=== PATIENT | female | born 1970 | race Caucasian/White ===

== ENCOUNTER 2016-08-16 20:22 | Emergency (ER) | payer BC, OTHER ==
[~2016-08-16 20:22] MED LIST: ADDE30CA PO; AMBI6.25 PO; ATIV0.5T; ATIV1TAB10 PO; BIOT50004 PO; BUPR150T3 PO; COCO1000 PO; COLA100C PO; DEPA1TAB3 PO; ESTRACE PO; FOLI1TAB2 PO; GABA300C3 PO; LISI10TA4 PO; NEUR300C PO; OGEN; OGEN.625 PO; OXYC-299 PO; PERC5TAB6 PO; PERC5TAB8; PREG25CA PO; PROZ20CA11 PO; SERO1TAB PO; Sumatriptan Succinate PO; TERAZOL3 VAGINALLY; TOPA100T8 PO; TOPA25TA10 PO; TOPAMAX PO; TRAZ50TA4 PO; VERA40TA PO; VIST25CA PO; VITA500046 PO; WELL75TA PO; ZANA2CAP PO; ZANA4TAB PO; ZOLO25TA PO; ZOVIRAX PO; [UNRECOGNIZED DRUG - CODE] PO
== END 2016-08-16 22:30 | disposition left against medical advice (07) ==
LOC: M ED 20:22
DX: R51 Headache (principal); Z53.20 Procedure and treatment not carried out because of patient's decision for unspecified reasons

== ENCOUNTER 2016-08-17 09:31 | Emergency (ER) | payer BC, OTHER ==
[2016-08-17] MEDS ORDERED: diphenhydrAMINE INJ 50MG/ML VIAL (J1200) As Ordered ONE (09:54)
[2016-08-17] MEDS ORDERED: ACETAMINOPHEN 325 MG TAB As Ordered ONE (09:55)
[2016-08-17] MEDS ORDERED: KETOROLAC 30 MG/ML VIAL (J1885) As Ordered ONE (09:55)
[2016-08-17] MEDS ORDERED: HYDROmorphone HCL 1 MG/ML SYRINGE (J1170) As Ordered ONE ×2 (10:35→11:01)
--- NOTE | 2016-08-17 13:45 | EDDOCDS ---
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 Pain began last kr3 night. Came to Ed last night but it was too busy here so left prior to treatment. This patient has no additional risk factors. Adult Sepsis Screening: The patient does not have new or worsening altered mentation. Patient's respiratory rate is less than 22. Systolic blood pressure is greater than 100. Patient has a qSOFA score of 0- Negative Sepsis Screen. Suicide/Homicide risk assessment- the patient denies having any suicidal and/or homicidal ideations and does not present with any other emotional, behavioral or mental health complaints. Status: Patient is not a career services assistant or dependent. Transition of care: patient was not received from another setting of care. 09:37 Acuity: WANDA Level 3 kr3 09:37 Method Of Arrival: Walkin/Carried/Asstd kr3 Triage Assessment: 09:40 Headache History: This patient has a history of headaches and the character of this kr3 headache is like all previous headaches. General: Appears comfortable, Behavior is appropriate for age, cooperative. Pain: Location: right side of head Pain currently is 9 out of 10 on a pain scale. Pain: Pain began last night Also complains of numbness left side of face. HIV screening NA for this visit Offered previously. Neurological: Level of Consciousness is awake, alert, Moves all extremities. Gait is steady, Speech is normal, Facial symmetry appears normal. Respiratory: Respiratory effort is even, unlabored. Derm: Skin is normal. 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 Adderall XR 25 mg Oral cp24 1 cap once daily 2. Ativan 0.5 mg Oral tab as needed has taken 3 tabs today 3. nortriptyline 25 mg Oral cap nightly 4. Percocet 5-325 mg Oral tab 2 tabs as needed 5. Prozac 20 mg Oral cap 1 cap once daily 6. Seroquel 100 mg Oral tab nightly 7. Topamax 100 mg Oral tab 2 times per day 8. Zanaflex 4 mg Oral cap daily - PMHx: cervical stenosis; complex migraines; ulnar nerve neroupathy left arm; - PSHx: Cesearean Section; Hysterectomy; Disc surgery; ulnar nerve surgery; - Social history: Smoking status: Patient uses tobacco products, current every day smoker. No barriers to communication noted, The patient speaks fluent Palauan, Speaks appropriately for age. - Family history: Not pertinent. - : The pt / caregiver states he / she is not on anticoagulants. Home medication list is obtained from the patient. - Exposure Risk Screening:: None identified. Screenin:58 Screening information is obtained from the patient. Primary language is Palauan. jam1 Primary language is Palauan. Fall risk: No risks identified. Assistance ADL's: requires no assistance with activities of daily living. Abuse/DV Screen: The patient / caregiver reports he/she is: not in a situation that causes fear, pain or injury. Nutritional screening: No deficits noted. Exposure Risk Screening: None identified. Advance Directives: Currently, there is a health care proxy, raghav koenig of pt. There is no active DNR order. There is no living will. There is no Power of Renovation Plant Supervisor. Advance directive information has been placed on a prior [facility] medical record, but the patient/ family does not know when. Further advance directive information is declined. home support is adequate. Assessment: 10:08 Adult Sepsis Screening: The patient does not have new or worsening altered mentation. dsf Patient's respiratory rate is less than 22. Systolic blood pressure is greater than 100. Patient has a qSOFA score of 0- Negative Sepsis Screen. General: Appears uncomfortable, Behavior is appropriate for age, cooperative. Pain: Location: right side of head Pain currently is 10 out of 10 on a pain scale. Quality of pain is described as throbbing, Aggravated by lights and noise. Neurological: Level of Consciousness is awake, alert, Oriented to person, place, time. Cardiovascular: No deficits noted. Respiratory: No deficits noted. GI: Reports nausea. Derm: Skin is pink, warm & dry. 10:39 Reassessment: Patient appears in no apparent distress at this time. Patient states srm symptoms have not improved. Pain: Pain currently is 9 out of 10 on a pain scale. 10:56 General: Behavior is cooperative. General: Appears in no apparent distress. Pain: Pain dsf currently is 8 out of 10 on a pain scale. Respiratory: Airway is patent Respiratory effort is even, unlabored, Respiratory pattern is regular, symmetrical. Derm: Skin is pink, warm & dry. 11:38 Adult Sepsis Screening: The patient does not have new or worsening altered mentation. dsf Patient's respiratory rate is less than 22. Systolic blood pressure is greater than 100. Patient has a qSOFA score of 0- Negative Sepsis Screen. General: Appears in no apparent distress, Behavior is appropriate for age, cooperative. Pain: Location: right side of head Pain currently is 7 out of 10 on a pain scale. Quality of pain is described as throbbing. Neurological: Level of Consciousness is awake, alert, Oriented to person, place, time, Speech is normal, Facial symmetry appears normal, Reports numbness to left side of face. satya SOLORZANO notified . Cardiovascular: No deficits noted. Respiratory: No deficits noted. Derm: Skin is pink, warm & dry. 12:16 General: Appears in no apparent distress, Behavior is appropriate for age, cooperative. dsf Pain: Location: right side of head Pain currently is 7 out of 10 on a pain scale. Neurological: Level of Consciousness is awake, alert, Oriented to person, place, time, Speech is normal, Facial symmetry appears normal, Reports numbness to left side of face . Cardiovascular: No deficits noted. Respiratory: No deficits noted. Derm: Skin is pink, warm & dry. 13:17 General: Appears in no apparent distress, uncomfortable, Behavior is appropriate for dsf age, cooperative. Pain: Location: right side of head Pain currently is 7 out of 10 on a pain scale. Neurological: Level of Consciousness is awake, alert. Cardiovascular: Capillary refill < 3 seconds. Respiratory: Airway is patent Respiratory effort is even, unlabored, Respiratory pattern is regular, symmetrical. Derm: Skin is pink, warm & dry. 13:43 Adult Sepsis Screening: The patient does not have new or worsening altered mentation. dsf Patient's respiratory rate is less than 22. Systolic blood pressure is greater than 100. Patient has a qSOFA score of 0- Negative Sepsis Screen. General: Appears in no apparent distress, uncomfortable, Behavior is appropriate for age, cooperative. Pain: Location: right side of head Pain currently is 7 out of 10 on a pain scale. Quality of pain is described as throbbing. Neurological: Level of Consciousness is awake, alert, Oriented to person, place, time, Speech is normal, Facial symmetry appears normal, Reports numbness to left side of face. Cardiovascular: No deficits noted. Respiratory: No deficits noted. Derm: Skin is pink, warm & dry. Vital Signs: 09:33 BP 115 / 90 RA Sitting (auto/reg); Pulse 92 RA; Resp 18 S; Temp 97.0(O); Pulse Ox 100% mt4 on R/A; Weight 62.6 kg (R); Height 5 ft. 1 in. (154.94 cm) (R); Pain 9/10; 10:39 BP 132 / 72; Pulse 85; Resp 18; Pulse Ox 100% ; Pain 9/10; srm 10:39 Pain 9/10; srm 10:56 BP 144 / 70; Pulse 82; Resp 18; Pulse Ox 100% on R/A; Pain 8/10; dsf 11:38 BP 135 / 64; Pulse 98; Resp 16; Pulse Ox 100% on R/A; Pain 7/10; dsf 13:30 BP 128 / 65; Pulse 80; Resp 18; Temp 97.9; Pulse Ox 99% ; Pain 7/10; jam1 09:33 Body Mass Index 26.07 (62.60 kg, 154.94 cm) mt4 Vitals: 09:33 Log In Time: August 17, 2016 at 09:31. RN notified that patient meets Red Flag mt4 criteria. ED Course: 09:32 Patient visited by Alayna Cervantes. mt4 09:32 Patient moved to Waiting mt4 09:33 Walter Mix is Private Physician. mt4 09:37 Patient moved to Triage 3 kr3 09:38 Triage Initiated kr3 09:39 [facility] Gonzalez [facility] ar2 09:39 Major Goncalves MD is Attending Physician. ar2 09:39 Patient visited by Satya Gonzalez PA-C. ar2 09:48 Patient moved to I7 / kr3 09:58 Pt greeted and oriented to ED. Patient advised of names of staff involved in care, jam1 location of call engle, wait times and NPO status. Patient has correct armband on for positive identification. Placed in gown. Bed in low position. Call light in reach. Side rails up X 1. Door closed. 10:08 Inserted saline lock: 20 gauge in left antecubital area The patient tolerated the dsf procedure well. 10:09 Patient visited by Idania Sapp RN. dsf 10:39 Patient visited by Sunita Ramon RN. srm 10:57 Patient visited by Idania Sapp RN. dsf 11:01 [facility] Payment Agreement was scanned into [employer] and attached to record. lg 11:03 Patient moved to I1 / M1 jam1 11:06 Patient visited by Sunita Ramon RN. srm 11:39 Patient visited by Idania Sapp RN. dsf 12:[address] dsf 12:12 Patient moved to I1 / M1 srm 12:16 Patient visited by Idania Sapp RN. dsf 12:28 Pt greeted and oriented to ED. Patient advised of names of staff involved in care, jam1 location of call engle, wait times and NPO status. Patient has correct armband on for positive identification. Bed in low position. Call light in reach. Side rails up X 1. Door closed. 12:35 Diet: gingerale. jam1 13:18 Patient visited by Idania Sapp RN. dsf 13:38 Walter Mix is Referral Physician. ar2 13:38 Jose Ma MD is Referral Physician. ar2 13:43 The patient / caregiver is instructed regarding the plan of care and ED course. dsf 13:43 Discontinued lock intact, bleeding controlled, pressure dressing applied, No dsf redness/swelling at site. No procedures done that require assistance. 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): Acetaminophen Tablet 975 mg PO once ar2 10:07 Drug: NS 0.9% 1000 ml [sodium chloride 0.9 % injection solution] Route: IV; Rate: dsf bolus; Site: left antecubital; 10:07 Drug: ketorolac 30 mg [ketorolac 30 mg/mL (1 mL) injection solution (1 mL)] Route: IVP; dsf Site: left antecubital; 10:39 Follow up: BP 132 / 72; Pulse 85 bpm; Resp 18 bpm; Pulse Ox 100% ; Pain 9/10 Adult srm 10:07 Drug: diphenhydrAMINE 12.5 mg [diphenhydramine 50 mg/mL injection solution (0.25 mL)] dsf Route: IVP; Site: left antecubital; 10:39 Follow up: Pain 9/10 Adult srm 10:38 Drug: Dilaudid - HYDROmorphone 0.5 mg [hydromorphone 1 mg/mL injection syringe (0.5 srm mL)] Route: IVP; Site: left antecubital; 10:56 Follow up: BP 144 / 70; Pulse 82 bpm; Resp 18 bpm; Pulse Ox 100% RA; Pain 8/10 Adult dsf 11:04 Drug: Dilaudid - HYDROmorphone 1 mg [hydromorphone 1 mg/mL injection syringe (1 mL)] srm Route: IVP; Site: left antecubital; 11:38 Follow up: BP 135 / 64; Pulse 98 bpm; Resp 16 bpm; Pulse Ox 100% RA; Pain 7/10 Adult dsf Order Results: There are currently no results for this order. Outcome: 13:38 Discharge ordered by Provider. ar2 13:43 Discharge Assessment: Patient awake, alert and oriented x 3. No cognitive and/or dsf functional deficits noted. Patient verbalized understanding of disposition instructions. patient administered narcotics - yes. Pt provided with safe discharge. The following High Risk Discharge criteria are identified: None. Discharged to home ambulatory, with family. Condition: stable. Discharge instructions given to patient, Instructed on discharge instructions, follow up and referral plans. medication usage, no driving heavy equipment, Demonstrated understanding of instructions, medications, Pt was receptive of discharge instructions/ teaching. Prescriptions given X 2. CT Study completed. Property sent home with patient. 13:45 Patient left the ED. dsf Signatures: Sunita Ramon, RN RN srm Shelly Sheikh, MILL TURNER MILL TURNER jam1 Yuko Anderson, Josh Reg lg Ivette Maldonado,EMANI RN kr3 Satya Gonzalez, PA-C PA-C ar2 Alayna Cervantes mt4 Idania Sapp RN RN dsf MTDD
--- NOTE | 2016-08-17 13:45 | EDDOCDS ---
Physician Documentation [facility] Name: Adrienne Koenig Age: 46 yrs Sex: Female : 1970 Arrival Date: 08/17/2016 Time: 09:31 Bed I1 / M1 Private MD: Walter Mix WAT Disposition: 08/17/16 13:38 Discharged to Home/Self Care. Impression: Hemiplegic migraine, not intractable, without status migrainosus - complicated. - Condition is Stable. - Discharge Instructions: Migraine Headache. - Prescriptions for Naprosyn 500 mg Oral Tablet - take 1 tablet by ORAL route 2 times per day take with food; 30 tablet. Snowflake 5- 325 mg Oral Tablet - take 1 tablet by ORAL route every 6 hours As needed MDD: 4 tabs; 6 tablet. - Medication Reconciliation, Local Pharmacy Hours form. - Follow up: Walter Mix; When: As needed; Reason: Continuance of care. Follow up: Jose Ma; When: Call to arrange an appointment; Reason: Recheck today's complaints, Continuance of care. Follow up: Emergency Department; When: As needed; Reason: Worsening of conditions. - Problem is an acute exacerbation. - Symptoms have improved. Historical: - Allergies: Phenergan (crawl out of skin); Reglan (crawl out of skin); - Home Meds: 1. Adderall XR 25 mg Oral cp24 1 cap once daily 2. Ativan 0.5 mg Oral tab as needed has taken 3 tabs today 3. nortriptyline 25 mg Oral cap nightly 4. Percocet 5-325 mg Oral tab 2 tabs as needed 5. Prozac 20 mg Oral cap 1 cap once daily 6. Seroquel 100 mg Oral tab nightly 7. Topamax 100 mg Oral tab 2 times per day 8. Zanaflex 4 mg Oral cap daily - PMHx: cervical stenosis; complex migraines; ulnar nerve neroupathy left arm; - PSHx: Cesearean Section; Hysterectomy; Disc surgery; ulnar nerve surgery; - Social history: Smoking status: Patient uses tobacco products, current every day smoker. No barriers to communication noted, The patient speaks fluent Romanian, Speaks appropriately for age. - Family history: Not pertinent. - : The pt / caregiver states he / she is not on anticoagulants. Home medication list is obtained from the patient. - Exposure Risk Screening:: None identified. 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 1 in. (154.94 cm) (R); Pain 9/10; 10:39 BP 132 / 72; Pulse 85; Resp 18; Pulse Ox 100% ; Pain 9/10; srm 10:39 Pain 9/10; srm 10:56 BP 144 / 70; Pulse 82; Resp 18; Pulse Ox 100% on R/A; Pain 8/10; dsf 11:38 BP 135 / 64; Pulse 98; Resp 16; Pulse Ox 100% on R/A; Pain 7/10; dsf 13:30 BP 128 / 65; Pulse 80; Resp 18; Temp 97.9; Pulse Ox 99% ; Pain 7/10; jam1 09:33 Body Mass Index 26.07 (62.60 kg, 154.94 cm) mt4 MDM: 09:50 IV Saline Lock ordered. ar2 09:50 NS 0.9% 1000 ml IV at bolus once ordered. ar2 09:50 ketorolac 30 mg IVP once ordered. ar2 09:50 Acetaminophen Tablet 975 mg PO once ordered. ar2 09:50 diphenhydrAMINE 12.5 mg IVP once ordered. ar2 10:05 Acetaminophen Tablet 975 mg PO once ordered. ar2 10:32 Dilaudid - HYDROmorphone 0.5 mg IVP once ordered. ar2 10:48 Financial registration complete. lg 10:59 Dilaudid - HYDROmorphone 1 mg IVP once ordered. ar2 11:01 [facility] Payment Agreement was scanned into [employer] and attached to record. lg 11:52 CT Head Without Contrast Ordered. 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): Acetaminophen Tablet 975 mg PO once ar2 10:07 Drug: NS 0.9% 1000 ml [sodium chloride 0.9 % injection solution] Route: IV; Rate: dsf bolus; Site: left antecubital; 10:07 Drug: ketorolac 30 mg [ketorolac 30 mg/mL (1 mL) injection solution (1 mL)] Route: IVP; dsf Site: left antecubital; 10:39 Follow up: BP 132 / 72; Pulse 85 bpm; Resp 18 bpm; Pulse Ox 100% ; Pain 9/10 Adult srm 10:07 Drug: diphenhydrAMINE 12.5 mg [diphenhydramine 50 mg/mL injection solution (0.25 mL)] dsf Route: IVP; Site: left antecubital; 10:39 Follow up: Pain 9/10 Adult srm 10:38 Drug: Dilaudid - HYDROmorphone 0.5 mg [hydromorphone 1 mg/mL injection syringe (0.5 srm mL)] Route: IVP; Site: left antecubital; 10:56 Follow up: BP 144 / 70; Pulse 82 bpm; Resp 18 bpm; Pulse Ox 100% RA; Pain 8/10 Adult dsf 11:04 Drug: Dilaudid - HYDROmorphone 1 mg [hydromorphone 1 mg/mL injection syringe (1 mL)] srm Route: IVP; Site: left antecubital; 11:38 Follow up: BP 135 / 64; Pulse 98 bpm; Resp 16 bpm; Pulse Ox 100% RA; Pain 7/10 Adult dsf Signatures: Dispatcher [employer] EDYuko Leonard Reg Reg lg Ivette Maldonado RN RN kr3 Satya Gonzalez PA-C PA-C ar2 Idania Sapp RN RN dsf Sunita Ramon RN srm The chart was reviewed and I authenticate all verbal orders and agree with the evaluation and treatment provided.Attachments: 11:01 [facility] Payment Agreement lg MTDD
--- NOTE | 2016-08-17 13:52 | REP ---
Brain CT without contrast: History: Right parietal headache. Left facial droop. Comparison head CT study is from October 01, 2015. CT findings: Bone window settings demonstrate an intact bony calvarium. There is minimal vascular calcification in the carotid siphons. Paranasal sinuses are clear. On soft tissue window settings, lateral, third, and fourth ventricles are normal in size and position. Kelsey-white differentiation pattern is normal above and below the tentorium. There is no evidence of intracranial hemorrhage. No mass, infarction, extra-axial fluid collection, or midline shift is seen. Impression: Minimal vascular calcification otherwise negative noncontrast head CT. Signed by Tj Martinez MD 08/17/2016 02:39 P
--- NOTE | 2016-08-19 14:47 | EDDOCDS ---
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 Pain began last kr3 night. Came to Ed last night but it was too busy here so left prior to treatment. This patient has no additional risk factors. Adult Sepsis Screening: The patient does not have new or worsening altered mentation. Patient's respiratory rate is less than 22. Systolic blood pressure is greater than 100. Patient has a qSOFA score of 0- Negative Sepsis Screen. Suicide/Homicide risk assessment- the patient denies having any suicidal and/or homicidal ideations and does not present with any other emotional, behavioral or mental health complaints. Status: Patient is not a service correspondent or dependent. Transition of care: patient was not received from another setting of care. 09:37 Acuity: WANDA Level 3 kr3 09:37 Method Of Arrival: Walkin/Carried/Asstd kr3 Triage Assessment: 09:40 Headache History: This patient has a history of headaches and the character of this kr3 headache is like all previous headaches. General: Appears comfortable, Behavior is appropriate for age, cooperative. Pain: Location: right side of head Pain currently is 9 out of 10 on a pain scale. Pain: Pain began last night Also complains of numbness left side of face. HIV screening NA for this visit Offered previously. Neurological: Level of Consciousness is awake, alert, Moves all extremities. Gait is steady, Speech is normal, Facial symmetry appears normal. Respiratory: Respiratory effort is even, unlabored. Derm: Skin is normal. PROP SAWYER: 09:40 LMP N/A - Hysterectomy kr3 Historical: - Allergies: Phenergan (crawl out of skin); Reglan (crawl out of skin); - Home Meds: 1. Adderall XR 25 mg Oral cp24 1 cap once daily 2. Ativan 0.5 mg Oral tab as needed has taken 3 tabs today 3. nortriptyline 25 mg Oral cap nightly 4. Percocet 5-325 mg Oral tab 2 tabs as needed 5. Prozac 20 mg Oral cap 1 cap once daily 6. Seroquel 100 mg Oral tab nightly 7. Topamax 100 mg Oral tab 2 times per day 8. Zanaflex 4 mg Oral cap daily - PMHx: cervical stenosis; complex migraines; ulnar nerve neroupathy left arm; - PSHx: Cesearean Section; Hysterectomy; Disc surgery; ulnar nerve surgery; - Social history: Smoking status: Patient uses tobacco products, current every day smoker. No barriers to communication noted, The patient speaks fluent Sri Lankan, Speaks appropriately for age. - Family history: Not pertinent. - : The pt / caregiver states he / she is not on anticoagulants. Home medication list is obtained from the patient. - Exposure Risk Screening:: None identified. Screenin:58 Screening information is obtained from the patient. Primary language is Sri Lankan. jam1 Primary language is Sri Lankan. Fall risk: No risks identified. Assistance ADL's: requires no assistance with activities of daily living. Abuse/DV Screen: The patient / caregiver reports he/she is: not in a situation that causes fear, pain or injury. Nutritional screening: No deficits noted. Exposure Risk Screening: None identified. Advance Directives: Currently, there is a health care proxy, raghav koenig of pt. There is no active DNR order. There is no living will. 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 Advance directive information has been placed on a prior [facility] medical record, but the patient/ family does not know when. Further advance directive information is declined. home support is adequate. Assessment: 10:08 Adult Sepsis Screening: The patient does not have new or worsening altered mentation. dsf Patient's respiratory rate is less than 22. Systolic blood pressure is greater than 100. Patient has a qSOFA score of 0- Negative Sepsis Screen. General: Appears uncomfortable, Behavior is appropriate for age, cooperative. Pain: Location: right side of head Pain currently is 10 out of 10 on a pain scale. Quality of pain is described as throbbing, Aggravated by lights and noise. Neurological: Level of Consciousness is awake, alert, Oriented to person, place, time. Cardiovascular: No deficits noted. Respiratory: No deficits noted. GI: Reports nausea. Derm: Skin is pink, warm & dry. 10:39 Reassessment: Patient appears in no apparent distress at this time. Patient states srm symptoms have not improved. Pain: Pain currently is 9 out of 10 on a pain scale. 10:56 General: Behavior is cooperative. General: Appears in no apparent distress. Pain: Pain dsf currently is 8 out of 10 on a pain scale. Respiratory: Airway is patent Respiratory effort is even, unlabored, Respiratory pattern is regular, symmetrical. Derm: Skin is pink, warm & dry. 11:38 Adult Sepsis Screening: The patient does not have new or worsening altered mentation. dsf Patient's respiratory rate is less than 22. Systolic blood pressure is greater than 100. Patient has a qSOFA score of 0- Negative Sepsis Screen. General: Appears in no apparent distress, Behavior is appropriate for age, cooperative. Pain: Location: right side of head Pain currently is 7 out of 10 on a pain scale. Quality of pain is described as throbbing. Neurological: Level of Consciousness is awake, alert, Oriented to person, place, time, Speech is normal, Facial symmetry appears normal, Reports numbness to left side of face. satya SOLORZANO notified . Cardiovascular: No deficits noted. Respiratory: No deficits noted. Derm: Skin is pink, warm & dry. 12:16 General: Appears in no apparent distress, Behavior is appropriate for age, cooperative. dsf Pain: Location: right side of head Pain currently is 7 out of 10 on a pain scale. Neurological: Level of Consciousness is awake, alert, Oriented to person, place, time, Speech is normal, Facial symmetry appears normal, Reports numbness to left side of face . Cardiovascular: No deficits noted. Respiratory: No deficits noted. Derm: Skin is pink, warm & dry. 13:17 General: Appears in no apparent distress, uncomfortable, Behavior is appropriate for dsf age, cooperative. Pain: Location: right side of head Pain currently is 7 out of 10 on a pain scale. Neurological: Level of Consciousness is awake, alert. Cardiovascular: Capillary refill < 3 seconds. Respiratory: Airway is patent Respiratory effort is even, unlabored, Respiratory pattern is regular, symmetrical. Derm: Skin is pink, warm & dry. 13:43 Adult Sepsis Screening: The patient does not have new or worsening altered mentation. dsf Patient's respiratory rate is less than 22. Systolic blood pressure is greater than 100. Patient has a qSOFA score of 0- Negative Sepsis Screen. General: Appears in no apparent distress, uncomfortable, Behavior is appropriate for age, cooperative. Pain: Location: right side of head Pain currently is 7 out of 10 on a pain scale. Quality of pain is described as throbbing. Neurological: Level of Consciousness is awake, alert, Oriented to person, place, time, Speech is normal, Facial symmetry appears normal, Reports numbness to left side of face. Cardiovascular: No deficits noted. Respiratory: No deficits noted. Derm: Skin is pink, warm & dry. Vital Signs: 09:33 BP 115 / 90 RA Sitting (auto/reg); Pulse 92 RA; Resp 18 S; Temp 97.0(O); Pulse Ox 100% mt4 on R/A; Weight 62.6 kg (R); Height 5 ft. 1 in. (154.94 cm) (R); Pain 9/10; 10:39 BP 132 / 72; Pulse 85; Resp 18; Pulse Ox 100% ; Pain 9/10; srm 10:39 Pain 9/10; srm 10:56 BP 144 / 70; Pulse 82; Resp 18; Pulse Ox 100% on R/A; Pain 8/10; dsf 11:38 BP 135 / 64; Pulse 98; Resp 16; Pulse Ox 100% on R/A; Pain 7/10; dsf 13:30 BP 128 / 65; Pulse 80; Resp 18; Temp 97.9; Pulse Ox 99% ; Pain 7/10; jam1 09:33 Body Mass Index 26.07 (62.60 kg, 154.94 cm) mt4 Vitals: 09:33 Log In Time: August 17, 2016 at 09:31. RN notified that patient meets Red Flag mt4 criteria. ED Course: 09:32 Patient visited by Alayna Cervantes. mt4 09:32 Patient moved to Waiting mt4 09:33 Walter Mix is Private Physician. mt4 09:37 Patient moved to Triage 3 kr3 09:38 Triage Initiated kr3 09:39 [facility] ar2 09:39 Major Goncalves MD is Attending Physician. ar2 09:39 Patient visited by Satya Gonzalez PA-C. ar2 09:48 Patient moved to I7 / kr3 09:58 Pt greeted and oriented to ED. Patient advised of names of staff involved in care, jam1 location of call engle, wait times and NPO status. Patient has correct armband on for positive identification. Placed in gown. Bed in low position. Call light in reach. Side rails up X 1. Door closed. 10:08 Inserted saline lock: 20 gauge in left antecubital area The patient tolerated the dsf procedure well. 10:09 Patient visited by Idania Sapp RN. dsf 10:39 Patient visited by Sunita Ramon RN. srm 10:57 Patient visited by Idania Sapp RN. dsf 11:01 [facility] Payment Agreement was scanned into [employer]) and attached to record. lg 11:03 Patient moved to I1 / M1 jam1 11:06 Patient visited by Sunita Ramon RN. srm 11:39 Patient visited by Idania Sapp RN. dsf 12:[address] dsf 12:12 Patient moved to I1 / M1 srm 12:16 Patient visited by Idania Sapp RN. dsf 12:28 Pt greeted and oriented to ED. Patient advised of names of staff involved in care, jam1 location of call engle, wait times and NPO status. Patient has correct armband on for positive identification. Bed in low position. Call light in reach. Side rails up X 1. Door closed. 12:35 Diet: gingerale. jam1 13:18 Patient visited by Idania Sapp RN. dsf 13:38 Walter Mix is Referral Physician. ar2 13:38 Jose Ma MD is Referral Physician. ar2 13:43 The patient / caregiver is instructed regarding the plan of care and ED course. dsf 13:43 Discontinued lock intact, bleeding controlled, pressure dressing applied, No dsf redness/swelling at site. No procedures done that require assistance. 14:25 T-Sheet-- Draft Copy was scanned into [employer] ([employer]) and attached to record. gb 14:26 Radiology Report was scanned into [employer] ([employer]) and attached to record. gb 14:34 CT Head Without Contrast Returned. 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): Acetaminophen Tablet 975 mg PO once ar2 10:07 Drug: NS 0.9% 1000 ml [sodium chloride 0.9 % injection solution] Route: IV; Rate: dsf bolus; Site: left antecubital; 13:45 Follow up: IV Status: Completed infusion; IV Intake: 1000ml dsf 10:07 Drug: ketorolac 30 mg [ketorolac 30 mg/mL (1 mL) injection solution (1 mL)] Route: IVP; dsf Site: left antecubital; 10:39 Follow up: BP 132 / 72; Pulse 85 bpm; Resp 18 bpm; Pulse Ox 100% ; Pain 9/10 Adult srm 10:07 Drug: diphenhydrAMINE 12.5 mg [diphenhydramine 50 mg/mL injection solution (0.25 mL)] dsf Route: IVP; Site: left antecubital; 10:39 Follow up: Pain 9/10 Adult srm 10:38 Drug: Dilaudid - HYDROmorphone 0.5 mg [hydromorphone 1 mg/mL injection syringe (0.5 srm mL)] Route: IVP; Site: left antecubital; 10:56 Follow up: BP 144 / 70; Pulse 82 bpm; Resp 18 bpm; Pulse Ox 100% RA; Pain 8/10 Adult dsf 11:04 Drug: Dilaudid - HYDROmorphone 1 mg [hydromorphone 1 mg/mL injection syringe (1 mL)] srm Route: IVP; Site: left antecubital; 11:38 Follow up: BP 135 / 64; Pulse 98 bpm; Resp 16 bpm; Pulse Ox 100% RA; Pain 7/10 Adult dsf Intake: 13:45 IV: 1000.00ml; Total: 1000.00ml. dsf Order Results: Radiology Order: CT Head Without Contrast Test: CT Head Without Contrast REASON FOR EXAMINATION: right parietal headache, left facial droop; Brain CT without contrast:; ; History: Right parietal headache. Left facial droop.; ; Comparison head CT study is from October 01, 2015.; ; CT findings: Bone window settings demonstrate an intact bony calvarium. There; is minimal vascular calcification in the carotid siphons. Paranasal sinuses are; clear.; ; On soft tissue window settings, lateral, third, and fourth ventricles are normal; in size and position. Kelsey-white differentiation pattern is normal above and; below the tentorium. There is no evidence of intracranial hemorrhage. No mass,; infarction, extra-axial fluid collection, or midline shift is seen.; ; Impression:; ; Minimal vascular calcification otherwise negative noncontrast head CT.; ; ; Signed by; Tj Martinez MD 08/17/2016 02:39 P; Outcome: 13:38 Discharge ordered by Provider. ar2 13:43 Discharge Assessment: Patient awake, alert and oriented x 3. No cognitive and/or dsf functional deficits noted. Patient verbalized understanding of disposition instructions. patient administered narcotics - yes. Pt provided with safe discharge. The following High Risk Discharge criteria are identified: None. Discharged to home ambulatory, with family. Condition: stable. Discharge instructions given to patient, Instructed on discharge instructions, follow up and referral plans. medication usage, no driving heavy equipment, Demonstrated understanding of instructions, medications, Pt was receptive of discharge instructions/ teaching. Prescriptions given X 2. CT Study completed. Property sent home with patient. 13:45 Patient left the ED. dsf Signatures: Dispatcher [employer] EDMS Sunita Ramon, RN RN srm Shelly Sheikh, TRANSPORTATION ATTENDANT TRANSPORTATION ATTENDANT jam1 Susan Bell, Reg Reg gb Ykuo Anderson, Reg Reg lg Ivette Maldonado,RN RN kr3 Satya Gonzalez, PAKeyonna PAKeyonna ar2 Alayna Cervantes mt4 Idania Sapp,RN RN dsf Chart Complete MTDD
--- NOTE | 2016-08-19 14:47 | EDDOCDS ---
Physician Documentation [facility] Name: Adrienne Koenig Age: 46 yrs Sex: Female : 1970 Arrival Date: 08/17/2016 Time: 09:31 Bed I1 / M1 Private MD: Walter Mix WAT Disposition: 08/17/16 13:38 Discharged to Home/Self Care. Impression: Hemiplegic migraine, not intractable, without status migrainosus - complicated. - Condition is Stable. - Discharge Instructions: Migraine Headache. - Prescriptions for Naprosyn 500 mg Oral Tablet - take 1 tablet by ORAL route 2 times per day take with food; 30 tablet. [place] 5- 325 mg Oral Tablet - take 1 tablet by ORAL route every 6 hours As needed MDD: 4 tabs; 6 tablet. - Medication Reconciliation, Local Pharmacy Hours form. - Follow up: Walter Mix; When: As needed; Reason: Continuance of care. Follow up: Jose Ma; When: Call to arrange an appointment; Reason: Recheck today's complaints, Continuance of care. Follow up: Emergency Department; When: As needed; Reason: Worsening of conditions. - Problem is an acute exacerbation. - Symptoms have improved. Historical: - Allergies: Phenergan (crawl out of skin); Reglan (crawl out of skin); - Home Meds: 1. Adderall XR 25 mg Oral cp24 1 cap once daily 2. Ativan 0.5 mg Oral tab as needed has taken 3 tabs today 3. nortriptyline 25 mg Oral cap nightly 4. Percocet 5-325 mg Oral tab 2 tabs as needed 5. Prozac 20 mg Oral cap 1 cap once daily 6. Seroquel 100 mg Oral tab nightly 7. Topamax 100 mg Oral tab 2 times per day 8. Zanaflex 4 mg Oral cap daily - PMHx: cervical stenosis; complex migraines; ulnar nerve neroupathy left arm; - PSHx: Cesearean Section; Hysterectomy; Disc surgery; ulnar nerve surgery; - Social history: Smoking status: Patient uses tobacco products, current every day smoker. No barriers to communication noted, The patient speaks fluent Kinyarwanda, Speaks appropriately for age. - Family history: Not pertinent. - : The pt / caregiver states he / she is not on anticoagulants. Home medication list is obtained from the patient. - Exposure Risk Screening:: None identified. 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 1 in. (154.94 cm) (R); Pain 9/10; 10:39 BP 132 / 72; Pulse 85; Resp 18; Pulse Ox 100% ; Pain 9/10; srm 10:39 Pain 9/10; srm 10:56 BP 144 / 70; Pulse 82; Resp 18; Pulse Ox 100% on R/A; Pain 8/10; dsf 11:38 BP 135 / 64; Pulse 98; Resp 16; Pulse Ox 100% on R/A; Pain 7/10; dsf 13:30 BP 128 / 65; Pulse 80; Resp 18; Temp 97.9; Pulse Ox 99% ; Pain 7/10; jam1 09:33 Body Mass Index 26.07 (62.60 kg, 154.94 cm) mt4 MDM: 09:50 IV Saline Lock ordered. ar2 09:50 NS 0.9% 1000 ml IV at bolus once ordered. ar2 09:50 ketorolac 30 mg IVP once ordered. ar2 09:50 Acetaminophen Tablet 975 mg PO once ordered. ar2 09:50 diphenhydrAMINE 12.5 mg IVP once ordered. ar2 10:05 Acetaminophen Tablet 975 mg PO once ordered. ar2 10:32 Dilaudid - HYDROmorphone 0.5 mg IVP once ordered. ar2 10:48 Financial registration complete. lg 10:59 Dilaudid - HYDROmorphone 1 mg IVP once ordered. ar2 11:01 [facility] [place] Agreement was scanned into [employer] and attached to record. lg 11:52 CT Head Without Contrast Ordered. EDMS 14:25 T-Sheet-- Draft Copy was scanned into [employer] and attached to record. gb 14:26 Radiology Report was scanned into [employer] and attached to record. gb Administered Medications: 10:05 Not Given (patient already took tylenol KNITTING SUPERVISOR): Acetaminophen Tablet 975 mg PO once ar2 10:07 Drug: NS 0.9% 1000 ml [sodium chloride 0.9 % injection solution] Route: IV; Rate: dsf bolus; Site: left antecubital; 13:45 Follow up: IV Status: Completed infusion; IV Intake: 1000ml dsf 10:07 Drug: ketorolac 30 mg [ketorolac 30 mg/mL (1 mL) injection solution (1 mL)] Route: IVP; dsf Site: left antecubital; 10:39 Follow up: BP 132 / 72; Pulse 85 bpm; Resp 18 bpm; Pulse Ox 100% ; Pain 9/ Adult srm 10:07 Drug: diphenhydrAMINE 12.5 mg [diphenhydramine 50 mg/mL injection solution (0.25 mL)] dsf Route: IVP; Site: left antecubital; 10:39 Follow up: Pain 9 Adult srm 10:38 Drug: Dilaudid - HYDROmorphone 0.5 mg [hydromorphone 1 mg/mL injection syringe (0.5 srm mL)] Route: IVP; Site: left antecubital; 10:56 Follow up: BP 144 / 70; Pulse 82 bpm; Resp 18 bpm; Pulse Ox 100% RA; Pain 8/10 Adult dsf 11:04 Drug: Dilaudid - HYDROmorphone 1 mg [hydromorphone 1 mg/mL injection syringe (1 mL)] srm Route: IVP; Site: left antecubital; 11:38 Follow up: BP 135 / 64; Pulse 98 bpm; Resp 16 bpm; Pulse Ox 100% RA; Pain 7/10 Adult dsf Signatures: Dispatcher [employer] EDSusan Bardales, Reg Reg gb Yuko Anderson, Reg Reg lg Ivette Maldonado RN RN kr3 Satya Gonzalez PA-C PA-C ar2 Idania Sapp RN RN dsf Sunita Ramon RN srm The chart was reviewed and I authenticate all verbal orders and agree with the evaluation and treatment provided.Attachments: 11:01 [facility] Payment Agreement lg 14:25 T-Sheet-- Draft Copy Chart Complete MTDD
--- NOTE | 2016-08-19 14:47 | EDDOCDS ---
Physician Documentation [facility] Name: Adrienne Koenig Age: 46 yrs Sex: Female : 1970 Arrival Date: 08/17/2016 Time: 09:31 Bed I1 / M1 Private MD: Walter Mix WAT Disposition: 08/17/16 13:38 Discharged to Home/Self Care. Impression: Hemiplegic migraine, not intractable, without status migrainosus - complicated. - Condition is Stable. - Discharge Instructions: Migraine Headache. - Prescriptions for Naprosyn 500 mg Oral Tablet - take 1 tablet by ORAL route 2 times per day take with food; 30 tablet. [place] 5- 325 mg Oral Tablet - take 1 tablet by ORAL route every 6 hours As needed MDD: 4 tabs; 6 tablet. - Medication Reconciliation, Local Pharmacy Hours form. - Follow up: Walter Mix; When: As needed; Reason: Continuance of care. Follow up: Jose Ma; When: Call to arrange an appointment; Reason: Recheck today's complaints, Continuance of care. Follow up: Emergency Department; When: As needed; Reason: Worsening of conditions. - Problem is an acute exacerbation. - Symptoms have improved. Historical: - Allergies: Phenergan (crawl out of skin); Reglan (crawl out of skin); - Home Meds: 1. Adderall XR 25 mg Oral cp24 1 cap once daily 2. Ativan 0.5 mg Oral tab as needed has taken 3 tabs today 3. nortriptyline 25 mg Oral cap nightly 4. Percocet 5-325 mg Oral tab 2 tabs as needed 5. Prozac 20 mg Oral cap 1 cap once daily 6. Seroquel 100 mg Oral tab nightly 7. Topamax 100 mg Oral tab 2 times per day 8. Zanaflex 4 mg Oral cap daily - PMHx: cervical stenosis; complex migraines; ulnar nerve neroupathy left arm; - PSHx: Cesearean Section; Hysterectomy; Disc surgery; ulnar nerve surgery; - Social history: Smoking status: Patient uses tobacco products, current every day smoker. No barriers to communication noted, The patient speaks fluent Italian, Speaks appropriately for age. - Family history: Not pertinent. - : The pt / caregiver states he / she is not on anticoagulants. Home medication list is obtained from the patient. - Exposure Risk Screening:: None identified. 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 1 in. (154.94 cm) (R); Pain 9/10; 10:39 BP 132 / 72; Pulse 85; Resp 18; Pulse Ox 100% ; Pain 9/10; srm 10:39 Pain 9/10; srm 10:56 BP 144 / 70; Pulse 82; Resp 18; Pulse Ox 100% on R/A; Pain 8/10; dsf 11:38 BP 135 / 64; Pulse 98; Resp 16; Pulse Ox 100% on R/A; Pain 7/10; dsf 13:30 BP 128 / 65; Pulse 80; Resp 18; Temp 97.9; Pulse Ox 99% ; Pain 7/10; jam1 09:33 Body Mass Index 26.07 (62.60 kg, 154.94 cm) mt4 MDM: 09:50 IV Saline Lock ordered. ar2 09:50 NS 0.9% 1000 ml IV at bolus once ordered. ar2 09:50 ketorolac 30 mg IVP once ordered. ar2 09:50 Acetaminophen Tablet 975 mg PO once ordered. ar2 09:50 diphenhydrAMINE 12.5 mg IVP once ordered. ar2 10:05 Acetaminophen Tablet 975 mg PO once ordered. ar2 10:32 Dilaudid - HYDROmorphone 0.5 mg IVP once ordered. ar2 10:48 Financial registration complete. lg 10:59 Dilaudid - HYDROmorphone 1 mg IVP once ordered. ar2 11:01 [facility] [place] Payment Agreement was scanned into [employer] and attached to record. lg 11:52 CT Head Without Contrast Ordered. EDMS 14:25 T-Sheet-- Draft Copy was scanned into [employer] and attached to record. gb 14:26 Radiology Report was scanned into [employer] and attached to record. 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): Acetaminophen Tablet 975 mg PO once ar2 10:07 Drug: NS 0.9% 1000 ml [sodium chloride 0.9 % injection solution] Route: IV; Rate: dsf bolus; Site: left antecubital; 13:45 Follow up: IV Status: Completed infusion; IV Intake: 1000ml dsf 10:07 Drug: ketorolac 30 mg [ketorolac 30 mg/mL (1 mL) injection solution (1 mL)] Route: IVP; dsf Site: left antecubital; 10:39 Follow up: BP 132 / 72; Pulse 85 bpm; Resp 18 bpm; Pulse Ox 100% ; Pain 9/ Adult srm 10:07 Drug: diphenhydrAMINE 12.5 mg [diphenhydramine 50 mg/mL injection solution (0.25 mL)] dsf Route: IVP; Site: left antecubital; 10:39 Follow up: Pain 9 Adult srm 10:38 Drug: Dilaudid - HYDROmorphone 0.5 mg [hydromorphone 1 mg/mL injection syringe (0.5 srm mL)] Route: IVP; Site: left antecubital; 10:56 Follow up: BP 144 / 70; Pulse 82 bpm; Resp 18 bpm; Pulse Ox 100% RA; Pain 8/10 Adult dsf 11:04 Drug: Dilaudid - HYDROmorphone 1 mg [hydromorphone 1 mg/mL injection syringe (1 mL)] srm Route: IVP; Site: left antecubital; 11:38 Follow up: BP 135 / 64; Pulse 98 bpm; Resp 16 bpm; Pulse Ox 100% RA; Pain 7/10 Adult dsf Signatures: Dispatcher [employer] EDSusan Bardales, Reg Reg gb Yuko Anderson, Reg Reg lg Ivette Maldonado RN RN kr3 Satya Gonzalez PA-C PA-C ar2 Idania Sapp RN RN dsf Sunita Ramon RN srm The chart was reviewed and I authenticate all verbal orders and agree with the evaluation and treatment provided.Attachments: 11:01 [facility] Payment Agreement lg 14:25 T-Sheet-- Draft Copy Chart Complete MTDD
== END 2016-08-17 13:45 | disposition home or self-care (01) ==
LOC: M ED 09:31
DX: G43.109 Migraine with aura, not intractable, without status migrainosus (principal); M48.02 Spinal stenosis, cervical region; G56.22 Lesion of ulnar nerve, left upper limb; Z79.899 Other long term (current) drug therapy; Z88.8 Allergy status to other drugs, medicaments and biological substances; F17.210 Nicotine dependence, cigarettes, uncomplicated
CPT/HCPCS: 70450; 96361; 96374; 96375; 99284; J1170; J1200; J1885

== ENCOUNTER → 2016-09-17 | Outpatient (CLI) | payer BC ==
[2016-09-17 13:32] LABS: BASO % 0.4 % (0.0-1.0); EOS # 0.2 K/mm3 (0.0-0.50); EOS % 4.2 % (0.0-3.0); LARGE UNSTAINED CELL # 0.1 K/mm3 (0.0-0.4); LARGE UNSTAINED CELL % 1.6 % (0.0-4.0); LYMPH # 1.8 K/mm3 (1.5-4.5); LYMPH % 32.6 % (24.0-44.0); MEAN CORPUSCULAR HEMOGLOBIN 28.9 pg (27.0-33.0); MEAN CORPUSCULAR HGB CONC 32.6 g/dl (32.0-36.5); MEAN CORPUSCULAR VOLUME 88.7 fl (80.0-96.0); MONO # 0.2 K/mm3 (0.0-0.8); MONO % 3.7 % (0.0-5.0); NEUTROPHILS # 3.2 K/mm3 (1.8-7.7); NEUTROPHILS % 57.6 % (36.0-66.0); PLATELET COUNT, AUTOMATED 273 k/mm3 (150-450); RED CELL DISTRIBUTION WIDTH 12.6 % (11.5-14.5); WHITE BLOOD COUNT 5.6 K/mm3 (4.0-10.0)
[2016-09-17 13:44] LABS: ALBUMIN 3.9 GM/DL (3.2-5.2); ALKALINE PHOSPHATASE 62 U/L (45-117); ALT/SGPT 14 U/L (12-78); ANION GAP 7 MEQ/L (8-16); AST/SGOT 11 U/L (15-37); BILIRUBIN,TOTAL 0.3 MG/DL (0.2-1.0); BLOOD UREA NITROGEN 15 MG/DL (7-18); CALCIUM LEVEL 8.9 MG/DL (8.5-10.1); CARBON DIOXIDE LEVEL 25 MEQ/L (21-32); CHLORIDE LEVEL 113 MEQ/L (98-107); CREATININE FOR GFR 0.63 MG/DL (0.55-1.02); GLOMERULAR FILTRATION RATE > 60.0 (>58); GLUCOSE, FASTING 86 MG/DL (70-105); POTASSIUM SERUM 3.7 MEQ/L (3.5-5.1); SODIUM LEVEL 145 MEQ/L (136-145); TOTAL PROTEIN 6.5 GM/DL (6.4-8.2)
== END ==
LOC: M WUC 12:01
PROVIDERS: ATTEND Psychiatry & Neurology Neurology
DX: R51 Headache (principal)

== ENCOUNTER → 2016-09-17 | Outpatient (CLI) | payer BC ==
[2016-09-17 13:48] LABS: INR 1.01
== END ==
LOC: M WUC 12:08
PROVIDERS: ATTEND Physical Medicine & Rehabilitation
DX: G56.01 Carpal tunnel syndrome, right upper limb (principal)

== ENCOUNTER → 2016-09-27 | Outpatient (CLI) | payer BC ==
--- NOTE | 2016-09-27 16:35 | REPMRS ---
Patient History The patient states she had a clinical breast exam in 09/2016. Patient is postmenopausal. No known family history of cancer. Digital Woman Screen Mammo: September 27, 2016 - Exam #: [id number] Bilateral CC and MLO view(s) were taken. Technologist: Anne Marie Leone Technologist Prior study comparison: April 02, 2013, digital bilateral screening mammo, performed at [facility]. February 22, 2011, digital bilateral screening mammo, performed at [facility]. FINDINGS: The breast tissue is almost entirely fat. There has been no change in the appearance of the mammogram from the prior studies. There is no interval development of dominant mass, architectural distortion, or clustered microcalcification typical of malignancy. ASSESSMENT: BI-RADS/ACR category 1 mammogram. Negative. Recommendation Routine screening mammogram of both breasts in 1 year (for women over age 40). This mammogram was interpreted with the aid of an FDA-approved computer-aided dectection system. Electronically Signed By: Siddhartha Martinez MD 09/27/16 3608
== END ==
LOC: M WHC 14:31
PROVIDERS: ATTEND Nurse Practitioner Family
DX: Z12.31 Encounter for screening mammogram for malignant neoplasm of breast (principal); Z78.0 Asymptomatic menopausal state

== ENCOUNTER 2016-11-09 23:24 | Inpatient (IN) | payer BC ==
[~2016-11-09] VITALS: Ht 154.9 cm; Wt 61.6 kg
[~2016-11-09 23:24] MED LIST changes: -COLA100C PO; +COLA100C3 PO; +GABA-282 PO; -GABA300C3 PO
[2016-11-10] MEDS ORDERED: ZANA4CAP PO (01:06)
[2016-11-10] MEDS ORDERED: PROZ20CA11 PO (01:06)
[2016-11-10] MEDS ORDERED: LIPI10TA PO (01:06)
[2016-11-10] MEDS ORDERED: ADDE30CA PO (01:06)
[2016-11-10] MEDS ORDERED: COLA100C3 PO ×2 (01:06→07:59)
[2016-11-10 01:26] LABS: MEAN CORPUSCULAR HEMOGLOBIN 29.9 pg (27.0-33.0); MEAN CORPUSCULAR HGB CONC 33.9 g/dl (32.0-36.5); MEAN CORPUSCULAR VOLUME 88.2 fl (80.0-96.0); RED CELL DISTRIBUTION WIDTH 12.7 % (11.5-14.5); WHITE BLOOD COUNT 5.4 K/mm3 (4.0-10.0)
[2016-11-10 01:45] LABS: CONTROL LINE HCG INT CTR LINE PRESENT
[2016-11-10 01:48] LABS: METHADONE URINE NEGATIVE (NEGATIVE)
[2016-11-10 02:00] LABS: ALBUMIN 3.6 GM/DL (3.2-5.2); ALBUMIN/GLOBULIN RATIO 1.38 (1.00-1.93); ALKALINE PHOSPHATASE 54 U/L (45-117); ALT/SGPT 13 U/L (12-78); ANION GAP 7 MEQ/L (8-16); AST/SGOT 9 U/L (15-37); BILIRUBIN,DIRECT < 0.1 MG/DL (0.0-0.2); BILIRUBIN,TOTAL 0.2 MG/DL (0.2-1.0); BLOOD UREA NITROGEN 18 MG/DL (7-18); CARBON DIOXIDE LEVEL 25 MEQ/L (21-32); CHLORIDE LEVEL 108 MEQ/L (98-107); CREATININE FOR GFR 1.05 MG/DL (0.55-1.02); GLOMERULAR FILTRATION RATE 59.8 (>58); GLUCOSE, FASTING 113 MG/DL (70-105); POTASSIUM SERUM 3.8 MEQ/L (3.5-5.1); SODIUM LEVEL 140 MEQ/L (136-145); TOTAL PROTEIN 6.2 GM/DL (6.4-8.2)
[2016-11-10] MEDS ORDERED: LORA-376 PO (07:59)
[2016-11-10] MEDS ORDERED: FLUO20CA9 PO (07:59)
[2016-11-10] MEDS ORDERED: ATOR1TAB19 PO (07:59)
[2016-11-10] MEDS ORDERED: ESTR0.5T3 PO (07:59)
[2016-11-10] MEDS ORDERED: TOPI1TAB31 PO (07:59)
[2016-11-10] MEDS ORDERED: OXYC1TAB23 PO (07:59)
[2016-11-10] MEDS ORDERED: TRAZ50TA4 PO (07:59)
[2016-11-10] MEDS ORDERED: ADDE25CA PO (07:59)
[2016-11-10] MEDS ORDERED: TIZA4CAP3 PO (07:59)
[2016-11-10 08:15] VITALS: BP 106/59
--- NOTE | 2016-11-10 09:27 | ECGEPIP ---
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
[2016-11-10] MEDS ORDERED: ACETAMINOPHEN TAB 650MG DOSE (2X325MG) PO PRN (09:45)
[2016-11-10] MEDS ORDERED: MAALOX 30 ML SUSP *UDC PO PRN (09:45)
[2016-11-10] MEDS ORDERED: MOM 30ML SUSPENSION UDC PO PRN (09:45)
[2016-11-10] MEDS ORDERED: tiZANidine 4 MG TAB PO PRN (11:15)
[2016-11-10] MEDS ORDERED: LORazepam 0.5 MG TAB PO PRN (11:15)
[2016-11-10] MEDS ORDERED: DOCUSATE SODIUM 100 MG CAP PO PRN (11:15)
[2016-11-10] MEDS ORDERED: PERCOCET 5MG/325MG TAB PO PRN (11:15)
[2016-11-10] MEDS: TOPIRAMATE (TopAMAX) 100 MG TAB PO SCH ×2 (12:35→21:26)
[2016-11-10] MEDS: ATORVASTATIN 10 MG TAB PO SCH (12:35)
[2016-11-10] MEDS: FLUoxetine 20 MG CAP PO SCH (12:35)
[2016-11-10 18:00] VITALS: BP 117/56
[2016-11-10] MEDS: traZODone 50 MG TAB PO SCH (21:26)
[2016-11-11 06:37] VITALS: BP 107/59
[2016-11-11] MEDS: TOPIRAMATE (TopAMAX) 100 MG TAB PO SCH ×2 (08:56→20:25)
[2016-11-11] MEDS: FLUoxetine 20 MG CAP PO SCH (08:56)
[2016-11-11] MEDS: ATORVASTATIN 10 MG TAB PO SCH (08:57)
[2016-11-11] MEDS: ESTRADIOL 1 MG TAB PO SCH (08:57)
--- NOTE | 2016-11-11 10:01 | MHHPE ---
DATE OF ADMISSION: 11/10/2016 This 46-year-old female has had a previous admission here for a brief period of time under Dr. Hou in 2014. Please refer to her note at that time. This 46-year-old female stated she was down at the "[place]." She went down there to "think and cry" following an argument with her . She took a muscle relaxer and Ativan and her Colace. She states her daughter checked on her and then she drove down to the water and fell asleep. The [employer] ([employer]) officer arrived and seeing her asleep, called the patient care. She was sent here after the patient care read her note that she calls journaling. That note is included in the chart and the patient contradicts the note clearly is a note saying goodbye to her family. The note is apologetic and given advice. Quotations for instance, "I am finally at peace and won't hurt anymore," you were the best mother I could have ever asked for, take care of yourself," etc. In addition, it should be noted that the patient had been at a democrat with her . They had argued. She returned home and "made the assumption" that the was communicating with another woman on Facebook. 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 PSYCHIATRIC HISTORY: The patient stated she saw counselors a long time ago and then also went to a transitional living services ([facility]) counselor for one intake but did not mention her 2015 admission here. The patient takes fluoxetine 20 mg given to her by her general practitioner and states she has had depression her whole life. She states she was also on Prozac two years ago. PAST SURGICAL HISTORY: She has had two cervical surgeries and there sections. This is her third marriage. She was previously for nine years, then for seven years, and then in December 2016, she will be nine years to her present . She has three children ages 22, 24, and 27. When asked what she was thinking about when she went in her car, she states she thought about her marriage, her [place] fights, and what she would do if he left. She states she "never felt like killing herself." The patient would rather be than not. She states her mood is "okay." She states she has no difficulty with self-esteem. She denies hallucinations, delusions, obsessions, compulsions, and phobias and is presently denying suicidal ideation. IMPRESSION: 1. Adjustment disorder with depressed mood. 2. Marital stressors. PLAN: Further observation and outpatient treatment needs to be planned. MEDICATIONS ORDERED: - Topamax 100 twice a day - Zanaflex 4 mg four times a day as needed for spasms - oxycodone one tablet daily as needed for pain - lorazepam 0.5 mg twice day as needed for anxiety - fluoxetine 20 mg daily - Colace 100 mg daily - Lipitor 10 mg daily
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
[2016-11-11 18:00] VITALS: BP 130/79
[2016-11-11] MEDS: traZODone 50 MG TAB PO SCH (20:25)
--- NOTE | 2016-11-11 23:18 | HPE ---
DATE OF ADMISSION: 11/10/2016 PRIMARY CARE PROVIDER: Walter Mix NEUROLOGIST: Dr. Ma HISTORY OF PRESENT ILLNESS: Please refer to the psychiatric history and evaluation for further details on this admission. This examination and history is intended for medical issues which may need treatment, followup or consultation on this 46-year-old female. ALLERGIES: PHENERGAN and REGLAN. PAST MEDICAL HISTORY: Complex migraines. Cervical stenosis. Ulnar nerve neuropathy left arm. Anxiety. Hypertension. Depression. Hypercholesterolemia. PAST SURGICAL HISTORY: Cervical discectomy with decompression and fusion of C6-C7 and revision of the fusion. Ulnar nerve release. Tubal ligation. Hysterectomy. section times three. LABORATORY DATA: WBC 5.4, hemoglobin 12.2, hematocrit 35.9, platelets 226, BUN 18, creatinine 1.05. Urine was positive for opiates and positive for amphetamines. SOCIAL HISTORY: She is . She smokes one-half pack of cigarettes per day. Occasionally drinks alcohol once or twice a month. RECREATIONAL DRUG USE: She has used cocaine and heroin in the past. None recently. HOME MEDICATIONS: - Adderall XR 20 mg by mouth daily - Estrace 0.5 mg by mouth daily - atorvastatin 10 mg by mouth daily - Colace 100 mg by mouth daily as needed for constipation - fluoxetine 20 mg by mouth daily - lorazepam 0.5 mg by mouth twice a day as needed for anxiety or agitation - oxycodone one by mouth as needed for pain - tizanidine 4 mg by mouth four times a day as needed for spasms - Topamax 100 mg by mouth twice a day - trazodone 50 mg by mouth nightly FAMILY HISTORY: Noncontributory. REVIEW OF SYSTEMS: 10-systems review was done. Other than headaches and chronic back pain, she had no complaints. PHYSICAL EXAMINATION: A 46-year-old cooperative female in no acute distress. Height: 61 inches. Weight: 61.6 kg. Body mass index (BMI) 25.7. Blood pressure 124/65, pulse 81, respirations 16, temperature 97.9. The patient is alert and oriented times three. Pupils equal and reactive to light. Extraocular movements intact. Cornea and sclera clear. Conjunctiva normal. No facial asymmetry. Pharynx, tongue, and gums pink and moist. Tongue is midline. Neck is supple without lymphadenopathy. No thyromegaly. No goiter. Carotids 2+ without bruits. Chest is clear to auscultation without wheeze or retraction. Heart is regular without murmur or gallop. Abdomen benign. Bowel sounds positive. /Rectal: Not done. Extremities show full range of motion. No cyanosis, clubbing or edema. Gait is steady. Peripheral pulses equal and palpable bilaterally. Skin is warm and dry. IMPRESSION AND PLAN: 1. Psychiatric: Plan per psychiatry. 2. History of hypercholesterolemia. Continue diet and medications. 3. Continue hormone replacement Estrace 0.5 mg by mouth daily. 4. Chronic back pain. Continue to followup with Dr. Ma. 5. No acute medical issues.
[2016-11-12 06:27] VITALS: BP 118/61
[2016-11-12] MEDS: FLUoxetine 20 MG CAP PO SCH (08:37)
[2016-11-12] MEDS: ATORVASTATIN 10 MG TAB PO SCH (08:37)
[2016-11-12] MEDS: TOPIRAMATE (TopAMAX) 100 MG TAB PO SCH (08:37)
[2016-11-12] MEDS: ESTRADIOL 1 MG TAB PO SCH (08:38)
--- NOTE | 2016-11-12 09:41 | DS.PDOC ---
[facility] Discharge Summary Discharge Summary DATE OF ADMISSION: Nov 10, 2016 at 06:17 DATE OF DISCHARGE: November 12, 2016 DISCHARGE DIAGNOSES: 1. Major depressive disorder, moderate, recurrent without psychotic features. 2. Generalized anxiety disorder REASON FOR ADMISSION: Pt had a disagreement with her . Took her lorazepam and a drink and drove herself to the [facility] area with the intention of avoiding further escalation with the . While there she claims to have journaled as a form of therapy, however her note was more of a suicidal note in nature. Pt adamantly denies suicidal thinking but her note says otherwise. She claims that she was seeking her 's attention and seems very embarrassed by the admission TREATMENT AND PROGRESS ON THE UNIT : Pt began asking for discharge immediately saying she had to return to her job, that she had no leave time she could use. She states she attended one therapy apt at [facility] and did not plan to return as she did not like the therapist. She is able to obtain controlled substances from her primary care physician who is providing her with lorazepam daily, adderall and oxycodone. She was not provided adderall on the unit and did not even mention it to report writer when we met to discuss her medication. She did state that she was contemplating an increase in her prozac which is advisable. She slept a great deal on the unit, remained secluded in her room until it was explained that discharge would depend on her participating in some therapeutic activities while here. She was more visible on the unit later in the day. HOSPITAL COURSE:She was amenable to unit routines and protocols. No behavior issues. Her focus was on discharge and getting back to work. She greatly minimized the events that culminated in this admission. DISCHARGE ASSESSMENT: A working diagnosis of adjustment disorder was used initially, however this will be changed in view of the fact she was here 2 years ago with a very similar presentation. Adrienne has not taken an active part in improving the source of her unhappiness, resisting recommendations for therapy. She attended one appointment and was not impressed with the therapist and decided not to return rather than find another therapist to help her. She remains at risk for depression if she does not add therapy to her treatment. As previously mentioned an increase in prozac may also be useful for her. MENTAL STATUS EXAMINATION ON DISCHARGE: Patient is a 46year old female, who is being treated for MDD and is being discharged today as she insists her job is in jeopardy if she does not return soon. She denies any thought, intent or plan, now or ever that includes suicide. Speech is fluent, clear. Language skills are good. Thought processes: future oriented, logical Thought content: discharge and work Abstract reasoning, and computation: adequate Description of associations: good Description of abnormal or psychotic thoughts: no psychotic symptoms, no gerry, hypomania or suicidal/homicidal ideation. Judgment: fair Insight: fair Orientation to person, place, time and situation. Recent and remote memory: intact Attention span and concentration: adequate Fund of knowledge: full Mood: "good" Affect: anxious MEDICATIONS ON DISCHARGE: - Prozac 20 mg for depression should be increased to 40 mg daily. Pt denied offer to raise the dose on discharge, opting to discuss with PCP first. - Lorazepam 0.5 mg bid for anxiety should be cancelled. If necessary a more calming SSRI like celexa, plaxil, or sertraline could be used as prozac is more energizing than they are. Her ingestion of lorazepam and alcohol prior to leaving the house the night she was brought in for admission demonstrates an unhealthy strategy when taking lorazepam. - Adderall 20 mg daily - pt does not endorse a diagnosis of ADHD. She does not report difficulty in concentration, task completion or attending to details. It is recommended this medication be discontinued and if necessary the patient be more fully evaluated for a dx of ADHD. PLAN/FOLLOWUP ARRANGEMENTS: Pt reports having an appt at [facility] on December 18. She appears ambivalent about keeping the appointment. She was encouraged to do so or to find a new agency for outpatient counseling. Pt has an adequate supply of all medications at home and does not desire any refills prior to leaving the hospital. Pt requested a letter for employer to explain her absence. This was provided. Pt expects her mother will pick her up this morning around 10 a.m. Her is starting a 48 hour shift as a firer automatic stoker today. The amount of time spent in the coordination of care for this patient was approximately 30minutes. Vital Signs/I&Os Vital Signs Date Time Temp Pulse Resp B/P Pulse Ox O2 Delivery O2 Flow Rate FiO2 11/12/16 06:27 97.7 77 16 118/61 11/10/16 08:15 99 Room Air Medications Scheduled Amphetamine/Dextroamphetamine (Adderall Xr 25 mg) 1 Cap Cap 1 CAP PO DAILY ( Reported) Atorvastatin Calcium (Atorvastatin Calcium) 10 Mg Tab 10 MG PO DAILY (Reported ) Estradiol (Estrace) 0.5 Mg Tab 0.5 MG PO DAILY (Reported) Fluoxetine Hcl (Fluoxetine HCl) 20 Mg Cap 20 MG PO DAILY (Reported) Topiramate (Topiramate) 100 Mg Tab 100 MG PO BID (Reported) Trazodone HCl (Trazodone HCl) 50 Mg Tab 50 MG PO QHS (Reported) Scheduled PRN Docusate Sodium (Colace) 100 Mg Cap 100 MG PO DAILY PRN PRN CONSTIPATION ( Reported) Lorazepam (Lorazepam) 0.5 Mg Tab 0.5 MG PO BIDP PRN PRN ANXIETY/AGITATION ( Reported) Oxycodone/Acetaminophen (Oxycodone/Acetaminophen 5-325 mg) 1 Tab Tab 1 TAB PO DAILY PRN PRN PAIN (Reported) Tizanidine Hydrochloride (Tizanidine HCl) 4 Mg Cap 4 MG PO QID PRN PRN SPASMS ( Reported) Allergies Coded Allergies: Metoclopramide (Verified Allergy, Unknown, UNKNOWN REACTION, 05/02/15) Promethazine (Verified Allergy, Unknown, CAN TAKE ZOFRAN, 05/02/15) Neena Cooper Nov 12, 2016 09:41
== END 2016-11-12 11:30 | disposition home or self-care (01) | DRG 751 ==
LOC: EDUNIT# 23:24 → EDBD 23:24 → M ED 11-10 00:20 → M ED INP 11-10 06:17 → M PSY 11-10 08:12
PROVIDERS: ADMIT Psychiatry & Neurology Child & Adolescent Psychiatry; ATTEND Psychiatry & Neurology Child & Adolescent Psychiatry
DX: F33.1 Major depressive disorder, recurrent, moderate (principal); Z63.0 Problems in relationship with spouse or partner; G47.00 Insomnia, unspecified; G89.29 Other chronic pain; F41.1 Generalized anxiety disorder; G43.909 Migraine, unspecified, not intractable, without status migrainosus; M48.02 Spinal stenosis, cervical region; G56.22 Lesion of ulnar nerve, left upper limb; I10 Essential (primary) hypertension; E78.00 Pure hypercholesterolemia, unspecified; Z98.1 Arthrodesis status; F17.210 Nicotine dependence, cigarettes, uncomplicated; Z88.8 Allergy status to other drugs, medicaments and biological substances; Z79.899 Other long term (current) drug therapy; Z79.891 Long term (current) use of opiate analgesic

== ENCOUNTER 2016-12-03 11:36 | Emergency (ER) | payer BC ==
[~2016-12-03] VITALS: Ht 157.5 cm; Wt 62.1 kg
[~2016-12-03 11:36] MED LIST changes: +ADDE25CA PO; +ATOR1TAB19 PO; +ESTR0.5T3 PO; +FLUO20CA9 PO; +LIPI10TA PO; +LORA-376 PO; +OXYC1TAB23 PO; +TIZA4CAP3 PO; +TOPI1TAB31 PO; +ZANA4CAP PO
[2016-12-03] MEDS ORDERED: LORA-376 (11:44)
[2016-12-03] MEDS ORDERED: [UNRECOGNIZED DRUG - OTHER] (11:44)
[2016-12-03] MEDS ORDERED: NORT25CA2 (11:44)
[2016-12-03] MEDS ORDERED: ACYC400T (11:44)
[2016-12-03] MEDS ORDERED: diphenhydrAMINE INJ 50MG/ML VIAL (J1200) IV STA (12:12)
[2016-12-03] MEDS ORDERED: HYDROmorphone HCL 1 MG/ML SYRINGE (J1170) IV ONE ×2 (12:15→13:45)
[2016-12-03] MEDS ORDERED: NS 1,000 ML IV ONE (12:15)
[2016-12-03] MEDS ORDERED: METOCLOPRAMIDE INJ 10MG/2ML VIAL (J2765) IV ONE (12:15)
[2016-12-03 14:45] VITALS: BP 138/72
== END 2016-12-03 14:53 | disposition home or self-care (01) ==
LOC: M ED 13:17
DX: G43.909 Migraine, unspecified, not intractable, without status migrainosus (principal); F32.9 Major depressive disorder, single episode, unspecified; Z96.0 Presence of urogenital implants; Z98.1 Arthrodesis status; Z90.79 Acquired absence of other genital organ(s); Z79.891 Long term (current) use of opiate analgesic; Z79.899 Other long term (current) drug therapy; Z88.8 Allergy status to other drugs, medicaments and biological substances
CPT/HCPCS: 96361; 96374; 96375; 96376; 99282; J1170; J1200

== ENCOUNTER 2016-12-19 16:00 | Emergency (ER) | payer OTHER, BC ==
[~2016-12-19] VITALS: Ht 157.5 cm; Wt 62.1 kg
[~2016-12-19 16:00] MED LIST changes: +ACYC400T; +LORA-376; +NORT25CA2; +[UNRECOGNIZED DRUG - OTHER]
[2016-12-19 16:01] VITALS: BP 136/74
[2016-12-19] MEDS ORDERED: ADDE10CA PO (16:11)
[2016-12-19] MEDS ORDERED: ROBA500T PO (16:46)
[2016-12-19] MEDS ORDERED: NORCOTAB PO (16:46)
== END 2016-12-19 17:02 | disposition home or self-care (01) ==
LOC: M ED 17:00
DX: M50.10 Cervical disc disorder with radiculopathy, unspecified cervical region (principal); I10 Essential (primary) hypertension; E78.9 Disorder of lipoprotein metabolism, unspecified; G43.809 Other migraine, not intractable, without status migrainosus; Z79.899 Other long term (current) drug therapy; Z88.8 Allergy status to other drugs, medicaments and biological substances

== ENCOUNTER 2017-02-12 21:01 | Emergency (ER) | payer BC, OTHER ==
[~2017-02-12] VITALS: Ht 154.9 cm; Wt 61.4 kg
[~2017-02-12 21:01] MED LIST changes: +ADDE10CA3 PO; -ADDE30CA PO; +ADDE30CA3 PO; -COLA100C3 PO; +COLA100C5 PO; +FLUO20CA19 PO; -FLUO20CA9 PO; -FOLI1TAB2 PO; +FOLI1TAB4 PO; -LORA-376; -LORA-376 PO; +LORA0.5T11; +LORA0.5T11 PO; +NORCOTAB PO; +OXYC-141 PO; -OXYC-299 PO; +PERC5TAB12 PO; -PERC5TAB6 PO; +ROBA500T PO; +TOPA100T12 PO; -TOPA100T8 PO; +TOPA1TAB PO; -TOPA25TA10 PO; +TOPI100T9 PO; -TOPI1TAB31 PO; +TRAZ50TA11 PO; -TRAZ50TA4 PO
[2017-02-12 21:03] VITALS: BP 98/53
[2017-02-12] MEDS ORDERED: FIOR1CAP PO (21:16)
== END 2017-02-12 23:18 | disposition left against medical advice (07) ==
LOC: M ED 21:01
DX: R51 Headache (principal); Z53.21 Procedure and treatment not carried out due to patient leaving prior to being seen by health care provider

== ENCOUNTER 2017-02-16 18:01 | Emergency (ER) | payer BC ==
[~2017-02-16] VITALS: Ht 157.5 cm; Wt 62.3 kg
[~2017-02-16 18:01] MED LIST changes: +FIOR1CAP PO
[2017-02-16] MEDS ORDERED: NS 1,000 ML IV ONE (19:45)
[2017-02-16] MEDS ORDERED: diphenhydrAMINE INJ 50MG/ML VIAL (J1200) IV ONE (19:45)
[2017-02-16] MEDS: HYDROmorphone HCL 1 MG/ML SYRINGE (J1170) IV PRN ×2 (20:27→21:25)
[2017-02-16 22:01] VITALS: BP 108/71
== END 2017-02-16 22:02 | disposition home or self-care (01) ==
LOC: M ED 18:01
DX: G43.409 Hemiplegic migraine, not intractable, without status migrainosus (principal); I25.10 Atherosclerotic heart disease of native coronary artery without angina pectoris; I10 Essential (primary) hypertension; M54.9 Dorsalgia, unspecified; F33.8 Other recurrent depressive disorders; F17.210 Nicotine dependence, cigarettes, uncomplicated; Z88.8 Allergy status to other drugs, medicaments and biological substances; Z79.899 Other long term (current) drug therapy
CPT/HCPCS: 96361; 96374; 96375; 96376; 99283; J1170; J1200

== ENCOUNTER → 2017-03-17 | Outpatient (REF) | payer BC | LOC: M LAB REF 22:13 | PROVIDERS: ATTEND Physician Assistant | DX: N89.8 Other specified noninflammatory disorders of vagina (principal) ==

== ENCOUNTER 2017-04-11 18:09 | Emergency (ER) | payer BC ==
[~2017-04-11] VITALS: Ht 154.9 cm; Wt 60.5 kg
[2017-04-11 18:10] VITALS: BP 93/106
== END 2017-04-11 19:34 | disposition left against medical advice (07) ==
LOC: M ED 18:09
DX: R51 Headache (principal); Z53.21 Procedure and treatment not carried out due to patient leaving prior to being seen by health care provider

== ENCOUNTER 2017-04-13 13:27 | Emergency (ER) | payer BC ==
[~2017-04-13] VITALS: Ht 154.9 cm; Wt 60.5 kg
[2017-04-13] MEDS ORDERED: ADDE25CA PO (13:34)
[2017-04-13] MEDS ORDERED: diphenhydrAMINE INJ 50MG/ML VIAL (J1200) IV ONE (14:15)
[2017-04-13] MEDS: HYDROmorphone HCL 1 MG/ML SYRINGE (J1170) IV PRN ×2 (14:24→15:22)
[2017-04-13 16:17] VITALS: BP 135/66
== END 2017-04-13 16:19 | disposition home or self-care (01) ==
LOC: M ED 13:27
DX: G43.909 Migraine, unspecified, not intractable, without status migrainosus (principal); E78.00 Pure hypercholesterolemia, unspecified; I10 Essential (primary) hypertension; F41.9 Anxiety disorder, unspecified; F32.9 Major depressive disorder, single episode, unspecified; F17.210 Nicotine dependence, cigarettes, uncomplicated; Z88.8 Allergy status to other drugs, medicaments and biological substances; Z79.899 Other long term (current) drug therapy
CPT/HCPCS: 96374; 96375; 96376; 99283; J1170; J1200

== ENCOUNTER 2017-05-05 12:04 | Emergency (ER) | payer BC ==
[~2017-05-05] VITALS: Ht 157.5 cm; Wt 65.0 kg
[2017-05-05] MEDS ORDERED: diphenhydrAMINE INJ 50MG/ML VIAL (J1200) IV STA (12:49)
[2017-05-05] MEDS: HYDROmorphone HCL 1 MG/ML SYRINGE (J1170) IV PRN ×2 (13:04→13:43)
[2017-05-05] MEDS ORDERED: HYDROmorphone HCL 1 MG/ML SYRINGE (J1170) IV ONE (14:15)
[2017-05-05 14:30] VITALS: BP 125/65
== END 2017-05-05 14:50 | disposition home or self-care (01) ==
LOC: M ED 12:04
DX: G43.401 Hemiplegic migraine, not intractable, with status migrainosus (principal); G89.29 Other chronic pain; I10 Essential (primary) hypertension; F41.9 Anxiety disorder, unspecified; F33.9 Major depressive disorder, recurrent, unspecified; F17.210 Nicotine dependence, cigarettes, uncomplicated; Z79.899 Other long term (current) drug therapy; Z88.8 Allergy status to other drugs, medicaments and biological substances
CPT/HCPCS: 96374; 96375; 96376; 99283; J1170; J1200

== ENCOUNTER 2017-06-30 18:51 | Emergency (ER) | payer BC ==
[~2017-06-30] VITALS: Ht 154.9 cm; Wt 58.2 kg
[~2017-06-30 18:51] MED LIST changes: -LORA0.5T11
[2017-06-30] MEDS ORDERED: NS 500 ML IV ONE (21:45)
[2017-06-30] MEDS ORDERED: diphenhydrAMINE INJ 50MG/ML VIAL (J1200) IV ONE (21:45)
[2017-06-30] MEDS ORDERED: HYDROmorphone HCL 1 MG/ML SYRINGE (J1170) IV ONE (21:45)
[2017-06-30] MEDS ORDERED: KETOROLAC 30 MG/ML VIAL (J1885) IV ONE (21:45)
[2017-06-30] MEDS ORDERED: ONDANSETRON 4MG/2ML VIAL (J2405) IV ONE (21:45)
--- NOTE | 2017-06-30 23:10 | REPUSA ---
CT of the head Clinical history: Headache. Comparison: 08/17/2016. Technique: Multiple axial CT images were obtained through the head without administration of contrast . Findings: The ventricles and sulci are symmetric bilaterally. There is no evidence of acute hemorrhag e or infarct. There is no midline shift, mass effect, or extra-axial fluid collection. The osseous st ructures are unremarkable. The visualized paranasal sinuses and mastoid air cells are clear. Impression: Negative study.
[2017-06-30] MEDS ORDERED: methylPREDNISolone INJ 125 MG/2 ML VIAL (J2930) IV ONE (23:45)
[2017-07-01] MEDS ORDERED: MORPHINE 2 MG/ML 1ML SYRINGE IV ONE (00:45)
--- NOTE | 2017-07-01 01:57 | ED PDOC ---
Post-Departure Follow-Up FAMILY MEMBERS HAVE BEEN OUT TO PROVIDER DESK MULTIPLE TIMES ASKING ABOUT TX PLAN AND MORE PAIN MEDICATIONS. PT STATING SHE TYPICALLY GETS 2 DOSES OF DILAUDID FOR HER HEADACHES. WHEN PT WANTED A SECOND DOSE EARLIER TONIGHT, HER PULSE RATE WAS IN THE 40'S AND IT WAS ADVISED AGAINST IT AT THAT TIME. PT HAD 2MG MORPHINE WITHIN THE LAST 10 MINUTES AND FAMILY MEMBER OUT TO PROVIDER DESK AGAIN ASKING FOR MORE PAIN MEDICATION, "SHE'S HAS MORPHINE BEFORE AND SHE SAID IT DON'T WORK THAT GOOD." CALLED HOSPITALIST (DR. WEBBER) AND DR. BADILLO (NEURO). ADVISED TO TRY 2 NEW MEDICATIONS (MAG SULFATE AND DEPACON) AND TO RE-EVALUATE AT THAT TIME. ADVISED LIKELY DRUG SEEKING BEHAVIOR WELL, WITH ASKING FOR DILAUDID MULTIPLE TIMES. DR. BADILLO ADVISED NOT TO PROVIDE ANYMORE DILAUDID IF PT CONTINUES TO HAVE A BRADYCARDIA AND THAT SHE MAY NOT RECEIVE THIS IF ADMITTED, DUE TO PULSE. CLINT QUEEN PA-C Jul 01, 2017 01:57
[2017-07-01] MEDS ORDERED: FLUO40CA PO (02:25)
[2017-07-01] MEDS ORDERED: TRAZ-136 PO (02:25)
[2017-07-01] MEDS ORDERED: PATIENT COMMENT (02:26)
[2017-07-01] MEDS ORDERED: VALPROATE SOD INJ 1,000 MG in D5W 50 ML IV ONE (02:30)
[2017-07-01] MEDS ORDERED: MAG SULF 1GM/100ML (MAG RUN) 1 GM in APPROPRIATE DILUENT 1 EA IV ONE (02:30)
[2017-07-01] MEDS ORDERED: dexameTHASONE 20 MG/5 ML VIAL (J1100) IV ONE (05:15)
[2017-07-01] MEDS ORDERED: KETOROLAC 30 MG/ML VIAL (J1885) IV ONE (05:15)
[2017-07-01 06:50] VITALS: BP 107/60
== END 2017-07-01 06:58 | disposition home or self-care (01) ==
LOC: M ED 18:51
DX: G43.809 Other migraine, not intractable, without status migrainosus (principal); F41.9 Anxiety disorder, unspecified; F33.9 Major depressive disorder, recurrent, unspecified; F17.210 Nicotine dependence, cigarettes, uncomplicated; Z79.899 Other long term (current) drug therapy; Z88.8 Allergy status to other drugs, medicaments and biological substances
CPT/HCPCS: 70450; 96374; 96375; 99284; J1100; J1170; J1200; J1885; J2405; J2930; J3475

== ENCOUNTER → 2017-07-18 | Outpatient (CLI) | payer BC ==
[~2017-07-18] MED LIST changes: +FLUO40CA PO; +PATIENT COMMENT; +TRAZ-136 PO
== END ==
LOC: M LAB 11:40
PROVIDERS: ATTEND Physician Assistant
DX: M50.21 Other cervical disc displacement, high cervical region (principal)
CPT/HCPCS: 80307; G0480

== ENCOUNTER → 2017-07-18 | Outpatient (CLI) | payer BC ==
[~2017-07-18] MED LIST changes: -ACYC400T; -ADDE10CA3 PO; -ADDE25CA PO; -ADDE30CA3 PO; -AMBI6.25 PO; -ATIV0.5T; -ATIV1TAB10 PO; -ATOR1TAB19 PO; -BIOT50004 PO; -BUPR150T3 PO; -COCO1000 PO; -COLA100C5 PO; -DEPA1TAB3 PO; -ESTR0.5T3 PO; -ESTRACE PO; -FIOR1CAP PO; -FLUO20CA19 PO; -FLUO40CA PO; -FOLI1TAB4 PO; -GABA-282 PO; +LIDOCAINE 1% MDV 20ML VIAL As Ordered; -LIPI10TA PO; -LISI10TA4 PO; -LORA0.5T11 PO; -NEUR300C PO; -NORCOTAB PO; -NORT25CA2; -OGEN; -OGEN.625 PO; -OXYC-141 PO; -OXYC1TAB23 PO; -PATIENT COMMENT; -PERC5TAB12 PO; -PERC5TAB8; -PREG25CA PO; -PROZ20CA11 PO; -ROBA500T PO; -SERO1TAB PO; -Sumatriptan Succinate PO; -TERAZOL3 VAGINALLY; -TIZA4CAP3 PO; -TOPA100T12 PO; -TOPA1TAB PO; -TOPAMAX PO; -TOPI100T9 PO; -TRAZ-136 PO; -TRAZ50TA11 PO; -VERA40TA PO; -VIST25CA PO; -VITA500046 PO; -WELL75TA PO; -ZANA2CAP PO; -ZANA4CAP PO; -ZANA4TAB PO; -ZOLO25TA PO; -ZOVIRAX PO; -[UNRECOGNIZED DRUG - CODE] PO; -[UNRECOGNIZED DRUG - OTHER]
== END ==
LOC: M RADPRO 11:54
DX: N63.20 Unspecified lump in the left breast, unspecified quadrant (principal); Z72.0 Tobacco use; Z88.8 Allergy status to other drugs, medicaments and biological substances; Z79.899 Other long term (current) drug therapy
CPT/HCPCS: 19083

== ENCOUNTER 2017-07-29 09:35 | Emergency (ER) | payer OTHER, BC ==
[2017-07-29] MEDS: KETOROLAC 60 MG/2 ML VIAL (J1885) IM (10:16)
[2017-07-29] MEDS: methylPREDNISolone INJ 125 MG/2 ML VIAL (J2930) IM (10:16)
== END 2017-07-29 10:55 | disposition home or self-care (01) ==
LOC: M ED 09:35
DX: M54.2 Cervicalgia (principal); G89.29 Other chronic pain; E78.4 Other hyperlipidemia; K21.9 Gastro-esophageal reflux disease without esophagitis; F17.200 Nicotine dependence, unspecified, uncomplicated
CPT/HCPCS: J1885

== ENCOUNTER 2017-08-04 22:37 | Emergency (ER) | payer BC, OTHER ==
[2017-08-05 01:14] LABS: AMPHETAMINES LEVEL URINE POSITIVE (NEGATIVE); BARBITURATES URINE NEGATIVE (NEGATIVE); BENZODIAZEPINES URINE NEGATIVE (NEGATIVE); CANNABINOIDS URINE NEGATIVE (NEGATIVE); COCAINE METABOLITE URINE NEGATIVE (NEGATIVE); METHADONE URINE NEGATIVE (NEGATIVE); OPIATES URINE NEGATIVE (NEGATIVE); PHENCYCLIDINE URINE NEGATIVE (NEGATIVE)
== END 2017-08-05 02:28 | disposition home or self-care (01) ==
LOC: M ED 22:37
DX: Z04.1 Encounter for examination and observation following transport accident (principal); S13.4XXA Sprain of ligaments of cervical spine, initial encounter; S06.0X0A Concussion without loss of consciousness, initial encounter; V48.5XXA Car driver injured in noncollision transport accident in traffic accident, initial encounter; Y92.410 Unspecified street and highway as the place of occurrence of the external cause; E78.5 Hyperlipidemia, unspecified; M54.2 Cervicalgia; G89.29 Other chronic pain; F41.9 Anxiety disorder, unspecified; K21.9 Gastro-esophageal reflux disease without esophagitis; F17.210 Nicotine dependence, cigarettes, uncomplicated; Z79.899 Other long term (current) drug therapy; Z88.8 Allergy status to other drugs, medicaments and biological substances; Z98.890 Other specified postprocedural states
CPT/HCPCS: 70450

== ENCOUNTER 2017-09-05 16:23 | Emergency (ER) | payer BC, OTHER ==
[2017-09-05] MEDS: HYDROmorphone HCL 1 MG/ML SYRINGE (J1170) IV ×2 (18:19→19:01)
[2017-09-05] MEDS: ONDANSETRON 4MG/2ML VIAL (J2405) IV (18:19)
[2017-09-05] MEDS: NS 1,000 ML IV (18:20)
[2017-09-05] MEDS: diphenhydrAMINE INJ 50MG/ML VIAL (J1200) IV (18:36)
== END 2017-09-05 20:05 | disposition home or self-care (01) ==
LOC: M ED 16:23
DX: G43.409 Hemiplegic migraine, not intractable, without status migrainosus (principal); I10 Essential (primary) hypertension; E78.00 Pure hypercholesterolemia, unspecified; K21.9 Gastro-esophageal reflux disease without esophagitis; M54.9 Dorsalgia, unspecified; M81.0 Age-related osteoporosis without current pathological fracture; F41.9 Anxiety disorder, unspecified; F32.9 Major depressive disorder, single episode, unspecified; Z72.0 Tobacco use; Z88.8 Allergy status to other drugs, medicaments and biological substances; Z79.899 Other long term (current) drug therapy
CPT/HCPCS: J1170

== ENCOUNTER 2017-09-23 21:24 | Observation (INO) | payer BC ==
[2017-09-23] MEDS: NS 1,000 ML IV (22:30)
[2017-09-23] MEDS: HYDROmorphone HCL 1 MG/ML SYRINGE (J1170) IV (23:02)
[2017-09-23] MEDS: ONDANSETRON 4MG/2ML VIAL (J2405) IV (23:02)
[2017-09-23] MEDS: diphenhydrAMINE INJ 50MG/ML VIAL (J1200) IV (23:03)
[2017-09-24] MEDS: NS 1,000 ML IV ×4 (01:43→17:06)
[2017-09-24] MEDS: HYDROmorphone HCL 1 MG/ML SYRINGE (J1170) IV ×3 (01:44→16:00)
[2017-09-24 03:47] LABS: BASO % 0.7 % (0.0-1.0); EOS # 0.2 10^3/uL (0.0-0.50); EOS % 3.9 % (0.0-3.0); HEMATOCRIT 35.2 % (36.0-47.0); HEMOGLOBIN 11.7 g/dl (12.0-16.0); IMMATURE GRANULOCYTE % 0.2 % (0-3.0); LYMPH # 2.4 10^3/uL (1.5-4.5); MEAN CORPUSCULAR HGB CONC 33.2 g/dl (32.0-36.5); MEAN CORPUSCULAR VOLUME 90.3 fl (80.0-96.0); MONO # 0.4 10^3/uL (0.0-0.8); MONO % 7.3 % (0.0-5.0); NEUTROPHILS # 2.5 10^3/uL (1.8-7.7); NEUTROPHILS % 44.9 % (36.0-66.0); PLATELET COUNT, AUTOMATED 257 10^3/uL (150-450); RED CELL DISTRIBUTION WIDTH 13.1 % (11.5-14.5); WHITE BLOOD COUNT 5.6 10^3/uL (4.0-10.0)
[2017-09-24] MEDS: VALPROATE SOD INJ 1,000 MG in D5W 50 ML IV (03:55)
[2017-09-24 04:07] LABS: ANION GAP 5 MEQ/L (8-16); BLOOD UREA NITROGEN 16 MG/DL (7-18); CALCIUM LEVEL 7.4 MG/DL (8.5-10.1); CARBON DIOXIDE LEVEL 24 MEQ/L (21-32); CHLORIDE LEVEL 118 MEQ/L (98-107); CREATININE FOR GFR 0.64 MG/DL (0.55-1.30); GLOMERULAR FILTRATION RATE > 60.0 (>58); GLUCOSE, FASTING 84 MG/DL (70-100); POTASSIUM SERUM 4.3 MEQ/L (3.5-5.1); SODIUM LEVEL 147 MEQ/L (136-145)
[2017-09-24] MEDS: MAG SULF 1GM/100ML (MAG RUN) 1 GM in APPROPRIATE DILUENT 1 EA IV ×2 (04:55→18:21)
[2017-09-24] MEDS: KETOROLAC 30 MG/ML VIAL (J1885) IV (05:45)
[2017-09-24] MEDS ORDERED: ACETAMINOPHEN TAB 650MG DOSE (2X325MG) PO (06:00)
[2017-09-24] MEDS ORDERED: METAL LOCK LOOP XX (06:11)
[2017-09-24] MEDS ORDERED: FIORICET TAB PO (06:15)
[2017-09-24 07:44] LABS: MAGNESIUM LEVEL 2.7 MG/DL (1.8-2.4)
[2017-09-24] MEDS: PERCOCET 5MG/325MG TAB PO ×2 (08:05→20:52)
[2017-09-24] MEDS: HEPARIN SOD (PORCINE) 5000 UNITS/ML VIAL SC ×3 (08:06→20:44)
[2017-09-24] MEDS ORDERED: ONDANSETRON 4MG/2ML VIAL (J2405) IV (08:45)
[2017-09-24] MEDS: FLUoxetine 20 MG CAP PO (08:57)
[2017-09-24] MEDS: diphenhydrAMINE INJ 50MG/ML VIAL (J1200) IV (08:57)
[2017-09-24] MEDS: TOPIRAMATE (TopAMAX) 100 MG TAB PO ×2 (08:57→20:44)
[2017-09-24] MEDS: LORazepam 0.5 MG TAB PO (10:09)
[2017-09-24] MEDS: methylPREDNISolone INJ 125 MG/2 ML VIAL (J2930) IV (18:21)
[2017-09-24] MEDS: traZODone 100 MG TAB PO (20:44)
[2017-09-25] MEDS: HEPARIN SOD (PORCINE) 5000 UNITS/ML VIAL SC (06:08)
[2017-09-25] MEDS: NS 1,000 ML IV (06:46)
[2017-09-25 06:55] LABS: HEMATOCRIT 33.6 % (36.0-47.0); HEMOGLOBIN 11.2 g/dl (12.0-16.0); MEAN CORPUSCULAR HEMOGLOBIN 29.9 pg (27.0-33.0); MEAN CORPUSCULAR HGB CONC 33.3 g/dl (32.0-36.5); MEAN CORPUSCULAR VOLUME 89.6 fl (80.0-96.0); PLATELET COUNT, AUTOMATED 261 10^3/uL (150-450); RED BLOOD COUNT 3.75 10^6/uL (4.00-5.40); RED CELL DISTRIBUTION WIDTH 12.8 % (11.5-14.5); WHITE BLOOD COUNT 5.7 10^3/uL (4.0-10.0)
[2017-09-25 07:08] LABS: ANION GAP 5 MEQ/L (8-16); BLOOD UREA NITROGEN 18 MG/DL (7-18); CARBON DIOXIDE LEVEL 21 MEQ/L (21-32); CHLORIDE LEVEL 117 MEQ/L (98-107); CREATININE FOR GFR 0.64 MG/DL (0.55-1.30); GLOMERULAR FILTRATION RATE > 60.0 (>58); GLUCOSE, FASTING 140 MG/DL (70-100); MAGNESIUM LEVEL 2.3 MG/DL (1.8-2.4); POTASSIUM SERUM 4.2 MEQ/L (3.5-5.1); SODIUM LEVEL 143 MEQ/L (136-145)
[2017-09-25] MEDS: TOPIRAMATE (TopAMAX) 100 MG TAB PO (09:46)
[2017-09-25] MEDS: FLUoxetine 20 MG CAP PO (09:46)
== END 2017-09-25 11:35 | disposition home or self-care (01) ==
LOC: M ED INP 09-24 05:46 → M ED 21:24 → M MS4PR 09-24 15:30
DX: G43.419 Hemiplegic migraine, intractable, without status migrainosus (principal); M48.02 Spinal stenosis, cervical region; Z98.1 Arthrodesis status; F41.9 Anxiety disorder, unspecified; F32.9 Major depressive disorder, single episode, unspecified; F43.20 Adjustment disorder, unspecified; I10 Essential (primary) hypertension; Z72.0 Tobacco use; Z79.899 Other long term (current) drug therapy
CPT/HCPCS: J1170

== ENCOUNTER → 2017-10-13 | Outpatient (CLI) | payer BC ==
[2017-10-13 20:03] LABS: PLATELET COUNT, AUTOMATED 277 10^3/uL (150-450)
[2017-10-13 20:13] LABS: INR 0.95; PROTHROMBIN TIME 12.8 SECONDS (12.4-14.5)
[2017-10-13 20:14] LABS: PARTIAL THROMBOPLASTIN TIME 34.2 SECONDS (26.8-37.9)
== END ==
LOC: M WUC 16:24
DX: Z01.812 Encounter for preprocedural laboratory examination (principal); D69.1 Qualitative platelet defects
CPT/HCPCS: 85049

== ENCOUNTER 2018-01-15 11:07 | Emergency (ER) | payer BC ==
[2018-01-15] MEDS: diphenhydrAMINE INJ 50MG/ML VIAL (J1200) IV ×2 (12:44)
[2018-01-15] MEDS: HYDROmorphone HCL 1 MG/ML SYRINGE (J1170) IV ×4 (12:44→13:45)
[2018-01-15] MEDS: NS 1,000 ML IV ×2 (12:44)
[2018-01-15] MEDS: ONDANSETRON 4MG/2ML VIAL (J2405) IV ×2 (12:44)
[2018-01-15] MEDS: KETOROLAC 30 MG/ML VIAL (J1885) IV ×2 (14:28)
== END 2018-01-15 15:05 | disposition home or self-care (01) ==
LOC: M ED 11:07
DX: G43.419 Hemiplegic migraine, intractable, without status migrainosus (principal); I10 Essential (primary) hypertension; K21.9 Gastro-esophageal reflux disease without esophagitis; F32.9 Major depressive disorder, single episode, unspecified; M81.0 Age-related osteoporosis without current pathological fracture; M43.22 Fusion of spine, cervical region; Z72.0 Tobacco use; Z79.899 Other long term (current) drug therapy; Z88.8 Allergy status to other drugs, medicaments and biological substances
CPT/HCPCS: J1170

== ENCOUNTER → 2018-01-21 | Outpatient (REF) | payer BC ==
[2018-01-21 22:26] LABS: APPEARANCE, URINE CLOUDY (CLEAR); BACTERIA, URINE AUTO 1+ (NEGATIVE); BILIRUBIN, URINE AUTO NEGATIVE (NEGATIVE); BLOOD, URINE BLOOD NEGATIVE (NEGATIVE); CALCIUM OXALATE CRYSTALS SMALL; COLOR, URINE YELLOW (YELLOW); GLUCOSE, URINE (UA) AUTO NEGATIVE (NEGATIVE); KETONE, URINE AUTO NEGATIVE (NEGATIVE); LEUKOCYTE ESTERASE, URINE AUTO 3+ (NEGATIVE); MUCUS, URINE SMALL (NEGATIVE); NITRITE, URINE AUTO NEGATIVE (NEGATIVE); PROTEIN, URINE AUTO 1+ mg/dL (NEGATIVE); RBC, URINE AUTO 9 /HPF (0-3); SPECIFIC GRAVITY URINE AUTO 1.026 (1.002-1.035); SQUAMOUS EPITHELIAL CELL UR AU 1 /HPF (0-6); WBC, URINE AUTO TNTC /HPF (0-3)
[2018-01-21 23:20] LABS: CHLAMYDIA DNA AMPLIFICATION NEGATIVE (NEGATIVE); GC DNA AMPLIFICATION NEGATIVE (NEGATIVE)
== END ==
LOC: M LAB REF 15:38
DX: N39.0 Urinary tract infection, site not specified (principal)
CPT/HCPCS: 81001

== ENCOUNTER 2018-03-29 14:54 | Emergency (ER) | payer BC ==
[2018-03-29] MEDS: diphenhydrAMINE INJ 50MG/ML VIAL (J1200) IV ×2 (15:55)
[2018-03-29] MEDS: ONDANSETRON 4MG/2ML VIAL (J2405) IV ×2 (15:55)
[2018-03-29] MEDS: NS 1,000 ML IV ×2 (15:55)
[2018-03-29] MEDS: HYDROMORPHONE HCL 0.5 MG/ 0.5 ML SYRINGE (J1170 PER 1) IV ×6 (15:55→18:25)
[2018-03-29] MEDS ORDERED: ISOVUE-370 76% 100ML VIAL (Q9967) As Ordered ×2 (17:10)
[2018-03-29] MEDS: KETOROLAC 30 MG/ML VIAL (J1885) IV ×2 (17:12)
== END 2018-03-29 19:03 | disposition home or self-care (01) ==
LOC: M ED 14:54
DX: G43.909 Migraine, unspecified, not intractable, without status migrainosus (principal); F17.200 Nicotine dependence, unspecified, uncomplicated
CPT/HCPCS: J1200

== ENCOUNTER 2018-04-13 18:46 | Emergency (ER) | payer BC ==
[2018-04-14] MEDS: diphenhydrAMINE INJ 50MG/ML VIAL (J1200) IV (00:41)
[2018-04-14] MEDS: ONDANSETRON 4MG/2ML VIAL (J2405) IV (00:41)
[2018-04-14] MEDS: MORPHINE 4 MG/ML 1ML VIAL/SYRINGE (J2270) IV (00:42)
[2018-04-14] MEDS: KETOROLAC 30 MG/ML VIAL (J1885) IV (00:42)
[2018-04-14] MEDS: methylPREDNISolone INJ 125 MG/2 ML VIAL (J2930) IV (02:29)
== END 2018-04-14 02:45 | disposition home or self-care (01) ==
LOC: M ED 04-14 02:45
DX: G43.409 Hemiplegic migraine, not intractable, without status migrainosus (principal); I10 Essential (primary) hypertension; E78.5 Hyperlipidemia, unspecified; Z79.899 Other long term (current) drug therapy; Z88.8 Allergy status to other drugs, medicaments and biological substances; F17.210 Nicotine dependence, cigarettes, uncomplicated
CPT/HCPCS: J2270

== ENCOUNTER → 2018-04-28 | Outpatient (CLI) | payer BC | LOC: M RAD 16:47 | DX: D24.2 Benign neoplasm of left breast (principal) | CPT/HCPCS: 76642 ==

== ENCOUNTER 2018-05-04 14:08 | Emergency (ER) | payer BC ==
[2018-05-04] MEDS: diphenhydrAMINE INJ 50MG/ML VIAL (J1200) IV (14:53)
[2018-05-04] MEDS: KETOROLAC 30 MG/ML VIAL (J1885) IV (15:00)
[2018-05-04] MEDS: NS 1,000 ML IV (15:00)
[2018-05-04] MEDS: HYDROMORPHONE HCL 0.5 MG/ 0.5 ML SYRINGE (J1170 PER 1) IV (17:30)
== END 2018-05-04 18:30 | disposition home or self-care (01) ==
LOC: M ED 14:08
DX: G43.909 Migraine, unspecified, not intractable, without status migrainosus (principal); Z88.8 Allergy status to other drugs, medicaments and biological substances; Z79.899 Other long term (current) drug therapy
CPT/HCPCS: J1200

== ENCOUNTER 2018-05-07 01:20 | Emergency (ER) | payer BC ==
[2018-05-07] MEDS: OXYCODONE/APAP 5MG/325MG(BULK FOR ED) 1 TABLET PO (04:11)
== END 2018-05-07 04:30 | disposition home or self-care (01) ==
LOC: M ED 01:20
DX: S22.32XA Fracture of one rib, left side, initial encounter for closed fracture (principal); Y04.8XXA Assault by other bodily force, initial encounter; Y92.89 Other specified places as the place of occurrence of the external cause; F17.200 Nicotine dependence, unspecified, uncomplicated; Z88.8 Allergy status to other drugs, medicaments and biological substances; Z79.899 Other long term (current) drug therapy
CPT/HCPCS: 71101

== ENCOUNTER 2018-05-10 10:33 | Emergency (ER) | payer BC | END 2018-05-10 11:05 | disposition home or self-care (01) | LOC: M ED 10:33 | DX: Z51.89 Encounter for other specified aftercare (principal); S22.32XD Fracture of one rib, left side, subsequent encounter for fracture with routine healing; X58.XXXD Exposure to other specified factors, subsequent encounter; Y92.9 Unspecified place or not applicable; Y93.9 Activity, unspecified; Y99.9 Unspecified external cause status; Z76.0 Encounter for issue of repeat prescription; Z72.0 Tobacco use; G43.909 Migraine, unspecified, not intractable, without status migrainosus; E78.00 Pure hypercholesterolemia, unspecified; I10 Essential (primary) hypertension; K21.9 Gastro-esophageal reflux disease without esophagitis; M54.9 Dorsalgia, unspecified; M81.0 Age-related osteoporosis without current pathological fracture; F41.9 Anxiety disorder, unspecified; Z79.899 Other long term (current) drug therapy; Z88.8 Allergy status to other drugs, medicaments and biological substances | CPT/HCPCS: 99282 ==

== ENCOUNTER → 2018-05-18 | Outpatient (CLI) | payer BC ==
[~2018-05-18] MED LIST changes: +E-Z-GAS II EFFERVESCENT PACKET (SODIUM BICARB./CITRIC ACID/SIMETHICONE) As Ordered; +E-Z-HD 98% w/w 340GM SUSP BTL As Ordered; +E-Z-PAQUE 96% w/w SUSP 176GM BTL As Ordered; -LIDOCAINE 1% MDV 20ML VIAL As Ordered
== END ==
LOC: M RAD 08:15
DX: K82.0 Obstruction of gallbladder (principal); K22.4 Dyskinesia of esophagus; K21.9 Gastro-esophageal reflux disease without esophagitis; R10.11 Right upper quadrant pain; R19.7 Diarrhea, unspecified; R11.2 Nausea with vomiting, unspecified
CPT/HCPCS: 76705

== ENCOUNTER 2018-05-26 17:36 | Emergency (ER) | payer BC ==
[2018-05-26] MEDS: KETOROLAC TROMETHAMINE 10 MG TAB PO (19:58)
== END 2018-05-26 20:01 | disposition home or self-care (01) ==
LOC: M ED 17:36
DX: T74.11XA Adult physical abuse, confirmed, initial encounter (principal); S22.32XA Fracture of one rib, left side, initial encounter for closed fracture; Y92.098 Other place in other non-institutional residence as the place of occurrence of the external cause; Y07.01 Husband, perpetrator of maltreatment and neglect; I10 Essential (primary) hypertension; E78.5 Hyperlipidemia, unspecified; G43.909 Migraine, unspecified, not intractable, without status migrainosus; M54.2 Cervicalgia; F41.9 Anxiety disorder, unspecified; F32.9 Major depressive disorder, single episode, unspecified; K21.9 Gastro-esophageal reflux disease without esophagitis; Z88.8 Allergy status to other drugs, medicaments and biological substances; Z79.899 Other long term (current) drug therapy
CPT/HCPCS: 71101

== ENCOUNTER → 2018-06-08 | Outpatient (CLI) | payer BC ==
[~2018-06-08] MED LIST changes: -E-Z-GAS II EFFERVESCENT PACKET (SODIUM BICARB./CITRIC ACID/SIMETHICONE) As Ordered; -E-Z-HD 98% w/w 340GM SUSP BTL As Ordered; -E-Z-PAQUE 96% w/w SUSP 176GM BTL As Ordered; +GASTROGRAFIN SOLUTION 30ML (Q9963) As Ordered; +ISOVUE-370 76% 100ML VIAL (Q9967) As Ordered
== END ==
LOC: M RAD 09:47
DX: N20.0 Calculus of kidney (principal); R10.11 Right upper quadrant pain
CPT/HCPCS: Q9963

== ENCOUNTER 2018-06-21 18:57 | Emergency (ER) | payer BC ==
[2018-06-21] MEDS: KETOROLAC 30 MG/ML VIAL (J1885) IV (19:29)
[2018-06-21] MEDS: NS 1,000 ML IV (19:29)
[2018-06-21] MEDS: ONDANSETRON 4MG/2ML VIAL (J2405) IV ×2 (19:29→21:01)
[2018-06-21 19:50] LABS: BASO % 0.6 % (0.0-1.0); EOS # 0.4 10^3/uL (0.0-0.50); EOS % 5.4 % (0.0-3.0); HEMOGLOBIN 12.8 g/dl (12.0-15.5); IMMATURE GRANULOCYTE % 0.1 % (0-3.0); LYMPH # 2.8 10^3/uL (1.5-4.5); LYMPH % 39.8 % (24.0-44.0); MEAN CORPUSCULAR HEMOGLOBIN 29.7 pg (27.0-33.0); MEAN CORPUSCULAR HGB CONC 32.8 g/dl (32.0-36.5); MEAN CORPUSCULAR VOLUME 90.5 fl (80.0-96.0); MONO # 0.4 10^3/uL (0.0-0.8); MONO % 5.4 % (0.0-5.0); NEUTROPHILS # 3.5 10^3/uL (1.8-7.7); NEUTROPHILS % 48.7 % (36.0-66.0); PLATELET COUNT, AUTOMATED 288 10^3/uL (150-450); RED BLOOD COUNT 4.31 10^6/uL (4.00-5.40); RED CELL DISTRIBUTION WIDTH 12.9 % (11.5-14.5); WHITE BLOOD COUNT 7.1 10^3/uL (4.0-10.0)
[2018-06-21 19:57] LABS: CALCIUM OXALATE CRYSTALS RFX MODERATE; KETONE, URINE AUTO RFX NEGATIVE (NEGATIVE); MUCUS, URINE RFX SMALL (NEGATIVE); NITRITE, URINE AUTO RFX NEGATIVE (NEGATIVE); RBC, URINE AUTO RFX 2 /HPF (0-3); SPECIFIC GRAVITY UR AUTO RFX 1.019 (1.002-1.035); SQUAM EPITHELIAL CELL UR AURFX 2 /HPF (0-6)
[2018-06-21 19:58] LABS: LEUKOCYTE ESTERASE UR AUTO RFX 2+ (NEGATIVE); WBC, URINE AUTO RFX 27 /HPF (0-3)
[2018-06-21 20:09] LABS: ALBUMIN 3.4 GM/DL (3.2-5.2); ALBUMIN/GLOBULIN RATIO 1.21 (1.00-1.93); ALKALINE PHOSPHATASE 77 U/L (45-117); ALT/SGPT 19 U/L (12-78); ANION GAP 8 MEQ/L (8-16); AST/SGOT 17 U/L (7-37); BILIRUBIN,TOTAL 0.2 MG/DL (0.2-1.0); BLOOD UREA NITROGEN 19 MG/DL (7-18); CALCIUM LEVEL 8.4 MG/DL (8.5-10.1); CARBON DIOXIDE LEVEL 26 MEQ/L (21-32); CHLORIDE LEVEL 111 MEQ/L (98-107); CREATININE FOR GFR 0.79 MG/DL (0.55-1.30); GLOMERULAR FILTRATION RATE > 60.0 (>58); GLUCOSE, FASTING 82 MG/DL (70-100); POTASSIUM SERUM 3.5 MEQ/L (3.5-5.1); SODIUM LEVEL 145 MEQ/L (136-145); TOTAL PROTEIN 6.2 GM/DL (6.4-8.2)
[2018-06-21] MEDS: MORPHINE 4 MG/ML 1ML VIAL/SYRINGE (J2270) IV (21:01)
[2018-06-21] MEDS: NITROFURANTOIN (MACROBID) 100 MG CAP PO (21:56)
== END 2018-06-21 21:59 | disposition home or self-care (01) ==
LOC: M ED 18:57
DX: R10.31 Right lower quadrant pain (principal); N30.90 Cystitis, unspecified without hematuria; I10 Essential (primary) hypertension; E78.5 Hyperlipidemia, unspecified; F17.200 Nicotine dependence, unspecified, uncomplicated
CPT/HCPCS: J2270

== ENCOUNTER 2018-06-25 12:20 | Day surgery (SDC) | payer BC ==
[2018-06-25] MEDS ORDERED: PROPOFOL 200 MG/20 ML VIAL As Ordered ×2 (12:21→12:51)
[2018-06-25] MEDS ORDERED: LIDOCAINE 2% INJ 100 MG/5 ML SDV (FOR ANES.) As Ordered (12:21)
[2018-06-25] MEDS: NS 1,000 ML IV (12:30)
[2018-06-25] MEDS ORDERED: ONDANSETRON 4MG/2ML VIAL (J2405) As Ordered (12:50)
[2018-06-26] MEDS ORDERED: fentaNYL 100 MCG/2 ML INJECTION (J3010) As Ordered (09:10)
== END 2018-06-25 14:25 | disposition home or self-care (01) ==
LOC: M OPP 12:20
DX: R19.7 Diarrhea, unspecified (principal); K21.9 Gastro-esophageal reflux disease without esophagitis; R10.9 Unspecified abdominal pain; E78.00 Pure hypercholesterolemia, unspecified; F17.220 Nicotine dependence, chewing tobacco, uncomplicated; M79.7 Fibromyalgia; F33.9 Major depressive disorder, recurrent, unspecified; F41.9 Anxiety disorder, unspecified; Z79.899 Other long term (current) drug therapy; Z88.8 Allergy status to other drugs, medicaments and biological substances
CPT/HCPCS: 45380

== ENCOUNTER 2018-07-08 17:08 | Emergency (ER) | payer BC ==
[2018-07-08] MEDS: PERCOCET 5MG/325MG TAB PO (19:08)
[2018-07-08] MEDS: ONDANSETRON 4 MG ORAL DISINTEGRATING TAB (Q0162 PER 1MG) PO (19:32)
== END 2018-07-08 21:32 | disposition home or self-care (01) ==
LOC: M ED 17:08
DX: R51 Headache (principal); S81.012A Laceration without foreign body, left knee, initial encounter; S00.81XA Abrasion of other part of head, initial encounter; S40.211A Abrasion of right shoulder, initial encounter; S00.33XA Contusion of nose, initial encounter; S80.02XA Contusion of left knee, initial encounter; Y04.8XXA Assault by other bodily force, initial encounter; Y07.01 Husband, perpetrator of maltreatment and neglect; Y92.018 Other place in single-family (private) house as the place of occurrence of the external cause; I10 Essential (primary) hypertension; Z98.1 Arthrodesis status; Z79.899 Other long term (current) drug therapy; Z88.8 Allergy status to other drugs, medicaments and biological substances; F17.210 Nicotine dependence, cigarettes, uncomplicated
CPT/HCPCS: Q0162

== ENCOUNTER → 2018-09-01 | Outpatient (CLI) | payer BC ==
[~2018-09-01] MED LIST changes: +ACET300T2; +ACET300T52 PO; +ACET30TAB PO; +ACYC400T; +ACYC400T PO; +ADDE10CA3 PO; +ADDE25CA PO; +ADDE30CA3 PO; +AMBI6.25 PO; +ATIV0.5T; +ATIV1TAB10 PO; +ATOR1TAB19 PO; +BIOT50004 PO; +BUPR150T3 PO; +COCO1000 PO; +COLA100C5 PO; +CYCL10TA PO; +DEPA1TAB3 PO; +ESTR0.5T3 PO; +ESTRACE PO; +FIOR1CAP PO; +FLUO20CA19 PO; +FLUO40CA PO; +FOLI1TAB11 PO; +GABA-843 PO; -GASTROGRAFIN SOLUTION 30ML (Q9963) As Ordered; -ISOVUE-370 76% 100ML VIAL (Q9967) As Ordered; +KETO10TAB PO; +LIPI10TA PO; +LISI10TA4 PO; +LORA0.5T11 PO; +MACR100C43 PO; +NARC1SPR; +NEUR300C PO; +NORCOTAB PO; +NORT25CA2; +OGEN; +OGEN.625 PO; +OXYC-141 PO; +OXYC1TAB23 PO; +PATIENT COMMENT; +PERC5TAB12 PO; +PERC5TAB8; +PREG25CA PO; +PROZ20CA11 PO; +ROBA500T PO; +SERO1TAB PO; +SUCR1TA PO; +Sumatriptan Succinate PO; +TERAZOL3 VAGINALLY; +TIZA4CAP PO; +TOPA100T12 PO; +TOPA1TAB PO; +TOPAMAX PO; +TOPI100T9 PO; +TRAM50TA2 PO; +TRAZ-160 PO; +TRAZ-163 PO; +VERA40TA PO; +VIST25CA PO; +VITA500046 PO; +WELL75TA PO; +ZANA2CAP PO; +ZANA4CAP PO; +ZANA4TAB PO; +ZOLO25TA PO; +ZOVIRAX PO; +[UNRECOGNIZED DRUG - CODE] PO; +[UNRECOGNIZED DRUG - OTHER]
--- NOTE | 2018-09-01 17:26 | REPMRS ---
Patient History The patient states she had a clinical breast exam in 08/2018. Patient is postmenopausal. No known family history of cancer. Benign US guided breast biopsy of the left breast, July 18, 2017. Reductions of both breasts, February 2017. Took estrogen for 7 years. Digital Woman Screen Mammo: September 01, 2018 - Exam #: [id number] Bilateral CC and MLO view(s) were taken. Technologist: Lottie Munoz, Technologist Prior study comparison: September 27, 2016, digital woman screen mammo performed at [facility]. April 02, 2013, digital bilateral screening mammo, performed at [facility]. February 22, 2011, digital bilateral screening mammo, performed at [facility]. FINDINGS: The breast tissue is almost entirely fat. There is a needle biopsy marker clip in the left breast. The previously noted left breast nodule is no longer visible. There has been no other change in the appearance of the mammogram from the prior studies. There is no interval development of dominant mass, architectural distortion, or clustered microcalcification typical of malignancy. 3-D tomosynthesis shows no additional findings. Assessment: BI-RADS/ACR category 2 mammogram. Benign Findings. Recommendation Routine screening mammogram of both breasts in 1 year (for women over age 40). This patient's Lifetime Breast Cancer RIsk is estimated at 4.9 %. This mammogram was interpreted with the aid of an FDA-approved computer-aided dectection system. Electronically Signed By: Siddhartha Martinez MD 09/01/18 1344
== END ==
LOC: M WHC 15:45
PROVIDERS: ATTEND Nurse Practitioner Family
DX: Z12.31 Encounter for screening mammogram for malignant neoplasm of breast (principal)

== ENCOUNTER → 2018-09-07 | Outpatient (CLI) | payer BC ==
[2018-09-07 20:32] LABS: INR 1.08; PROTHROMBIN TIME 14.1 SECONDS (12.1-14.4)
[2018-09-07 20:33] LABS: PARTIAL THROMBOPLASTIN TIME 35.2 SECONDS (25.4-37.6)
== END ==
LOC: M WUC 16:18
PROVIDERS: ATTEND Internal Medicine
DX: Z01.812 Encounter for preprocedural laboratory examination (principal)

== ENCOUNTER 2018-09-21 18:44 | Emergency (ER) | payer BC ==
[~2018-09-21] VITALS: Ht 154.9 cm; Wt 62.7 kg
--- NOTE | 2018-09-21 19:39 | REP ---
Clinical: Acute headache . Comparison: 07/08/2018 . Findings: The ventricles, sulci, and cisterns are normal in position and appearance. Kelsey-white differentiation is maintained. No acute intracranial hemorrhage, mass/mass effect, pathology or trauma/injury. No evidence for acute infarction. No extra-axial fluid collection. Calvarium is intact. Paranasal sinuses and mastoid air cells are clear. Impression: Normal noncontrast head CT. No evidence for acute intracranial pathology or trauma/injury. Electronically Signed by Albino Arrieta MD 09/21/2018 07:31 P
[2018-09-21] MEDS ORDERED: chlorproMAZINE INJ 50MG/2ML AMP (J3230) IM STA (19:43)
[2018-09-21] MEDS ORDERED: MORPHINE 2 MG/ML 1ML SYRINGE (J2270) IM ONE (19:45)
[2018-09-21] MEDS ORDERED: NORTRIPTYLINE 25 MG CAP PO ONE (20:30)
[2018-09-21 22:00] VITALS: BP 128/63
== END 2018-09-21 22:18 | disposition home or self-care (01) ==
LOC: M ED 18:44
DX: G43.909 Migraine, unspecified, not intractable, without status migrainosus (principal); R53.1 Weakness; R20.2 Paresthesia of skin; G43.409 Hemiplegic migraine, not intractable, without status migrainosus; M50.30 Other cervical disc degeneration, unspecified cervical region; K21.9 Gastro-esophageal reflux disease without esophagitis; Z88.8 Allergy status to other drugs, medicaments and biological substances; Z79.899 Other long term (current) drug therapy
CPT/HCPCS: 70450; 96372; 99284; J2270

== ENCOUNTER 2018-10-12 12:45 | Inpatient (IN) | payer OTHER, BC ==
[~2018-10-12] VITALS: Ht 154.9 cm; Wt 69.5 kg
[2018-10-12] MEDS ORDERED: NS 1,000 ML IV ONE (14:30)
[2018-10-12] MEDS ORDERED: ONDANSETRON 4MG/2ML VIAL (J2405) IV ONE (14:30)
[2018-10-12] MEDS: HYDROMORPHONE HCL 0.5 MG/ 0.5 ML SYRINGE (J1170 PER 1) IV PRN ×2 (14:50→15:27)
--- NOTE | 2018-10-12 15:18 | REP ---
CT cervical spine without contrast HISTORY: Headache COMPARISON: 08/05/2017 The patient is status post C 5-7 anterior spinal fusion. A fixation plate and bone graft material are present. There is no acute fracture or subluxation. Disc bulges are present at the C3-4 and C4-5 levels. There is minimal narrowing of the spinal canal. Uncinate process hypertrophy is present on the right at the C4-5 level. This produces minimal narrowing of the right C4 neural foramen. There is no other disc bulge or herniation. The remaining neural foramina are patent. The C4-5 intervertebral disc is decreased in height consistent with disc degeneration. Small collections of air are present in the posterior paravertebral soft tissues, right anterior subcutaneous tissues and in the epidural space of the spinal canal . There is no subluxation. IMPRESSION: 1. The patient is status post C5-C7 anterior spinal fusion. 2. There is no acute fracture or subluxation. 3. There is cervical spondylosis at the C3-4 and C4-5 levels. 4. There are small collections of air in subcutaneous tissues and spinal canal as described above. Electronically Signed by Ruben Santillan MD 10/12/2018 03:10 P
[2018-10-12] MEDS ORDERED: HYDROMORPHONE HCL 0.5 MG/ 0.5 ML SYRINGE (J1170 PER 1) IV ONE (17:00)
[2018-10-12] MEDS ORDERED: diphenhydrAMINE INJ 50MG/ML VIAL (J1200) IV ONE ×2 (17:00→22:30)
[2018-10-12] MEDS ORDERED: KETOROLAC 30 MG/ML VIAL (J1885) IV ONE (19:45)
[2018-10-12] MEDS ORDERED: NORCO, ANEXSIA 5/325MG TABLET (HYDROcodone/ACETAMINOPHEN) PO PRN (20:00)
[2018-10-12] MEDS ORDERED: FIORICET TAB PO PRN (20:00)
[2018-10-12] MEDS ORDERED: METOCLOPRAMIDE INJ 10MG/2ML VIAL (J2765) IV PRN (20:00)
[2018-10-12] MEDS ORDERED: EXCEDRIN MIGRAINE TABLET PO PRN ×2 (20:00→21:15)
[2018-10-12] MEDS ORDERED: NEUR300C PO (20:05)
[2018-10-12] MEDS ORDERED: ESTR0.5T3 PO (20:06)
[2018-10-12] MEDS ORDERED: CYCLOBENZAPRINE 10 MG TAB PO PRN (20:15)
[2018-10-12] MEDS ORDERED: oxyCODONE 5MG TAB PO PRN (20:15)
[2018-10-12] MEDS ORDERED: ACYCLOVIR 200 MG CAPSULE PO PRN (20:15)
[2018-10-12] MEDS ORDERED: LORazepam 0.5 MG TAB PO PRN (20:15)
[2018-10-12] MEDS ORDERED: ONDANSETRON 4MG/2ML VIAL (J2405) IV PRN (20:15)
[2018-10-12] MEDS: NS 1,000 ML IV SCH (20:43)
[2018-10-12 20:49] LABS: HEMATOCRIT 37.2 % (36.0-47.0); HEMOGLOBIN 12.3 g/dl (12.0-15.5); MEAN CORPUSCULAR HEMOGLOBIN 30.1 pg (27.0-33.0); MEAN CORPUSCULAR HGB CONC 33.1 g/dl (32.0-36.5); PLATELET COUNT, AUTOMATED 258 10^3/uL (150-450); RED BLOOD COUNT 4.09 10^6/uL (4.00-5.40); WHITE BLOOD COUNT 3.8 10^3/uL (4.0-10.0)
--- NOTE | 2018-10-12 21:06 | HPE ---
DATE OF ADMISSION: 10/12/2018 CHIEF COMPLAINT: Headache. HISTORY OF THE PRESENT ILLNESS: The patient is a 48-year-old female with significant past medical history of attention-deficit hyperactivity disorder (ADHD), postherpetic neuralgia, cervical stenosis, status post laminectomy and fusion, cervical radiculopathy, depression, anxiety, migraines, complex migraines, who presents to the emergency room with occipital headache associated with photophobia and nausea, 10/10 severity that started immediately after she had a spinal injection - steroid injection for chronic pain in the neck. The injection was done by Dr. Guevara. Patient subsequently developed a headache. She states it is not like her migraines; her migraines usually come with hemiplegia. She does have photophobia. She denies any fevers or chills. She endorses nausea but no vomiting. Anesthesia was consulted in the emergency room (ER) for the possibility of a blood patch; however, being that the patient was just injected with steroids, anesthesia opted for conservative management to wait before doing the blood patch. She denies any chest pain, shortness of breath, cough, fevers, or chills, urinary symptoms, abdominal pain, constipation, or diarrhea. PAST MEDICAL HISTORY: See history of the present illness. PAST SURGICAL HISTORY: She has had a tubal ligation, sections times three, total abdominal hysterectomy, ulnar nerve release, cervical fusion laminectomy times two. SOCIAL HISTORY: She is a current smoker. Denies alcohol or illicit drug use. FAMILY HISTORY: Noncontributory. ALLERGIES: To REGLAN and PROMETHAZINE. HOME MEDICATIONS: Include: - Tylenol #3 - Estrace - acyclovir as needed - Adderall - Flexeril - fluoxetine - gabapentin - lorazepam - Topamax - trazodone REVIEW OF SYSTEMS: A 12-point review of systems was completed, all of which were negative except those listed in the history of the present illness. VITAL SIGNS ON ADMISSION: Temperature 97.2, pulse 71, respirations 16, blood pressure 153/92, saturating at 100% on room air. PHYSICAL EXAM: General: She is well nourished, in mild distress secondary to headache. Head is normocephalic, atraumatic Eyes: Extraocular movements are intact. Neck: She has a pain radiating down the back of the neck. Cardiovascular: Regular rate and rhythm. Normal S1, S2. No murmurs, gallops, or rubs. Lungs: Clear to auscultation. Abdomen: Soft, nontender, nondistended. Positive bowel sounds. No rebound or guarding. Extremities: No pitting edema or calf tenderness. Skin: Intact. No rashes, lesions, or breakdown. Neurological: Alert and oriented times three. No focal deficits appreciated on the exam. LABS AND IMAGING: Completed in the emergency department. Labs still pending. CT of the head: Pending. ASSESSMENT AND PLAN: Headache post spinal injection for cervical radiculopathy, likely spinal headache versus less likely migraine. Will place the patient on narcotic oxycodone as needed, Fioricet and Excedrin as needed, caffeine if this is a dural headache. Zofran as needed. Will give a dose of Zofran, Toradol and Benadryl. Will continue to monitor. She will be seen by anesthesia in the morning for the possibility of a blood patch. FOR THE REST OF HER CHRONIC MEDICAL CONDITIONS: Postherpetic neuralgia: Acyclovir. ADHD: Adderall. Anti-depression: Fluoxetine. Neuropathic pain from cervical radiculopathy: Neurontin. Migraine prophylaxis: Topamax. Depression: Trazodone. SUPPORTIVE: Deep vein thrombosis (DVT) prophylaxis: Heparin subcu. Gastrointestinal (GI) prophylaxis: Not indicated. Diet: Regular with aggressive fluid hydration.
[2018-10-12 21:17] LABS: ALBUMIN 3.4 GM/DL (3.2-5.2); ALT/SGPT 17 U/L (12-78); BILIRUBIN,DIRECT 0.1 MG/DL (0.0-0.2); BILIRUBIN,TOTAL 0.3 MG/DL (0.2-1.0); BLOOD UREA NITROGEN 10 MG/DL (7-18); CALCIUM LEVEL 7.8 MG/DL (8.5-10.1); CARBON DIOXIDE LEVEL 22 MEQ/L (21-32); CHLORIDE LEVEL 114 MEQ/L (98-107); CREATININE FOR GFR 0.59 MG/DL (0.55-1.30); GLOMERULAR FILTRATION RATE > 60.0 (>58); GLUCOSE, FASTING 136 MG/DL (70-100); POTASSIUM SERUM 4.1 MEQ/L (3.5-5.1); SODIUM LEVEL 141 MEQ/L (136-145); TOTAL PROTEIN 6.3 GM/DL (6.4-8.2)
[2018-10-12] MEDS: GABAPENTIN 300 MG CAP PO SCH (21:26)
[2018-10-12] MEDS: TOPIRAMATE (TopAMAX) 100 MG TAB PO SCH (21:26)
[2018-10-12] MEDS: traZODone 50 MG TAB PO SCH (21:26)
[2018-10-12] MEDS: HEPARIN SOD (PORCINE) 5000 UNITS/ML VIAL SC SCH (22:00)
[2018-10-13] MEDS: NS 1,000 ML IV SCH ×4 (02:40→21:41)
[2018-10-13 04:10] VITALS: BP 122/83
[2018-10-13] MEDS ORDERED: diphenhydrAMINE INJ 50MG/ML VIAL (J1200) IV ONE (05:30)
[2018-10-13] MEDS ORDERED: HYDROMORPHONE HCL 0.5 MG/ 0.5 ML SYRINGE (J1170 PER 1) IV ONE (05:30)
[2018-10-13] MEDS: HEPARIN SOD (PORCINE) 5000 UNITS/ML VIAL SC SCH ×3 (05:58→21:54)
[2018-10-13 06:00] VITALS: BP 101/52
[2018-10-13 06:48] LABS: HEMATOCRIT 34.6 % (36.0-47.0); HEMOGLOBIN 11.5 g/dl (12.0-15.5); MEAN CORPUSCULAR HEMOGLOBIN 30.3 pg (27.0-33.0); MEAN CORPUSCULAR HGB CONC 33.2 g/dl (32.0-36.5); MEAN CORPUSCULAR VOLUME 91.3 fl (80.0-96.0); PLATELET COUNT, AUTOMATED 265 10^3/uL (150-450); RED BLOOD COUNT 3.79 10^6/uL (4.00-5.40); WHITE BLOOD COUNT 6.2 10^3/uL (4.0-10.0)
[2018-10-13 07:08] LABS: BLOOD UREA NITROGEN 12 MG/DL (7-18); CALCIUM LEVEL 7.8 MG/DL (8.5-10.1); CARBON DIOXIDE LEVEL 21 MEQ/L (21-32); CHLORIDE LEVEL 117 MEQ/L (98-107); CREATININE FOR GFR 0.63 MG/DL (0.55-1.30); GLOMERULAR FILTRATION RATE > 60.0 (>58); GLUCOSE, FASTING 86 MG/DL (70-100); POTASSIUM SERUM 3.3 MEQ/L (3.5-5.1); SODIUM LEVEL 143 MEQ/L (136-145)
[2018-10-13] MEDS ORDERED: FIORICET TAB PO PRN (08:00)
[2018-10-13] MEDS: FLUoxetine 20 MG CAP PO SCH (09:53)
[2018-10-13] MEDS: AMPHETAMINE/DEXTROAMPHETAMINE 5 MG *ER* CAPSULE (ADDERALL XR) PO SCH (09:53)
[2018-10-13] MEDS: TOPIRAMATE (TopAMAX) 100 MG TAB PO SCH ×2 (09:53→21:54)
[2018-10-13] MEDS ORDERED: POTASSIUM CHLORIDE 10 MEQ SR TABLET PO ONE (10:00)
--- NOTE | 2018-10-13 10:03 | IPNPDOC ---
Date Seen The patient was seen on 10/13/18. Progress Note SUBJECTIVE: requesting scheduled iv dilaudid due to severe headache. no nausea vomiting photophobia. Per pt, ortho Dr. Guevara will schedule a a blood patch . Dr. Glynn, anesthesiologist adhesive bonding machine operator, "none of us do cervical blood patches," and recommends neurosurgery in [place]. PHYSICAL EXAM: General: She is well nourished, in mild distress secondary to headache. Head is normocephalic, atraumatic Eyes: Extraocular movements are intact. Neck: She has a pain radiating down the back of the neck. Cardiovascular: Regular rate and rhythm. Normal S1, S2. No murmurs, gallops, or rubs. Lungs: Clear to auscultation. Abdomen: Soft, nontender, nondistended. Positive bowel sounds. No rebound or guarding. Extremities: No pitting edema or calf tenderness. Skin: Intact. No rashes, lesions, or breakdown. Neurological: Alert and oriented times three. No focal deficits appreciated on the exam. LABS AND IMAGING: Completed in the emergency department. Labs still pending. CT of the head: Pending. ASSESSMENT AND PLAN: The patient is a 48-year-old female with significant past medical history of attention-deficit hyperactivity disorder (ADHD), postherpetic neuralgia, cervical stenosis, status post laminectomy and fusion, cervical radiculopathy, depression, anxiety, migraines, complex migraines, who presents to the emergency room with occipital headache associated with photophobia and nausea, 10/10 severity that started immediately after she had a spinal injection - steroid injection for chronic pain in the neck. The injection was done by Dr. Guevara. Patient subsequently developed a headache. She states it is not like her migraines; her migraines usually come with hemiplegia. She does have photophobia. She denies any fevers or chills. She endorses nausea but no vomiting. Anesthesia was consulted in the emergency room (ER) for the possibility of a blood patch; however, being that the patient was just injected with steroids, anesthesia opted for conservative management to wait before doing the blood patch. She denies any chest pain, shortness of breath, cough, fevers, or chills, urinary symptoms, abdominal pain, constipation, or diarrhea. Headache post spinal injection for cervical radiculopathy, likely spinal headache versus less likely migraine. Will place the patient on narcotic oxycodone as needed, Fioricet and Excedrin as needed, caffeine if this is a dural headache. Zofran as needed. Will give a dose of Zofran, Toradol and Benadryl. Will continue to monitor. She will be seen by anesthesia in the morning for the possibility of a blood patch. Dr. Guevara, Ortho, consulted. Per pt, ortho Dr. Guevara will schedule a a blood patch . Dr. Glynn, anesthesiologist adhesive bonding machine operator, "none of us do cervical blood patches," and recommends neurosurgery in [place]. Postherpetic neuralgia: Acyclovir. ADHD: Adderall. Anti-depression: Fluoxetine. Neuropathic pain from cervical radiculopathy: Neurontin. Migraine prophylaxis: Topamax. Depression: Trazodone. SUPPORTIVE: Deep vein thrombosis (DVT) prophylaxis: Heparin subcu. Gastrointestinal (GI) prophylaxis: Not indicated. Diet: Regular with aggressive fluid hydration. VS, I&O, 24H, Fishbone Vital Signs/I&O Vital Signs Date Time Temp Pulse Resp B/P (MAP) Pulse Ox O2 Delivery O2 Flow Rate FiO2 10/13/18 06:09 18 10/13/18 06:00 98.3 82 101/52 (68) 98 10/13/18 00:05 Room Air I&O- Last 24 Hours up to 6 AM 10/13/18 06:00 Intake Total 1150 ml Balance 1150 ml Laboratory Data 24H LABS Laboratory Tests 2 10/12/18 20:40: Nucleated Red Blood Cells % (auto) 0.0, Anion Gap 5L, Glomerular Filtration Rate > 60.0, Calcium Level 7.8L, Aspartate Amino Transf (AST/SGOT) 16, Alanine Aminotransferase (ALT/SGPT) 17, Alkaline Phosphatase 69, Total Bilirubin 0.3, Direct Bilirubin 0.1, Total Protein 6.3L, Albumin 3.4, Albumin/Globulin Ratio 1.17 10/13/18 06:14: Nucleated Red Blood Cells % (auto) 0.0, Anion Gap 5L, Glomerular Filtration Rate > 60.0, Calcium Level 7.8L, Blood Urea Nitrogen 12, Creatinine 0.63, Sodium Level 143, Potassium Level 3.3L, Chloride Level 117H, Carbon Dioxide Level 21 CBC/BMP Laboratory Tests 10/12/18 20:40 Red Blood Count 4.09, Mean Corpuscular Volume 91.0, Mean Corpuscular Hemoglobin 30.1, Mean Corpuscular Hemoglobin Concent 33.1, Red Cell Distribution Width 13.3 10/13/18 06:14 Red Blood Count 3.79 L, Mean Corpuscular Volume 91.3, Mean Corpuscular Hemoglobin 30.3, Mean Corpuscular Hemoglobin Concent 33.2, Red Cell Distribution Width 13.5, Calcium Level 7.8 L AIRAM YOUNG MD Oct 13, 2018 10:03
[2018-10-13] MEDS ORDERED: KETOROLAC 30 MG/ML VIAL (J1885) IV ONE (11:00)
[2018-10-13] MEDS ORDERED: HYDROmorphone 2 MG TAB PO ONE (11:00)
[2018-10-13 14:00] VITALS: BP 145/78
[2018-10-13] MEDS: HYDROmorphone 2 MG TAB PO PRN ×2 (15:12→21:55)
--- NOTE | 2018-10-13 18:18 | CR ---
DATE OF PAIN CLINIC CONSULTATION: 10/13/2018 REFERRING PHYSICIAN: Martha Lerma MD CHIEF COMPLAINT: Occipital headache post cervical epidural spine injection on 10/12/2018. HISTORY OF PRESENT ILLNESS Adrienne is a 48-year-old female who had a cervical epidural steroid injection yesterday 10/12 and developed immediately a severe occipital headache that worsened with position changing from sitting to standing. She was admitted for uncontrolled headaches. Today she is awake and alert. Appears moderately uncomfortable. Describes occipital pain that is constant and throbbing. Pain is aggravated with movement to a sitting position. Pain is improved when she is lying flat. She has been getting some improvement with both IV and oral Dilaudid today as well as Toradol. Rating pain intensity as a 7/10. PAST MEDICAL HISTORY History of hemiplegic migraine headache. Chronic right arm paresthesia and weakness, status post cervical surgery 2007 and 2014. Attention deficit/hyperactivity disorder (ADHD). Post herpetic neuralgia. Cervical stenosis. Cervical radiculopathy. Depression and anxiety. Migraines. PAST SURGICAL HISTORY Tubal ligation. times three. Total abdominal hysterectomy. Ulnar nerve release. Cervical surgery times two2 2007 and 2014. SOCIAL HISTORY: She is a smoker. Denying illicit drug use. ALLERGIES: REGLAN, PROMETHAZINE. PHYSICAL EXAMINATION Awake, alert. Vital signs: 99, 80, 18, BP 145/78, O2 sat is 100% on room air. Cardiac: S1, S3. Normal rate and rhythm. Respiratory: Lung sounds are clear. Respirations nonlabored. Neuro: Cranial nerves intact as tested. Negative Romberg. Muscle strength testing is 5/5 upper and lower extremities. Reports increase in occipital pain from laying to sitting position. ASSESSMENT Post dural headache. PLAN Reviewed case with Dr. Mcconnell. Recommends Fioricet 1 capsule at 06:00 a.m., 12 noon and 06:00 p.m. recommendation for gabapentin 300 mg at bedtime. Continue with hydromorphone 1 mg every 6 hours as needed for breakthrough pain medication and headache. Thank you for allowing us to participate in the care of your patient. If you have any questions or concerns please do not hesitate to contact us. Sincerely, Laisha Manzanares, Family Nurse Practitioner [facility]
[2018-10-13] MEDS ORDERED: diazePAM 5 MG TAB PO ONE (19:00)
[2018-10-13] MEDS: GABAPENTIN 300 MG CAP PO SCH (21:54)
[2018-10-13] MEDS: traZODone 50 MG TAB PO SCH (21:54)
[2018-10-13 22:00] VITALS: BP 115/65
[2018-10-14] MEDS: NS 1,000 ML IV SCH ×3 (04:29→16:56)
[2018-10-14] MEDS: HEPARIN SOD (PORCINE) 5000 UNITS/ML VIAL SC SCH ×3 (05:03→20:09)
[2018-10-14] MEDS: FIORICET TAB PO SCH ×3 (05:04→16:56)
[2018-10-14] MEDS: HYDROmorphone 2 MG TAB PO PRN ×3 (05:52→23:45)
[2018-10-14 06:00] VITALS: BP 135/67
[2018-10-14 06:09] LABS: HEMATOCRIT 31.7 % (36.0-47.0); HEMOGLOBIN 10.3 g/dl (12.0-15.5); MEAN CORPUSCULAR HEMOGLOBIN 29.9 pg (27.0-33.0); MEAN CORPUSCULAR HGB CONC 32.5 g/dl (32.0-36.5); MEAN CORPUSCULAR VOLUME 91.9 fl (80.0-96.0); PLATELET COUNT, AUTOMATED 206 10^3/uL (150-450); RED BLOOD COUNT 3.45 10^6/uL (4.00-5.40); WHITE BLOOD COUNT 4.2 10^3/uL (4.0-10.0)
[2018-10-14 06:31] LABS: BLOOD UREA NITROGEN 9 MG/DL (7-18); CALCIUM LEVEL 7.2 MG/DL (8.5-10.1); CARBON DIOXIDE LEVEL 20 MEQ/L (21-32); CHLORIDE LEVEL 122 MEQ/L (98-107); CREATININE FOR GFR 0.55 MG/DL (0.55-1.30); GLOMERULAR FILTRATION RATE > 60.0 (>58); GLUCOSE, FASTING 90 MG/DL (70-100); POTASSIUM SERUM 3.8 MEQ/L (3.5-5.1); SODIUM LEVEL 146 MEQ/L (136-145)
--- NOTE | 2018-10-14 07:25 | CR ---
DATE OF CONSULTATION: 10/13/2018 REFERRING PHYSICIAN: Dr. Martha Lerma. REASON FOR CONSULTATION: Headache. HISTORY OF PRESENT ILLNESS: Charlee Koenig is a 48-year-old with a history of chronic neck pain status post cervical laminectomy and fusion twice, migraines, complex migraines, anxiety, depression, who presented to the emergency department with occipital headache which was 10/10 in intensity which started after she had cervical spine injection in her neck by Dr. Guevara on October 12, 2018. The patient developed severe headache right after that. This headache is worse when she sits up or stands up. The patient states that this headache is worse than her migraines. Her migraines are associated with left-sided weakness. Left-sided weakness has not happened with this headache and are worse than her migraines. She denies any fever, chills, orvomiting, diarrhea, falls or loss of consciousness. She denies any lower back pain. She complains of 4/10 neck pain. Anesthesia and [facility] pain clinic were consulted in the emergency department for the possibility of a blood patch. They recommended conservative management as the patient had steroid injection. Pain management has also been consulted and they recommended pain control for now. They recommended intravenous fluids and increased caffeine intake in the form of Fioricet. Dr. Guevara has informed the patient that he is in touch with Pain clinic and Anesthesia at [facility] to arrange cervical blood patch for her. The patient had been requiring Dilaudid for pain control. She received 3 doses of Dilaudid yesterday and two doses of Dilaudid today but headache persists. PAST MEDICAL HISTORY: Attention deficit disorder. Postherpetic neuralgia. Cervical stenosis status post cervical laminectomy in [address] Dee. Anxiety. Depression. Complex migraines with left-sided weakness. PAST SURGICAL HISTORY: Tubal ligation. section. Total hysterectomy. SOCIAL HISTORY: She is a current smoker. She denies alcohol or illicit drugs. FAMILY HISTORY: Noncontributory. ALLERGIES: PROMETHAZINE. MEDICATIONS: - Tylenol with Codeine - Esterase - Adderall - Flexeril - fluoxetine - gabapentin - Ativan - Topamax - trazodone - acyclovir as needed. REVIEW OF SYSTEMS: All systems review negative except for as mentioned in history present illness. PHYSICAL EXAMINATION: Blood pressure 145/70, pulse 80, respiratory 17, temperature 99. Heart: Regular rate. Lungs clear to auscultation. Abdomen: Soft, nontender, nondistended. No pedal edema. No musculoskeletal abnormalities. No rash. No signs of meningeal irritation. No dysmetria or ataxia. No tremor. The patient is awake, alert, oriented to place, person and time. Normal speech comprehension and repetition. Extraocular signs are intact. No facial weakness. Tongue and uvula are midline. Right arm strength is 4+/5 throughout due to her history of chronic neck pain and cervical radiculopathy. Rest of the strength 5/5. Normal sensation throughout. Gait was not tested. There is no dysmetria on cerebellar testing. DIAGNOSTIC STUDIES: CT scan of head was reportedly unremarkable. CT scan of cervical spine showed post cervical laminectomy and fusion changes in C5-C7 levels. She also has cervical spondylosis between C3-C5 levels. Reportedly there is a small air collection in subcutaneous tissues and cervical canal. ASSESSMENT 1. Low cerebrospinal fluid (CSF) pressure/Orthostatic headaches due to recent cervical injection. 2. History of complex migraines which cause left-sided weakness. 3. History of chronic neck pain due to cervical disc disease and patient is status post cervical laminectomy and fusion in the past. PLAN: 1. Recommend cervical blood patch. 2. Continue conservative treatment with IV fluid and increase caffeine intake and Fioricet. 3. MRI of brain and cervical spine with and without contrast. 4. Continue Topamax 100 mg by mouth bid. 5. Anesthesia and pain management are already involved in the patient's care and plan to do blood patch. MALU
[2018-10-14] MEDS: FLUoxetine 20 MG CAP PO SCH (09:05)
[2018-10-14] MEDS: AMPHETAMINE/DEXTROAMPHETAMINE 5 MG *ER* CAPSULE (ADDERALL XR) PO SCH (09:05)
[2018-10-14] MEDS: TOPIRAMATE (TopAMAX) 100 MG TAB PO SCH (09:05)
[2018-10-14] MEDS: SENOKOT S TAB PO SCH ×2 (09:05→20:08)
[2018-10-14] MEDS ORDERED: diazePAM 5 MG TAB PO ONE (11:15)
[2018-10-14] MEDS ORDERED: PROHANCE 279.3MG/ML 15ML VIAL (A9576) As Ordered ONE (13:20)
--- NOTE | 2018-10-14 13:36 | IPNPDOC ---
Date Seen The patient was seen on 10/14/18. Progress Note SUBJECTIVE: Pt has been evaluated by pain mgt, neurology, with MRI brain and cervical spine pending. no relief on current pain meds. Per Anesthesia, Dr. Vega, chris plans for LUMBAR blood patch. Pt is agreeable to transfer [facility] if [facility]surgery will accept. no beds at [facility] and no neurosurgery available at [facility] PHYSICAL EXAM: General: She is well nourished, in mild distress secondary to headache. Head is normocephalic, atraumatic Eyes: Extraocular movements are intact. Neck: She has a pain radiating down the back of the neck. Cardiovascular: Regular rate and rhythm. Normal S1, S2. No murmurs, gallops, or rubs. Lungs: Clear to auscultation. Abdomen: Soft, nontender, nondistended. Positive bowel sounds. No rebound or guarding. Extremities: No pitting edema or calf tenderness. Skin: Intact. No rashes, lesions, or breakdown. Neurological: Alert and oriented times three. No focal deficits appreciated on the exam. LABS AND IMAGING: Completed in the emergency department. Labs still pending. CT of the head: Pending. ASSESSMENT AND PLAN: The patient is a 48-year-old female with significant past medical history of attention-deficit hyperactivity disorder (ADHD), postherpetic neuralgia, cervical stenosis, status post laminectomy and fusion, cervical radiculopathy, depression, anxiety, migraines, complex migraines, who presents to the emergency room with occipital headache associated with photophobia and nausea, 10/10 severity that started immediately after she had a spinal injection - steroid injection for chronic pain in the neck. The injection was done by Dr. Guevara. Patient subsequently developed a headache. She states it is not like her migraines; her migraines usually come with hemiplegia. She does have photophobia. She denies any fevers or chills. She endorses nausea but no vomiting. Anesthesia was consulted in the emergency room (ER) for the possibility of a blood patch; however, being that the patient was just injected with steroids, anesthesia opted for conservative management to wait before doing the blood patch. She denies any chest pain, shortness of breath, cough, fevers, or chills, urinary symptoms, abdominal pain, constipation, or diarrhea. Headache post spinal injection for cervical radiculopathy, likely spinal heada sd versus less likely migraine. Will place the patient on narcotic oxycodone as needed, Fioricet and Excedrin as needed, caffeine if this is a dural headache. Zofran as needed. Will give a dose of Zofran, Toradol and Benadryl. Will continue to monitor. She will be seen by anesthesia in the morning for the possibility of a blood patch. Dr. Guevara, Ortho, consulted. Per Dr. Glynn, anesthesiologist mortgage protection sales, on 10/13/18 "none of us do cervical blood patches," and recommends neurosurgery in [place]. on 10/14/18Dr. Vega, anesthesiologist, "Cervical blood patches has many potential neurological complications, and Lumbar blood patch has not been shown to be useful in these cases." Pt is agreeable to transfer to [facility] if Neurosurgery will accept. no beds at [facility] and no neurosurgery available at [facility] Postherpetic neuralgia: Acyclovir. ADHD: Adderall. Anti-depression: Fluoxetine. Neuropathic pain from cervical radiculopathy: Neurontin. Migraine prophylaxis: Topamax. Depression: Trazodone. SUPPORTIVE: Deep vein thrombosis (DVT) prophylaxis: Heparin subcu. Gastrointestinal (GI) prophylaxis: Not indicated. Diet: Regular with aggressive fluid hydration. disposition: awaiting bed in [facility] VS, I&O, 24H, Fishbone Vital Signs/I&O Vital Signs Date Time Temp Pulse Resp B/P (MAP) Pulse Ox O2 Delivery O2 Flow Rate FiO2 10/14/18 06:22 14 10/14/18 06:00 98.3 62 135/67 (89) 95 10/13/18 00:05 Room Air I&O- Last 24 Hours up to 6 AM 10/14/18 06:00 Intake Total 2730 ml Output Total 1300 ml Balance 1430 ml Laboratory Data 24H LABS Laboratory Tests 2 10/14/18 05:45: Nucleated Red Blood Cells % (auto) 0.0, Anion Gap 4L, Glomerular Filtration Rate > 60.0, Blood Urea Nitrogen 9, Creatinine 0.55, Sodium Level 146H, Potassium Level 3.8, Chloride Level 122H, Carbon Dioxide Level 20L, Calcium Level 7.2L CBC/BMP Laboratory Tests 10/14/18 05:45 Red Blood Count 3.45 L, Mean Corpuscular Volume 91.9, Mean Corpuscular Hemoglobin 29.9, Mean Corpuscular Hemoglobin Concent 32.5, Red Cell Distribution Width 13.8, Calcium Level 7.2 L AIRAM YOUNG MD Oct 14, 2018 13:36
[2018-10-14 14:00] VITALS: BP 158/100
--- NOTE | 2018-10-14 14:19 | REP ---
CT Head without contrast HISTORY: Headache COMPARISON: 09/21/2018 There is no intraparenchymal hemorrhage, acute infarct, mass or midline shift. The ventricular system is normal in appearance. There is no extra cerebral collection. There is no fracture. The visualized sinuses are clear. IMPRESSION: There is no intracranial lesion. Electronically Signed by Ruben Santillan MD 10/14/2018 02:10 P
--- NOTE | 2018-10-14 15:03 | REP ---
MR CERVICAL SPINE WITHOUT AND WITH CONTRAST: HISTORY: Headache. CONTRAST: ProHance 13 mL. COMPARISON: CT 10/12/2018 The examination is limited secondary to motion. A disc bulge is present at the C2-3 level. There is minimal effacement of the thecal sac without spinal cord compression. The C3 neural foramina are patent. A disc bulge is present at the C4-5 level. There is minimal effacement of the thecal sac without spinal cord compression. Uncinate process hypertrophy is present on the right. This produces minimal narrowing of the right C4 neural foramen. The left C4 neural foramina is patent. The patient is status post C5-7 anterior spinal fusion. A fixation plate and bone graft material are present. There is no other disc bulge or herniation. The remaining neural foramina are patent. The spinal cord is normal in signal intensity. There is no abnormal enhancement. Normal signal intensity is present in the cervical vertebral bodies. There is no subluxation. IMPRESSION: 1. The patient is status post C5 to C7 anterior spinal fusion. There is anatomic alignment. 2. There is cervical spondylosis at the C3-4 and C4-5 levels without spinal cord compression. Electronically Signed by Ruben Santillan MD 10/14/2018 03:08 P
--- NOTE | 2018-10-14 15:06 | REP ---
MR BRAIN WITHOUT AND WITH CONTRAST: HISTORY: Headache. CONTRAST: ProHance 13 mL. COMPARISON: CT 10/12/2018. There are no areas of abnormal signal intensity in the brain. There is no intraparenchymal hemorrhage, infarct, mass or midline shift. There is no abnormal enhancement. The ventricular system is normal in appearance. There is no extracerebral collection. The visualized sinuses are clear. IMPRESSION: There is no intracranial lesion. Electronically Signed by Ruben Santillan MD 10/14/2018 03:09 P
[2018-10-14] MEDS ORDERED: FUROSEMIDE 40 MG/4 ML VIAL (J1940) IV ONE (17:15)
[2018-10-14] MEDS ORDERED: KETOROLAC 30 MG/ML VIAL (J1885) IV ONE (19:00)
[2018-10-14] MEDS: traZODone 50 MG TAB PO SCH (20:09)
[2018-10-14] MEDS: GABAPENTIN 300 MG CAP PO SCH (20:09)
[2018-10-14 22:00] VITALS: BP 111/72
[2018-10-14] MEDS ORDERED: BUTA-198 PO (23:12)
[2018-10-14] MEDS ORDERED: DILA2TAB6 PO (23:13)
--- NOTE | 2018-10-14 23:30 | DS.PDOC ---
Discharge Summary General Date of Admission Oct 12, 2018 at 19:58 Date of Discharge 10/14/18 transferred to [facility] Accepting physician: Dr. Pardo Reason for Transfer: Cervical Blood patch for post epidural Occipital Headache. Discharge Summary Consultants: Orthopedic Surgeon: Dr. Guevara Neurologist: Dr. Ma Anesthesia Pain Service: Dr. Mcconnell Anesthesia continuous linter drier operator: Dr. Glynn 10/13/18 Anesthesiologist: Dr. Vega Discharge Diagnoses: Post-Cervical Spine Epidural Injection Occipital Headache Cervical Spine fusion C5-C7 with chronic neck pain (2007, 2014 Dr. Jack Dee [facility]) History of Migraines with left sided weakness ADHD Depression Anxiety History of hemiplegic migraine headache. Chronic right arm paresthesia and weakness, status post cervical surgery 2007 and 2014. Post herpetic neuralgia. Cervical stenosis. Cervical radiculopathy. Tubal ligation. times three. Total abdominal hysterectomy. Ulnar nerve release. Discharge Medications: pls see below History of Presenting Illness: The patient is a 48-year-old female with significant past medical history of attention-deficit hyperactivity disorder (ADHD), postherpetic neuralgia, cervical stenosis, status post laminectomy and fusion, cervical radiculopathy, depression, anxiety, migraines, complex migraines, who presents to the emergency room with occipital headache associated with photophobia and nausea, 10/10 severity that started immediately after she had a spinal injection - steroid injection for chronic pain in the neck. The injection was done by Orthopedist, Dr. Guevara. Patient subsequently developed a h eadache. She states it is not like her migraines; her migraines usually come with hemiplegia. She does have photophobia. She denies any fevers or chills. She endorses nausea but no vomiting. Anesthesia was consulted in the emergency room (ER) for the possibility of a blood patch; however, being that the patient was just injected with steroids, anesthesia opted for conservative management to wait before doing the blood patch. Occipital headache is worse with sitting and standing up. She denies any chest pain, shortness of breath, cough, fevers, or chills, urinary symptoms, abdominal pain, constipation, or diarrhea. Hospital Course: Headache post spinal injection for cervical radiculopathy, likely spinal headache She had no relief with oxycodone Fioricet and Excedrin , and was insistent that iv dilaudid allowed her to sleep. She was continued on ivfluids and Toradol as well as Benadryl. Dr. Guevara, Ortho, consulted. Per Dr. Glynn, anesthesiologist continuous linter drier operator, on 10/13/18 "none of us do cervical blood patches," and recommends neurosurgery in [place]. on 10/14/18Dr. Vega, anesthesiologist, "Cervical blood patches has many potential neurological complications, and Lumbar blood patch has not been shown to be useful in these cases." Pt is agreeable to transfer to [place] if Neurosurgery will accept. Ortho spoke with Dr. Mcconnell pain service who recommended Neurology to evaluate for further differential diagnoses. Mri brain wnl. MRI cervical spine unchanged. She was given valium and continued on tid fioricet and bid topamax with persistent 10/10 pain scale headache. Postherpetic neuralgia: Acyclovir. ADHD: Adderall. Anti-depression: Fluoxetine. Neuropathic pain from cervical radiculopathy: Neurontin. Migraine prophylaxis: Topamax. Depression: Trazodone. SUPPORTIVE: Deep vein thrombosis (DVT) prophylaxis: Heparin subcu. Gastrointestinal (GI) prophylaxis: Not indicated. Diet: Regular with aggressive fluid hydration. Discharge Physical Examination: PHYSICAL EXAM: General: She is well nourished, in mild distress secondary to headache. Head is normocephalic, atraumatic Eyes: Extraocular movements are intact.periorbital edema Neck: She has a pain radiating down the back of the neck. Cardiovascular: Regular rate and rhythm. Normal S1, S2. No murmurs, gallops, or rubs. Lungs: Clear to auscultation. Abdomen: Soft, nontender, nondistended. Positive bowel sounds. No rebound or guarding. Extremities: trace pitting edema or calf tenderness. Skin: Intact. No rashes, lesions, or breakdown. Neurological: Alert and oriented times three. 4/5 strength right arm, decreased sensation in right 4th and 5th digit. no dysmetria on finger to nose testing. no pronator drift Discharge labs, Imaging studies: pls see below Time spent on discharge (including transfer): 180 minutes Vital Signs/I&Os Vital Signs Date Time Temp Pulse Resp B/P (MAP) Pulse Ox O2 Delivery O2 Flow Rate FiO2 10/14/18 22:00 98.4 65 18 111/72 (85) 100 10/13/18 00:05 Room Air I&O- Last 24 Hours up to 6 AM 10/14/18 06:00 Intake Total 2730 ml Output Total 1300 ml Balance 1430 ml Laboratory Data Labs 24H Laboratory Tests 2 10/14/18 05:45: Nucleated Red Blood Cells % (auto) 0.0, Anion Gap 4L, Glomerular Filtration Rate > 60.0, Blood Urea Nitrogen 9, Creatinine 0.55, Sodium Level 146H, Potassium Level 3.8, Chloride Level 122H, Carbon Dioxide Level 20L, Calcium Level 7.2L CBC/BMP Laboratory Tests 10/14/18 05:45 Red Blood Count 3.45 L, Mean Corpuscular Volume 91.9, Mean Corpuscular Hemoglobin 29.9, Mean Corpuscular Hemoglobin Concent 32.5, Red Cell Distribution Width 13.8, Calcium Level 7.2 L Discharge Medications Scheduled (Butalbital/Acetaminophen/ 50-325-40 mg) 1 Tab Tab, 1 EA PO TID@0600,1200,1800 Fluoxetine Hcl (Fluoxetine HCl) 40 Mg Cap, 40 MG PO DAILY, (Reported) Gabapentin (Neurontin) 300 Mg Cap, 300 MG PO QHS, (Reported) Topiramate (Topiramate) 100 Mg Tab, 100 MG PO BID, (Reported) Trazodone HCl (Trazodone HCl) 100 Mg Tab, 150 MG PO QHS, (Reported) Scheduled PRN Acyclovir (Acyclovir) 400 Mg Tab, 400 MG PO TID PRN for RASH, (Reported) Cyclobenzaprine HCl (Cyclobenzaprine HCl) 10 Mg Tab, 10 MG PO TID PRN for MIGRAINE, (Reported) Hydromorphone HCl (Dilaudid) 2 Mg Tab, 1 MG PO Q6HP PRN for MODERATE/SEVERE PAIN (PS 5-10) Lorazepam (Lorazepam) 0.5 Mg Tab, 0.5 MG PO BID PRN for ANXIETY, (Reported) Allergies Coded Allergies: Promethazine (Verified Allergy, Unknown, CAN TAKE ZOFRAN, 07/08/18) Metoclopramide (Verified Adverse Reaction, Mild, "skin crawling", 09/21/18) AIRAM YOUNG MD Oct 14, 2018 23:19
== END 2018-10-15 00:19 | disposition short-term general hospital (02) | DRG 54 ==
LOC: EDBD 12:45 → M ED 12:45 → M ED INP 19:58 → OBSVTOIN 19:58 → M MSPAV 10-13 04:20
PROVIDERS: ADMIT Internal Medicine; ATTEND General Practice
DX: G97.1 Other reaction to spinal and lumbar puncture (principal); B02.29 Other postherpetic nervous system involvement; M47.22 Other spondylosis with radiculopathy, cervical region; F32.9 Major depressive disorder, single episode, unspecified; F41.9 Anxiety disorder, unspecified; F90.9 Attention-deficit hyperactivity disorder, unspecified type; F17.200 Nicotine dependence, unspecified, uncomplicated; R20.0 Anesthesia of skin; G43.909 Migraine, unspecified, not intractable, without status migrainosus; Z98.1 Arthrodesis status; Z88.8 Allergy status to other drugs, medicaments and biological substances; Z79.899 Other long term (current) drug therapy

== ENCOUNTER 2018-11-21 01:50 | Emergency (ER) | payer OTHER, BC ==
[~2018-11-21] VITALS: Ht 157.5 cm; Wt 62.7 kg
[~2018-11-21 01:50] MED LIST changes: +ACET-716 PO; -ACET30TAB PO; +BUTA-198 PO; +DILA2TAB6 PO; +HYDR-3715 PO; -NORCOTAB PO
[2018-11-21 01:51] VITALS: BP 154/79
[2018-11-21] MEDS ORDERED: TYLETAB15 PO (01:58)
== END 2018-11-21 04:28 | disposition left against medical advice (07) ==
LOC: M ED 01:50
DX: Z53.21 Procedure and treatment not carried out due to patient leaving prior to being seen by health care provider (principal)

== ENCOUNTER → 2018-12-01 | Outpatient (REF) ==
[~2018-12-01] MED LIST changes: +TYLETAB15 PO
== END ==
LOC: M LAB 09:42
PROVIDERS: ATTEND Nurse Practitioner Adult Health
DX: Z02.1 Encounter for pre-employment examination (principal)

== ENCOUNTER 2018-12-27 21:57 | Inpatient (IN) | payer BC, OTHER ==
[~2018-12-27] VITALS: Ht 157.5 cm; Wt 64.5 kg
[~2018-12-27 21:57] MED LIST changes: -TRAZ-160 PO; +TRAZ-252 PO
[2018-12-27] MEDS ORDERED: ADDE12.5 PO (22:14)
[2018-12-27] MEDS ORDERED: GABA-843 PO (22:14)
[2018-12-27] MEDS ORDERED: TIZA2TA PO (22:14)
[2018-12-27] MEDS ORDERED: PANT40TA3 (22:14)
[2018-12-27 22:29] LABS: BASO # 0.1 10^3/uL (0.0-0.2); BASO % 0.8 % (0.0-1.0); EOS # 0.3 10^3/uL (0.0-0.50); EOS % 5.6 % (0.0-3.0); HEMATOCRIT 35.7 % (36.0-47.0); HEMOGLOBIN 12.2 g/dl (12.0-15.5); LYMPH # 2.3 10^3/uL (1.5-4.5); LYMPH % 38.7 % (24.0-44.0); MEAN CORPUSCULAR HEMOGLOBIN 30.7 pg (27.0-33.0); MEAN CORPUSCULAR HGB CONC 34.2 g/dl (32.0-36.5); MEAN CORPUSCULAR VOLUME 89.9 fl (80.0-96.0); MONO # 0.4 10^3/uL (0.0-0.8); MONO % 6.5 % (0.0-5.0); NEUTROPHILS # 2.8 10^3/uL (1.8-7.7); NEUTROPHILS % 48.2 % (36.0-66.0); PLATELET COUNT, AUTOMATED 232 10^3/uL (150-450); RED BLOOD COUNT 3.97 10^6/uL (4.00-5.40); WHITE BLOOD COUNT 5.9 10^3/uL (4.0-10.0)
[2018-12-27] MEDS ORDERED: NS 1,000 ML IV ONE (22:30)
[2018-12-27 23:03] LABS: ACETAMINOPHEN LEVEL 3.6 UG/ML (10.0-30.0); ALBUMIN 3.4 GM/DL (3.2-5.2); ALT/SGPT 18 U/L (12-78); BILIRUBIN,DIRECT < 0.1 MG/DL (0.0-0.2); BILIRUBIN,TOTAL 0.2 MG/DL (0.2-1.0); BLOOD UREA NITROGEN 16 MG/DL (7-18); CALCIUM LEVEL 8.4 MG/DL (8.5-10.1); CARBON DIOXIDE LEVEL 21 MEQ/L (21-32); CHLORIDE LEVEL 109 MEQ/L (98-107); CPK CREATINE PHOSPHOKINASE 105 U/L (26-192); CREATININE FOR GFR 0.66 MG/DL (0.55-1.30); ETHYL ALCOHOL (ETHANOL) 0.008 % (0.000-0.010); GLOMERULAR FILTRATION RATE > 60.0 (>58); GLUCOSE, FASTING 132 MG/DL (70-100); POTASSIUM SERUM 3.2 MEQ/L (3.5-5.1); SALICYLATE LEVEL 2.3 MG/DL (5.0-30.0); SODIUM LEVEL 142 MEQ/L (136-145); THYROID STIMULATING HORMONE 0.733 uIU/ML (0.358-3.740)
[2018-12-27 23:11] LABS: AMPHETAMINES LEVEL URINE NEGATIVE (NEGATIVE); BARBITURATES URINE NEGATIVE (NEGATIVE); BENZODIAZEPINES URINE NEGATIVE (NEGATIVE); CANNABINOIDS URINE POSITIVE (NEGATIVE); COCAINE METABOLITE URINE POSITIVE (NEGATIVE); METHADONE URINE NEGATIVE (NEGATIVE); OPIATES URINE POSITIVE (NEGATIVE); PHENCYCLIDINE URINE NEGATIVE (NEGATIVE)
[2018-12-28] MEDS ORDERED: METAL LOCK LOOP XX ONE (05:00)
[2018-12-28] MEDS ORDERED: POTASSIUM CHLORIDE 10 MEQ SR TABLET PO ONE (07:30)
[2018-12-28] MEDS ORDERED: AMPHETAMINE/DEXTROAMPHETAMINE 5 MG *ER* CAPSULE (ADDERALL XR) PO ONE (08:15)
[2018-12-28] MEDS ORDERED: FLUoxetine 20 MG CAP PO ONE (08:15)
[2018-12-28] MEDS ORDERED: TOPIRAMATE (TopAMAX) 100 MG TAB PO ONE (08:15)
[2018-12-28] MEDS ORDERED: LORazepam 0.5 MG TAB PO ONE (08:15)
[2018-12-28] MEDS ORDERED: tiZANidine 4 MG TAB PO ONE (08:15)
[2018-12-28] MEDS ORDERED: ADDE25CA PO (09:08)
[2018-12-28] MEDS ORDERED: MOM 30ML SUSPENSION UDC PO PRN (14:00)
[2018-12-28] MEDS ORDERED: ACETAMINOPHEN TAB 650MG DOSE (2X325MG) PO PRN (14:00)
[2018-12-28] MEDS ORDERED: MAALOX 30 ML SUSP *UDC PO PRN (14:00)
[2018-12-28] MEDS ORDERED: traZODone 50 MG TAB PO PRN (14:00)
[2018-12-28 17:25] VITALS: BP 135/87
[2018-12-28] MEDS: OLANZapine ORAL DISINTEGRATING TAB 5MG PO PRN (18:32)
[2018-12-29 06:37] VITALS: BP 125/58
--- NOTE | 2018-12-29 09:52 | HPEPDOC ---
General Date of Admission Dec 28, 2018 at 13:47 Date of Service: Dec 29, 2018 Attending Physician: ALENA HARDING MD Chief Complaint The patient is a 48-year-old female admitted with a reason for visit of Unspecified Depressive Do. History of Present Illness Patient is a 48-year-old female, past medical history significant for depression and anxiety who was brought to the hospital after taking 18-20 pills of gabapentin, tizanidine, and Ativan. Patient denied suicidal ideation, however, states she took the pills in a bid to try and help herself deal with her issues. On assessment he has no acute medical issues. Denies chest pain, denies SOB, chills, weakness, nausea Home Medications Scheduled Dextroamphetamine/Amphetamine (Adderall Xr 25 mg Capsule) 25 Mg Cap.er.24h, 25 MG PO DAILY, (Reported) Fluoxetine Hcl (Fluoxetine HCl) 40 Mg Cap, 40 MG PO DAILY, (Reported) Gabapentin (Gabapentin) 300 Mg Capsule, 300 MG PO TID, (Reported) Tizanidine HCl (Tizanidine HCl) 2 Mg Tablet, 4 MG PO BID, (Reported) Topiramate (Topiramate) 100 Mg Tab, 100 MG PO BID, (Reported) Trazodone HCl (Trazodone HCl) 100 Mg Tab, 150 MG PO QHS, (Reported) Scheduled PRN Lorazepam (Lorazepam) 0.5 Mg Tab, 0.5 MG PO BID PRN for ANXIETY, (Reported) Allergies Coded Allergies: promethazine (Verified Allergy, Unknown, CAN TAKE ZOFRAN, 12/27/18) metoclopramide (Verified Adverse Reaction, Intermediate, "SKIN CRAWLING", 12/27/18) Past Medical History Medical History HLD Nicotine Polysubstance Abuse Surgical History C. Spine C. Section Hysterectomy Ulnar surgery Breast reduction Tubal ligation Family History Significant Family History: COPD, Hypertension, Hyperlipidemia Social History * Smoker: current smoker Alcohol: occationally Drugs: cocaine, marijuana A-FIB/CHADSVASC A-FIB History Current/History of A-Fib/PAF?: No Current PO Anticoag Therapy: No Review of Systems Other systems A 10 point pertinent review of systems was completed, negative except as stated in the history of presenting illness. Physical Examination Other physical findings GENERAL: NAD SKIN : Warm, dry intact HEENT: Atraumatic, normocephalic, PERRL, moist mucous membrane CARDIOVASCULAR: Regular rate and rhythm, S1S2, no JVD, no edema, distal pulses + and palpable RESP: CTAB, no accessory muscle use noted ABDOMEN: BS+ non distended non tender MS: no joint deformities NEURO: Alert and oriented x 3, CN2-12 grossly intact PSYCH: no anxiety or agitation, appropriate mood and affect. Vital Signs Vital Signs Date Time Temp Pulse Resp B/P (MAP) Pulse Ox O2 Delivery O2 Flow Rate FiO2 12/29/18 08:08 Room Air 12/29/18 06:37 99.0 61 12 125/58 (80) 12/28/18 17:25 95 Assessment/Plan Depression with Suicide attempt -Management by primary team Polysubstance abuse -Management by primary team DVT prophylaxis -not indicated, patient is frequently ambulatory At this time patient has no acute medical problems or underlying comorbidities requiring active follow-up. Acute problems are being managed by primary team. Medical team will sign off, please re-consult as needed. Plan / VTE VTE Prophylaxis Ordered?: No VTE Exclusion Mechanical Proph: Low Risk for VTE PO FERNANDEZ Dec 29, 2018 09:51
[2018-12-29] MEDS: OLANZapine ORAL DISINTEGRATING TAB 5MG PO PRN (10:59)
[2018-12-29] MEDS ORDERED: IBUPROFEN 800 MG TAB PO PRN (11:00)
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
[2018-12-29] MEDS ORDERED: hydrOXYzine 50 MG TAB PO PRN (11:45)
[2018-12-29] MEDS ORDERED: FLUoxetine 20 MG CAP PO ONE (12:00)
[2018-12-29] MEDS ORDERED: TOPIRAMATE (TopAMAX) 100 MG TAB PO ONE (12:00)
[2018-12-29 18:37] VITALS: BP 116/57
[2018-12-29] MEDS: traZODone 100 MG TAB PO SCH (21:44)
[2018-12-29] MEDS: TOPIRAMATE (TopAMAX) 100 MG TAB PO SCH (21:44)
[2018-12-30 06:46] VITALS: BP 126/53
[2018-12-30] MEDS: TOPIRAMATE (TopAMAX) 100 MG TAB PO SCH ×2 (09:32→20:22)
[2018-12-30] MEDS: FLUoxetine 20 MG CAP PO SCH (09:32)
--- NOTE | 2018-12-30 10:21 | MHIPNPDOC ---
[facility] Progress Note Progress Note DATE OF SERVICE: 12/30/18 HISTORY: Patient is a 48 -year-old , female, with a history of depression, SA by OD, and 2 previous [facility] admissions in past who was brought to ED under 9.[address] after her roommate who is a longtime friend of the patient called 911 due to pt overdosing on 18-20 pills of gabapentin 300mg, ativan 0.5mg, and tizanidine and 1 glass of wine. In ED, pt noted to be lethargic but did state that the reason she took the pills was b/c she thought they would make her feel better as her 3rd left her in 07/2018. Per ED she stated "he left before but came back each time... I know he's not coming back." Pt endorsed depression, poor sleep, poor concentration, low energy, and hopelessness in the ED. Her utox was positive for cocaine, cannabis, and opiates. She admitted to using cocaine "recreationally" recently in the ED. Her bal was 0.8. She denied SI/HI in the ED. VITAL SIGNS: See below. NEW TEST RESULTS: See below. CURRENT MEDICATIONS: See below. MENTAL STATUS EXAMINATION: General Appearance: well groomed, appears stated age, hospital scrubs/clothing Build: average Demeanor: average Eye Contact: average Activity: average Behavior: cooperative Speech: clear, spontaneous, normal volume, reg/rate,rhythm,volume Mood: less depressed, less anxious Mood "ok" Affect: constricted, congruent, less anxious Thought Process: logical/linear, less depressed, intact Thought Content (Delusions): none reported, denies SI, HI, AVH Thought Content (Other): none reported, appropriate Thought Content (Aggressive): none reported Perception (Hallucinations): none reported Perception (Other): none reported Cognition (Impairment of): none reported Cognition(Intelligence Est.): average Oriented: Awake, Alert, Oriented times three Insight: fair Judgment: Fair Psychosis: Denies DIAGNOSES: Major 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 Opiate/Cocaine/Cannabis use d/o Recent traumatic event states she has a history of ADD but appears rather anxiety (JURGEN) ASSESSMENT:Pt seen and states that her mood is better and that her medication is beneficial States she's being social on the milieu and attending groups which is helpful. States she slept well last night. Feels she is tolerating her medications. She denies SI/HI, hallucinations, delusions. Pt feels safe here. Hopeful to go home soon and return to work. MANAGEMENT PLAN: d/c planning for tomorrow. Medications: prozac 40mg daily Atarax 50 mg Q6HP PRN PO ANXIETY/AGITATION TopAMAX 100 mg BID Trazodone 100 mg QHS TIME SPENT: 30 minutes. Vital Signs Vital Signs Date Time Temp Pulse Resp B/P (MAP) Pulse Ox O2 Delivery O2 Flow Rate FiO2 12/30/18 08:06 Room Air 12/30/18 06:46 98.4 56 14 126/53 (77) 12/28/18 17:25 95 Current Medications Current Medications Acetaminophen (Tylenol Tab) 650 mg Q6HP PRN PO HEADACHE or DISCOMFORT Last administered on 12/28/18at 18:32; Start 12/28/18 at 14:00 Al Hydrox/Mg Hydrox/Simethicone (Mylanta) 30 ml Q4HP PRN PO HEARTBURN /INDIGESTION; Start 12/28/18 at 14:00 Fluoxetine HCl (PROzac) 40 mg DAILY PO ; Start 12/30/18 at 09:00 Home Med (Med Rec Complete!) ASDIRECTED XX ; Start 12/28/18 at 09:15; Stop 12/28/18 at 09:15; Status DC Hydroxyzine HCl (Atarax) 50 mg Q6HP PRN PO ANXIETY/AGITATION; Start 12/29/18 at 11:45 Ibuprofen (Advil) 800 mg Q6HP PRN PO MODERATE PAIN (PS 5-7); Start 12/29/18 at 11:00 Magnesium Hydroxide (Milk Of Magnesia) 30 ml DAILYPRN PRN PO CONSTIPATION; Start 12/28/18 at 14:00 Olanzapine (ZyPREXA ZYDIS) 5 mg Q4HP PRN PO ANXIETY/AGITATION Last administered on 12/29/18at 10:59; Start 12/28/18 at 14:00 Topiramate (TopAMAX) 100 mg BID PO Last administered on 12/29/18at 21:44; Start 12/29/18 at 21:00 Trazodone HCl (Desyrel) 50 mg QHSP PRN PO INSOMNIA Last administered on 12/28/18at 21:02; Start 12/28/18 at 14:00; Stop 12/29/18 at 11:00; Status DC Trazodone HCl (Desyrel) 100 mg QHS PO Last administered on 12/29/18at 21:44; Start 12/29/18 at 21:00 Allergies Coded Allergies: promethazine (Verified Allergy, Unknown, CAN TAKE ZOFRAN, 12/27/18) metoclopramide (Verified Adverse Reaction, Intermediate, "SKIN CRAWLING", 12/27/18) VIKI TOUSSAINT DO Dec 30, 2018 09:35
[2018-12-30 18:00] VITALS: BP 111/58
[2018-12-30] MEDS: traZODone 100 MG TAB PO SCH (20:22)
[2018-12-31 06:41] VITALS: BP 128/51
[2018-12-31] MEDS ORDERED: TRAZ-163 PO (09:06)
[2018-12-31] MEDS ORDERED: FLUO40CA PO (09:06)
[2018-12-31] MEDS ORDERED: TOPI100T9 PO (09:06)
--- NOTE | 2018-12-31 09:07 | MHDSPDOC ---
[facility] Discharge Summary DATE OF ADMISSION: Dec 28, 2018 at 1:47 pm DATE OF DISCHARGE: Dec 31, 2018 DISCHARGE DIAGNOSES: Major 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 Opiate/Cocaine/Cannabis use d/o Recent traumatic event states she has a history of ADD but appears rather anxiety (JURGEN) REASON FOR ADMISSION: Patient is a 48 -year-old , female, with a history of depression, SA by OD, and 2 previous [facility] admissions in past who was brought to ED under 9.41 by PD after her roommate who is a longtime friend of the patient called 911 due to pt overdosing on 18-20 pills of gabapentin 300mg, ativan 0.5mg, and tizanidine and 1 glass of wine. In ED, pt noted to be lethargic but did state that the reason she took the pills was b/c she thought they would make her feel better as her 3rd left her in 07/2018. Per ED she stated "he left before but came back each time... I know he's not coming back." Pt endorsed depression, poor sleep, poor concentration, low energy, and hopelessness in the ED. Her utox was positive for cocaine, cannabis, and opiates. She admitted to using cocaine "recreationally" recently in the ED. Her bal was 0.8. She denied SI/HI in the ED. CONSULTANTS INVOLVED: none TREATMENT AND PROGRESS ON THE UNIT : Pt was admitted to [facility], seen for psychiatric assessment and restarted on her outpatient medications prozac 40mg daily, TopAMAX 100 mg BID . Her adderall, gabapentin, tizanidine, and ativan we re discontinued. She was provided vistaril 50mg q6hr prn anxiety and trazodone 150mg qhs prn insomnia. Pt found her medications beneficial and tolerated them well. She attended groups daily during her stay. Her symptoms improved with treatment. On day of discharge she denied depression, anxiety, insomnia, SI/HI, hallucinations, delusions. She was discharged home after family meeting with her sister with follow-up at [facility]. She felt safe for discharge. DISCHARGE ASSESSMENT: Pt seen and states that her mood is good and she's looking forward to going home today so she can return to work soon. States she's being social on the milieu which is beneficial. States she slept well last night. Feels she is tolerating her medications and they're beneficial. She is attending groups and finding them helpful. She denies depression, anxiety, insomnia, SI/HI, hallucinations, delusions. Pt feels safe to be discharged home with her sister. MENTAL STATUS EXAMINATION ON DISCHARGE: General Appearance: well groomed, appears stated age, hospital scrubs/clothing Build: average Demeanor: average Eye Contact: average Activity: average Behavior: cooperative Speech: clear, spontaneous, normal volume, reg/rate,rhythm,volume Mood: euthymic, full Mood "good" Affect: euthymic, congruent Thought Process: logical/linear, intact Thought Content (Delusions): none reported, denies SI, HI, AVH Thought Content (Other): none reported, appropriate Thought Content (Aggressive): none reported Perception (Hallucinations): none reported Perception (Other): none reported Cognition (Impairment of): none reported Cognition(Intelligence Est.): average Oriented: Awake, Alert, Oriented times three Insight: good Judgment: good Psychosis: Denies MEDICATIONS ON DISCHARGE: prozac 40mg daily Atarax 50 mg Q6HP PRN PO ANXIETY/AGITATION TopAMAX 100 mg BID Trazodone 150 mg QHS . PLAN/FOLLOWUP ARRANGEMENTS:D/c home with follow-up at [facility]. The amount of time spent in the coordination of care for this patient was approximately 30 minutes. Vital Signs/I&Os Vital Signs Date Time Temp Pulse Resp B/P (MAP) Pulse Ox O2 Delivery O2 Flow Rate FiO2 12/31/18 06:41 96.8 62 14 128/51 (76) 12/30/18 08:06 Room Air 12/28/18 17:25 95 Medications Scheduled Dextroamphetamine/Amphetamine (Adderall Xr 25 mg Capsule) 25 Mg Cap.er.24h, 25 MG PO DAILY, (Reported) Fluoxetine Hcl (Fluoxetine HCl) 40 Mg Cap, 40 MG PO DAILY, (Reported) Gabapentin (Gabapentin) 300 Mg Capsule, 300 MG PO TID, (Reported) Tizanidine HCl (Tizanidine HCl) 2 Mg Tablet, 4 MG PO BID, (Reported) Topiramate (Topiramate) 100 Mg Tab, 100 MG PO BID, (Reported) Trazodone HCl (Trazodone HCl) 100 Mg Tab, 150 MG PO QHS, (Reported) Scheduled PRN Lorazepam (Lorazepam) 0.5 Mg Tab, 0.5 MG PO BID PRN for ANXIETY, (Reported) Allergies Coded Allergies: promethazine (Verified Allergy, Unknown, CAN TAKE ZOFRAN, 12/27/18) metoclopramide (Verified Adverse Reaction, Intermediate, "SKIN CRAWLING", 12/27/18) VIKI TOUSSAINT DO Dec 31, 2018 9:07 am
[2018-12-31] MEDS: TOPIRAMATE (TopAMAX) 100 MG TAB PO SCH (09:50)
[2018-12-31] MEDS: FLUoxetine 20 MG CAP PO SCH (09:50)
== END 2018-12-31 09:45 | disposition home or self-care (01) | DRG 751 ==
LOC: M ED 21:57 → M ED INP 12-28 13:47 → M PSY 12-28 16:07
PROVIDERS: ADMIT Psychiatry & Neurology Psychiatry; ATTEND Psychiatry & Neurology Psychiatry
DX: F33.2 Major depressive disorder, recurrent severe without psychotic features (principal); F41.1 Generalized anxiety disorder; F11.90 Opioid use, unspecified, uncomplicated; F12.90 Cannabis use, unspecified, uncomplicated; Z79.899 Other long term (current) drug therapy; Z88.8 Allergy status to other drugs, medicaments and biological substances

== ENCOUNTER 2019-01-04 20:08 | Emergency (ER) | payer BC ==
[~2019-01-04] VITALS: Ht 157.5 cm; Wt 65.0 kg
[2019-01-04 20:08] VITALS: BP 153/88
[~2019-01-04 20:08] MED LIST changes: +ADDE12.5 PO; +PANT40TA3; +TIZA2TA PO
== END 2019-01-04 21:53 | disposition left against medical advice (07) ==
LOC: M ED 20:08
DX: Z53.29 Procedure and treatment not carried out because of patient's decision for other reasons (principal)

== ENCOUNTER → 2019-01-22 | Outpatient (REF) | payer BC | LOC: M LAB REF 15:32 | PROVIDERS: ATTEND Physical Medicine & Rehabilitation | DX: M50.320 Other cervical disc degeneration, mid-cervical region, unspecified level (principal) ==

== ENCOUNTER 2019-02-21 18:28 | Emergency (ER) | payer BC ==
[~2019-02-21] VITALS: Ht 154.9 cm; Wt 65.0 kg
[~2019-02-21 18:28] MED LIST changes: -LORA0.5T11 PO; +LORA0.5T5 PO; -TRAZ-163 PO; +TRAZ-257 PO
[2019-02-21 18:29] VITALS: BP 141/69
[2019-02-21] MEDS ORDERED: AMPH1CAP4 (18:34)
[2019-04-27] MEDS ORDERED: LORA0.5T5 PO (00:43)
== END 2019-02-21 19:39 | disposition left against medical advice (07) ==
LOC: M ED 18:28
DX: Z53.29 Procedure and treatment not carried out because of patient's decision for other reasons (principal)

== ENCOUNTER 2019-04-19 17:14 | Emergency (ER) | payer BC ==
[~2019-04-19] VITALS: Ht 154.9 cm; Wt 66.9 kg
[2019-04-19 17:14] VITALS: BP 163/103
[~2019-04-19 17:14] MED LIST changes: +AMPH25CA; +LORA0.5T11 PO; -LORA0.5T5 PO; +TRAZ-163 PO; -TRAZ-257 PO
[2019-04-19] MEDS ORDERED: IBUP200C25 PO (17:22)
[2019-04-19] MEDS ORDERED: ACET300T52 PO (17:22)
== END 2019-04-19 20:45 | disposition left against medical advice (07) ==
LOC: M ED 17:14
DX: Z53.21 Procedure and treatment not carried out due to patient leaving prior to being seen by health care provider (principal)

== ENCOUNTER 2019-04-27 00:37 | Emergency (ER) | payer BC ==
[~2019-04-27] VITALS: Ht 157.5 cm; Wt 65.9 kg
[~2019-04-27 00:37] MED LIST changes: +IBUP200C25 PO
[2019-04-27] MEDS ORDERED: GABA-843 PO (00:43)
[2019-04-27] MEDS ORDERED: TIZA2TA PO (00:43)
[2019-04-27] MEDS ORDERED: LORA0.5T11 PO (00:43)
[2019-04-27 01:05] LABS: BASO % 0.5 % (0.0-1.0); EOS # 0.4 10^3/uL (0.0-0.5); EOS % 4.4 % (0.0-3.0); HEMATOCRIT 39.2 % (36.0-47.0); HEMOGLOBIN 13.3 g/dl (12.0-15.5); LYMPH % 37.4 % (24.0-44.0); MEAN CORPUSCULAR HEMOGLOBIN 30.9 pg (27.0-33.0); MEAN CORPUSCULAR HGB CONC 33.9 g/dl (32.0-36.5); MONO # 0.5 10^3/uL (0.0-0.8); MONO % 5.7 % (0.0-5.0); NEUTROPHILS # 4.2 10^3/uL (1.5-8.5); NEUTROPHILS % 51.8 % (36.0-66.0); PLATELET COUNT, AUTOMATED 277 10^3/uL (150-450); RED BLOOD COUNT 4.31 10^6/uL (4.00-5.40)
[2019-04-27 01:14] LABS: INR 0.94; PROTHROMBIN TIME 12.3 SECONDS (11.8-14.0)
[2019-04-27 01:41] LABS: ALBUMIN 3.7 GM/DL (3.2-5.2); ALT/SGPT 20 U/L (12-78); BILIRUBIN,DIRECT < 0.1 MG/DL (0.0-0.2); BILIRUBIN,TOTAL 0.3 MG/DL (0.2-1.0); BLOOD UREA NITROGEN 9 MG/DL (7-18); CALCIUM LEVEL 8.9 MG/DL (8.5-10.1); CARBON DIOXIDE LEVEL 26 MEQ/L (21-32); CHLORIDE LEVEL 108 MEQ/L (98-107); CK-MB VALUE MASS 1.6 NG/ML (<3.6); CPK CREATINE PHOSPHOKINASE 154 U/L (26-192); CREATININE FOR GFR 0.75 MG/DL (0.55-1.30); GLOMERULAR FILTRATION RATE > 60.0 (>58); GLUCOSE, FASTING 56 MG/DL (70-100); LIPASE 226 U/L (73-393); MB/CK RELATIVE INDEX 1.04 (< OR =4); POTASSIUM SERUM 3.8 MEQ/L (3.5-5.1); SODIUM LEVEL 144 MEQ/L (136-145); TOTAL PROTEIN 7.1 GM/DL (6.4-8.2); TROPONIN I < 0.02 NG/ML (< 0.10)
[2019-04-27] MEDS ORDERED: D5W/0.9% SODIUM CHLORIDE 1,000 ML IV ONE (02:45)
[2019-04-27] MEDS ORDERED: KETOROLAC 30 MG/ML VIAL (J1885) IV ONE (02:45)
[2019-04-27] MEDS ORDERED: ISOVUE-370 76% 100ML VIAL (Q9967) As Ordered ONE (02:50)
[2019-04-27] MEDS ORDERED: METAL LOCK LOOP XX ONE (02:59)
--- NOTE | 2019-04-27 03:54 | REPVR ---
PROCEDURE INFORMATION: Exam: CT Angiography Chest With Contrast Exam date and time: 04/27/2019 2:45 AM Clinical history: 48 years old, female; Chest pain; Type not specified; Additional info: Cp TECHNIQUE: Imaging protocol: Computed tomographic angiography of the chest with intravenous contrast. 3D rendering: MIP reconstructed images were created and reviewed. Radiation optimization: All CT scans at this facility use at least one of these dose optimization techniques: automated exposure control; mA and/or kV adjustment per patient size (includes targeted exams where dose is matched to clinical indication); or iterative reconstruction. Contrast material: ISO; Contrast volume: 75 ml; Contrast route: AC; COMPARISON: CR PORTABLE CHEST X-RAY 04/27/2019 1:21 AM FINDINGS: Pulmonary arteries: The main pulmonary artery measures 30 mm. No pulmonary embolism is identified. Aorta: The ascending thoracic aorta measures 30 mm. Lungs: Minimal bilateral lower lobe dependent atelectasis. Pleural space: Unremarkable. No pneumothorax. No pleural effusion. Heart: Unremarkable. No cardiomegaly. No pericardial effusion. Lymph nodes: Unremarkable. No enlarged lymph nodes. Bones/joints: Anterior fusion of the lower cervical spine. Relative obstruction at the level of the left subclavian vein with collateralization about the left shoulder which may be positional. Soft tissues: Unremarkable. IMPRESSION: Negative CTA chest. No pulmonary embolism is identified. Electronically signed by: Osvaldo Lacey On 04/27/2019 03:54:12 AM
[2019-04-27] MEDS ORDERED: KETO10TAB PO (03:59)
[2019-04-27 04:01] VITALS: BP 115/55
--- NOTE | 2019-04-27 08:20 | REP ---
Portable chest x-ray: Single view. History: Chest pain. Comparison chest x-ray May 26, 2018. Findings: The patient is status post ventral cervical discectomy and fusion plating. EKG monitoring electrodes are seen. The lungs are well inflated and clear. The pleural angles are sharp. Heart size is normal. Pulmonary vasculature is not increased. There is evidence of healing or healed right lateral rib fractures. No other significant bony abnormality is seen. Impression: Healing right lateral rib fractures. Otherwise no acute disease. Status post cervical spine fusion. Electronically Signed by Tj Martinez MD 04/27/2019 09:38 A
--- NOTE | 2019-04-28 07:26 | ECGEPIP ---
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
== END 2019-04-27 04:14 | disposition home or self-care (01) ==
LOC: M ED 00:37
DX: R07.89 Other chest pain (principal); F32.9 Major depressive disorder, single episode, unspecified; F19.10 Other psychoactive substance abuse, uncomplicated; F17.200 Nicotine dependence, unspecified, uncomplicated; Z88.8 Allergy status to other drugs, medicaments and biological substances; Z79.899 Other long term (current) drug therapy
CPT/HCPCS: 71045; 71275; 80053; 82550; 82553; 83690; 84484; 85025; 85610; 93005; 93041; 96374; 99284; J1885; Q9967

== ENCOUNTER 2019-05-29 20:41 | Emergency (ER) | payer BC, OTHER ==
[~2019-05-29] VITALS: Ht 154.9 cm; Wt 63.6 kg
[~2019-05-29 20:41] MED LIST changes: +AMPH1CAP4; -AMPH25CA
[2019-05-29] MEDS ORDERED: BUPR150T3 (20:50)
[2019-05-29] MEDS ORDERED: NS 1,000 ML IV ONE (22:15)
[2019-05-29] MEDS ORDERED: KETOROLAC 30 MG/ML VIAL (J1885) IV ONE (22:15)
[2019-05-29] MEDS ORDERED: ONDANSETRON 4MG/2ML VIAL (J2405) IV ONE (22:15)
[2019-05-29] MEDS ORDERED: diphenhydrAMINE INJ 50MG/ML VIAL (J1200) IV ONE (22:15)
[2019-05-29 22:41] LABS: AMPHETAMINES LEVEL URINE POSITIVE (NEGATIVE); BARBITURATES URINE NEGATIVE (NEGATIVE); BENZODIAZEPINES URINE NEGATIVE (NEGATIVE); CANNABINOIDS URINE NEGATIVE (NEGATIVE); COCAINE METABOLITE URINE NEGATIVE (NEGATIVE); METHADONE URINE NEGATIVE (NEGATIVE); OPIATES URINE NEGATIVE (NEGATIVE); PHENCYCLIDINE URINE NEGATIVE (NEGATIVE)
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
[2019-05-30 00:48] VITALS: BP 109/67
== END 2019-05-30 00:54 | disposition home or self-care (01) ==
LOC: M ED 20:41
DX: G43.809 Other migraine, not intractable, without status migrainosus (principal); V47.5XXA Car driver injured in collision with fixed or stationary object in traffic accident, initial encounter; Y92.410 Unspecified street and highway as the place of occurrence of the external cause; M79.7 Fibromyalgia; M54.2 Cervicalgia; F17.210 Nicotine dependence, cigarettes, uncomplicated; Z72.89 Other problems related to lifestyle; Z88.8 Allergy status to other drugs, medicaments and biological substances; Z79.899 Other long term (current) drug therapy
CPT/HCPCS: 70450; 72125; 80307; 96374; 96375; 99284; G0480; J1200; J1885; J2405

== ENCOUNTER 2019-06-07 17:44 | Observation (INO) | payer BC, OTHER ==
[~2019-06-07] VITALS: Ht 160 cm; Wt 63.9 kg
[~2019-06-07 17:44] MED LIST changes: +BUPR150T3
[2019-06-07 18:16] LABS: VENOUS BASE EXCESS -4.9 (-2.0-2.0); VENOUS HCO3 20.7 MEQ/L (23.0-27.0); VENOUS O2 SATURATION 75.1 % (60.0-80.0); VENOUS PARTIAL PRESSURE CO2 40.4 mmHg (38.0-50.0); VENOUS PARTIAL PRESSURE O2 41.4 mmHg (30.0-50.0); VENOUS PH 7.327 UNITS (7.330-7.430); VENOUS STANDARD HCO3 19.9 MEQ/L; VENOUS TOTAL CO2 21.9 MEQ/L (24.0-28.0)
[2019-06-07] MEDS: NS 1,000 ML IV SCH (18:21)
[2019-06-07 18:42] LABS: BASO % 0.5 % (0.0-1.0); EOS # 0.2 10^3/uL (0.0-0.5); EOS % 1.8 % (0.0-3.0); HEMATOCRIT 37.9 % (36.0-47.0); HEMOGLOBIN 12.3 g/dl (12.0-15.5); LYMPH # 1.5 10^3/uL (1.5-5.0); LYMPH % 16.3 % (24.0-44.0); MEAN CORPUSCULAR HEMOGLOBIN 29.6 pg (27.0-33.0); MEAN CORPUSCULAR HGB CONC 32.5 g/dl (32.0-36.5); MEAN CORPUSCULAR VOLUME 91.1 fl (80.0-96.0); MONO # 0.5 10^3/uL (0.0-0.8); MONO % 5.1 % (0.0-5.0); NEUTROPHILS # 6.8 10^3/uL (1.5-8.5); PLATELET COUNT, AUTOMATED 245 10^3/uL (150-450); RED BLOOD COUNT 4.16 10^6/uL (4.00-5.40); WHITE BLOOD COUNT 8.9 10^3/uL (4.0-10.0)
[2019-06-07 18:59] LABS: ACETAMINOPHEN LEVEL < 2.0 UG/ML (10.0-30.0); ALBUMIN 3.8 GM/DL (3.2-5.2); ALT/SGPT 18 U/L (12-78); BILIRUBIN,DIRECT < 0.1 MG/DL (0.0-0.2); BILIRUBIN,TOTAL 0.4 MG/DL (0.2-1.0); BLOOD UREA NITROGEN 20 MG/DL (7-18); CALCIUM LEVEL 8.4 MG/DL (8.5-10.1); CARBON DIOXIDE LEVEL 25 MEQ/L (21-32); CHLORIDE LEVEL 114 MEQ/L (98-107); CPK CREATINE PHOSPHOKINASE 349 U/L (26-192); ETHYL ALCOHOL (ETHANOL) < 0.003 % (0.000-0.010); GLOMERULAR FILTRATION RATE > 60.0 (>58); GLUCOSE, FASTING 72 MG/DL (70-100); POTASSIUM SERUM 3.6 MEQ/L (3.5-5.1); SALICYLATE LEVEL 2.5 MG/DL (5.0-30.0); SODIUM LEVEL 144 MEQ/L (136-145); TOTAL PROTEIN 6.7 GM/DL (6.4-8.2)
[2019-06-07 19:25] LABS: OSMOLALITY SERUM 298 MOSM/KG (275-295)
[2019-06-07] MEDS ORDERED: ACETAMINOPHEN TAB 650MG DOSE (2X325MG) PO PRN (21:30)
--- NOTE | 2019-06-07 21:30 | HPEPDOC ---
[facility] Medical History & Physical Date of Admission Jun 07, 2019 Date of Service: Jun 07, 2019 Primary Care Physician: Temo Orlando Attending Physician: KEVIN HILARIO MD History and Physical TIME OF SERVICE: 9:15 PM CHIEF COMPLAINT: Anxious HISTORY OF PRESENT ILLNESS: The patient is a poor historian and was not forthcoming with information. The majority of history as obtained from the ED attending. This is a 48-year-old female is brought in by EMS because her daughter was concerned that her mother was going to take a lot of pills.The patient admits to being under a lot of stress related to her marriage & feeling anxious. Initially the patient denied taking any medications after the argument with her daughter, but later on she admitted to taking 2 Ativan, 2 tizanidine, and 2 gabapentin. She denied taking Wellbutrin and denied trying to kill herself. Per EMS notes, she was unable to stand on her own and was confused when they initially evaluated her. REVIEW OF SYSTEMS: 12 point review of systems negative except as listed in HPI PAST MEDICAL/ SURGICAL HISTORY: Chronic hypertension. Acid reflux Bulimia. Fibromyalgia? Anxiety Depression Osteopenia Status post breast augmentation. Status post cystectomy. Status post 3. Status post cervical surgery. SOCIAL HISTORY: Smokes FAMILY HISTORY: Not obtained ALLERGIES: Please see below. HOME MEDICATIONS: Please see below. PHYSICAL EXAMINATION: VITAL SIGNS: Please see below. GENERAL APPEARANCE: Well-nourished, well-developed, slightly anxious HEENT: Normocephalic, atraumatic, mucous members moist and pink CARDIOVASCULAR: Regular rate and rhythm. No murmurs, rubs or gallops LUNGS: Clear to auscultation bilaterally on room air ABDOMEN: Soft and nontender on palpation INTEGUMENT: Has multiple tattoos NEUROLOGICAL: Cranial nerves II-12 are grossly intact. Speech is not dysarthric PSYCHIATRIC: Alert and oriented. She is able to understand and follow commands but requires redirection to answer questions appropriately; her speech is tangential area has psychomotor agitation LABORATORY DATA: See below. ASSESSMENT: Ms. Koenig is a 48 female with a past history of anxiety, depression, chronic hypertension, bulimia, anxiety, and depression who will be admitted for observation prior to psychiatric evaluation after swallowing multiple pills. PLAN: 1. Medication overdose. It's unclear which medications she swallowed as the patient kept on changing her story during my exam. Initially she denied taking any pills but later on admitted to taking Ativan, Flexeril and gabapentin. Per discussion with the ED provider she took Wellbutrin. She denied trying to commit suicide EKG showed a QTC of 451 Plan:Admit to medical floor/telemetry/1:1 sitter/psych consult in the morning / Follow-up. Drug screen , 2. Anxiety/Depression. Plan: Hold home meds except for trazodone and lorazepam pending psych eval and drug screen. 3. Mild elevation in CPK. Plan: IV fluids/follow-up drug screen and trend CPK 4. Tobacco abuse. Plan: Clonidine patch/smoking cessation education DVT prophylaxis with SCDs. Disposition: Possible transfer to inpatient psych after less than 2 midnights s sandi Vital Signs Vital Signs Date Time Temp Pulse Resp B/P (MAP) Pulse Ox O2 Delivery O2 Flow Rate FiO2 06/07/19 19:45 71 18 133/58 (83) 99 Room Air 06/07/19 18:02 97.3 Laboratory Data Labs 24H Laboratory Tests 2 06/07/19 18:08: Immature Granulocyte % (Auto) 0.3, Neutrophils (%) (Auto) 76.0H, Lymphocytes (%) (Auto) 16.3L, Monocytes (%) (Auto) 5.1H, Eosinophils (%) (Auto) 1.8, Basophils (%) (Auto) 0.5, Neutrophils # (Auto) 6.8, Lymphocytes # (Auto) 1.5, Monocytes # (Auto) 0.5, Eosinophils # (Auto) 0.2, Basophils # (Auto) 0.0, Nucleated Red Blood Cells % (auto) 0.0, Blood Gas Bicarbonate Standard 19.9, Venous Blood pH 7.327L, Venous Blood Partial Pressure CO2 40.4, Venous Blood Partial Pressure O2 41.4, Venous Blood Total Carbon Dioxide 21.9L, Venous Blood HCO3 20.7L, Venous Blood Oxygen Saturation 75.1, Venous Blood Base Excess -4.9L, Anion Gap 5L, Glomerular Filtration Rate > 60.0, Osmolality 298H, Calcium Level 8.4L, Total Bilirubin 0.4, Direct Bilirubin < 0.1, Aspartate Amino Transf (AST/SGOT) 22, Alanine Aminotransferase (ALT/SGPT) 18, Alkaline Phosphatase 78, Total Creatine Kinase 349H, Total Protein 6.7, Albumin 3.8, Albumin/Globulin Ratio 1.31, Thyroid Stimulating Hormone (TSH) 1.620, Salicylates Level 2.5L, Acetaminophen Level < 2.0L, Ethyl Alcohol Level < 0.003 06/07/19 18:33: Bedside Glucose (Misc Panel) 57L CBC/BMP Laboratory Tests 06/07/19 18:08 Home Medications Scheduled Bupropion Hcl (Bupropion Xl) 150 Mg Tab.er.24h, 150 MG PO DAILY Dextroamphetamine/Amphetamine (Adderall Xr 25 mg Capsule) 25 Mg Cap.er.24h, 1 CAP PO DAILY Fluoxetine Hcl (Fluoxetine HCl) 40 Mg Capsule, 40 MG PO DAILY Topiramate (Topiramate) 100 Mg Tablet, 100 MG PO BID Trazodone HCl (Trazodone HCl) 100 Mg Tablet, 200 MG PO QHS Scheduled PRN Gabapentin (Gabapentin) 300 Mg Capsule, 300 MG PO TID PRN for PAIN Lorazepam (Lorazepam) 0.5 Mg Tablet, 0.5 MG PO BID PRN for ANXIETY Tizanidine HCl (Tizanidine HCl) 2 Mg Tablet, 2 MG PO TID PRN for MUSCLE SPASMS Allergies Coded Allergies: promethazine (Verified Allergy, Unknown, CAN TAKE ZOFRAN, 04/27/19) metoclopramide (Verified Adverse Reaction, Intermediate, "SKIN CRAWLING", 04/27/19) A-FIB/CHADSVASC A-FIB History Current/History of A-Fib/PAF?: No Current PO Anticoag Therapy: No KEVIN HILARIO MD Jun 07, 2019 21:30
[2019-06-07] MEDS ORDERED: FLUO40CA PO (21:44)
[2019-06-07] MEDS ORDERED: BUPR150T3 PO (21:44)
[2019-06-07] MEDS ORDERED: TOPI100T9 PO (21:44)
[2019-06-07] MEDS ORDERED: TRAZ-189 PO (21:44)
[2019-06-07] MEDS ORDERED: ADDE25CA PO (21:44)
[2019-06-07] MEDS ORDERED: NS 1,000 ML IV ONE (23:45)
[2019-06-07] MEDS ORDERED: LORazepam 0.5 MG TAB PO PRN (23:45)
[2019-06-08] MEDS ORDERED: SODIUM CHLORIDE 0.9% 1000ML IV ONE (02:00)
[2019-06-08] MEDS ORDERED: METAL LOCK LOOP XX ONE (02:53)
[2019-06-08 06:54] VITALS: BP 143/64
[2019-06-08 09:55] LABS: HEMATOCRIT 39.2 % (36.0-47.0); HEMOGLOBIN 12.4 g/dl (12.0-15.5); MEAN CORPUSCULAR HEMOGLOBIN 29.7 pg (27.0-33.0); MEAN CORPUSCULAR HGB CONC 31.6 g/dl (32.0-36.5); PLATELET COUNT, AUTOMATED 252 10^3/uL (150-450); RED BLOOD COUNT 4.17 10^6/uL (4.00-5.40); WHITE BLOOD COUNT 5.8 10^3/uL (4.0-10.0)
[2019-06-08 10:26] LABS: BLOOD UREA NITROGEN 16 MG/DL (7-18); CALCIUM LEVEL 7.9 MG/DL (8.5-10.1); CARBON DIOXIDE LEVEL 20 MEQ/L (21-32); CHLORIDE LEVEL 117 MEQ/L (98-107); CPK CREATINE PHOSPHOKINASE 229 U/L (26-192); CREATININE FOR GFR 0.76 MG/DL (0.55-1.30); GLOMERULAR FILTRATION RATE > 60.0 (>58); GLUCOSE, FASTING 116 MG/DL (70-100); POTASSIUM SERUM 3.7 MEQ/L (3.5-5.1); SODIUM LEVEL 143 MEQ/L (136-145)
[2019-06-08] MEDS: NS 1,000 ML IV SCH ×2 (12:07→13:53)
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
--- NOTE | 2019-06-08 18:08 | DS.PDOC ---
Discharge Summary General Date of Admission Jun 07, 2019 at 17:45 Date of Discharge 06/08/2019 Attending Physician: SHAKA ROGER MD Specialist/Consultants Involve: GRIS MUNOZ DO Discharge Summary PROCEDURES PERFORMED DURING STAY: None ADMITTING DIAGNOSES: 1. Intentional overdose DISCHARGE DIAGNOSES: 1. Prescription medication abuse 2. Toxic metabolic encephalopathy 3. GERD 4. Anxiety 5. Depression COMPLICATIONS/CHIEF COMPLAINT: Drug O/D; Intentional. HISTORY OF PRESENT ILLNESS: 48-year-old woman who was brought in by EMS because her daughter called with a concern that her mother was going to take a lot of pills.The patient admitted to being under a lot of stress related to her marriage & feeling anxious. Initially the patient denied taking any medications after the argument with her daughter, later on she admitted to taking 2 Ativan, 2 tizanidine, and 2 gabapentin. She denied taking Wellbutrin and denied trying to kill herself. Per EMS notes, she was unable to stand on her own and was confused when they initially evaluated her. HOSPITAL COURSE: Fortunately her initial labs were grossly normal with normal Cr, electrolytes, CBC and negative limited toxicology screening. By day 2 morning (today) she was back at her baseline, with normal labs, EKG and telemetry and was asking to be discharged home and refusing [facility] admission. I discussed with her that I would need psychiatry to evaluate her for potential intentional overdose of prescription medication given the history of marital discord at home and psychosocial stressors and she agreed to evaluation. On psychiatry evaluation, she reported feeling stressed and anxious but with no intention to end her life. She was alert and oriented with full capacity on evaluation, and per collateral context history from her mother (per Dr. Munoz) she reported a history of PSUD and prescription medication abuse that likely contributed to her presentation. The patient corroborated the history and was agreeable to outpatient follow up with [facility] and was encouraged to see her PCP for medication adjustments as she is currently on multiple psychotropic medications with some with abuse potential. She is now being discharged home to follow up with her PCP and [facility] health. DISCHARGE MEDICATIONS: Please see below. ALLERGIES: Please see below. PHYSICAL EXAMINATION ON DISCHARGE: VITAL SIGNS: Please see below. GENERAL: NAD, AOx3 HEENT: NCAT, PERRLA, EOMI, MMM NECK: supple CARDIOVASCULAR EXAMINATION: RRR, no mrg RESPIRATORY EXAMINATION: CTAB ABDOMINAL EXAMINATION: soft, NTND EXTREMITIES: WWP, no edema SKIN: Multiple tattoos, otherwise no rashes or erythema. NEUROLOGICAL EXAMINATION: AOx3, normal cranial nerve exam for CN2-12, 5/5 strength and tone in all extremities PSYCHIATRIC EXAMINATION: AOx3, normal affect. LABORATORY DATA: Please see below. IMAGING: None PROGNOSIS: Good ACTIVITY: As tolerated DIET: Regular DISCHARGE PLAN: Home with PCP and to establish care at [facility] DISPOSITION: Home DISCHARGE INSTRUCTIONS: 1. Home with PCP and to establish care at [facility] ITEMS TO FOLLOWUP ON OUTPATIENT: 1. Prescription medication abuse, follow up with PCP and [facility] DISCHARGE CONDITION: Good TIME SPENT ON DISCHARGE: Greater than 36 minutes. Vital Signs/I&Os Vital Signs Date Time Temp Pulse Resp B/P (MAP) Pulse Ox O2 Delivery O2 Flow Rate FiO2 06/08/19 06:54 65 16 143/64 (90) 100 06/08/19 03:55 Room Air 06/07/19 18:02 97.3 I&O- Last 24 Hours up to 6 AM 06/08/19 06:00 Intake Total 1000 ml Balance 1000 ml Laboratory Data Labs 24H Laboratory Tests 2 06/07/19 18:08: Immature Granulocyte % (Auto) 0.3, Neutrophils (%) (Auto) 76.0H, Lymphocytes (%) (Auto) 16.3L, Monocytes (%) (Auto) 5.1H, Eosinophils (%) (Auto) 1.8, Basophils (%) (Auto) 0.5, Neutrophils # (Auto) 6.8, Lymphocytes # (Auto) 1.5, Monocytes # (Auto) 0.5, Eosinophils # (Auto) 0.2, Basophils # (Auto) 0.0, Nucleated Red Blood Cells % (auto) 0.0, Blood Gas Bicarbonate Standard 19.9, Venous Blood pH 7.327L, Venous Blood Partial Pressure CO2 40.4, Venous Blood Partial Pressure O2 41.4, Venous Blood Total Carbon Dioxide 21.9L, Venous Blood HCO3 20.7L, Venous Blood Oxygen Saturation 75.1, Venous Blood Base Excess -4.9L, Anion Gap 5L, Glomerular Filtration Rate > 60.0, Osmolality 298H, Calcium Level 8.4L, Total Bilirubin 0.4, Direct Bilirubin < 0.1, Aspartate Amino Transf (AST/SGOT) 22, Alanine Aminotransferase (ALT/SGPT) 18, Alkaline Phosphatase 78, Total Creatine Kinase 349H, Total Protein 6.7, Albumin 3.8, Albumin/Globulin Ratio 1.31, Thyroid Stimulating Hormone (TSH) 1.620, Salicylates Level 2.5L, Acetaminophen Level < 2.0L, Ethyl Alcohol Level < 0.003 06/07/19 18:33: Bedside Glucose (Misc Panel) 57L 06/08/19 09:20: Nucleated Red Blood Cells % (auto) 0.0, Anion Gap 6L, Glomerular Filtration Rate > 60.0, Calcium Level 7.9L, Total Creatine Kinase 229H CBC/BMP Laboratory Tests 06/07/19 18:08 06/08/19 09:20 FSBS Laboratory Tests Test 06/07/19 18:33 Range/Units Bedside Glucose (Misc Panel) 57 70-105 MG/DL Discharge Medications Scheduled Bupropion Hcl (Bupropion Xl) 150 Mg Tab.er.24h, 150 MG PO DAILY, (Reported) Dextroamphetamine/Amphetamine (Adderall Xr 25 mg Capsule) 25 Mg Cap.er.24h, 1 CAP PO DAILY, (Reported) Fluoxetine Hcl (Fluoxetine HCl) 40 Mg Capsule, 40 MG PO DAILY, (Reported) Topiramate (Topiramate) 100 Mg Tablet, 100 MG PO BID, (Reported) Trazodone HCl (Trazodone HCl) 100 Mg Tablet, 200 MG PO QHS, (Reported) Scheduled PRN Gabapentin (Gabapentin) 300 Mg Capsule, 300 MG PO TID PRN for PAIN, (Reported) Lorazepam (Lorazepam) 0.5 Mg Tablet, 0.5 MG PO BID PRN for ANXIETY, (Reported) Tizanidine HCl (Tizanidine HCl) 2 Mg Tablet, 2 MG PO TID PRN for MUSCLE SPASMS, (Reported) Allergies Coded Allergies: promethazine (Verified Allergy, Unknown, CAN TAKE ZOFRAN, 04/27/19) metoclopramide (Verified Adverse Reaction, Intermediate, "SKIN CRAWLING", 04/27/19) SHAKA ROGER MD Jun 08, 2019 18:08
[2019-06-08] MEDS ORDERED: traZODone 100 MG TAB PO SCH (21:00)
--- NOTE | 2019-06-08 23:08 | ECGEPIP ---
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
== END 2019-06-08 18:30 | disposition left against medical advice (07) ==
LOC: M ED 17:44 → M ED INP 17:45
PROVIDERS: ADMIT Internal Medicine; ATTEND Internal Medicine
DX: F19.120 Other psychoactive substance abuse with intoxication, uncomplicated (principal); G92 Toxic encephalopathy; T65.891A Toxic effect of other specified substances, accidental (unintentional), initial encounter; F32.9 Major depressive disorder, single episode, unspecified; F41.9 Anxiety disorder, unspecified; K21.9 Gastro-esophageal reflux disease without esophagitis; R74.8 Abnormal levels of other serum enzymes; I10 Essential (primary) hypertension; F50.2 Bulimia nervosa; M79.7 Fibromyalgia; M85.80 Other specified disorders of bone density and structure, unspecified site; F17.210 Nicotine dependence, cigarettes, uncomplicated; Z79.899 Other long term (current) drug therapy; Z88.8 Allergy status to other drugs, medicaments and biological substances
CPT/HCPCS: 36415; 80048; 80076; 82550; 82803; 83930; 84443; 85025; 85027; 93005; 93041; 96360; 96361; 99285; G0480

== ENCOUNTER 2019-08-02 14:20 | Emergency (ER) | payer BC ==
[~2019-08-02] VITALS: Ht 157.5 cm; Wt 73.2 kg
[~2019-08-02 14:20] MED LIST changes: -LORA0.5T11 PO; +LORA0.5T5 PO; -TRAZ-163 PO; +TRAZ-189 PO; +TRAZ-257 PO
[2019-08-02 14:21] VITALS: BP 142/71
[2019-08-02] MEDS ORDERED: ACET300T2 (14:28)
--- NOTE | 2019-08-02 15:25 | REP ---
Right forearm series: Two views. History: Injury. Findings: AP and lateral views of the right forearm demonstrate normal bones, joints, and soft tissues. No fracture or subluxation is seen. No opaque foreign body is visualized. Impression: Negative views of the right forearm. Electronically Signed by Tj Martinez MD 08/02/2019 03:16 P
== END 2019-08-02 15:56 | disposition home or self-care (01) ==
LOC: M ED 14:20
DX: S63.501A Unspecified sprain of right wrist, initial encounter (principal); R07.81 Pleurodynia; W18.30XA Fall on same level, unspecified, initial encounter; Y92.098 Other place in other non-institutional residence as the place of occurrence of the external cause; I10 Essential (primary) hypertension; K21.9 Gastro-esophageal reflux disease without esophagitis; Z87.81 Personal history of (healed) traumatic fracture; F17.210 Nicotine dependence, cigarettes, uncomplicated; Z88.8 Allergy status to other drugs, medicaments and biological substances; Z79.899 Other long term (current) drug therapy; Z79.891 Long term (current) use of opiate analgesic

== ENCOUNTER 2019-08-21 10:55 | Emergency (ER) | payer BC ==
[~2019-08-21] VITALS: Ht 157.5 cm; Wt 76.6 kg
[2019-08-21 10:55] VITALS: BP 139/76
[2019-08-21] MEDS ORDERED: NAPR500T6 PO (11:54)
--- NOTE | 2019-08-21 12:04 | REP ---
RIGHT WRIST COMPLETE: 08/21/2019. CLINICAL HISTORY: Trauma 2 weeks ago. Continued pain. COMPARISON: Right forearm 08/02/2019. FINDINGS: Distal radius and ulna are again without fracture or focal lesion. Radiocarpal articulation aligns normally. No subluxation or dislocation of the carpal bones. Carpal joint spaces are symmetric and preserved. The CMC joints are also intact. Visualized metacarpals without fracture or focal lesion. Some minor degenerative changes at some of the MCP joints. No visible or displaced fracture. There is some mild swelling over the dorsal aspect of the wrist. IMPRESSION: 1. No evidence of fracture or avulsion of the distal forearm wrist with that portion of the visible. 2. Minor soft tissue swelling dorsal aspect of the wrist. Electronically Signed by Clem Morales MD 08/21/2019 07:57 P
== END 2019-08-21 12:00 | disposition home or self-care (01) ==
LOC: M ED 10:55
DX: S63.501A Unspecified sprain of right wrist, initial encounter (principal); X58.XXXA Exposure to other specified factors, initial encounter; Y92.89 Other specified places as the place of occurrence of the external cause; I10 Essential (primary) hypertension; R51 Headache; K21.9 Gastro-esophageal reflux disease without esophagitis; F41.9 Anxiety disorder, unspecified; F32.9 Major depressive disorder, single episode, unspecified; M54.9 Dorsalgia, unspecified; Z87.891 Personal history of nicotine dependence; Z79.899 Other long term (current) drug therapy; Z88.8 Allergy status to other drugs, medicaments and biological substances

== ENCOUNTER 2019-10-11 13:16 | Emergency (ER) | payer BC ==
[~2019-10-11] VITALS: Ht 157.5 cm; Wt 82.7 kg
[~2019-10-11 13:16] MED LIST changes: -FLUO20CA19 PO; +FLUO20CA22 PO; +NAPR500T6 PO
--- NOTE | 2019-10-11 14:05 | REP ---
CHEST, SINGLE VIEW: Single view of the chest is performed and compared to a prior study of 04/27/2019. There is no acute infiltrate or pulmonary edema. There is mild cardiomegaly. The mediastinum is unchanged. Metallic plate and screws are seen in the lower cervical spine. IMPRESSION: No acute pulmonary disease. Mild cardiomegaly. Electronically Signed by Stephen Kelsey MD 10/11/2019 06:20 P
[2019-10-11 14:17] LABS: BASO % 0.5 % (0.0-1.0); EOS # 0.2 10^3/uL (0.0-0.5); EOS % 2.4 % (0.0-3.0); HEMATOCRIT 35.6 % (36.0-47.0); HEMOGLOBIN 11.7 g/dl (12.0-15.5); LYMPH # 2.2 10^3/uL (1.5-5.0); LYMPH % 25.1 % (24.0-44.0); MEAN CORPUSCULAR HEMOGLOBIN 29.8 pg (27.0-33.0); MEAN CORPUSCULAR HGB CONC 32.9 g/dl (32.0-36.5); MEAN CORPUSCULAR VOLUME 90.6 fl (80.0-96.0); MONO # 0.5 10^3/uL (0.0-0.8); MONO % 6.3 % (0.0-5.0); NEUTROPHILS # 5.6 10^3/uL (1.5-8.5); NEUTROPHILS % 65.6 % (36.0-66.0); PLATELET COUNT, AUTOMATED 277 10^3/uL (150-450); RED BLOOD COUNT 3.93 10^6/uL (4.00-5.40); WHITE BLOOD COUNT 8.6 10^3/uL (4.0-10.0)
[2019-10-11 14:40] LABS: INFLUENZA A AMPLIFICATION NEGATIVE (NEGATIVE); INFLUENZA B AMPLIFICATION NEGATIVE (NEGATIVE)
[2019-10-11 14:50] LABS: BLOOD UREA NITROGEN 17 MG/DL (7-18); CALCIUM LEVEL 8.8 MG/DL (8.5-10.1); CARBON DIOXIDE LEVEL 27 MEQ/L (21-32); CHLORIDE LEVEL 112 MEQ/L (98-107); CK-MB VALUE MASS 1.6 NG/ML (<3.6); CPK CREATINE PHOSPHOKINASE 120 U/L (26-192); CREATININE FOR GFR 0.78 MG/DL (0.55-1.30); GLOMERULAR FILTRATION RATE > 60.0 (>51); GLUCOSE, FASTING 103 MG/DL (70-100); MB/CK RELATIVE INDEX 1.33 (< OR =4); POTASSIUM SERUM 3.7 MEQ/L (3.5-5.1); SODIUM LEVEL 143 MEQ/L (136-145); TROPONIN I < 0.02 NG/ML (< 0.10)
[2019-10-11 15:39] VITALS: BP 126/70
--- NOTE | 2019-10-11 17:27 | ECGEPIP ---
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
== END 2019-10-11 15:41 | disposition home or self-care (01) ==
LOC: M ED 13:16
DX: J06.9 Acute upper respiratory infection, unspecified (principal); R06.02 Shortness of breath; F17.200 Nicotine dependence, unspecified, uncomplicated; Z88.8 Allergy status to other drugs, medicaments and biological substances; Z79.899 Other long term (current) drug therapy

== ENCOUNTER 2019-10-13 15:57 | Emergency (ER) | payer BC ==
[~2019-10-13] VITALS: Ht 157.5 cm; Wt 82.2 kg
[2019-10-13] MEDS ORDERED: BENZ200C70 PO (16:35)
[2019-10-13 16:50] VITALS: BP 147/57
== END 2019-10-13 16:54 | disposition home or self-care (01) ==
LOC: M ED 15:57
DX: R50.9 Fever, unspecified (principal); R05 Cough; R06.02 Shortness of breath; K21.9 Gastro-esophageal reflux disease without esophagitis; F17.200 Nicotine dependence, unspecified, uncomplicated; I10 Essential (primary) hypertension; F41.9 Anxiety disorder, unspecified; F32.9 Major depressive disorder, single episode, unspecified; Z88.8 Allergy status to other drugs, medicaments and biological substances; Z79.899 Other long term (current) drug therapy

== ENCOUNTER → 2019-11-24 | Outpatient (REF) | payer BC ==
[~2019-11-24] MED LIST changes: +BENZ200C70 PO; +CYCL-707 PO; -CYCL10TA PO
[2019-11-24 11:56] LABS: BASO % 0.8 % (0.0-1.0); EOS # 0.2 10^3/uL (0.0-0.5); EOS % 3.5 % (0.0-3.0); HEMATOCRIT 38.7 % (36.0-47.0); HEMOGLOBIN 12.6 g/dl (12.0-15.5); LYMPH # 1.6 10^3/uL (1.5-5.0); LYMPH % 32.2 % (24.0-44.0); MEAN CORPUSCULAR HEMOGLOBIN 29.4 pg (27.0-33.0); MEAN CORPUSCULAR HGB CONC 32.6 g/dl (32.0-36.5); MEAN CORPUSCULAR VOLUME 90.4 fl (80.0-96.0); MONO # 0.3 10^3/uL (0.0-0.8); MONO % 6.4 % (0.0-5.0); NEUTROPHILS # 2.8 10^3/uL (1.5-8.5); NEUTROPHILS % 56.9 % (36.0-66.0); PLATELET COUNT, AUTOMATED 278 10^3/uL (150-450); RED BLOOD COUNT 4.28 10^6/uL (4.00-5.40); WHITE BLOOD COUNT 4.9 10^3/uL (4.0-10.0)
[2019-11-24 12:17] LABS: ALBUMIN 3.7 GM/DL (3.2-5.2); ALT/SGPT 22 U/L (12-78); BILIRUBIN,TOTAL 0.3 MG/DL (0.2-1.0); BLOOD UREA NITROGEN 12 MG/DL (7-18); C REACTIVE PROTEIN QUANTITATIV 0.87 MG/DL (0.00-0.30); CARBON DIOXIDE LEVEL 28 MEQ/L (21-32); CHLORIDE LEVEL 108 MEQ/L (98-107); CREATININE FOR GFR 0.68 MG/DL (0.55-1.30); GLOMERULAR FILTRATION RATE > 60.0 (>51); GLUCOSE, FASTING 82 MG/DL (70-100); POTASSIUM SERUM 4.3 MEQ/L (3.5-5.1); SODIUM LEVEL 140 MEQ/L (136-145); TOTAL PROTEIN 6.7 GM/DL (6.4-8.2)
[2019-11-24 12:40] LABS: ERYTHROCYTE SEDIMENTATION RATE 16 mm/hr (0-30)
[2019-11-25 14:16] LABS: Lyme Disease IgG/IgM Antibodie <0.91 ISR (0.00-0.90); Lyme Disease IgM Ab Quantitati <0.80 index (0.00-0.79)
== END ==
LOC: M SFHCLERA 10:01
PROVIDERS: ATTEND Physician Assistant
DX: R50.9 Fever, unspecified (principal); R52 Pain, unspecified
CPT/HCPCS: 80053; 85025; 85652; 86140; 86617; 87040; U0002

== ENCOUNTER → 2019-11-24 | Outpatient (CLI) | payer BC ==
--- NOTE | 2019-11-24 11:07 | REP ---
REASON FOR EXAM: Pyrexia. COMPARISON: No priors. FINDINGS: The superior mediastinal structures are midline. The cardiac silhouette is unremarkable in size, shape, and position. The diaphragmatic surfaces of the lungs are regular, and the costophrenic angles are clear. The pulmonary forbes are clear. The imaged osseous structures are intact. IMPRESSION: There is no acute cardiopulmonary disease. Electronically Signed by Foreign Rubin DO 11/24/2019 11:43 A
== END ==
LOC: M LRY 10:02
PROVIDERS: ATTEND Physician Assistant
DX: R50.9 Fever, unspecified (principal)

== ENCOUNTER 2019-12-05 14:42 | Emergency (ER) | payer BC ==
[~2019-12-05] VITALS: Ht 157.5 cm; Wt 80.2 kg
[2019-12-05] MEDS ORDERED: ACET300T2 (15:03)
[2019-12-05] MEDS ORDERED: PHEN37.52 (15:04)
[2019-12-05 15:32] LABS: BASO # 0.1 10^3/uL (0.0-0.2); BASO % 0.7 % (0.0-1.0); EOS # 0.3 10^3/uL (0.0-0.5); EOS % 4.3 % (0.0-3.0); HEMATOCRIT 40.7 % (36.0-47.0); HEMOGLOBIN 13.2 g/dl (12.0-15.5); LYMPH # 2.4 10^3/uL (1.5-5.0); LYMPH % 32.6 % (24.0-44.0); MEAN CORPUSCULAR HEMOGLOBIN 28.8 pg (27.0-33.0); MEAN CORPUSCULAR HGB CONC 32.4 g/dl (32.0-36.5); MEAN CORPUSCULAR VOLUME 88.9 fl (80.0-96.0); MONO # 0.6 10^3/uL (0.0-0.8); NEUTROPHILS # 4.1 10^3/uL (1.5-8.5); NEUTROPHILS % 54.3 % (36.0-66.0); PLATELET COUNT, AUTOMATED 323 10^3/uL (150-450); RED BLOOD COUNT 4.58 10^6/uL (4.00-5.40); WHITE BLOOD COUNT 7.5 10^3/uL (4.0-10.0)
[2019-12-05] MEDS ORDERED: MORPHINE 4 MG/ML 1ML VIAL/SYRINGE (J2270) IV ONE ×2 (16:00→18:30)
[2019-12-05] MEDS ORDERED: ONDANSETRON 4MG/2ML VIAL IV ONE ×2 (16:00→18:00)
[2019-12-05] MEDS ORDERED: NS 1,000 ML IV ONE (16:00)
[2019-12-05 16:11] LABS: ALBUMIN 3.6 GM/DL (3.2-5.2); ALT/SGPT 29 U/L (12-78); BILIRUBIN,DIRECT < 0.1 MG/DL (0.0-0.2); BILIRUBIN,TOTAL 0.3 MG/DL (0.2-1.0); BLOOD UREA NITROGEN 28 MG/DL (7-18); CALCIUM LEVEL 8.8 MG/DL (8.5-10.1); CARBON DIOXIDE LEVEL 24 MEQ/L (21-32); CHLORIDE LEVEL 110 MEQ/L (98-107); CREATININE FOR GFR 0.97 MG/DL (0.55-1.30); GLOMERULAR FILTRATION RATE > 60.0 (>51); GLUCOSE, FASTING 79 MG/DL (70-100); LIPASE 79 U/L (73-393); POTASSIUM SERUM 3.9 MEQ/L (3.5-5.1); SODIUM LEVEL 142 MEQ/L (136-145)
[2019-12-05] MEDS ORDERED: ISOVUE-370 76% 100ML VIAL As Ordered ONE (16:48)
--- NOTE | 2019-12-05 17:21 | REPVR ---
PROCEDURE INFORMATION: Exam: CT Abdomen And Pelvis With Contrast Exam date and time: 12/05/2019 4:52 PM Age: 49 years old Clinical indication: Abdominal pain; Localized; Right; Additional info: Right sided abd pain TECHNIQUE: Imaging protocol: Computed tomography of the abdomen and pelvis with intravenous contrast. Radiation optimization: All CT scans at this facility use at least one of these dose optimization techniques: automated exposure control; mA and/or kV adjustment per patient size (includes targeted exams where dose is matched to clinical indication); or iterative reconstruction. Contrast material: ISOVUE 370; Contrast volume: 100 ml; Contrast route: IV; COMPARISON: CT ABD PELVIS W/O FOL BY WIT 06/08/2018 11:32 AM FINDINGS: Liver: Normal. No mass. Gallbladder and bile ducts: Normal. No calcified stones. No ductal dilation. Pancreas: Normal. No ductal dilation. Spleen: Normal. No splenomegaly. Adrenals: Normal. No mass. Kidneys and ureters: Normal. No hydronephrosis. Stomach and bowel: Unremarkable. No obstruction. No mucosal thickening. Appendix: No evidence of appendicitis. Intraperitoneal space: Unremarkable. No free air. No significant fluid collection. Vasculature: Unremarkable. No abdominal aortic aneurysm. Lymph nodes: Unremarkable. No enlarged lymph nodes. Bladder: Unremarkable as visualized. Reproductive: Unremarkable as visualized. Bones/joints: Unremarkable. No acute fracture. Soft tissues: Unremarkable. IMPRESSION: No acute abdominal or pelvic abnormality. Electronically signed by: Tom Christine On 12/05/2019 17:21:09 PM
[2019-12-05] MEDS ORDERED: DICYCLOMINE 10 MG CAP PO ONE (17:30)
[2019-12-05] MEDS ORDERED: KETOROLAC 30 MG/ML 1ML VIAL IV ONE (17:30)
[2019-12-05] MEDS ORDERED: ONDA4TAB6 PO (18:59)
[2019-12-05] MEDS ORDERED: DICY20TA11 PO (18:59)
[2019-12-05 19:08] VITALS: BP 137/65
== END 2019-12-05 19:11 | disposition home or self-care (01) ==
LOC: M ED 14:42
DX: R10.31 Right lower quadrant pain (principal); R11.2 Nausea with vomiting, unspecified; R19.7 Diarrhea, unspecified; F17.218 Nicotine dependence, cigarettes, with other nicotine-induced disorders; Z88.8 Allergy status to other drugs, medicaments and biological substances
CPT/HCPCS: 74177; 80048; 80076; 81001; 83690; 85025; 87086; 96361; 96374; 96375; 96376; 99284; J1885; J2270; J2405; Q9967

== ENCOUNTER → 2019-12-16 | Outpatient (CLI) | payer BC ==
[~2019-12-16] MED LIST changes: +DICY20TA11 PO; +ONDA4TAB6 PO; +PHEN37.52
--- NOTE | 2019-12-16 16:52 | REP ---
DIGITAL DIAGNOSTIC BILATERAL MAMMOGRAPHY WITH CAD, 3D TOMOGRAPHY, AND FOCUSED LEFT BREAST SONOGRAPHY: HISTORY: Mastodynia. Left breast palpable lump. Left lateral pain extending into the left axilla. Palpable lump times 2 years. Unchanged. Comparison mammography is from September 01, 2018, July 18, 2017, and June 18, 2017. Bilateral study from September 27, 2016 is also reviewed. MAMMOGRAPHIC FINDINGS: Breast parenchyma appears predominately fat replaced. The Volpara volumetric breast density category is: B. A previously placed needle biopsy marker clip is again noted on the left. A skin marker is affixed to the skin at the site of the palpable lump which is near the marker clip. No mass lesion is seen here or elsewhere in either breast mammographically. No worrisome skin change is seen. No architectural distortion or microcalcification is observed. Magnified focal spot compression images of the left breast are obtained and show no additional finding. 3D tomography shows no additional abnormality. SONOGRAPHIC FINDINGS: Scanning of the palpable lump in the 3-o'clock position shows no sonographic abnormality. Scanning in the upper outer quadrant extending to the axilla shows no suspicious abnormality. Two small benign completely fat-replaced lymph nodes are observed. These measure 1.1 and 1.0 cm in greatest diameter, respectively. IMPRESSION: BI-RADS category 1 negative findings. Clinical followup is advised. Repeat screening mammography recommended in 1 year. This mammogram was interpreted with the aid of an FDA-approved computer-aided detection system. The patient states she had a clinical breast exam in November 2019. The patient letter being requested is M#2 . This patient's estimated Tyrer-Cuzick lifetime risk assessment for breast cancer is 4.8%.
== END ==
LOC: M WHC 13:48
PROVIDERS: ATTEND Nurse Practitioner Women's Health
DX: N64.4 Mastodynia (principal)
CPT/HCPCS: 76642; 77066; G0279

== ENCOUNTER → 2020-01-14 | Outpatient (CLI) | payer OTHER, BC ==
--- NOTE | 2020-01-17 23:35 | ECWPNPC ---
PATIENT NAME: EVA VERAS : 1970 GENDER: FEMALE VISIT DATE: 01/14/2020 DISCHARGE DATE: 01/14/20 1543 VISIT LOCKED DATE TIME: PHYSICIAN: SHAWNA LEYVA MD RESOURCE: SHAWNA LEYVA MD REASON FOR APPOINTMENT 1. POSSIBLE DCS HISTORY OF PRESENT ILLNESS GENERAL: 49 YEAR OLD FEMALE PATIENT WITH A HISTORY OF CHRONIC NECK AND RIGHT ARM PAIN. THE PATIENT DESCRIBES HER PAIN ACHING, CONTINUOUS, THROBBING, SHOOTING WITH A PAIN SCORE OF 3-8/10 DEPENDING ON PHYSICAL ACTIVITY. 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 THE PATIENT SAYS SHE FELT INTENSE PAIN AND NAUSEA RIGHT AWAY AND WAS OUT OF WORK AFTER THE INJURY. THE PATIENT SAYS SHE TRIED INJECTION THERAPY, MEDICATION MANAGEMENT, AND PHYSICAL THERAPY, BUT HER PAIN CONTINUED AND THE PHYSICAL THERAPY INCREASED HER MIGRAINES. THE PATIENT HAD SURGERY IN APRIL 2015, BUT HER PAIN PERSISTS. THE PATIENT SAYS HER PAIN INCREASES WITH ACTIVITIES ESPECIALLY WITH REPETITIVE MOVEMENTS, AND THE PAIN IS AFFECTING HER ABILITY TO PERFORM HER DAILY ACTIVITIES SUCH COOKING, CLEANING, AND WRITING. THE PATIENT DENIES UNEXPLAINED WEIGHT LOSS, FEVER, CHILLS, NEW CHANGES IN HER URINARY OR BOWEL CONTROL. THE PATIENT REPORTS RECENT WEIGHT GAIN DUE TO LACK OF ACTIVITIES. FALL RISK SCREENING: SCREENING :ONE FALL WITHOUT INJURY IN THE PAST YEAR PAIN SCREENING: PATIENT HAS A COMPLAINT OF ACUTE OR CHRONIC PAIN :YES 01/13/20 INTENSITY OF PAIN (SCALE OF 1 TO 10):5 WHAT DOES YOUR PAIN FEEL LIKE:ACHING, CONTINOUS, THROBBING, SHOOTING PAIN IS INCREASED BY: STANDING, SITTING, ACTIVITY PAIN IS DECREASED BY: REST NURSING NOTE: -. PAIN CENTER INTAKE QUESTIONS: DO YOU HAVE A HISTORY OF MRSA? :NO DO YOU TAKE A BLOOD THINNERS? :NO DO YOU HAVE ANY BLEEDING DISORDERS? :NO ANY NEW NUMBNESS OR WEAKNESS IN YOUR LEGS OR ARMS? :NO ANY PACEMAKER,DEFIBRILLATOR, OR DORSAL COLUMN STIMULATOR? :NO DO YOU HAVE ANY RASHES OR OPEN SORES? :NO ARE YOU ALLERGIC TO IV DYE? :NO ARE YOU DIABETIC? :NO ANY NEW PROBLEMS WITH YOUR MEDICATIONS? :NO HAVE YOU RECEIVED A VACCINE IN THE PAST 30 DAYS? :NO DO YOU PLAN TO RECEIVE A VACCINE IN THE NEXT 21 DAYS? :NO DO YOU NEED ANY PRESCRIPTION? :NO DO YOU TAKE ANY IMMUNOSUPPRESSIVE MEDICATIONS? :NO IS THERE A CHANCE YOU COULD BE ? :NO ARE YOU BREAST FEEDING? :NO CURRENT MEDICATIONS TAKING ATIVAN 0.5 MG TABLET 1 TAB(S) ORALLY BID PRN TAKING PROZAC 20 20MG TABLET 2 TABS ORAL DAILY TAKING ACYCLOVIR 200 MG CAPSULE 1 CAP ORALLY FIVE TIMES A DAY, PRN OUTBREAK TAKING TOPAMAX 100 MG TABLET 1 TABLET ORALLY TWICE A DAY TAKING ACETAMINOPHEN-CODEINE 300-60 MG TABLET 1 TABLET NEEDED ORALLY EVERY 6 HRS TAKING GABAPENTIN 300 MG CAPSULE 1 CAPSULE ORALLY THREE TIMES DAILY TAKING TRAZODONE HCL 150 MG TABLET 1 TABLET AT BEDTIME ORALLY ONCE A DAY TAKING TIZANIDINE HCL 2 MG TABLET 1 TABLET NEEDED ORALLY THREE TIMES A DAY TAKING ESTRADIOL 0.5 MG TABLET 1 TABLET ORALLY ONCE A DAY NOT-TAKING ADDERALL XR 25 MG CAPSULE EXTENDED RELEASE 24 HOUR 1 CAPSULE IN THE MORNING ORALLY ONCE A DAY NOT-TAKING TIZANIDINE HCL 4 MG TABLET 1 TABLET NEEDED ORALLY THREE TIMES A DAY NOT-TAKING POLYTRIM 60669-0.1 UNIT/ML SOLUTION 1 GTT RIGHT EYE OPHTHALMIC FOUR TIMES A DAY MEDICATION LIST REVIEWED AND RECONCILED WITH THE PATIENT PAST MEDICAL HISTORY FIBROMYALGIA ? BULEMIA DEPRESSION/ANXIETY LOW BONE DENSITY CHRONIC CONSTIPATION ALLERGIES REGLAN: "CRAWL OUT OF MY SKIN" - SIDE EFFECTS PHENERGAN SURGICAL HISTORY DISCECTOMY/FUSION C5-C6 ULNAR NERVE TRANSPOSITION C SECTION X 3 LAPAROSCOPY EXPLORATORY HYSTERECTOMY, TOTAL WITH BSO SECONDARY TO FIBOIDS 2000 TUBAL LIGATION BILATERAL BREAST REDUCTION 02/2017 FAMILY HISTORY FATHER: ALIVE 67 YRS, HYPERTENSION MOTHER: ALIVE 64 YRS, COPD, HYPERTENSION MATERNAL GRAND MOTHER: 84 YRS 3DAUGHTER(S) - HEALTHY. MATERNAL GM MAY HAVE HAD A LATE BREAST CANCER. NO OVARIAN OR COLON CANCER IN THE FAMILY.DAD; ABDOMINAL AORTIC ANERYSM. SOCIAL HISTORY GENERAL: TOBACCO USE ARE YOU A:CURRENT SMOKER SOCIAL SMOKER ARE YOU INTERESTED IN QUITTING?NOT READY TO QUIT COUNSELED THE PATIENT ON SMOKING EFFECTS, EDUCATION [id number]/18/2020 HOW MANY CIGARETTES A DAY DO YOU SMOKE?6-10 ALCOHOL SCREENING DID YOU HAVE A DRINK CONTAINING ALCOHOL IN THE PAST YEAR?YES HOW OFTEN DID YOU HAVE SIX OR MORE DRINKS ON ONE OCCASION IN THE PAST YEAR?NEVER (0 POINTS) HOW MANY DRINKS DID YOU HAVE ON A TYPICAL DAY WHEN YOU WERE DRINKING IN THE PAST YEAR?1 OR 2 (0 POINTS) HOW OFTEN DID YOU HAVE A DRINK CONTAINING ALCOHOL IN THE PAST YEAR?MONTHLY OR LESS (1 POINT) POINTS1 INTERPRETATIONNEGATIVE RECREATIONAL DRUG USE DENIES. CAFFEINE 1 DAILY. HIV / HEP-C SCREENING HIV TEST OFFERED TO PATIENT:YES DATE OFFERED:09/01/2018 TEST ACCEPTED:YES HEP-C TEST OFFERED TO PATIENT:NO BROCHURE PROVIDED TO PATIENTYES PROTESTANT [id number] UATSDIN LANGUAGE LANGUAGES SPOKEN:SWISS EDUCATION LEVEL OF EDUCATION:HIGH SCHOOL LEARNING BARRIERS / SPECIAL NEEDS BARRIERS TO LEARNING?NO HEARING IMPAIRED?NO VISION IMPAIRED?NO COGNITIVELY IMPAIRED?NO READINESS TO LEARN?YES LEARNING PREFERENCES?NO LEARNING CAPABILITIES PRESENT?YES EMOTIONAL BARRIERS?NO SPECIAL DEVICES?NO DIGITAL MARKETING COORDINATOR NEEDED?NO DOMESTIC VIOLENCE IN PRIOR RELATIONSHIP. OCCUPATION: [employer] AT [employer]. DIET: CURRENTLY HAVING PROBLEMS WITH BULEMIA. HAS HAD COUNSELING IN THE PAST. OPEN TO REFERRAL AGAIN FOR COUNSELING. ALSO TAKING OTC DIURETICS.. EXERCISE: OCCASIONALLY, HAS PERIODS OF WALKING 3-4 MILES, THEN STOPS FOR AWHILE.. MARITAL STATUS: , . OTHERS AT HOME: ROOMATE. PAIN CLINIC PFS, CLERGY, PUBLIC HEALTH REFERRALS HAS THE PATIENT BEEN EDUCATED REGARDING HIS/HER PLAN OF CARE?YES HAS THE PATIENT BEEN EDUCATED REGARDING PAIN, THE RISK FOR PAIN, THE IMPORTANCE OF EFFECTIVE PAIN MANAGEMENT, AND THE PAIN ASSESSMENT PROCESS?YES ADVANCE DIRECTIVE ADVANCE DIRECTIVE DISCUSSED WITH PATIENT:YES HAS PAPERWORK FILLED OUT, NEEDS WITNESSES HOSPITALIZATION/MAJOR DIAGNOSTIC PROCEDURE CHILDBEARING SURGERIES REVIEW OF SYSTEMS CONSTITUTIONAL: ANY RECENT FEVER NO . CHILLS NO . WEIGHT CHANGE OF UNKNOWN REASONS NO . MUSCULOSKELETAL: ANY UNUSUAL JOINT PAIN OR SWELLING NOT MENTIONED NO . SYSTEMIC LUPUS NO . ANY NEUROMUSCULAR DISORDER NOT MENTIONED NO . LYME DISEASE NO . GASTROENTEROLOGY: ANY NEW CHANGE IN BOWEL CONTROL? NO . HISTORY OF LIVER DISORDER NOT MENTIONED NO . HISTORY OF UNUSUAL ABDOMINAL PAIN OR CRAMPING NOT MENTIONED YES; PATIENT IS FOLLOWING WITH PCP . NO CONSTIPATION. GENITOURINARY: ANY NEW CHANGE IN BLADDER CONTROL? NO . ANY RENAL/KIDNEY CONDITON NOT MENTIONED NO . NEUROLOGY: HISTORY OF TBI NOT MENTIONED NO . OTHER NEW NUMBNESS OR PAIN PATTERNS NOT MENTIONED NO . NEW ONSET DIZZINESS OR NEUROLOGICAL CHANGES NOT MENTIONED NO . HISTORY OF SEVERE HEADACHES NOT MENTIONED ADMITS; HX OF HEMIPALAGIC HEADACHES; RIGHT ARM . HISTORY OF STROKE OR NEUROLOGICAL DISORDER NOT MENTIONED NO . CARDIOLOGY: HEART SURGERY NO . CONGESTIVE HEART FAILURE/FLUID OVERLOAD NOT MENTIONED NO . HISTORY OF CHEST PAIN,IRREGULAR HEART BEAT NOT MENTIONED YES; HX OF FAMILY HEART DISEASE; CHEST PAIN . RESPIRATORY: SHORTNESS OF BREATH ON EXERTION, WHEEZES, UNUSUAL COUGH NOT MENTIONED NO . ENDOCRINOLOGY: ADRENAL GLAND OR THYROID DISORDERS NOT MENTIONED NO . UNUSUAL URINATION, DIZZINESS OR LETHARGY NOT MENTIONED NO . VITAL SIGNS WT 178.2 LBS, HT 61.75 IN, BMI 32.85 INDEX, BP 164/80 MM HG, HR 76 /MIN, RR 18 /MIN, TEMP 97.8 F, OXYGEN SAT % 97%, NA INITIALS SC 13:40. EXAMINATION GENERAL: PATIENT IS ALERT O X 3 AND COOPERATIVE. LUNGS CLEAR, TO AUSCULTATION. HEART: NO MURMURS OR GALLOPS; FACIAL CRANIAL NERVES ARE GROSSLY NORMAL. GOOD SYMMETRY OF FACIAL MUSCLE MOVEMENT. NORMAL VISUAL MAN. PATIENT CAN ABDUCT LEFT ARM, BUT WITH DIFFICULTIES UP TO SHOULDER LEVEL ONLY FOR THE RIGHT ARM. RIGHT ARM IS WEAKER AT EXTENSION AND FLEXION. RIGHT HAND ZINC PLATER IS REDUCED COMPARED WITH THE LEFT SIDE. DECREASED SENSATION OVER THE MEDIAL ASPECT OF RIGHT ARM. SURGICAL SCAR OVER RIGHT SIDE OF NECK. LIMITED EXTENSION OF NECK. PAIN INCREASES OVER CERVICAL FACET JOINTS WITH EXTENSION AND LATERAL ROTATION OF NECK. TENDERNESS OVER THE PARASPINAL MUSCLE GROUP OF THE NECK, ESPECIALLY ON THE RIGHT SIDE. PRESENCE OF BANDS OF TISSUE AND TRIGGER POINTS WITH RESTRICTION OF MOVEMENT OF THE NECK AND SHOULDER. RIGHT LEG IS WEAKER AT EXTENSION AND FLEXION. ASSESSMENTS MYALGIA, OTHER SITE - M79.18 (PRIMARY) CERVICALGIA - M54.2 NECK PAIN - M54.2 CERVICAL POST-LAMINECTOMY SYNDROME - M96.1 TREATMENT MYALGIA, OTHER SITE CLINICAL NOTES: WE DISCUSSED SEVERAL ISSUES WITH MS. CHAVEZ'S PAIN MANAGEMENT CASE. THE PATIENT'S LAST CERVICAL MRI WAS DONE MORE THAN A YEAR AGO, THEREFORE I WOULD LIKE TO REQUEST FOR THE PATIENT TO HAVE AN UPDATED CERVICAL MRI. THE PATIENT WOULD LIKE TO PURSUE A DCS TRIAL, WHICH REQUIRES A THORACIC AND LUMBAR MRI TO BE DONE TO ENSURE THERE IS ENOUGH SPACE FOR THE DCS CABLES TO PASS THROUGH IN THE EPIDURAL DURING THE TRIAL. THEREFORE, I AM REQUESTING FOR A THORACIC AND LUMBAR MRI TO CHECK THERE IS ADEQUATE SPACE FOR THE DCS TRIAL. I WILL REFER THE PATIENT TO MIRIAM TO HAVE A PSYCHOLOGICAL EVALUATION DONE TO ENSURE THE PATIENT IS A GOOD CANDIDATE FOR THE TRIAL. THE PATIENT WILL FOLLOW UP WITH ME IN 4 WEEKS VIA A TELEMEDICINE VISIT TO DISCUSS THE RESULTS. INSTRUCTIONS WERE GIVEN, QUESTIONS WERE ANSWERED, PATIENT REPORTS UNDERSTANDING AND AGREES WITH THE PLAN. I, NICOLE CARDOZO, DOCUMENTED THE ABOVE INFORMATION ACTING A SCRIBE FOR DR. LEYVA. I HAVE REVIEWED THE ABOVE DOCUMENT, WRITTEN BY NICOLE CARDOZO SCRIBFelipe AND I VERIFY THAT IT IS ACCURATE. DEAR KVNG HERNANDES MD: THANK YOU FOR YOUR KIND REFERRAL OF EVA CHAVEZ. IF YOU WANT TO DISCUSS HER CASE WITH ME PLEASE CALL ME AT THE PAIN CENTER AT [phone]. SINCERELY, SHAWNA LEYVA MD PAIN MEDICINE . CERVICALGIA [facility] MRI SPINE, CERVICAL WITHOUT [id number] CLINICAL NOTES: WE DISCUSSED SEVERAL ISSUES WITH MS. CHAVEZ'S PAIN MANAGEMENT CASE. NECK PAIN [facility] MRI SPINE,THORACIC WITHOUT [id number] [facility] MRI LUMBAR W/O CONTRAST (CPT [id number] OTHERS CLINICAL NOTES: PRE SCREENING CALL DONE 01/13/20 EM. PROCEDURES PN WORKMANS' COMP OPINION IN YOUR OPINION, WAS THE INCIDENT THAT THE PATIENT DESCRIBED THE COMPETENT MEDICAL CAUSE OF THIS INJURY/ILLNESS? YES ARE THE PATIENT'S COMPLAINTS CONSISTENT WITH HIS/HER HISTORY OF THE INJURY/ILLNESS? YES IS THE PATIENT'S HISTORY OF THE INJURY/ILLNESS CONSISTENT WITH YOUR OBJECTIVE FINDING? YES WHAT IS THE PERCENTAGE OF TEMPORARY IMPAIRMENT? MODERATE TO MARKED = 66.7% IS THE PATIENT WORKING? NO DOCTOR ON SITE: SHAWNA NIXON MD PROCEDURE CODES G8427 CURRENT MEDS W/DOSAGES DOCUMENTED G8730 PAIN ASSESS POS TOOL F/U PLAN DOC FA211 ESTABILISHED PATIENT [facility] FACILITY CHARGE DISPOSITION & COMMUNICATION FOLLOW UP 4 WEEKS (REASON: TELEMED WITH DR Spivey 4 WEEKS; ORDERING NECK/LS/THORACIC MRI FOR DCS TRIAL ) ELECTRONICALLY SIGNED BY SHAWNA LEYVA MD, MD ON 01/17/2020 AT 12:39 PM EDT DISCLAIMER : THIS IS A VISIT SUMMARY EXTRACTED FROM THE [employer] CHART. IT IS NOT A COPY OF THE [employer] PROGRESS NOTE. DIOGOD
== END ==
LOC: M PAIN 13:30
PROVIDERS: ATTEND Anesthesiology
DX: M79.18 Myalgia, other site (principal); M54.2 Cervicalgia; M96.1 Postlaminectomy syndrome, not elsewhere classified

== ENCOUNTER 2020-01-31 15:46 | Emergency (ER) | payer BC, OTHER ==
[~2020-01-31] VITALS: Ht 157.5 cm; Wt 80.0 kg
[2020-01-31] MEDS ORDERED: ONDANSETRON 4MG/2ML VIAL IV ONE (16:30)
[2020-01-31] MEDS ORDERED: NS 1,000 ML IV ONE (16:30)
[2020-01-31] MEDS ORDERED: ACETAMINOPHEN 500 MG TAB PO ONE (16:30)
[2020-01-31] MEDS ORDERED: diphenhydrAMINE 50MG/ML VIAL (J1200) IV ONE (16:30)
[2020-01-31 16:40] LABS: BASO % 0.7 % (0.0-1.0); EOS # 0.2 10^3/uL (0.0-0.5); EOS % 4.1 % (0.0-3.0); HEMATOCRIT 34.6 % (36.0-47.0); HEMOGLOBIN 11.4 g/dl (12.0-15.5); LYMPH # 2.2 10^3/uL (1.5-5.0); LYMPH % 41.2 % (24.0-44.0); MEAN CORPUSCULAR HEMOGLOBIN 29.2 pg (27.0-33.0); MEAN CORPUSCULAR HGB CONC 32.9 g/dl (32.0-36.5); MEAN CORPUSCULAR VOLUME 88.7 fl (80.0-96.0); MONO # 0.4 10^3/uL (0.0-0.8); MONO % 6.7 % (0.0-5.0); NEUTROPHILS # 2.5 10^3/uL (1.5-8.5); NEUTROPHILS % 47.1 % (36.0-66.0); PLATELET COUNT, AUTOMATED 234 10^3/uL (150-450); WHITE BLOOD COUNT 5.3 10^3/uL (4.0-10.0)
[2020-01-31] MEDS ORDERED: ESTRADIOL (16:53)
[2020-01-31 16:58] LABS: INR 0.96; PARTIAL THROMBOPLASTIN TIME 29.8 SECONDS (25.0-38.4); PROTHROMBIN TIME 12.5 SECONDS (11.8-14.0)
--- NOTE | 2020-01-31 16:59 | REP ---
CT BRAIN: 01/31/2020 INDICATION: Stroke. TECHNIQUE: Unenhanced axial CT images of the brain were obtained from skull base to vertex with coronal reconstructions provided. COMPARISON: 05/29/2019 FINDINGS: There is no acute intracranial hemorrhage, acute cortical infarction, mass effect, or hydrocephalus. The visualized paranasal sinuses and mastoid air cells are essentially clear. IMPRESSION: No acute intracranial process. Unreviewed
[2020-01-31 17:05] LABS: CK-MB VALUE MASS < 1.0 NG/ML (<3.6); CPK CREATINE PHOSPHOKINASE 45 U/L (26-192); MB/CK RELATIVE INDEX 2.22 (< OR =4); TROPONIN I < 0.02 NG/ML (< 0.10)
[2020-01-31] MEDS ORDERED: KETOROLAC 30 MG/ML 1ML VIAL IV ONE (17:30)
[2020-01-31] MEDS ORDERED: MORPHINE 2 MG/ML 1ML VIAL (J2270) IV ONE (18:30)
[2020-01-31] MEDS ORDERED: methylPREDNISolone 125MG 2ML VIAL IV ONE (18:30)
[2020-01-31] MEDS ORDERED: NORCO 5/325MG TABLET (BULK FOR ED) PO ONE (20:30)
[2020-01-31] MEDS ORDERED: MORPHINE 2 MG/ML 1ML VIAL (J2270) IV PRN (20:30)
[2020-01-31 20:54] VITALS: BP 158/94
--- NOTE | 2020-02-01 08:06 | ECGEPIP ---
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
--- NOTE | 2020-02-01 10:17 | REP ---
REASON FOR EXAM: Stroke-like symptoms. COMPARISON: 11/23/2019. FINDINGS: The technique utilized in obtaining the radiograph has magnified the cardiac silhouette and accentuated the interstitial markings. The superior mediastinal structures are midline. The cardiac silhouette is unremarkable in size, shape, and position. The diaphragmatic surfaces of the lungs are regular, and the costophrenic angles are clear. The pulmonary forbes are clear. The imaged osseous structures are intact. IMPRESSION: There is no acute cardiopulmonary disease. Electronically Signed by Foreign Rubin DO 02/01/2020 05:21 P
== END 2020-01-31 21:06 | disposition home or self-care (01) ==
LOC: M ED 15:46
DX: G43.909 Migraine, unspecified, not intractable, without status migrainosus (principal); G43.409 Hemiplegic migraine, not intractable, without status migrainosus; F17.200 Nicotine dependence, unspecified, uncomplicated; Z88.8 Allergy status to other drugs, medicaments and biological substances; Z79.899 Other long term (current) drug therapy; Z79.890 Hormone replacement therapy
CPT/HCPCS: 70450; 71045; 80047; 82550; 82553; 84484; 85025; 85610; 85730; 86850; 86900; 86901; 93005; 93041; 94760; 96374; 96375; 96376; 99285; J1200; J1885; J2270; J2405; J2930

== ENCOUNTER → 2020-02-11 | Outpatient (CLI) | payer OTHER, BC ==
[~2020-02-11] MED LIST changes: +ESTRADIOL; +PANT40TA29; -PANT40TA3
--- NOTE | 2020-02-15 05:01 | ECWPNPC ---
PATIENT NAME: EVA VERAS : 1970 GENDER: FEMALE VISIT DATE: 02/11/2020 DISCHARGE DATE: 02/11/20 1413 VISIT LOCKED DATE TIME: PHYSICIAN: SHAWNA LEYVA MD RESOURCE: SHAWNA LEYVA MD REASON FOR APPOINTMENT 1. TELEMED WITH DR Spivey 4 WEEKS; ORDERING NECK/LS/THORACIC MRI FOR DCS TRIAL 2. PAT COMPLETED HISTORY OF PRESENT ILLNESS GENERAL: PERMISSION FROM PATIENT WAS RECEIVED TO DO TELEMEDICINE OFFICE VISIT OVER THE PHONE. 49-YEAR-OLD FEMALE PATIENT WITH A HISTORY OF CHRONIC NECK AND RIGHT ARM PAIN. THE PATIENT DESCRIBES THE PAIN CONTINUOUS, THROBBING AND SHOOTING WITH A PAIN SCORE RANGING FROM 3-8/10 DEPENDING ON PHYSICAL ACTIVITY. 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 THE PATIENT STATES THAT THE PAIN IS AFFECTING HER ACTIVITIES OF DAILY LIVING, SUCH GROCERY SHOPPING AND CLEANING. SHE HAS TRIED MANY MODALITIES SUCH INJECTIONS, MEDICATIONS, PHYSICAL THERAPY BUT THE PAIN PERSISTS. PATIENT DENIES UNEXPLAINABLE WEIGHT LOSS, FEVER, CHILLS, NEW CHANGES ON HER URINARY OR BOWEL CONTROLCERVICALGIA CERVICAL POST AGRAWAL. FALL RISK SCREENING: SCREENING :NO FALLS REPORTED IN THE LAST YEAR PAIN SCREENING: PATIENT HAS A COMPLAINT OF ACUTE OR CHRONIC PAIN :YES LOCATION OF PAIN:NECK, RIGHT SHOULDER INTENSITY OF PAIN (SCALE OF 1 TO 10):4 WHAT DOES YOUR PAIN FEEL LIKE:STABBING, ACHING BIG RUBBER BAND "SNAPPING" DURATION:CONSTANT, CONTINOUS, AWAKENS FROM SLEEP PAIN IS INCREASED BY:ACTIVITIES, PROLONGED STANDING PAIN IS DECREASED BY: REPOSITIONING, HEAT TREATMENT/MEDICATIONS USED TO MANAGE PAIN:OTC PAIN RELIEVERS, NSAIDS PAIN HAS INTERFERED WITH THE FOLLOWING:BATHING/DRESSING, MOOD, WALKING ABILITY, RELATIONSHIP WITH OTHERS, ENJOYMENT OF LIFE, EMPLOYMENT, HOUSEWORK, SLEEP, TRANSPORTATION PLAN/GOALS/TREATMENT/INTERVENTION/FOLLOW UP:SEE PLAN NURSING NOTE: -. PAIN CENTER INTAKE QUESTIONS: DO YOU HAVE A HISTORY OF MRSA? :NO DO YOU TAKE A BLOOD THINNERS? :NO DO YOU HAVE ANY BLEEDING DISORDERS? :NO ANY NEW NUMBNESS OR WEAKNESS IN YOUR LEGS OR ARMS? :NO ANY PACEMAKER,DEFIBRILLATOR, OR DORSAL COLUMN STIMULATOR? :NO DO YOU HAVE ANY RASHES OR OPEN SORES? :NO ARE YOU ALLERGIC TO IV DYE? :NO ARE YOU DIABETIC? :NO ANY NEW PROBLEMS WITH YOUR MEDICATIONS? :NO HAVE YOU RECEIVED A VACCINE IN THE PAST 30 DAYS? :NO DO YOU PLAN TO RECEIVE A VACCINE IN THE NEXT 21 DAYS? :NO DO YOU NEED ANY PRESCRIPTION? :NO DO YOU TAKE ANY IMMUNOSUPPRESSIVE MEDICATIONS? :NO IS THERE A CHANCE YOU COULD BE ? :NO ARE YOU BREAST FEEDING? :NO CURRENT MEDICATIONS TAKING ATIVAN 0.5 MG TABLET 1 TAB(S) ORALLY BID PRN TAKING PROZAC 20 20MG TABLET 2 TABS ORAL DAILY TAKING ACYCLOVIR 200 MG CAPSULE 1 CAP ORALLY FIVE TIMES A DAY, PRN OUTBREAK TAKING TOPAMAX 100 MG TABLET 1 TABLET ORALLY TWICE A DAY TAKING ACETAMINOPHEN-CODEINE 300-60 MG TABLET 1 TABLET NEEDED ORALLY EVERY 6 HRS TAKING GABAPENTIN 300 MG CAPSULE 1 CAPSULE ORALLY THREE TIMES DAILY TAKING TRAZODONE HCL 150 MG TABLET 1 TABLET AT BEDTIME ORALLY ONCE A DAY TAKING TIZANIDINE HCL 2 MG TABLET 1 TABLET NEEDED ORALLY THREE TIMES A DAY TAKING ESTRADIOL 0.5 MG TABLET 1 TABLET ORALLY ONCE A DAY NOT-TAKING ADDERALL XR 25 MG CAPSULE EXTENDED RELEASE 24 HOUR 1 CAPSULE IN THE MORNING ORALLY ONCE A DAY NOT-TAKING TIZANIDINE HCL 4 MG TABLET 1 TABLET NEEDED ORALLY THREE TIMES A DAY NOT-TAKING POLYTRIM 91756-3.1 UNIT/ML SOLUTION 1 GTT RIGHT EYE OPHTHALMIC FOUR TIMES A DAY MEDICATION LIST REVIEWED AND RECONCILED WITH THE PATIENT PAST MEDICAL HISTORY FIBROMYALGIA ? BULEMIA DEPRESSION/ANXIETY LOW BONE DENSITY CHRONIC CONSTIPATION ALLERGIES REGLAN: "CRAWL OUT OF MY SKIN" - SIDE EFFECTS PHENERGAN SURGICAL HISTORY DISCECTOMY/FUSION C5-C6 ULNAR NERVE TRANSPOSITION C SECTION X 3 LAPAROSCOPY EXPLORATORY HYSTERECTOMY, TOTAL WITH BSO SECONDARY TO FIBOIDS 2000 TUBAL LIGATION BILATERAL BREAST REDUCTION 02/2017 FAMILY HISTORY FATHER: ALIVE 67 YRS, HYPERTENSION MOTHER: ALIVE 64 YRS, COPD, HYPERTENSION MATERNAL GRAND MOTHER: 84 YRS 3DAUGHTER(S) - HEALTHY. MATERNAL GM MAY HAVE HAD A LATE BREAST CANCER. NO OVARIAN OR COLON CANCER IN THE FAMILY.DAD; ABDOMINAL AORTIC ANERYSM. SOCIAL HISTORY GENERAL: TOBACCO USE ARE YOU A:CURRENT SMOKER SOCIAL SMOKER ARE YOU INTERESTED IN QUITTING?NOT READY TO QUIT COUNSELED THE PATIENT ON SMOKING EFFECTS, EDUCATION [id number]/17/2020 HOW MANY CIGARETTES A DAY DO YOU SMOKE?6-10 LATEX QUESTIONNAIRE LATEX ALLERGY : HAVE YOU EVER DEVELOPED ANY TYPE OF REACTION AFTER HANDLING LATEX PRODUCTS SUCH RUBBER GLOVES, CONDOMS, DIAPHRAGMS, BALLOONS, SOCKS, OR UNDERWEAR?NO LATEX ALLERGY : HAVE YOU EVER DEVELOPED ANY TYPE OF REACTION DURING OR AFTER DENTAL APPOINTMENT, VAGINAL/RECTAL EXAMINATION, SURGICAL PROCEDURE, OR ANY OTHER EXPOSURE?NO LATEX RISK : HAVE YOU EVER HAD ANY DIFFICULTY BREATHING OR HIVES AFTER EATING OR HANDLING ANY FRUITS, OR VEGETABLES; SUCH KIWI, BANANAS, STONE FRUITS, OR CHESTNUTSNO LATEX RISK : DO YOU HAVE A PREVIOUS PERSONAL HISTORY OF MORE THAN NINE SURGERIES, SPINA BIFIDA, OR REPEATED CATHERIZATIONS? NO LATEX RISK : ARE YOU FREQUENTLY EXPOSED TO LATEX PRODUCTS IN YOUR OCCUPATION?NO DATE ASKED : 02/11/2020 ALCOHOL SCREENING DID YOU HAVE A DRINK CONTAINING ALCOHOL IN THE PAST YEAR?YES HOW OFTEN DID YOU HAVE SIX OR MORE DRINKS ON ONE OCCASION IN THE PAST YEAR?NEVER (0 POINTS) HOW MANY DRINKS DID YOU HAVE ON A TYPICAL DAY WHEN YOU WERE DRINKING IN THE PAST YEAR?1 OR 2 (0 POINTS) HOW OFTEN DID YOU HAVE A DRINK CONTAINING ALCOHOL IN THE PAST YEAR?MONTHLY OR LESS (1 POINT) POINTS1 INTERPRETATIONNEGATIVE RECREATIONAL DRUG USE DENIES. CAFFEINE 1 DAILY. HIV / HEP-C SCREENING HIV TEST OFFERED TO PATIENT:YES DATE OFFERED:09/01/2018 TEST ACCEPTED:YES HEP-C TEST OFFERED TO PATIENT:NO BROCHURE PROVIDED TO PATIENTYES [employer] [id number] LANGUAGE LANGUAGES SPOKEN:SOMALI EDUCATION LEVEL OF EDUCATION:HIGH SCHOOL LEARNING BARRIERS / SPECIAL NEEDS CHANGE FROM LAST VISIT?YES BARRIERS TO LEARNING?NO HEARING IMPAIRED?NO VISION IMPAIRED?YES :CORRECTIVE LENSES READING GLASSES COGNITIVELY IMPAIRED?NO READINESS TO LEARN?YES LEARNING PREFERENCES?NO LEARNING CAPABILITIES PRESENT?YES EMOTIONAL BARRIERS?YES COMMENTSDOCUMENTED IN NOTES SECTION> ANXIETY/DEPRESSION SPECIAL DEVICES?NO DYE HOUSE HAND NEEDED?NO DOMESTIC VIOLENCE IN PRIOR RELATIONSHIP. 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 HAS HAD COUNSELING IN THE PAST. OPEN TO REFERRAL AGAIN FOR COUNSELING. ALSO TAKING OTC DIURETICS.. EXERCISE: OCCASIONALLY, HAS PERIODS OF WALKING 3-4 MILES, THEN STOPS FOR AWHILE.. MARITAL STATUS: , . OTHERS AT HOME: ROOMATE. PAIN CLINIC PFS, CLERGY, PUBLIC HEALTH REFERRALS HAS THE PATIENT BEEN EDUCATED REGARDING HIS/HER PLAN OF CARE?YES HAS THE PATIENT BEEN EDUCATED REGARDING PAIN, THE RISK FOR PAIN, THE IMPORTANCE OF EFFECTIVE PAIN MANAGEMENT, AND THE PAIN ASSESSMENT PROCESS?YES ADVANCE DIRECTIVE ADVANCE DIRECTIVE DISCUSSED WITH PATIENT:YES HAS PAPERWORK FILLED OUT, NEEDS WITNESSES HOSPITALIZATION/MAJOR DIAGNOSTIC PROCEDURE CHILDBEARING SURGERIES REVIEW OF SYSTEMS CONSTITUTIONAL: ANY RECENT FEVER NO . CHILLS NO . WEIGHT CHANGE OF UNKNOWN REASONS NO . GASTROENTEROLOGY: NEW UNEXPLAINABLE CHANGES IN BOWEL CONTROL NO . CONSTIPATION NO . GENITOURINARY: ANY NEW CHANGE IN BLADDER CONTROL? NO . NEUROLOGY: NEW ONSET DIZZINESS OR NEUROLOGICAL CHANGES NOT MENTIONED NO . NEW NUMBNESS OR PAIN PATTERNS NOT MENTIONED AND PERTINENT TO TODAY'S VISIT NO . CARDIOLOGY: NEW CHEST PRESSURE NO . NEW CHEST PAIN NO . RESPIRATORY: UNEXPLAINABLE COUGH NO . NEW SHORTNESS OF BREATH NO . EXAMINATION GENERAL EXAMINATION: THIS IS A TELEMED VIST. THE PATIENT APPEARS ALERT, ORIENTED TIMES THREE AND COOPERATIVE. ASSESSMENTS CERVICALGIA - M54.2 (PRIMARY) CERVICAL POST-LAMINECTOMY SYNDROME - M96.1 TREATMENT CERVICALGIA CLINICAL NOTES: WE DISCUSSED SEVERAL ALTERNATIVES WITH MS. VERAS REGARDING HER TREATMENT OPTIONS AND CARE. AT THE LAST APPOINTMENT, WE AGREED TO REQUEST AUTHORIZATION FOR A CERVICAL, THORACIC AND LUMBAR MRI TO SEE IF THERE IS ADEQUATE SPACE IN THE POSTERIOR AND MEDIAL EPIDURAL SPACE FOR THE LEADS OF THE DORSAL COLUMN STIMULATOR TO FIT. I WILL REFER THE PATIENT FOR THE PSYCH EVALUATION FOR THE DCS TRIAL. I WILL FOLLOWUP WITH MS. CHAVEZ VIA TELEMEDICINE OVER THE PHONE IN ABOUT 3 WEEKS. I REQUEST THE PATIENT TO CALL ME NEXT WEEK TO SEE WHERE WE ARE IN THE PROCESS. THE PATIENT KNOWS TO CALL THE OFFICE IF SHE HAS ANY QUESTIONS OR CONCERNS. THE PATIENT UNDERSTANDS AND IS IN AGREEMENT WITH THE TREATMENT PLAN. THE TOTAL TIME FOR THE TELEPHONE VISIT WAS 10 MINUTES. I, PHILIPP LOYA, DOCUMENTED THE ABOVE INFORMATION ACTING A SCRIBE FOR DR. LEYVA. I HAVE REVIEWED THE ABOVE DOCUMENT, WRITTEN BY PHILIPP LOYA, INSTRUCTOR LOOPING, AND I VERIFY THAT IT IS ACCURATE. OTHERS NOTES: VITAL SIGNS NOT OBTAINED VIRTUAL VISIT. PROCEDURES PN WORKMANS' COMP OPINION IN YOUR OPINION, WAS THE INCIDENT THAT THE PATIENT DESCRIBED THE COMPETENT MEDICAL CAUSE OF THIS INJURY/ILLNESS? YES ARE THE PATIENT'S COMPLAINTS CONSISTENT WITH HIS/HER HISTORY OF THE INJURY/ILLNESS? YES IS THE PATIENT'S HISTORY OF THE INJURY/ILLNESS CONSISTENT WITH YOUR OBJECTIVE FINDING? YES WHAT IS THE PERCENTAGE OF TEMPORARY IMPAIRMENT? MODERATE TO MARKED = 66.7% . IS THE PATIENT WORKING? NO . DOCTOR ON SITE: SHAWNA NIXON MD DISPOSITION & COMMUNICATION FOLLOW UP F/UP WITH DR. Spivey IN 3 WEEKS VIA PHONE (REASON: DISCUSS DSC TRIAL UPDATE) ELECTRONICALLY SIGNED BY SHAWNA LEYVA MD, ON 02/14/2020 AT 04:52 PM EDT DISCLAIMER : THIS IS A VISIT SUMMARY EXTRACTED FROM THE [employer] CHART. IT IS NOT A COPY OF THE [employer] PROGRESS NOTE. MTDD
== END ==
LOC: M PAIN 10:15
PROVIDERS: ATTEND Anesthesiology
DX: M54.2 Cervicalgia (principal); M96.1 Postlaminectomy syndrome, not elsewhere classified

== ENCOUNTER → 2020-02-22 | Emergency (ER) | payer OTHER, BC | END | disposition home or self-care (01) | LOC: M ED 18:34 | DX: R50.9 Fever, unspecified (principal); M79.10 Myalgia, unspecified site; I10 Essential (primary) hypertension; M79.7 Fibromyalgia; Z79.899 Other long term (current) drug therapy; Z88.8 Allergy status to other drugs, medicaments and biological substances | CPT/HCPCS: 99283; U0002 ==

== ENCOUNTER → 2020-02-26 | Emergency (ER) | payer OTHER, BC | END | disposition left against medical advice (07) | LOC: M ED 22:39 | DX: Z53.20 Procedure and treatment not carried out because of patient's decision for unspecified reasons (principal) ==

== ENCOUNTER → 2020-05-08 | Outpatient (REF) | payer BC ==
[2020-05-08 13:52] LABS: BASO % 0.6 % (0.0-1.0); EOS # 0.2 10^3/uL (0.0-0.5); EOS % 3.6 % (0.0-3.0); HEMATOCRIT 38.3 % (36.0-47.0); HEMOGLOBIN 12.3 g/dl (12.0-15.5); LYMPH # 1.6 10^3/uL (1.5-5.0); LYMPH % 23.7 % (24.0-44.0); MEAN CORPUSCULAR HEMOGLOBIN 29.4 pg (27.0-33.0); MEAN CORPUSCULAR HGB CONC 32.1 g/dl (32.0-36.5); MEAN CORPUSCULAR VOLUME 91.4 fl (80.0-96.0); MONO # 0.5 10^3/uL (0.0-0.8); MONO % 6.7 % (0.0-5.0); NEUTROPHILS # 4.4 10^3/uL (1.5-8.5); NEUTROPHILS % 65.3 % (36.0-66.0); PLATELET COUNT, AUTOMATED 305 10^3/uL (150-450); RED BLOOD COUNT 4.19 10^6/uL (4.00-5.40); WHITE BLOOD COUNT 6.7 10^3/uL (4.0-10.0)
[2020-05-08 14:30] LABS: ALBUMIN 3.7 GM/DL (3.2-5.2); ALT/SGPT 25 U/L (12-78); BILIRUBIN,TOTAL 0.3 MG/DL (0.2-1.0); BLOOD UREA NITROGEN 12 MG/DL (7-18); CALCIUM LEVEL 9.1 MG/DL (8.5-10.1); CARBON DIOXIDE LEVEL 28 MEQ/L (21-32); CHLORIDE LEVEL 108 MEQ/L (98-107); CHOLESTEROL LEVEL 227 MG/DL (<200); CHOLESTEROL RISK RATIO 3.388 (<5); CREATININE FOR GFR 0.61 MG/DL (0.55-1.30); FREE T4 0.99 NG/DL (0.76-1.46); GLOMERULAR FILTRATION RATE > 60.0 (>51); GLUCOSE, FASTING 88 MG/DL (70-100); HDL CHOLESTEROL 67 MG/DL (>40); LDL CHOLESTEROL 137 MG/DL (<100); NON-HDL-C 160 MG/DL; POTASSIUM SERUM 4.3 MEQ/L (3.5-5.1); SODIUM LEVEL 141 MEQ/L (136-145); THYROID STIMULATING HORMONE 0.708 uIU/ML (0.358-3.740); TOTAL PROTEIN 6.8 GM/DL (6.4-8.2); TRIGLYCERIDES LEVEL 114 MG/DL (<150)
[2020-05-08 14:46] LABS: HEMOGLOBIN A1c 5.4 %
== END ==
LOC: M SFHCPLAZ 10:35
PROVIDERS: ATTEND Nurse Practitioner Family
DX: F32.9 Major depressive disorder, single episode, unspecified (principal); E78.5 Hyperlipidemia, unspecified; Z13.228 Encounter for screening for other metabolic disorders

== ENCOUNTER → 2020-05-30 | Outpatient (CLI) | payer BC ==
--- NOTE | 2020-06-02 09:09 | SLEEPHOME ---
DATE: 05/30/2020 ORDERED BY: Radha Ray[facility] home sleep testing was performed due to concern for the obstructive sleep apnea syndrome in this patient with a history of fatigue. For testing, a nocturnal T3 respiratory monitoring device was used. Continuous record was made of pulse, oxygen saturation, air flow, chest and abdominal strain, body position, and snoring. There was 9 hours and 59 minutes of data reviewed. There was 9 hours and 13 minutes marked as time in bed. During the interval marked time in bed, there were 32 respiratory events identified of 10 seconds in duration or greater. The events were more frequent in the supine posture. Respiratory event index was 3.5 per hour. The baseline pulse rate was 57. Pulse rate ranged 50-84. Baseline saturation 95%. Saturations briefly dipped to 86%. Testing was performed in both the supine and nonsupine positions. IMPRESSION: Borderline diagnostic home sleep test with respiratory patterning and intermittent desaturations. RECOMMENDATION: Sleep position retraining for avoidance of the supine posture may reduce the frequent of obstructive respiratory events. If sleep symptoms persist, referral for formal sleep evaluation could be considered. MTDD
== END ==
LOC: M SLEEP HO 09:44
PROVIDERS: ATTEND Nurse Practitioner Family
DX: R53.83 Other fatigue (principal)

== ENCOUNTER 2020-06-05 11:09 | Emergency (ER) | payer BC ==
[~2020-06-05] VITALS: Ht 157.5 cm; Wt 90.9 kg
--- NOTE | 2020-06-05 12:13 | REP ---
INDICATION: CHEST PAIN. COMPARISON: 01/31/2020 TECHNIQUE: AP portable chest FINDINGS: Lungs are adequately inflated. Some eventration of the right diaphragm as before. CP angles appear sharp defined. I see no dense consolidation or gross effusion. No parenchymal mass or acute infiltrate. The heart is not enlarged for this degree of inflation the aorta and airway intact. No abnormal widening of the mediastinum. The patient has undergone previous lower anterior cervical discectomy and fusion with a plate and screw device. Bony thoracic the spine shoulders and clavicles along with visible ribs grossly intact. No free air under the diaphragms. IMPRESSION: 1. No acute cardiopulmonary disease, stable chest. <Electronically signed by Clem Morales > 06/05/20 [id number]
[2020-06-05 12:17] LABS: BASO % 0.5 % (0.0-1.0); EOS # 0.3 10^3/uL (0.0-0.5); EOS % 3.5 % (0.0-3.0); HEMATOCRIT 40.1 % (36.0-47.0); HEMOGLOBIN 13.1 g/dl (12.0-15.5); LYMPH # 2.1 10^3/uL (1.5-5.0); LYMPH % 27.8 % (24.0-44.0); MEAN CORPUSCULAR HEMOGLOBIN 28.9 pg (27.0-33.0); MEAN CORPUSCULAR HGB CONC 32.7 g/dl (32.0-36.5); MEAN CORPUSCULAR VOLUME 88.5 fl (80.0-96.0); MONO # 0.4 10^3/uL (0.0-0.8); MONO % 5.1 % (0.0-5.0); NEUTROPHILS # 4.7 10^3/uL (1.5-8.5); NEUTROPHILS % 62.8 % (36.0-66.0); PLATELET COUNT, AUTOMATED 304 10^3/uL (150-450); RED BLOOD COUNT 4.53 10^6/uL (4.00-5.40); WHITE BLOOD COUNT 7.5 10^3/uL (4.0-10.0)
[2020-06-05 12:28] LABS: INR 0.94; PROTHROMBIN TIME 12.8 SECONDS (12.5-14.3)
[2020-06-05] MEDS ORDERED: ONDANSETRON 4MG/2ML VIAL IV ONE ×2 (12:30→16:00)
[2020-06-05] MEDS ORDERED: POTASSIUM CHLORIDE 10 MEQ SR TABLET PO ONE (12:30)
[2020-06-05 12:57] LABS: ALBUMIN 3.8 GM/DL (3.2-5.2); BILIRUBIN,DIRECT 0.2 MG/DL (0.0-0.2); BILIRUBIN,TOTAL 0.4 MG/DL (0.2-1.0); THYROID STIMULATING HORMONE 0.586 uIU/ML (0.358-3.740)
[2020-06-05] MEDS ORDERED: ISOVUE-370 76% 100ML VIAL As Ordered ONE (13:09)
[2020-06-05] MEDS: MORPHINE 4 MG/ML 1ML VIAL/SYRINGE (J2270) IV PRN ×2 (13:13→14:10)
--- NOTE | 2020-06-05 14:20 | REP ---
INDICATION: altered mental status. COMPARISON: 01/31/2020 TECHNIQUE: CT BRAIN PERFORMED IN THE AXIAL PLANE. CORONAL RECONSTRUCTION IMAGES ARE PERFORMED. FINDINGS: THE VENTRICLES ARE NORMAL IN SIZE AND POSITION. THERE IS NO MIDLINE SHIFT OR MASS EFFECT. SOLIZ-WHITE DIFFERENTIATION IS WELL MAINTAINED. THERE IS NO ACUTE INTRACRANIAL HEMORRHAGE OR EXTRA-AXIAL FLUID COLLECTION. BONE WINDOW EXAMINATION IS UNREMARKABLE. VISUALIZED MASTOID AIR CELLS AND PARANASAL SINUSES ARE CLEAR. IMPRESSION: NEGATIVE NONCONTRAST CT BRAIN. <Electronically signed by Clem Morales > 06/05/20 [id number]
--- NOTE | 2020-06-05 14:27 | REP ---
INDICATION: CP, EVALUATE FOR AORTIC DISSECTION. COMPARISON: AP chest 06/05/2020. TECHNIQUE: CT angiogram chest performed following the intravenous administration of 100 cc of Isovue 370. Sagittal and coronal reconstruction images are performed with coronal MIP and 3D surface rendering rotated about the longitudinal axis of the aorta.. FINDINGS: Lungs: Clear, no infiltrate or nodule. Mediastinum: There is a small hiatal hernia. There is no pathologic sized mediastinal adenopathy or mass. No mediastinal fluid. Pulmonary arteries: The main, right and left pulmonary arteries in the mediastinum and the lobar and segmental arteries with subsegmental arteries seen are without filling defect or vessel cut off. Claire: No adenopathy. Axilla: No adenopathy. Pleura: No effusion. Heart: Not enlarged. Thoracic aorta: No aneurysm or dissection. Upper abdominal structures: Unremarkable. Visualized osseous structures: Unremarkable. IMPRESSION: No CT evidence of thoracic aortic aneurysm or pulmonary embolism.No infiltrate seen. Negative exam. <Electronically signed by Clem Morales > 06/05/20 [id number]
[2020-06-05 14:52] LABS: AMPHETAMINES LEVEL URINE NEGATIVE (NEGATIVE); BARBITURATES URINE NEGATIVE (NEGATIVE); BENZODIAZEPINES URINE NEGATIVE (NEGATIVE); CANNABINOIDS URINE NEGATIVE (NEGATIVE); COCAINE METABOLITE URINE NEGATIVE (NEGATIVE); METHADONE URINE NEGATIVE (NEGATIVE); OPIATES URINE POSITIVE (NEGATIVE); PHENCYCLIDINE URINE NEGATIVE (NEGATIVE)
[2020-06-05] MEDS ORDERED: KETOROLAC 30 MG/ML 1ML VIAL IV ONE (15:15)
[2020-06-05] MEDS ORDERED: PROMETHAZINE INJ 25 MG/ML VIAL (J2550) IV ONE (15:15)
[2020-06-05] MEDS ORDERED: diphenhydrAMINE 50MG/ML VIAL (J1200) IV STA (15:41)
[2020-06-05] MEDS ORDERED: ONDANSETRON 4MG/2ML VIAL IV STA (15:57)
[2020-06-05] MEDS: HYDROMORPHONE HCL 0.5 MG/ 0.5 ML SYRINGE (J1170 PER 1) IV PRN ×2 (16:34→17:58)
[2020-06-05 18:16] VITALS: BP 135/58
--- NOTE | 2020-06-06 00:47 | ECGEPIP ---
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
== END 2020-06-05 18:48 | disposition home or self-care (01) ==
LOC: M ED 11:09
DX: R07.9 Chest pain, unspecified (principal); G43.909 Migraine, unspecified, not intractable, without status migrainosus; R06.02 Shortness of breath; E78.9 Disorder of lipoprotein metabolism, unspecified; G89.4 Chronic pain syndrome; M79.7 Fibromyalgia; F32.9 Major depressive disorder, single episode, unspecified; F41.9 Anxiety disorder, unspecified; Z88.8 Allergy status to other drugs, medicaments and biological substances; Z79.899 Other long term (current) drug therapy; Z79.890 Hormone replacement therapy
CPT/HCPCS: 70450; 71045; 71275; 80047; 80076; 80307; 83690; 83880; 84443; 84484; 85025; 85610; 93005; 93041; 94760; 96374; 96375; 96376; 99285; J1170; J1200; J1885; J2270; J2405; Q9967

== ENCOUNTER → 2020-06-28 | Outpatient (REF) | payer BC ==
[2020-06-28 13:19] LABS: APPEARANCE, URINE CLOUDY (CLEAR); BACTERIA, URINE AUTO 2+ (NEGATIVE); BILIRUBIN, URINE AUTO NEGATIVE (NEGATIVE); BLOOD, URINE BLOOD 2+ (NEGATIVE); COLOR, URINE YELLOW (YELLOW); GLUCOSE, URINE (UA) AUTO NEGATIVE (NEGATIVE); KETONE, URINE AUTO NEGATIVE (NEGATIVE); LEUKOCYTE ESTERASE, URINE AUTO 3+ (NEGATIVE); MUCUS, URINE SMALL (NEGATIVE); NITRITE, URINE AUTO NEGATIVE (NEGATIVE); PROTEIN, URINE AUTO 2+ mg/dL (NEGATIVE); RBC, URINE AUTO 112 /HPF (0-3); SPECIFIC GRAVITY URINE AUTO 1.023 (1.002-1.035); SQUAMOUS EPITHELIAL CELL UR AU 11 /HPF (0-6); TRANSITIONAL EPITHELIAL AUTO 1 /HPF; UROBILINOGEN, URINE AUTO 0.2 mg/dL (0.0-2.0); WBC, URINE AUTO TNTC /HPF (0-3)
== END ==
LOC: M LAB REF 12:36
PROVIDERS: ATTEND Physician Assistant
DX: N39.0 Urinary tract infection, site not specified (principal)

== ENCOUNTER → 2020-07-14 | Outpatient (CLI) | payer OTHER ==
--- NOTE | 2020-07-14 10:38 | REP ---
INDICATION: OTH CERV DISC DEGENERATION. Repeat dictation. Preliminary report is provided at the time of the exam by ervin SNEED. COMPARISON: Comparison MRI study of the cervical spine October 14, 2018.. Comparison radiographs are from November 08, 2019. TECHNIQUE: Sagittal and axial T1 and T2-weighted scans are acquired in the usual fashion with and without fat saturation. Sequences include spin echo, turbo spin-echo, and STIR imaging sequences. Post gadolinium enhanced images are included. The gadolinium enhancement dose is 13 mL of intravenous ProHance. FINDINGS: There is slight straightening of the normal cervical lordosis. A ventral discectomy fusion plate is seen across the C6-7 disc. The C5-6 disc is fused as well. There is some magnetic facet field susceptibility artifact emanating from the ventral fusion plate. No malalignment is seen. The cervical cord is normal in course, caliber and signal intensity on T1 and T2 weighted scans. No cord compressive lesion is seen. Axial and sagittal images at the C2-3 disc level show no abnormality. At C3-C4, there is mild central disc bulging unchanged from the October 14, 2018 prior study. No foraminal narrowing or spinal stenosis is seen. At C4-5, there is minimal diffuse disc bulging as well. No cord compression or neural foraminal compression is seen. The C6-7 disc is margin is fused posteriorly. No thecal sac compression. At C7-T1, there is no evidence of focal disc protrusion, neural foraminal narrowing or cord compression.. IMPRESSION: Status post cervical spine fusion as above. No neural foraminal narrowing or cord compression seen. <Electronically signed by Siddhartha Martinez > 07/14/20 [id number]
== END ==
LOC: M PLARAD 07:31
PROVIDERS: ATTEND Physical Medicine & Rehabilitation
DX: M50.21 Other cervical disc displacement, high cervical region (principal); M50.221 Other cervical disc displacement at C4-C5 level; M50.30 Other cervical disc degeneration, unspecified cervical region

== ENCOUNTER → 2020-08-14 | Outpatient (CLI) | payer BC ==
[~2020-08-14] MED LIST changes: -BUPR150T3; -BUPR150T3 PO; +BUPR150T4; +BUPR150T4 PO; +GABA-282 PO; -GABA-843 PO; +LISI10TA22 PO; -LISI10TA4 PO
[2020-08-14 16:55] LABS: BASO % 0.7 % (0.0-1.0); EOS # 0.3 10^3/uL (0.0-0.5); EOS % 4.8 % (0.0-3.0); HEMATOCRIT 41.7 % (36.0-47.0); MEAN CORPUSCULAR HEMOGLOBIN 28.6 pg (27.0-33.0); MEAN CORPUSCULAR HGB CONC 31.2 g/dl (32.0-36.5); MEAN CORPUSCULAR VOLUME 91.9 fl (80.0-96.0); MONO # 0.5 10^3/uL (0.0-0.8); MONO % 8.2 % (0.0-5.0); NEUTROPHILS # 2.8 10^3/uL (1.5-8.5); NEUTROPHILS % 50.1 % (36.0-66.0); PLATELET COUNT, AUTOMATED 311 10^3/uL (150-450); RED BLOOD COUNT 4.54 10^6/uL (4.00-5.40); WHITE BLOOD COUNT 5.6 10^3/uL (4.0-10.0)
[2020-08-14 17:14] LABS: ALBUMIN 3.6 GM/DL (3.2-5.2); ALT/SGPT 20 U/L (12-78); BILIRUBIN,TOTAL 0.3 MG/DL (0.2-1.0); BLOOD UREA NITROGEN 15 MG/DL (7-18); CALCIUM LEVEL 9.4 MG/DL (8.5-10.1); CARBON DIOXIDE LEVEL 28 MEQ/L (21-32); CHLORIDE LEVEL 106 MEQ/L (98-107); CHOLESTEROL LEVEL 268 MG/DL (<200); CHOLESTEROL RISK RATIO 4.785 (<5); CREATININE FOR GFR 0.76 MG/DL (0.55-1.30); GLOMERULAR FILTRATION RATE > 60.0 (>51); GLUCOSE, FASTING 83 MG/DL (70-100); HDL CHOLESTEROL 56 MG/DL (>40); LDL CHOLESTEROL 194 MG/DL (<100); NON-HDL-C 212 MG/DL; SODIUM LEVEL 139 MEQ/L (136-145); TOTAL PROTEIN 6.8 GM/DL (6.4-8.2); TRIGLYCERIDES LEVEL 92 MG/DL (<150)
[2020-08-14 17:50] LABS: HEMOGLOBIN A1c 5.4 %
== END ==
LOC: M WUC 10:16
PROVIDERS: ATTEND Nurse Practitioner Adult Health
DX: Z00.01 Encounter for general adult medical examination with abnormal findings (principal); K21.9 Gastro-esophageal reflux disease without esophagitis; R73.9 Hyperglycemia, unspecified; E78.00 Pure hypercholesterolemia, unspecified; Z79.899 Other long term (current) drug therapy

== ENCOUNTER → 2020-08-14 | Outpatient (CLI) | payer OTHER ==
[2020-08-14 16:54] LABS: PLATELET COUNT, AUTOMATED 313 10^3/uL (150-450)
[2020-08-14 17:00] LABS: INR 0.91; PROTHROMBIN TIME 12.4 SECONDS (12.5-14.3)
[2020-08-14 17:01] LABS: PARTIAL THROMBOPLASTIN TIME 32.3 SECONDS (24.2-38.5)
== END ==
LOC: M WUC 10:19
PROVIDERS: ATTEND Physical Medicine & Rehabilitation
DX: M50.320 Other cervical disc degeneration, mid-cervical region, unspecified level (principal)

== ENCOUNTER → 2020-09-22 | Outpatient (CLI) | payer BC ==
[~2020-09-22] MED LIST changes: +BUPR150T12; +BUPR150T12 PO; -BUPR150T4; -BUPR150T4 PO
--- NOTE | 2020-10-01 23:31 | ECWPNPC ---
PATIENT NAME: EVA VERAS : 1970 GENDER: FEMALE VISIT DATE: 09/22/2020 DISCHARGE DATE: 09/22/20 1132 VISIT LOCKED DATE TIME: PHYSICIAN: JUAN ANTONIO BRADSHAW PHYSICIAN PAGER NO: ACTIVE RESOURCE: JUAN ANTONIO BRADSHAW REASON FOR APPOINTMENT 1. FIBROMYALGIA HISTORY OF PRESENT ILLNESS DEPRESSION SCREENING: PHQ-9 LITTLE INTEREST OR PLEASURE IN DOING THINGSNEARLY EVERY DAY FEELING DOWN, DEPRESSED, OR HOPELESSMORE THAN HALF THE DAYS TROUBLE FALLING OR STAYING ASLEEP, OR SLEEPING TOO MUCHNEARLY EVERY DAY FEELING TIRED OR HAVING LITTLE ENERGYNEARLY EVERY DAY POOR APPETITE OR OVEREATING NOT AT ALL FEELING BAD ABOUT YOURSELF-OR THAT YOU ARE A FAILURE OR HAVE LET YOURSELF OR YOUR FAMILY DOWN NEARLY EVERY DAY TROUBLE CONCENTRATING ON THINGS, SUCH READING THE NEWSPAPER OR WATCHING TELEVISION NOT AT ALL MOVING OR SPEAKING SO SLOWLY THAT OTHER PEOPLE COULD HAVE NOTICED. OR THE OPPOSITE- BEING SO FIDGETY OR RESTLESS THAT YOU HAVE BEEN MOVING AROUND A LOT MORE THAN USUALMORE THAN HALF THE DAYS THOUGHTS THAT YOU WOULD BE BETTER OFF , OR OF HURTING YOURSELF IN SOME WAY?NOT AT ALL TOTAL SCORE:16 INTERPRETATIONMODERATELY SEVERE DEPRESSION PHQ-2 (2015 EDITION) LITTLE INTEREST OR PLEASURE IN DOING THINGS?NEARLY EVERY DAY FEELING DOWN, DEPRESSED, OR HOPELESS?MORE THAN HALF THE DAYS TOTAL SCORE5 GENERAL: HERE PER REFERRAL OF PRIMARY CARE FOR CHRONIC GENERALIZED PAIN ASSOCIATED WITH FIBROMYALGIA. FIBROMYALGIA WAS DIAGNOSED YEARS AGO. REPORTS SIGNIFICANT INCREASE IN HER GENERALIZED PAIN OVER THE PAST YEAR AND A HALF. ALSO STATES THAT HER WEIGHT HAS INCREASED OVER THE PAST YEAR. REPORTS DEPRESSION AND ANXIETY DUE TO INCREASED WEIGHT AND PAIN. DENIES SUICIDAL IDEATIONS. DISCUSSED [facility] . STATES SHE HAS NOT REALLY TRIED ANY MEDICATIONS SPECIFICALLY FOR FIBROMYALGIA. SHE CURRENTLY IS ON AN ANTIDEPRESSANT. DISCUSSED TRIAL OF LYRICA.DENIES SUICICAL OR HOMICIDAL IDEATIONS. FALL RISK SCREENING: SCREENING : NO FALLS REPORTED IN THE LAST YEAR. PAIN SCREENING: PATIENT HAS A COMPLAINT OF ACUTE OR CHRONIC PAIN :YES LOCATION OF PAIN:OTHER: ALL OVER INTENSITY OF PAIN (SCALE OF 1 TO 10):5 WHAT DOES YOUR PAIN FEEL LIKE:ACHING, BURNING, THROBBING, SHOOTING DURATION:CONTINOUS, CONSTANT, ALL DAY PAIN IS INCREASED BY:ACTIVITIES PAIN IS DECREASED BY:OTHERS REST NURSING NOTE: - - -. PAIN CENTER INTAKE QUESTIONS: DO YOU HAVE A HISTORY OF MRSA? :NO DO YOU TAKE A BLOOD THINNERS? :NO DO YOU HAVE ANY BLEEDING DISORDERS? :NO ANY NEW NUMBNESS OR WEAKNESS IN YOUR LEGS OR ARMS? :NO ANY PACEMAKER,DEFIBRILLATOR, OR DORSAL COLUMN STIMULATOR? :NO DO YOU HAVE ANY RASHES OR OPEN SORES? :NO ARE YOU ALLERGIC TO IV DYE? :NO ARE YOU DIABETIC? :NO ANY NEW PROBLEMS WITH YOUR MEDICATIONS? :NO HAVE YOU RECEIVED A VACCINE IN THE PAST 30 DAYS? :NO DO YOU PLAN TO RECEIVE A VACCINE IN THE NEXT 21 DAYS? :NO DO YOU NEED ANY PRESCRIPTION? :NO DO YOU TAKE ANY IMMUNOSUPPRESSIVE MEDICATIONS? :NO CURRENT MEDICATIONS TAKING ACYCLOVIR 200 MG CAPSULE 1 CAP ORALLY FIVE TIMES A DAY, PRN OUTBREAK TAKING ACETAMINOPHEN-CODEINE 300-60 MG TABLET 1 TABLET NEEDED ORALLY EVERY 6 HRS TAKING GABAPENTIN 300 MG CAPSULE 1 CAPSULE ORALLY THREE TIMES DAILY TAKING TIZANIDINE HCL 2 MG TABLET 1 TABLET NEEDED ORALLY THREE TIMES A DAY TAKING ESTRADIOL 0.5 MG TABLET 1 TABLET ORALLY ONCE A DAY TAKING FLUOXETINE HCL 40 MG CAPSULE 1 CAPSULE ORALLY ONCE A DAY TAKING TRAZODONE HCL 100 MG TABLET 1 TABLET AT BEDTIME NEEDED ORALLY ONCE A DAY TAKING TOPAMAX 100 MG TABLET 1 TABLET ORALLY TWICE A DAY TAKING OMEPRAZOLE 40 MG CAPSULE DELAYED RELEASE 1 CAPSULE 30 MINUTES BEFORE MORNING MEAL ORALLY ONCE A DAY NOT-TAKING ATIVAN 0.5 MG TABLET 1 TAB(S) ORALLY BID PRN NOT-TAKING ADDERALL XR 25 MG CAPSULE EXTENDED RELEASE 24 HOUR 1 CAPSULE IN THE MORNING ORALLY ONCE A DAY NOT-TAKING DEXILANT 30 MG CAPSULE DELAYED RELEASE 1 CAPSULE ORALLY ONCE A DAY MEDICATION LIST REVIEWED AND RECONCILED WITH THE PATIENT PAST MEDICAL HISTORY FIBROMYALGIA BULEMIA DEPRESSION/ANXIETY LOW BONE DENSITY CHRONIC CONSTIPATION HYPERLIPIDEMIA GENITAL HERPES ESOPHAGITIS 04/2018 UPPER GI; GERD C ESOPHAGITIS 05/2018 UPPER/LOWER ENDOSCOPY -NORMAL - DR. STALLINGS CHRONIC PAIN SYNDROME ALLERGIES REGLAN: "CRAWL OUT OF MY SKIN" - SIDE EFFECTS PHENERGAN: " CRAWL OUT OF SKIN " SURGICAL HISTORY DISCECTOMY/FUSION C5-C6 ULNAR NERVE TRANSPOSITION C SECTION X 3 LAPAROSCOPY EXPLORATORY HYSTERECTOMY, TOTAL WITH BSO SECONDARY TO FIBOIDS 2000 TUBAL LIGATION BILATERAL BREAST REDUCTION 02/2017 FAMILY HISTORY FATHER: ALIVE 67 YRS, HYPERTENSION MOTHER: ALIVE 64 YRS, COPD, HYPERTENSION DAUGHTER(S): ALIVE MATERNAL GRAND MOTHER: 84 YRS 3DAUGHTER(S) - HEALTHY. MATERNAL GM MAY HAVE HAD A LATE BREAST CANCER. NO OVARIAN OR COLON CANCER IN THE FAMILY.DAD; ABDOMINAL AORTIC ANERYSM. SOCIAL HISTORY GENERAL: TOBACCO USE ARE YOU A:CURRENT SMOKER SOCIAL SMOKER ARE YOU INTERESTED IN QUITTING?NOT READY TO QUIT COUNSELED THE PATIENT ON SMOKING EFFECTS, EDUCATION [id number]/12/2020 HOW MANY CIGARETTES A DAY DO YOU SMOKE?6-10 HOW SOON AFTER YOU WAKE UP DO YOU SMOKE YOUR FIRST CIGARETTE?31-60 MIN HOW OFTEN DO YOU SMOKE CIGARETTES?SOME DAYS, BUT NOT EVERY DAY PATIENT COUNSELED ON THE DANGERS OF TOBACCO USE AND URGED TO QUIT:05/08/2020 SMOKING CESSATION INFORMATION GIVEN05/08/2020 LATEX QUESTIONNAIRE LATEX ALLERGY : HAVE YOU EVER DEVELOPED ANY TYPE OF REACTION AFTER HANDLING LATEX PRODUCTS SUCH RUBBER GLOVES, CONDOMS, DIAPHRAGMS, BALLOONS, SOCKS, OR UNDERWEAR?NO LATEX ALLERGY : HAVE YOU EVER DEVELOPED ANY TYPE OF REACTION DURING OR AFTER DENTAL APPOINTMENT, VAGINAL/RECTAL EXAMINATION, SURGICAL PROCEDURE, OR ANY OTHER EXPOSURE?NO LATEX RISK : HAVE YOU EVER HAD ANY DIFFICULTY BREATHING OR HIVES AFTER EATING OR HANDLING ANY FRUITS, OR VEGETABLES; SUCH KIWI, BANANAS, STONE FRUITS, OR CHESTNUTSNO LATEX RISK : DO YOU HAVE A PREVIOUS PERSONAL HISTORY OF MORE THAN NINE SURGERIES, SPINA BIFIDA, OR REPEATED CATHERIZATIONS? NO LATEX RISK : ARE YOU FREQUENTLY EXPOSED TO LATEX PRODUCTS IN YOUR OCCUPATION?NO DATE ASKED : 09/22/2020 ALCOHOL USE: YES. ALCOHOL SCREENING DID YOU HAVE A DRINK CONTAINING ALCOHOL IN THE PAST YEAR?YES HOW OFTEN DID YOU HAVE SIX OR MORE DRINKS ON ONE OCCASION IN THE PAST YEAR?NEVER (0 POINTS) HOW MANY DRINKS DID YOU HAVE ON A TYPICAL DAY WHEN YOU WERE DRINKING IN THE PAST YEAR?1 OR 2 (0 POINTS) HOW OFTEN DID YOU HAVE A DRINK CONTAINING ALCOHOL IN THE PAST YEAR?MONTHLY OR LESS (1 POINT) POINTS1 INTERPRETATIONNEGATIVE RECREATIONAL DRUG USE DENIES. CAFFEINE 1 DAILY. HIV / HEP-C SCREENING HIV TEST OFFERED TO PATIENT:YES DATE OFFERED:09/01/2018 TEST ACCEPTED:YES HEP-C TEST OFFERED TO PATIENT:NO BROCHURE PROVIDED TO PATIENTYES RESTORATIONISM [id number] MOSQUE LANGUAGE LANGUAGES SPOKEN:HEBREW EDUCATION LEVEL OF EDUCATION:HIGH SCHOOL LEARNING BARRIERS / SPECIAL NEEDS CHANGE FROM LAST VISIT?NO BARRIERS TO LEARNING?NO HEARING IMPAIRED?NO VISION IMPAIRED?YES :CORRECTIVE LENSES READING GLASSES COGNITIVELY IMPAIRED?NO READINESS TO LEARN?YES LEARNING PREFERENCES?NO LEARNING CAPABILITIES PRESENT?YES EMOTIONAL BARRIERS?YES COMMENTSDOCUMENTED IN NOTES SECTION> ANXIETY/DEPRESSION SPECIAL DEVICES?NO MERCHANDISING EXECUTION MANAGER NEEDED?NO DOMESTIC VIOLENCE IN PRIOR RELATIONSHIP. 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 DIET: CURRENTLY HAVING PROBLEMS WITH BULEMIA. HAS HAD COUNSELING IN THE PAST. OPEN TO REFERRAL AGAIN FOR COUNSELING. ALSO TAKING OTC DIURETICS.. EXERCISE: OCCASIONALLY, HAS PERIODS OF WALKING 3-4 MILES, THEN STOPS FOR AWHILE.. MARITAL STATUS: , . OTHERS AT HOME: ROOMATE. - HAS THE PATIENT BEEN EDUCATED REGARDING HIS/HER PLAN OF CARE?YES HAS THE PATIENT BEEN EDUCATED REGARDING PAIN, THE RISK FOR PAIN, THE IMPORTANCE OF EFFECTIVE PAIN MANAGEMENT, AND THE PAIN ASSESSMENT PROCESS?YES ADVANCE DIRECTIVE ADVANCE DIRECTIVE DISCUSSED WITH PATIENT:YES HAS PAPERWORK FILLED OUT, NEEDS WITNESSES HOSPITALIZATION/MAJOR DIAGNOSTIC PROCEDURE CHILDBEARING SURGERIES REVIEW OF SYSTEMS CONSTITUTIONAL: ANY RECENT FEVER NO . CHILLS NO . WEIGHT CHANGE OF UNKNOWN REASONS NO . GASTROENTEROLOGY: NEW UNEXPLAINABLE CHANGES IN BOWEL CONTROL NO . CONSTIPATION NO . GENITOURINARY: ANY NEW CHANGE IN BLADDER CONTROL? NO . NEUROLOGY: NEW ONSET DIZZINESS OR NEUROLOGICAL CHANGES NOT MENTIONED NO . NEW NUMBNESS OR PAIN PATTERNS NOT MENTIONED AND PERTINENT TO TODAY'S VISIT NO . CARDIOLOGY: NEW CHEST PRESSURE NO . PATIENT DENIES NO . RESPIRATORY: UNEXPLAINABLE COUGH NO . NEW SHORTNESS OF BREATH NO . VITAL SIGNS WT 198 LBS, HT 61.75 IN, BMI 36.50 INDEX, BP 136/66 MM HG, HR 62 /MIN, RR 18 /MIN, TEMP 96.5 F, OXYGEN SAT % 99%, SAFE IN ENV? (Y/N) YEST.BIMAL KHAN. EXAMINATION GENERAL EXAMINATION: GENERALNO ACUTE DISTRESS, WELL NOURISHED AND HYDRATED. PSYCHAPPROPRIATE MOOD AND AFFECT . NECK:NO LYMPHADENOPATHY, SUPPLE. LUNGS:CLEAR TO AUSCULTATION BILATERALLY, NO WHEEZES, RHONCHI, RALES. HEART:NO MURMURS, REGULAR RATE AND RHYTHM. MUSCULOSKELETAL:MULTIPLE AREAS OF TENDER SPOTS UPPER AND LOWER TORSO BILATERALLY INDICATIVE OF FIBROMYALGIA . ASSESSMENTS FIBROMYALGIA - M79.7 (PRIMARY) TREATMENT FIBROMYALGIA START LYRICA CAPSULE, 75 MG, 1 CAPSULE, ORALLY, BID, 30 DAYS, 60 CAPSULE, REFILLS 2 NOTES: PATIENT WAS ADVISED TO START A WALKING PROGRAM TO STRENGTHEN LUMBAR PARASPINAL MUSCLES AND IMPROVE MOBILITY. THEY WERE ADVISED THAT THIS WILL IMPROVE WEIGHT LOSS AND ALSO DEPRESSION/FIBROMYALGIA SYMPTOMS. ADVISED TO WALK 10 MINUTES EVERY OTHER DAY ON A FLAT SURFACE. EMPHASIZED THE IMPORTANCE OF DOING THIS CONSISTANTLY AND NOT SPORATICALLY TO AVOID INJURY. PROCEDURE CODES FA211 ESTABILISHED PATIENT [facility] CHARGE DISPOSITION & COMMUNICATION FOLLOW UP REASON: FIBROMYALGIA/BC-BS/NEW MED LYRICA ELECTRONICALLY SIGNED BY CRISTOPHER PASCUAL ON 10/01/2020 AT 07:21 AM EST DISCLAIMER : THIS IS A VISIT SUMMARY EXTRACTED FROM THE [employer] CHART. IT IS NOT A COPY OF THE [employer] PROGRESS NOTE. MALU
== END ==
LOC: M PAIN 10:30
PROVIDERS: ATTEND Nurse Practitioner Family
DX: M79.7 Fibromyalgia (principal); F32.9 Major depressive disorder, single episode, unspecified; F41.9 Anxiety disorder, unspecified; K59.09 Other constipation; E78.5 Hyperlipidemia, unspecified; A60.09 Herpesviral infection of other urogenital tract; G89.4 Chronic pain syndrome; F17.210 Nicotine dependence, cigarettes, uncomplicated; Z79.899 Other long term (current) drug therapy; Z88.8 Allergy status to other drugs, medicaments and biological substances

== ENCOUNTER → 2020-10-27 | Outpatient (CLI) | payer BC ==
[2020-10-27 09:56] LABS: THYROID STIMULATING HORMONE 3.07 uIU/ML (0.358-3.740)
[2020-10-27 13:23] LABS: HEMOGLOBIN A1c 5.2 %
== END ==
LOC: M LAB 08:26
PROVIDERS: ATTEND Surgery
DX: R73.03 Prediabetes (principal); Z86.39 Personal history of other endocrine, nutritional and metabolic disease

== ENCOUNTER → 2020-12-15 | Outpatient (CLI) | payer BC ==
[~2020-12-15] MED LIST changes: +ACET300T2 PO; +ACYC1TAB; +ACYC1TAB PO; -ACYC400T; -ACYC400T PO; -ESTRADIOL; +ESTRADIOL PO
== END ==
LOC: M LABSMTC 11:54
PROVIDERS: ATTEND Anesthesiology
DX: Z01.818 Encounter for other preprocedural examination (principal); Z11.52 Encounter for screening for COVID-19

== ENCOUNTER 2020-12-20 08:06 | Day surgery (SDC) | payer BC ==
[~2020-12-20] VITALS: Ht 154.9 cm; Wt 92.1 kg
[~2020-12-20 08:06] MED LIST changes: +NS 1,000 ML IV ONE
[2020-12-20] MEDS ORDERED: fentaNYL 100 MCG/2 ML INJECTION (J3010) As Ordered ONE (09:17)
[2020-12-20] MEDS ORDERED: propofoL 200 MG/20 ML VIAL As Ordered ONE ×2 (09:17→09:36)
[2020-12-20] MEDS ORDERED: LIDOCAINE 2% 100MG/5ML SDV (FOR ANES.) As Ordered ONE (09:17)
--- NOTE | 2020-12-20 09:45 | ROOR ---
Patient Name: Adrienne Koenig Procedure Date: 12/20/2020 9:28 AM Date of : 1970 Age: 50 [facility] Gender: Female Note Status: Finalized Procedure: Upper Endoscopy + Biopsies Indications: Preoperative assessment for bariatric surgery to treat morbid obesity Providers: Collins Krishna MD Referring MD: Leanne Deleon Np Requesting Provider: Medicines: Monitored Anesthesia Care Complications: No immediate complications. Procedure: Pre-Anesthesia Assessment: - The heart rate, respiratory rate, oxygen saturations, blood pressure, adequacy of pulmonary ventilation, and response to care were monitored throughout the procedure. The Endoscope was introduced through the mouth, and advanced to the second part of duodenum. The upper GI endoscopy was accomplished without difficulty. The patient tolerated the procedure well. Findings: The Z-line was regular and was found 40 cm from the incisors. Multiple biopsies were obtained with cold forceps for evaluation to rule out Burns's Esophagus randomly at the gastroesophageal junction. No other significant abnormalities were identified in a careful examination of the stomach. Biopsies were taken with a cold forceps in the gastric antrum for Helicobacter pylori testing. The exam of the duodenum was otherwise normal. Impression: - Z-line regular, 40 cm from the incisors. - Multiple biopsies were obtained at the gastroesophageal junction. - Biopsies were taken with a cold forceps for Helicobacter pylori testing. - The examination was otherwise normal. Recommendation: - Patient has a contact number available for emergencies. The signs and symptoms of potential delayed complications were discussed with the patient. Return to normal activities tomorrow. Written discharge instructions were provided to the patient. - High fiber diet. - Discharge patient to home. - Continue present medications. - Await pathology results. - Telephone GI clinic for pathology results in 1 week. - The findings and recommendations were discussed with the patient's family. Procedure Code(s): --- Professional --- 38095, Esophagogastroduodenoscopy, flexible, transoral; with biopsy, single or multiple Diagnosis Code(s): --- Professional --- Z01.818, Encounter for other preprocedural examination E66.01, Morbid (severe) obesity due to excess calories CPT copyright 2019 [employer]. All rights reserved. The codes documented in this report are preliminary and upon gameplay engineer review may be revised to meet current compliance requirements. Collins Krishna MD Collins Krishna MD 12/20/2020 9:45:16 AM Electronically signed by Collins Krishna MD Number of Addenda: 0 Note Initiated On: 12/20/2020 9:28 AM Estimated Blood Loss: Estimated blood loss: none.
[2020-12-20 10:05] VITALS: BP 140/63
== END 2020-12-20 10:07 | disposition home or self-care (01) ==
LOC: M OPP 08:06
PROVIDERS: ATTEND Internal Medicine Gastroenterology
DX: Z01.818 Encounter for other preprocedural examination (principal); E66.01 Morbid (severe) obesity due to excess calories; Z87.19 Personal history of other diseases of the digestive system; K20.90 Esophagitis, unspecified without bleeding; Z79.899 Other long term (current) drug therapy; Z88.8 Allergy status to other drugs, medicaments and biological substances
CPT/HCPCS: 43239; 88305; J3010

== ENCOUNTER 2021-02-19 10:49 | Emergency (ER) | payer BC ==
[~2021-02-19] VITALS: Ht 157.5 cm; Wt 92.3 kg
[~2021-02-19 10:49] MED LIST changes: -NS 1,000 ML IV ONE
[2021-02-19] MEDS ORDERED: ONDANSETRON 4MG/2ML VIAL IV ONE (12:25)
[2021-02-19] MEDS ORDERED: NS 1,000 ML IV ONE (12:25)
[2021-02-19] MEDS ORDERED: diphenhydrAMINE 50MG/ML VIAL (J1200) IV ONE (12:25)
[2021-02-19] MEDS ORDERED: KETOROLAC 30 MG/ML 1ML VIAL IV ONE (12:25)
--- NOTE | 2021-02-19 13:12 | REP ---
INDICATION: Diffuse abd pain with bilateral flank pain COMPARISON: Comparison CT study December 05, 2019.. TECHNIQUE: Helical scanning is acquired and 3 mm axial images were reformatted. Coronal and sagittal MPR images were generated and reviewed. FINDINGS: Preliminary digital business risk analyst radiograph is noncontributory. The lung bases are free of infiltrate. There is no evidence of pleural effusion or upper abdominal ascites. The liver and the spleen are normal in size homogeneous in texture. No abnormality is noted in the gallbladder or the pancreas. Normal adrenal glands are visible. The kidneys are morphologically intact. No hydronephrosis or intrarenal calculus is seen. No mass or cyst is observed. Normal caliber aorta is seen. The uterus is surgically absent. A normal appendix is visible in the right lower quadrant. Urinary bladder is unremarkable. Small and large bowel loops show no evidence of obstruction or mass. No abdominal wall defect or bony destructive lesion is appreciated. There is no evidence of free air or abnormal fluid collection. IMPRESSION: No evidence urinary tract calculus or hydronephrosis. Normal appendix seen. No acute abdominal or pelvic abnormality. <Electronically signed by Siddhartha Martinez > 02/19/21 [id number]
[2021-02-19] MEDS ORDERED: PREG75CA2 (13:44)
[2021-02-19 14:13] LABS: BASO % 0.4 % (0.0-1.0); EOS # 0.3 10^3/uL (0.0-0.5); EOS % 5.5 % (0.0-3.0); HEMATOCRIT 42.1 % (36.0-47.0); HEMOGLOBIN 13.4 g/dl (12.0-15.5); LYMPH # 1.8 10^3/uL (1.5-5.0); MEAN CORPUSCULAR HEMOGLOBIN 27.8 pg (27.0-33.0); MEAN CORPUSCULAR HGB CONC 31.8 g/dl (32.0-36.5); MEAN CORPUSCULAR VOLUME 87.3 fl (80.0-96.0); MONO # 0.4 10^3/uL (0.0-0.8); MONO % 6.6 % (2.0-8.0); NEUTROPHILS # 3.1 10^3/uL (1.5-8.5); NEUTROPHILS % 55.3 % (36.0-66.0); PLATELET COUNT, AUTOMATED 278 10^3/uL (150-450); RED BLOOD COUNT 4.82 10^6/uL (4.00-5.40); WHITE BLOOD COUNT 5.6 10^3/uL (4.0-10.0)
[2021-02-19 14:34] LABS: ALBUMIN 3.3 GM/DL (3.2-5.2); ALT/SGPT 20 U/L (12-78); BILIRUBIN,DIRECT < 0.1 MG/DL (0.0-0.2); BILIRUBIN,TOTAL 0.3 MG/DL (0.2-1.0); BLOOD UREA NITROGEN 18 MG/DL (7-18); CALCIUM LEVEL 8.6 MG/DL (8.5-10.1); CARBON DIOXIDE LEVEL 25 MEQ/L (21-32); CHLORIDE LEVEL 110 MEQ/L (98-107); CREATININE FOR GFR 0.63 MG/DL (0.55-1.30); GLOMERULAR FILTRATION RATE > 60.0 (>51); GLUCOSE, FASTING 81 MG/DL (70-100); LIPASE 79 U/L (73-393); POTASSIUM SERUM 3.8 MEQ/L (3.5-5.1); SODIUM LEVEL 140 MEQ/L (136-145); TOTAL PROTEIN 6.7 GM/DL (6.4-8.2)
[2021-02-19] MEDS ORDERED: ZOFR4TAB16 PO (15:36)
[2021-02-19] MEDS ORDERED: DICY1CAP8 PO (15:36)
[2021-02-19 15:43] VITALS: BP 149/76
== END 2021-02-19 15:45 | disposition home or self-care (01) ==
LOC: M ED 10:49
DX: R10.9 Unspecified abdominal pain (principal); R11.0 Nausea; R19.7 Diarrhea, unspecified; Z88.8 Allergy status to other drugs, medicaments and biological substances; Z79.899 Other long term (current) drug therapy
CPT/HCPCS: 74176; 80048; 80076; 81001; 83690; 85025; 96361; 96374; 96375; 99284; J1200; J1885; J2405

== ENCOUNTER → 2021-02-22 | Outpatient (REF) | payer BC ==
[~2021-02-22] MED LIST changes: +ACET300T52; +CEFD300C41 PO; +DICY1CAP8 PO; -DICY20TA11 PO; +DICY20TA20 PO; +ESOM20CA25; +LYRI75CA PO; +NEXI20CA PO; -PHEN37.52; +PHEN37.58; +PREG75CA2; +TRAZ1TAB14 PO; +ZOFR4TAB16 PO
== END ==
LOC: M LAB REF 21:25
PROVIDERS: ATTEND Physician Assistant
DX: N39.0 Urinary tract infection, site not specified (principal)

== ENCOUNTER 2021-04-13 16:48 | Inpatient (IN) | payer BC ==
[~2021-04-13] VITALS: Ht 154.9 cm; Wt 96.1 kg
[~2021-04-13 16:48] MED LIST changes: -ACET300T52; -CEFD300C41 PO; +DICY20TA11 PO; -DICY20TA20 PO; -ESOM20CA25; -LYRI75CA PO; -NEXI20CA PO; -TRAZ1TAB14 PO
[2021-04-13] MEDS ORDERED: NS 1,000 ML IV ONE (17:15)
[2021-04-13] MEDS ORDERED: ESOM20CA25 (17:20)
[2021-04-13] MEDS ORDERED: ACET300T52 (17:20)
[2021-04-13 17:45] LABS: BASO # 0.1 10^3/uL (0.0-0.2); EOS # 0.3 10^3/uL (0.0-0.5); EOS % 5.9 % (0.0-3.0); HEMATOCRIT 40.1 % (36.0-47.0); HEMOGLOBIN 13.2 g/dl (12.0-15.5); LYMPH # 1.8 10^3/uL (1.5-5.0); LYMPH % 36.9 % (24.0-44.0); MEAN CORPUSCULAR HEMOGLOBIN 27.8 pg (27.0-33.0); MEAN CORPUSCULAR HGB CONC 32.9 g/dl (32.0-36.5); MEAN CORPUSCULAR VOLUME 84.6 fl (80.0-96.0); MONO # 0.3 10^3/uL (0.0-0.8); MONO % 6.9 % (2.0-8.0); NEUTROPHILS # 2.4 10^3/uL (1.5-8.5); NEUTROPHILS % 49.1 % (36.0-66.0); PLATELET COUNT, AUTOMATED 310 10^3/uL (150-450); RED BLOOD COUNT 4.74 10^6/uL (4.00-5.40); WHITE BLOOD COUNT 4.9 10^3/uL (4.0-10.0)
[2021-04-13 18:12] LABS: INR 0.98; PROTHROMBIN TIME 13.4 SECONDS (12.7-14.5)
[2021-04-13 18:13] LABS: PARTIAL THROMBOPLASTIN TIME 34.6 SECONDS (25.9-37.0)
[2021-04-13] MEDS ORDERED: D5W IV ONE ×2 (18:20→20:00)
[2021-04-13] MEDS ORDERED: ACETYLCYSTEINE IV ONE ×2 (18:20→20:00)
[2021-04-13 18:21] LABS: ACETAMINOPHEN LEVEL 15.5 UG/ML (10.0-30.0); ALBUMIN 3.2 GM/DL (3.2-5.2); ALT/SGPT 39 U/L (12-78); AMYLASE 46 U/L (25-115); BILIRUBIN,DIRECT < 0.1 MG/DL (0.0-0.2); BILIRUBIN,TOTAL 0.3 MG/DL (0.2-1.0); BLOOD UREA NITROGEN 19 MG/DL (7-18); CALCIUM LEVEL 8.5 MG/DL (8.5-10.1); CARBON DIOXIDE LEVEL 23 MEQ/L (21-32); CHLORIDE LEVEL 113 MEQ/L (98-107); CK-MB VALUE MASS < 1.0 NG/ML (<3.6); CPK CREATINE PHOSPHOKINASE 50 U/L (26-192); CREATININE FOR GFR 0.81 MG/DL (0.55-1.30); ETHYL ALCOHOL (ETHANOL) < 0.003 % (0.000-0.010); GLOMERULAR FILTRATION RATE > 60.0 (>51); GLUCOSE, FASTING 80 MG/DL (70-100); LIPASE 47 U/L (73-393); POTASSIUM SERUM 3.8 MEQ/L (3.5-5.1); SALICYLATE LEVEL < 1.7 MG/DL (5.0-30.0); SODIUM LEVEL 142 MEQ/L (136-145); THYROID STIMULATING HORMONE 0.739 uIU/ML (0.358-3.740); TOTAL PROTEIN 6.7 GM/DL (6.4-8.2); TROPONIN I < 0.02 NG/ML (< 0.10)
[2021-04-13] MEDS ORDERED: ISOVUE-370 76% 100ML VIAL As Ordered ONE (19:00)
[2021-04-13 19:30] LABS: RSV AMPLIFICATION NEGATIVE (NEGATIVE)
--- NOTE | 2021-04-13 21:00 | REPVR ---
PROCEDURE INFORMATION: Exam: CT Abdomen And Pelvis With Contrast Exam date and time: 04/13/2021 8:10 PM Age: 50 years old Clinical indication: Abdominal pain; Other: Rlq; Additional info: Rlq pain TECHNIQUE: Imaging protocol: Computed tomography of the abdomen and pelvis with contrast. Radiation optimization: All CT scans at this facility use at least one of these dose optimization techniques: automated exposure control; mA and/or kV adjustment per patient size (includes targeted exams where dose is matched to clinical indication); or iterative reconstruction. Contrast material: ISOVUE 370; Contrast volume: 100 ml; Contrast route: INTRAVENOUS (IV); COMPARISON: CT ABD PELVIS W/O CONTRAST 02/19/2021 12:34 PM FINDINGS: Liver: There is a diffuse decrease in hepatic parenchymal density, consistent with steatosis. Gallbladder and bile ducts: Normal. No calcified stones. No ductal dilation. Pancreas: Normal. No ductal dilation. Spleen: Normal. No splenomegaly. Adrenal glands: Normal. No mass. Kidneys and ureters: Normal. No hydronephrosis. Stomach and bowel: Unremarkable. No obstruction. No mucosal thickening. Appendix: The appendix is within normal limits. There is no appendiceal enlargement, periappendiceal inflammatory changes or abscess. Intraperitoneal space: Unremarkable. No free air. No significant fluid collection. Vasculature: Unremarkable. No abdominal aortic aneurysm. Lymph nodes: Unremarkable. No enlarged lymph nodes. Urinary bladder: Unremarkable as visualized. Reproductive: There has been a hysterectomy. Bones/joints: Unremarkable. No acute fracture. Soft tissues: There is a small umbilical hernia. There is no evidence of incarceration. IMPRESSION: 1. There is a diffuse decrease in hepatic parenchymal density, consistent with steatosis. 2. The appendix is within normal limits. There is no appendiceal enlargement, periappendiceal inflammatory changes or abscess. 3. There has been a hysterectomy. Electronically signed by: Prasad Ballesteros On 04/13/2021 21:00:05 PM
[2021-04-13 21:32] LABS: AMPHETAMINES LEVEL URINE NEGATIVE (NEGATIVE); BARBITURATES URINE NEGATIVE (NEGATIVE); BENZODIAZEPINES URINE NEGATIVE (NEGATIVE); CANNABINOIDS URINE NEGATIVE (NEGATIVE); COCAINE METABOLITE URINE POSITIVE (NEGATIVE); METHADONE URINE NEGATIVE (NEGATIVE); OPIATES URINE NEGATIVE (NEGATIVE); PHENCYCLIDINE URINE NEGATIVE (NEGATIVE)
[2021-04-13 21:55] LABS: ACETAMINOPHEN LEVEL 7.3 UG/ML (10.0-30.0); ALBUMIN 2.7 GM/DL (3.2-5.2); ALT/SGPT 34 U/L (12-78); BILIRUBIN,DIRECT < 0.1 MG/DL (0.0-0.2); BILIRUBIN,TOTAL 0.2 MG/DL (0.2-1.0); TOTAL PROTEIN 6.2 GM/DL (6.4-8.2)
[2021-04-13] MEDS ORDERED: hydrALAZINE 20MG/ML 1ML VIAL (J0360 PER 20MG) IV STA (22:09)
[2021-04-13] MEDS ORDERED: cloNIDine 0.2 MG TAB PO ONE (22:50)
[2021-04-13 23:19] VITALS: BP 155/65
[2021-04-13] MEDS ORDERED: LYRI75CA PO (23:31)
[2021-04-13] MEDS ORDERED: TRAZ1TAB14 PO (23:31)
[2021-04-13] MEDS ORDERED: NEXI20CA PO (23:31)
--- NOTE | 2021-04-13 23:31 | HPEPDOC ---
[facility] Medical History & Physical Date of Admission Apr 14, 2021 Date of Service: Apr 14, 2021 Other Provider Merlene BENOIT Attending Physician: KEVIN HILARIO MD History and Physical TIME OF SERVICE: 1133pm CHIEF COMPLAINT: abdominal pain HISTORY OF PRESENT ILLNESS: Over the last few days was having 6/10 in severity right upper abdominal pain and nausea so she took some Tylenol to try and alleviate the pain. Over the last 48 hours she thinks that she might have co nsumed 30 tabs of 500mg Tylenol along with 25mg of Unisom. She denies trying to kill herself. Per d/w the case was discussed with poison control who initially recommended NAC, after they repeated the acetaminophen levels they cleared her, in the interim SBP increased to the 200s; she was given hydralazine. At the time of my assessment she had a DUARTE but denied feeling dizzy, having chest pain, having shortness of breath and having swelling of her legs. She last used cocaine 2weeks ago. REVIEW OF SYSTEMS: 10-point review of systems negative except as listed in HPI PAST MEDICAL/ SURGICAL HISTORY: Fibromyalgia Essential HTN Depression (she has been admitted multiple times for overdosing on various substances and in 2014 she was admitted to [facility] after a medication OD with SI) JURGEN Bulimia Hepatic Steatosis Osteopenia Complex hemiplegic migraines Breast augmentation Cervical discectomy with decompression and fusion of C6-C7 and revision of the fusion Ulnar release Tubal ligation Right arm radiculopathy x3 FAMILY HISTORY: HTN, DLP SOCIAL HISTORY: She smokes tobacco products, drinks alcohol occasionally and uses cocaine occasionally ALLERGIES: Please see below. HOME MEDICATIONS: Please see below. PHYSICAL EXAMINATION: Vital Signs Date Time Temp Pulse Resp B/P (MAP) Pulse Ox O2 Delivery O2 Flow Rate FiO2 04/13/21 17:16 187/77 (113) 04/13/21 17:17 98.5 65 18 98 Room Air GENERAL APPEARANCE: well-nourished and developed/ appears a bit anxious HEENT: EOMI / MMM&P CARDIOVASCULAR: RRR/NMRG LUNGS: CTAB on RA ABDOMEN: contour flat/ soft & tender w palpation of the RUQ MUSCULOSKELETAL: NCAT / FIDELINA x 4 extremities INTEGUMENT: not jaundice, pale or flushed NEUROLOGICAL: CN 2-12 grossly intact / speech not dysarthric PSYCHIATRIC: A&O x 3 / able to understand and follow all commands LABORATORY DATA: IMAGING: CT abd/pelvis IMPRESSION: 1. There is a diffuse decrease in hepatic parenchymal density, consistent with steatosis. 2. The appendix is within normal limits. There is no appendiceal enlargement, periappendiceal inflammatory changes or abscess. 3. There has been a hysterectomy. Chest xray IMPRESSION: No acute or focal cardiopulmonary process. MICROBIOLOGY: Respiratory panel negative ASSESSMENT: is a 50 yr old F w a hx of Fibromyalgia, HTN, Depression, JURGEN, Bulimia, Osteopenia, Complex hemiplegic migraines & obesity who is admitted for management of uncontrolled HTN pending Psychiatry evaluation after acetaminophen OD. PLAN: 1 Acetaminophen OD -resolved -cleared by the poison control center per -she has a hx of admissions for multiple drug ODs Plan: admit to medical floor / suicide precautions pending Psych eval 2 Uncontrolled HTN At the time of my assessment her SBP was in the 150s I am not sure if the DUARTE are due to the elevated BP or her migraines ECG showed NSR w a rate of 60 and a normal troponin Plan: f/u chest xray / start HCTCZ / low salt diet 3 Abdominal Pain She has fatty liver but Im not convinced that this is the cause of her abdominal pain Plan: f/u Hepatitis panel /Ibuprofen for pain 4 Fibromyalgia / Depression / JURGEN Plan: fluoxetine, trazodone 5 Osteopenia Plan: oscal w vitamin D 6 Complex hemiplegic migraines Plan: ibuprofen 7 Polysubstance abuse Plan: smoking cessation education 8 Class 3 obesity -Complicates care Plan: f/u A1C to screen for DM DVT px w TEDs (Colleen Prediction Score to determine the in-patient risk of VTE & need for anticoagulation is 1 point. Individuals with a Colleen Score <4 are low r isk of VTE and thromboprophylaxis should be considered on a [id number]-[id number] basis while individuals with a Colleen score >4 are high risk for VTE and will likely benefit from thromboprophylaxis unless the patient has major contraindication such as major bleeding or thrombocytopenia). Dispo: home vs IMHU after at least 2 midnights stay (including time spent in the ER) Home Medications Scheduled Esomeprazole Magnesium (Nexium) 20 Mg Laure.dr, 20 MG PO DAILY Fluoxetine Hcl (Fluoxetine HCl) 40 Mg Capsule, 40 MG PO DAILY Gabapentin (Gabapentin) 300 Mg Capsule, 300 MG PO TID Pregabalin (Lyrica) 75 Mg Capsule, 75 MG PO BID Tizanidine HCl (Tizanidine HCl) 2 Mg Tablet, 2 MG PO TID Trazodone HCl (Trazodone HCl) 150 Mg Tablet, 150 MG PO QHS Allergies Coded Allergies: promethazine (Verified Allergy, Unknown, CAN TAKE ZOFRAN, 12/14/20) metoclopramide (Verified Adverse Reaction, Intermediate, "SKIN CRAWLING", 12/14/20) prochlorperazine (Verified Adverse Reaction, Intermediate, DIARRHEA, 12/14/20) A-FIB/CHADSVASC A-FIB History Current/History of A-Fib/PAF?: No Current PO Anticoag Therapy: No KEVIN HILARIO MD Apr 13, 2021 23:31
[2021-04-13] MEDS ORDERED: HOME MED LIST COMPLETE! XX SCH (23:35)
[2021-04-14] MEDS ORDERED: ACETYLCYSTEINE IV ONE ×2
[2021-04-14] MEDS ORDERED: D5W IV ONE ×2
--- NOTE | 2021-04-14 00:02 | REPVR ---
PROCEDURE INFORMATION: Exam: XR Chest Exam date and time: 04/13/2021 10:45 PM Age: 50 years old Clinical indication: Other: Dyspnea/accelerated HTN; Additional info: Dyspnea / accelerated HTN TECHNIQUE: Imaging protocol: XR of the chest. Views: 1 view. COMPARISON: AL PORTABLE CHEST X-RAY 06/05/2020 11:49 AM FINDINGS: Lungs: Degree of lung inflation is normal. No evidence of pulmonary edema. No focal consolidation or parenchymal lung mass. Pleural spaces: No pleural effusion or pneumothorax. Heart/Mediastinum: Cardiac silhouette appears normal. No adenopathy or hilar mass. Bones/joints: Cervical spine fixation hardware is present. Osseous structures show no concerning abnormality. IMPRESSION: No acute or focal cardiopulmonary process. Electronically signed by: Leo Weinstein On 04/14/2021 00:02:14 AM
[2021-04-14 00:43] VITALS: BP 141/76
[2021-04-14 01:33] LABS: NT-PRO BNP 497 PG/ML (<125); TROPONIN I < 0.02 NG/ML (< 0.10)
[2021-04-14] MEDS: IBUPROFEN 400MG TAB PO SCH ×3 (05:44→20:50)
[2021-04-14 06:00] VITALS: BP 113/54
[2021-04-14 06:04] LABS: HEMATOCRIT 38.1 % (36.0-47.0); HEMOGLOBIN 12.5 g/dl (12.0-15.5); MEAN CORPUSCULAR HEMOGLOBIN 27.6 pg (27.0-33.0); MEAN CORPUSCULAR HGB CONC 32.8 g/dl (32.0-36.5); MEAN CORPUSCULAR VOLUME 84.1 fl (80.0-96.0); PLATELET COUNT, AUTOMATED 287 10^3/uL (150-450); RED BLOOD COUNT 4.53 10^6/uL (4.00-5.40); WHITE BLOOD COUNT 7.1 10^3/uL (4.0-10.0)
[2021-04-14 06:16] LABS: HEMOGLOBIN A1c 5.4 %
[2021-04-14 06:24] LABS: ALBUMIN 2.8 GM/DL (3.2-5.2); ALT/SGPT 31 U/L (12-78); BILIRUBIN,TOTAL 0.3 MG/DL (0.2-1.0); BLOOD UREA NITROGEN 13 MG/DL (7-18); CALCIUM LEVEL 8.4 MG/DL (8.5-10.1); CARBON DIOXIDE LEVEL 20 MEQ/L (21-32); CHLORIDE LEVEL 114 MEQ/L (98-107); GLOMERULAR FILTRATION RATE > 60.0 (>51); GLUCOSE, FASTING 99 MG/DL (70-100); POTASSIUM SERUM 3.6 MEQ/L (3.5-5.1); SODIUM LEVEL 141 MEQ/L (136-145); TOTAL PROTEIN 6.2 GM/DL (6.4-8.2)
[2021-04-14] MEDS: FLUoxetine 20 MG CAP PO SCH (07:51)
[2021-04-14] MEDS: PANTOPRAZOLE 20 MG TAB PO SCH (07:51)
[2021-04-14] MEDS: PREGABALIN 75 MG CAP(LYRICA) PO SCH ×2 (07:51→20:49)
[2021-04-14] MEDS: GABAPENTIN 300 MG CAP PO SCH ×3 (07:51→20:49)
[2021-04-14] MEDS: hydroCHLOROthiazide 12.5 MG CAPSULE PO SCH (07:52)
[2021-04-14] MEDS ORDERED: ENOXAPARIN 40MG/0.4ML SYRINGE (J1650 PER 10MG) SC SCH (09:00)
--- NOTE | 2021-04-14 11:24 | ECGEPIP ---
[facility] - ED Test Date: 2021-04-13 Pat Name: EVA VERAS Department: Room: [place] [address] Gender: Female Acid Strength Inspector: MAGY : 1970 Requested By: Tito Patel Order Number: [id number] Reading MD: Barry Kang Measurements Intervals [place] Rate: 60 P: 50 [place]: 124 QRS: 23 QRSD: 76 T: 25 QT: 462 QTc: 462 Interpretive Statements Normal sinus rhythm POOR R WAVE PROGRESSION SIMILAR TO 06/05/20 Electronically Signed on 04-14-2021 11:23:52 EDT by Barry Kang
[2021-04-14] MEDS ORDERED: VANCOMYCIN HCL 1,000 MG, VIAL MATE ADAPTER 1 EACH in NS 250 ML IV SCH (12:20)
[2021-04-14] MEDS ORDERED: VANCOMYCIN HCL 1,000 MG, VIAL MATE ADAPTER 1 EACH in NS 250 ML IV ONE ×2 (13:00→14:00)
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
[2021-04-14 14:00] VITALS: BP 139/76
--- NOTE | 2021-04-14 14:59 | IPNPDOC ---
Text Note Date of Service The patient was seen on 04/14/21. NOTE Subjective: Patient is a 50-year-old female who presented to the hospital with right upper quadrant abdominal pain and nausea. Patient had been taking Tylenol to try and alleviate the pain. Over the last 48 hours she thinks she may have consumed 30 tablets of 500 mg Tylenol. Patient denies trying to kill herself but per discussion with Dr. Jeter, the case was discussed with poison control who initially recommended N-acetylcysteine but after they repeated the acetamino phen level, they cleared her. Patient was found to have elevated blood pressures which is since resolved. Patient states she last used cocaine 2 weeks ago. Patient is otherwise feeling well today and denies any suicidal ideations. Review of systems: General: Patient denies fevers HEENT: Patient denies headaches Cardiovascular: Patient denies chest pain Respiratory: Patient denies shortness of breath, cough GI: Patient denies abdominal pain, nausea, vomiting, diarrhea : Patient denies increased frequency or pain with urination Extremities: Patient denies swelling or pain in extremities Neurological: Patient denies numbness or tingling in legs Physical exam: Vitals: See below General: Alert and oriented female patient who was laying in bed when I walked in the room. Patient not appear to be in any acute distress. HEENT: Normocephalic, atraumatic, moist mucous membranes. Neck: No lymphadenopathy or thyromegaly Cardiac: Regular rate and rhythm, no murmurs, normal S1, normal S2 Pulm: Clear to auscultation bilaterally. No wheezes, rhonchi, rales Abd: Nondistended, nontender to palpation, normal bowel sounds Ext: No edema bilateral lower extremities Psych: Patient denies SI/HI/A/V hallucinations Labs: See below Imaging: No new imaging has been performed Assessment/plan: 50-year-old female with a history of fibromyalgia, hypertension, depression, anxiety, bulimia, osteopenia, complex hemiplegic migraines and obesity who was admitted for management uncontrolled hypertension and acetaminophen overdose 1. Acetaminophen overdose. Is resolved and cleared by poison control. Psychiatry saw the patient and agrees that the patient was not intentionally trying to harm her self and was safe for discharge once medically cleared. 2. Uncontrolled hypertension. Patient's blood pressures have improved and we will continue with the home medications as well as hydrochlorothiazide is added. 3. Bacteremia. Patient had a blood culture come back positive for gram- positive cocci in clusters. Because of the patient's history of drug abuse, there is concern for possible staph aureus infection. Patient does not clinically appear infected. Procalcitonin was added. Vancomycin has been started until cultures either come back negative or prove contaminant. 4. Abdominal pain. This has improved. Continue to monitor. 5. Fibromyalgia. Continue treatment. 6. Osteopenia. Continue with her home medications. 7. Complex hemiplegic migraines. Not in exacerbation at this time. 8. Polysubstance abuse. Smoking cessation education. Patient was given a walk-in hours for [facility] for substance abuse. 9. Class III obesity which is complicating patient's care. A1c negative. DVT Prophylaxis: Teds Disposition: Pending blood culture results VS,Marc, I+O VS, Marc, I+O Laboratory Tests 04/13/21 17:11 04/14/21 05:40 Vital Signs Date Time Temp Pulse Resp B/P (MAP) Pulse Ox O2 Delivery O2 Flow Rate FiO2 04/14/21 14:00 98.2 72 16 139/76 (97) 97 Room Air I&O- Last 24 Hours up to 6 AM0 04/14/21 06:00 Intake Total 1425 ml Output Total 200 ml Balance 1225 ml VIRGINIA CALLAHAN DO Apr 14, 2021 14:59
[2021-04-14] MEDS: traZODone 50 MG TAB PO SCH (20:49)
[2021-04-14 22:00] VITALS: BP 128/59
[2021-04-15] MEDS: VANCOMYCIN HCL 750 MG, VIAL MATE ADAPTER 1 EACH in NS 250 ML IV SCH ×2 (01:23→13:20)
[2021-04-15] MEDS: VANCOMYCIN HCL 500 MG in D5W MINI-BAG PLUS 100 ML IV SCH ×2 (03:14→14:50)
[2021-04-15] MEDS: IBUPROFEN 400MG TAB PO SCH ×3 (05:20→21:23)
[2021-04-15 06:00] VITALS: BP 126/63
[2021-04-15 08:48] LABS: HEMOGLOBIN 12.5 g/dl (12.0-15.5); MEAN CORPUSCULAR HEMOGLOBIN 27.4 pg (27.0-33.0); MEAN CORPUSCULAR HGB CONC 32.1 g/dl (32.0-36.5); MEAN CORPUSCULAR VOLUME 85.3 fl (80.0-96.0); PLATELET COUNT, AUTOMATED 272 10^3/uL (150-450); RED BLOOD COUNT 4.57 10^6/uL (4.00-5.40)
[2021-04-15 09:14] LABS: BLOOD UREA NITROGEN 19 MG/DL (7-18); CALCIUM LEVEL 8.5 MG/DL (8.5-10.1); CARBON DIOXIDE LEVEL 22 MEQ/L (21-32); CHLORIDE LEVEL 112 MEQ/L (98-107); CREATININE FOR GFR 0.82 MG/DL (0.55-1.30); GLOMERULAR FILTRATION RATE > 60.0 (>51); GLUCOSE, FASTING 112 MG/DL (70-100); MAGNESIUM LEVEL 2.3 MG/DL (1.8-2.4); POTASSIUM SERUM 3.6 MEQ/L (3.5-5.1); SODIUM LEVEL 141 MEQ/L (136-145)
[2021-04-15] MEDS: FLUoxetine 20 MG CAP PO SCH (10:00)
[2021-04-15] MEDS: PREGABALIN 75 MG CAP(LYRICA) PO SCH ×2 (10:00→21:23)
[2021-04-15] MEDS: GABAPENTIN 300 MG CAP PO SCH ×3 (10:00→21:22)
[2021-04-15] MEDS: hydroCHLOROthiazide 12.5 MG CAPSULE PO SCH (10:00)
[2021-04-15] MEDS: PANTOPRAZOLE 20 MG TAB PO SCH (10:02)
--- NOTE | 2021-04-15 13:36 | IPNPDOC ---
Text Note Date of Service The patient was seen on 04/15/21. NOTE Subjective: Patient is a 50-year-old female present to the hospital with right upper quadrant abdominal pain and nausea. Patient has been taking Tylenol to try to alleviate the pain. Over the last 48 hours prior to coming in she consumed about 30 tablets of 500 mg of Tylenol. Patient not tried to kill her self but per discussion with ED provider, poison control was contacted and initially recommended N-acetylcysteine but after Tylenol level was repeated they cleared her. Patient was doing otherwise well until a positive blood culture was found for gram-positive cocci in clusters. Patient had 2 of these performed and both of them were positive in the emergency department for gram-positive cocci in clusters. Unfortunately, we do not have an identification of the bacteria currently growing. Patient is otherwise well and does not have any complaints at this time. Review of systems: General: Patient denies fevers HEENT: Patient denies headaches Cardiovascular: Patient denies chest pain Respiratory: Patient denies shortness of breath, cough GI: Patient denies abdominal pain, nausea, vomiting, diarrhea : Patient denies increased frequency or pain with urination Extremities: Patient denies swelling or pain in extremities Neurological: Patient denies numbness or tingling in legs Physical exam: Vitals: See below General: Alert and oriented female patient who was sitting in the bed when I walked in. Patient not appear in any acute distress. HEENT: Normocephalic, atraumatic, moist mucous membranes. Neck: No lymphadenopathy or thyromegaly Cardiac: Regular rate and rhythm, no murmurs, normal S1, normal S2 Pulm: Clear to auscultation bilaterally. No wheezes, rhonchi, rales Abd: Nondistended, nontender to palpation, normal bowel sounds Ext: No edema bilateral lower extremities Skin: Skin of the head, neck, upper and lower extremities, abdomen, and back was examined did not show any rash or wounds Labs: See below Imaging: No imaging has been performed Assessment/plan: 50-year-old female with history of fibromyalgia, hypertension, depression, anxiety, bulimia, osteopenia, complex hemiplegic migraines, and obesity who was admitted for management of uncontrolled hypertension acetaminophen overdose was found to have 2 positive blood cultures for gram-positive cocci in clusters. 1. Seen in overdose. This is resolved and she has been cleared was neutral. Psychiatry saw the patient agrees the patient was not intentionally trying to harm her self and is safe for discharge once medically cleared. 2. Uncontrolled hypertension. Patient's blood pressures have improved we will continue with her home medications as well as hydrochlorothiazide that has been added. 3. Bacteremia. Both of the patient's blood cultures from her initial presentation in the emergency department are growing gram-positive cocci in clusters. 1 of these is coagulase-negative, the other one has not been performed yet. Because these may be staph aureus, I do not feel safe discharging the patient home until we have identified these. Patient has been started on vancomycin although she has a negative procalcitonin and is clinically well. 4. Abdominal pain. This is improved. Continue to monitor. 5. Fibromyalgia. Continue current treatment. 6. Osteopenia. Continue with home medications. 7. Complex hemiplegic migraines. Not exacerbation at this time. 8. Polysubstance abuse. Smoking cessation education. Patient has been given walk-in hours for care for substance abuse. 9. Class III obesity which is complicating patient's care. A1c negative. DVT Prophylaxis: Teds Disposition: Pending identifying the gram-positive cocci in clusters growing in the patient's blood cultures VS,Macr, I+O VS, Marc, I+O Laboratory Tests 04/15/21 08:37 Vital Signs Date Time Temp Pulse Resp B/P (MAP) Pulse Ox O2 Delivery O2 Flow Rate FiO2 04/15/21 06:00 97.4 59 17 126/63 (84) 97 Room Air I&O- Last 24 Hours up to 6 AM 04/15/21 06:00 Intake Total 960 ml Output Total 500 ml Balance 460 ml VIRGINIA CALLAHAN DO Apr 15, 2021 13:36
[2021-04-15 14:38] VITALS: BP 108/59
--- NOTE | 2021-04-15 15:04 | ECGEPIP ---
[facility] Test Date: 2021-04-14 Pat Name: EVA VERAS Department: Room: [place] [address] Gender: Female Conference Planner: GRAEME : 1970 Requested By: KEVIN HILARIO Order Number: [id number] Reading MD: Clovis Flor Measurements Intervals [place] Rate: 57 P: 44 [place]: 136 QRS: 20 QRSD: 76 T: 19 QT: 492 QTc: 478 Interpretive Statements Sinus bradycardia Similar to 04/13/21 Electronically Signed on 04-15-2021 15:04:17 EDT by Clovis Flor
[2021-04-15] MEDS: traZODone 50 MG TAB PO SCH (21:23)
[2021-04-15 22:00] VITALS: BP 130/74
[2021-04-16] MEDS: VANCOMYCIN HCL 750 MG, VIAL MATE ADAPTER 1 EACH in NS 250 ML IV SCH (01:16)
[2021-04-16] MEDS: VANCOMYCIN HCL 500 MG in D5W MINI-BAG PLUS 100 ML IV SCH (02:37)
[2021-04-16] MEDS: IBUPROFEN 400MG TAB PO SCH (05:29)
[2021-04-16 06:00] VITALS: BP 118/74
[2021-04-16] MEDS: PANTOPRAZOLE 20 MG TAB PO SCH (09:59)
[2021-04-16] MEDS: FLUoxetine 20 MG CAP PO SCH (09:59)
[2021-04-16] MEDS: PREGABALIN 75 MG CAP(LYRICA) PO SCH (09:59)
[2021-04-16] MEDS: hydroCHLOROthiazide 12.5 MG CAPSULE PO SCH (09:59)
[2021-04-16] MEDS: GABAPENTIN 300 MG CAP PO SCH (09:59)
[2021-04-16 11:26] LABS: HEPATITIS B SURFACE ANTIGEN NEGATIVE (NEGATIVE)
[2021-04-16 11:53] LABS: HEPATITIS B CORE ANTIBODY IGM NEGATIVE (NEGATIVE)
[2021-04-16 11:56] LABS: HEPATITIS A ANTIBODY IGM NEGATIVE (NEGATIVE)
--- NOTE | 2021-04-16 13:34 | DS.PDOC ---
Discharge Summary General Date of Admission Apr 13, 2021 at 23:29 Date of Discharge 04/16/2021 Attending Physician: VIRGINIA CALLAHAN DO Specialist/Consultants Involve: CHELLY CHANDLER MD Discharge Summary PROCEDURES PERFORMED DURING STAY: None. ADMITTING DIAGNOSES: 1. Acetaminophen overdose 2. Uncontrolled hypertension 3. Abdominal pain 4. Fibromyalgia. 5. Osteopenia 6. Complex hemiplegic migraines 7. Polysubstance abuse 8. Class III obesity DISCHARGE DIAGNOSES: 1. Acetaminophen overdose, unintentional. 2. Uncontrolled hypertension, resolved 3. Blood culture contaminant 4. Abdominal pain, resolved 5. Fibromyalgia 6. Osteopenia 7. Complex hemiplegic migraines 8. Polysubstance use 9. Class III obesity COMPLICATIONS/CHIEF COMPLAINT: Uncontrolled Hypertension. HISTORY OF PRESENT ILLNESS: Patient is a 50-year-old female who presented with a chief complaint of having 6/10 right upper quadrant abdominal pain and nausea so she took some Tylenol to try to alleviate the pain. Over the past 48 hours prior to admission she consumed about 30 tablets of 500 mg of Tylenol along with 25 mg of Unisom. She denies trying to kill herself. The case was discussed with poison control who initially recommended N-acetylcysteine however after repeated acetaminophen levels, they cleared her. In the interim, the patient's systolic blood pressure increased over 200. She was given hydralazine and her blood pressures did come back down to about 150s. Patient did report having headache but denied any dizziness, chest pain or shortness of breath. She says she used cocaine last 2 weeks prior to admission HOSPITAL COURSE: Initially the patient was seen by psychiatry in order to clear her from the suicidal ideation standpoint. Patient not having any suicidal ideations and the patient was cleared for discharge home. Patient was going to be discharged on 04/14/2021 however, the patient's blood cultures initially came back positive for gram-positive cocci in clusters. Due to the patient's history of drug abuse, staph aureus had to be ruled out. Patient was initially started on vancomycin although the patient did not have a white count nor did she have any fevers or other vital sign instability. Patient remained in the hospital without any further worsening. On 04/16/2021, the blood cultures grew positive for Staphylococcus simulans. I called the lab and the other blood culture that was positive as well was a coagulase-negative staph as well. Repeat blood cultures on 04/14/2021 are negative x24 hours at the time of discharge. Patient was feeling well and was discharged home on 04/16/2021. Prior to the patient potential discharge on Friday, patient was ISTOPed: [id number] which show the patient does get pain medication such as Lyrica from pain management however, she does pick this up infrequently and not on a regular schedule. DISCHARGE MEDICATIONS: Please see below. ALLERGIES: Please see below. PHYSICAL EXAMINATION ON DISCHARGE: VITAL SIGNS: Please see below. General: Alert and oriented female patient who was sitting up in bed when I walked in. Patient did not appear to be in any acute distress. HEENT: Normocephalic, atraumatic, moist mucous membranes. Neck: No lymphadenopathy or thyromegaly Cardiac: Regular rate and rhythm, no murmurs, normal S1, normal S2 Pulm: Clear to auscultation bilaterally. No wheezes, rhonchi, rales Abd: Nondistended, nontender to palpation, normal bowel sounds Ext: No edema bilateral lower extremities LABORATORY DATA: Please see below. IMAGING: CT of the abdomen and pelvis with IV contrast only on 04/13/2021 was reported to show there is a diffuse decrease in hepatic parenchymal density, consistent with steatosis. The appendix is within normal limits. There is no appendiceal enlargement, periappendiceal inflammatory changes or abscess. There has been a hysterectomy. Chest x-ray performed on 04/03/2021 is reported to show no acute or focal cardio pulmonary process PROGNOSIS: Good ACTIVITY: As tolerated. DIET: Low-sodium diet DISCHARGE PLAN: Discharge home DISPOSITION: 01 Home, Self-Care. DISCHARGE INSTRUCTIONS: 1. Follow-up with your primary care provider within 3 to 5 days of discharge. 2. Follow-up with the pain clinic in order to resume your fibromyalgia regimen 3. Return to the emergency department symptoms worsen ITEMS TO FOLLOWUP ON ON OUTPATIENT: 1. None. DISCHARGE CONDITION: Stable. TIME SPENT ON DISCHARGE: 25 minutes. Vital Signs/I&Os Vital Signs Date Time Temp Pulse Resp B/P (MAP) Pulse Ox O2 Delivery O2 Flow Rate FiO2 04/16/21 06:00 97.0 83 18 118/74 (89) 95 Room Air I&O- Last 24 Hours up to 6 AM 04/16/21 06:00 Intake Total 1330 ml Output Total 0 ml Balance 1330 ml Microbiology Microbiology 04/14/21 Blood Culture - Preliminary, Resulted No growth after 24 hours . All specim... 04/14/21 Blood Culture - Preliminary, Resulted No growth after 24 hours . All specim... 04/13/21 Blood Culture - Preliminary, Resulted 04/13/21 Blood Culture - Final, Complete Staphylococcus Simulans Discharge Medications Scheduled Esomeprazole Magnesium (Nexium) 20 Mg Capsule.dr, 20 MG PO DAILY, (Reported) Fluoxetine Hcl (Fluoxetine HCl) 40 Mg Capsule, 40 MG PO DAILY, (Reported) Gabapentin (Gabapentin) 300 Mg Capsule, 300 MG PO TID, (Reported) Pregabalin (Lyrica) 75 Mg Capsule, 75 MG PO BID, (Reported) Tizanidine HCl (Tizanidine HCl) 2 Mg Tablet, 2 MG PO TID, (Reported) Trazodone HCl (Trazodone HCl) 150 Mg Tablet, 150 MG PO QHS, (Reported) Allergies Coded Allergies: promethazine (Verified Allergy, Unknown, CAN TAKE ZOFRAN, 12/14/20) metoclopramide (Verified Adverse Reaction, Intermediate, "SKIN CRAWLING", 12/14/20) prochlorperazine (Verified Adverse Reaction, Intermediate, DIARRHEA, 12/14/20) VIRGINIA CALLAHAN DO Apr 16, 2021 13:34
== END 2021-04-16 11:23 | disposition home or self-care (01) | DRG 812 ==
LOC: M ED 16:48 → M ED INP 23:29 → M MSPAV 04-14 00:43
PROVIDERS: ADMIT Internal Medicine; ATTEND Family Medicine
DX: T39.1X1A Poisoning by 4-Aminophenol derivatives, accidental (unintentional), initial encounter (principal); F50.2 Bulimia nervosa; G43.409 Hemiplegic migraine, not intractable, without status migrainosus; Z68.41 Body mass index [BMI] 40.0-44.9, adult; K76.0 Fatty (change of) liver, not elsewhere classified; M79.7 Fibromyalgia; I10 Essential (primary) hypertension; F32.9 Major depressive disorder, single episode, unspecified; F41.1 Generalized anxiety disorder; F14.10 Cocaine abuse, uncomplicated; M85.80 Other specified disorders of bone density and structure, unspecified site; F17.200 Nicotine dependence, unspecified, uncomplicated; E66.9 Obesity, unspecified; Z98.1 Arthrodesis status; Z79.899 Other long term (current) drug therapy; Z88.8 Allergy status to other drugs, medicaments and biological substances; Z20.822 Contact with and (suspected) exposure to COVID-19; R10.9 Unspecified abdominal pain

== ENCOUNTER 2021-09-18 09:36 | Emergency (ER) | payer BC ==
[~2021-09-18] VITALS: Ht 154.9 cm; Wt 88.6 kg
[~2021-09-18 09:36] MED LIST changes: +ACET300T52; -DICY20TA11 PO; +DICY20TA20 PO; +ESOM20CA25; +LYRI75CA PO; +NEXI20CA PO; +TRAZ1TAB14 PO
[2021-09-18] MEDS ORDERED: NS 1,000 ML IV ONE (12:25)
[2021-09-18] MEDS ORDERED: ONDANSETRON 4MG/2ML VIAL IV ONE (12:25)
[2021-09-18] MEDS ORDERED: KETOROLAC 30 MG/ML 1ML VIAL IV ONE (12:25)
[2021-09-18 12:58] LABS: BASO # 0.1 10^3/uL (0.0-0.2); BASO % 0.6 % (0.0-1.0); EOS # 0.2 10^3/uL (0.0-0.5); EOS % 2.7 % (0.0-3.0); HEMATOCRIT 38.6 % (36.0-47.0); HEMOGLOBIN 12.5 g/dl (12.0-15.5); LYMPH # 2.2 10^3/uL (1.5-5.0); LYMPH % 25.6 % (24.0-44.0); MEAN CORPUSCULAR HGB CONC 32.4 g/dl (32.0-36.5); MEAN CORPUSCULAR VOLUME 86.4 fl (80.0-96.0); MONO # 0.5 10^3/uL (0.0-0.8); MONO % 5.8 % (2.0-8.0); NEUTROPHILS # 5.6 10^3/uL (1.5-8.5); NEUTROPHILS % 65.1 % (36.0-66.0); PLATELET COUNT, AUTOMATED 346 10^3/uL (150-450); RED BLOOD COUNT 4.47 10^6/uL (4.00-5.40); WHITE BLOOD COUNT 8.6 10^3/uL (4.0-10.0)
[2021-09-18 13:21] LABS: ALBUMIN 3.4 GM/DL (3.2-5.2); ALT/SGPT 23 U/L (12-78); BILIRUBIN,DIRECT < 0.1 MG/DL (0.0-0.2); BILIRUBIN,TOTAL 0.3 MG/DL (0.2-1.0); BLOOD UREA NITROGEN 15 MG/DL (7-18); CARBON DIOXIDE LEVEL 26 MEQ/L (21-32); CHLORIDE LEVEL 110 MEQ/L (98-107); CREATININE FOR GFR 0.71 MG/DL (0.55-1.30); GLOMERULAR FILTRATION RATE > 60.0 (>51); GLUCOSE, FASTING 88 MG/DL (70-100); LIPASE 135 U/L (73-393); POTASSIUM SERUM 4.3 MEQ/L (3.5-5.1); SODIUM LEVEL 142 MEQ/L (136-145); TOTAL PROTEIN 7.7 GM/DL (6.4-8.2)
[2021-09-18] MEDS ORDERED: MORPHINE 4 MG/ML 1ML VIAL/SYRINGE (J2270) IV ONE (14:15)
[2021-09-18] MEDS ORDERED: cefTRIAXone SOD 1 GM in D5W MINI-BAG PLUS 50 ML IV ONE (14:50)
[2021-09-18] MEDS ORDERED: MORPHINE 2 MG/ML 1ML VIAL (J2270) IV ONE (15:20)
[2021-09-18] MEDS ORDERED: KETO10TAB PO (15:22)
[2021-09-18] MEDS ORDERED: CEFD300C41 PO (15:22)
[2021-09-18 15:29] VITALS: BP 154/68
== END 2021-09-18 16:16 | disposition home or self-care (01) ==
LOC: M ED 09:36
DX: N10 Acute pyelonephritis (principal); N39.0 Urinary tract infection, site not specified; K44.9 Diaphragmatic hernia without obstruction or gangrene; Z79.899 Other long term (current) drug therapy
CPT/HCPCS: 74176; 80048; 80076; 81001; 83690; 85025; 87088; 87186; 96361; 96365; 96375; 96376; 99284; J0696; J1885; J2270; J2405

== ENCOUNTER → 2021-09-22 | Outpatient (CLI) | payer BC ==
[~2021-09-22] MED LIST changes: +CEFD300C41 PO
== END ==
LOC: M LABSMTC 09:15
PROVIDERS: ATTEND Surgery
DX: Z20.822 Contact with and (suspected) exposure to COVID-19 (principal)

== ENCOUNTER → 2021-10-26 | Outpatient (CLI) | payer OTHER, MEDICARE ==
[~2021-10-26] MED LIST changes: -ACET300T2; -ACET300T2 PO; +ACET300T53; +ACET300T53 PO
== END ==
LOC: M PAIN 09:30
PROVIDERS: ATTEND Nurse Practitioner Family
DX: Z79.891 Long term (current) use of opiate analgesic (principal)

== ENCOUNTER → 2021-11-15 | Outpatient (CLI) | payer OTHER, MEDICARE | LOC: M PAIN 10:30 | PROVIDERS: ATTEND Anesthesiology | DX: R52 Pain, unspecified (principal); M79.7 Fibromyalgia; Z86.59 Personal history of other mental and behavioral disorders; Z98.84 Bariatric surgery status; Z87.891 Personal history of nicotine dependence; Z88.8 Allergy status to other drugs, medicaments and biological substances; Z79.899 Other long term (current) drug therapy ==

== ENCOUNTER → 2022-02-18 | Outpatient (REF) | payer OTHER, MEDICARE, BC ==
[2022-02-18 17:43] LABS: PERCENT SATURATION 22.6 % (13.2-45.0)
[2022-02-19 09:51] LABS: TOTAL 25(OH) VITAMIN D 21.1 NG/ML (30.0-100.0)
== END ==
LOC: M LAB REF 14:22
PROVIDERS: ATTEND Physician Assistant Medical
DX: Z98.84 Bariatric surgery status (principal)

== ENCOUNTER 2022-02-27 11:42 | Emergency (ER) | payer BC, MEDICARE, OTHER ==
[~2022-02-27] VITALS: Ht 154.9 cm; Wt 78.6 kg
[2022-02-27] MEDS ORDERED: LORAPOW30 (11:53)
[2022-02-27] MEDS ORDERED: ATOR1TAB21 (11:53)
[2022-02-27 16:25] LABS: BILIRUBIN, URINE MANUAL OBSCURED (NEGATIVE); GLUCOSE, URINE (UA) MANUAL OBSCURED mg/dL (NEGATIVE); KETONE, URINE MANUAL OBSCURED mg/dL (NEGATIVE); UROBILINOGEN, URINE MANUAL OBSCURED mg/dl (NORMAL)
[2022-02-27] MEDS ORDERED: NEOSPORIN OINT 0.9 GM PKT TOP ONE (16:30)
[2022-02-27] MEDS ORDERED: KETOROLAC 60MG 2ML VIAL IM ONE (16:30)
[2022-02-27 16:33] LABS: SQUAMOUS EPITHELIAL CELL URINE LARGE AMOUNT /hpf (SMALL AMT); TRANSITIONAL EPI CELLS, URINE LARGE AMOUNT /hpf
[2022-02-27 16:34] LABS: BACTERIA, URINE LARGE AMOUNT; CALCIUM OXALATE CRYSTALS,URINE SMALL AMOUNT /hpf; MUCUS, URINE LARGE AMOUNT (NEGATIVE)
[2022-02-27 16:35] LABS: HYALINE CAST, URINE NONE SEEN /lpf (0-1)
[2022-02-27] MEDS ORDERED: CEPH500C PO (17:17)
[2022-02-27 17:40] VITALS: BP 134/74
== END 2022-02-27 17:55 | disposition home or self-care (01) ==
LOC: M ED 11:42
DX: S91.332A Puncture wound without foreign body, left foot, initial encounter (principal); S60.012A Contusion of left thumb without damage to nail, initial encounter; Y92.89 Other specified places as the place of occurrence of the external cause; X58.XXXA Exposure to other specified factors, initial encounter; R30.0 Dysuria; E78.5 Hyperlipidemia, unspecified; K21.9 Gastro-esophageal reflux disease without esophagitis; F32.A Depression, unspecified; F41.9 Anxiety disorder, unspecified; D25.9 Leiomyoma of uterus, unspecified; Z79.899 Other long term (current) drug therapy
CPT/HCPCS: 73140; 73630; 81000; 87088; 87186; 96372; 99284; J1885

== ENCOUNTER → 2022-07-01 | Outpatient (CLI) | payer BC ==
[~2022-07-01] MED LIST changes: +ATOR1TAB21; +CEPH500C PO; +LORAPOW30
== END ==
LOC: M WHC 13:05
PROVIDERS: ATTEND Physician Assistant Medical
DX: Z12.31 Encounter for screening mammogram for malignant neoplasm of breast (principal); M81.0 Age-related osteoporosis without current pathological fracture

== ENCOUNTER 2023-01-29 16:48 | Emergency (ER) | payer BC, MEDICARE ==
[~2023-01-29] VITALS: Ht 154.9 cm; Wt 49.0 kg
[2023-01-29] MEDS ORDERED: TRAZ-189 (16:59)
[2023-01-29] MEDS ORDERED: ACE65ERTAB PO (17:01)
[2023-01-29] MEDS ORDERED: IBUP-1022 PO (17:01)
[2023-01-29] MEDS ORDERED: CEPHALEXIN 500 MG CAP PO ONE (19:00)
[2023-01-29] MEDS ORDERED: CEPH500C PO (19:01)
[2023-01-29] MEDS ORDERED: ACET325C5 PO (19:01)
[2023-01-29 19:26] VITALS: BP 143/67; TEMP 96.2
[2023-01-29] MEDS ORDERED: ACETAMINOPH W/CODEINE #3 TAB UD PO ONE (20:05)
[2023-01-29] MEDS ORDERED: ACET-716 PO (20:07)
[2023-01-29 20:14] VITALS: O2SAT 97
== END 2023-01-29 20:18 | disposition home or self-care (01) ==
LOC: M ED 16:48
DX: S92.152A Displaced avulsion fracture (chip fracture) of left talus, initial encounter for closed fracture (principal); S80.812A Abrasion, left lower leg, initial encounter; W19.XXXA Unspecified fall, initial encounter; Y92.009 Unspecified place in unspecified non-institutional (private) residence as the place of occurrence of the external cause; Y93.89 Activity, other specified; Y99.8 Other external cause status; K21.9 Gastro-esophageal reflux disease without esophagitis; Z98.84 Bariatric surgery status; Z88.8 Allergy status to other drugs, medicaments and biological substances; Z79.899 Other long term (current) drug therapy

== ENCOUNTER → 2023-03-28 | Outpatient (REF) | payer MEDICARE, MEDICAID ==
[~2023-03-28] MED LIST changes: +ACE65ERTAB PO; +ACET325C5 PO; +IBUP-1022 PO; -PREG75CA2; +PREG75CA3; +TRAZ-189
[2023-03-28 14:49] LABS: PERCENT SATURATION 29.7 % (13.2-45.0)
[2023-03-28 14:50] LABS: FERRITIN 23.8 NG/ML (7.3-270.7)
== END ==
LOC: M LAB REF 12:30
PROVIDERS: ATTEND Physician Assistant Medical
DX: Z98.84 Bariatric surgery status (principal)

== ENCOUNTER 2023-06-08 16:21 | Observation (INO) | payer MEDICARE, MEDICAID ==
[~2023-06-08] VITALS: Ht 154.9 cm; Wt 51.9 kg
[~2023-06-08 16:21] MED LIST changes: -BIOT50004 PO; +BIOT5CAP8 PO; +CEFD1CAP9 PO; -CEFD300C41 PO; -TRAZ-189
[2023-06-08] MEDS ORDERED: TOPI25TA10 PO (16:33)
[2023-06-08] MEDS ORDERED: NITR100C2 PO (16:33)
[2023-06-08] MEDS ORDERED: ISOVUE-370 76% 100ML VIAL As Ordered ONE (16:48)
[2023-06-08 17:14] LABS: BASO % 0.4 % (0.0-1.0); EOS # 0.2 10^3/uL (0.0-0.5); EOS % 3.8 % (0.0-3.0); HEMATOCRIT 32.9 % (36.0-47.0); HEMOGLOBIN 10.8 g/dl (12.0-15.5); LYMPH # 2.3 10^3/uL (1.5-5.0); LYMPH % 43.4 % (24.0-44.0); MEAN CORPUSCULAR HEMOGLOBIN 29.7 pg (27.0-33.0); MEAN CORPUSCULAR HGB CONC 32.8 g/dl (32.0-36.5); MEAN CORPUSCULAR VOLUME 90.4 fl (80.0-96.0); MONO # 0.3 10^3/uL (0.0-0.8); MONO % 5.5 % (2.0-8.0); NEUTROPHILS # 2.4 10^3/uL (1.5-8.5); NEUTROPHILS % 46.7 % (36.0-66.0); PLATELET COUNT, AUTOMATED 212 10^3/uL (150-450); RED BLOOD COUNT 3.64 10^6/uL (4.00-5.40); WHITE BLOOD COUNT 5.2 10^3/uL (4.0-10.0)
[2023-06-08] MEDS ORDERED: LORazepam 2 MG/ML 1ML VIAL IV STA (17:26)
[2023-06-08 17:30] LABS: INR 1.04; PROTHROMBIN TIME 13.3 SECONDS (12.5-14.5)
[2023-06-08 17:31] LABS: PARTIAL THROMBOPLASTIN TIME 31.7 SECONDS (24.8-34.2)
[2023-06-08 17:32] LABS: RSV AMPLIFICATION NEGATIVE (NEGATIVE)
[2023-06-08] MEDS ORDERED: diphenhydrAMINE 50MG/ML VIAL IV STA (18:26)
[2023-06-08] MEDS ORDERED: ACETAMINOPHEN 500 MG TAB PO ONE (18:30)
[2023-06-08] MEDS ORDERED: MAG SULF 1GM/100ML (MAG RUN) 1 GM in IV 1 EA IV ONE (18:30)
[2023-06-08] MEDS ORDERED: HYDROMORPHONE HCL 0.5 MG/ 0.5 ML SYRINGE IV ONE (21:30)
[2023-06-09] MEDS ORDERED: LORA1TAB23 PO (00:33)
[2023-06-09] MEDS ORDERED: HOME MED LIST COMPLETE! XX SCH (00:35)
[2023-06-09] MEDS ORDERED: HYDROMORPHONE HCL 0.5 MG/ 0.5 ML SYRINGE IV ONE (01:20)
[2023-06-09] MEDS ORDERED: LORazepam 0.5 MG TAB PO PRN (03:00)
[2023-06-09] MEDS ORDERED: NS 1,000 ML IV SCH (03:00)
[2023-06-09] MEDS ORDERED: HYDROMORPHONE HCL 0.5 MG/ 0.5 ML SYRINGE IV PRN ×2 (03:00)
[2023-06-09 04:40] VITALS: BP 134/64; TEMP 98; O2SAT 99
[2023-06-09] MEDS: HEPARIN SOD (PORCINE) 5000UNITS/ML 1ML VIAL/SYRINGE SQ SCH ×3 (04:57→21:18)
[2023-06-09 08:00] VITALS: BP 128/68; TEMP 97.6; O2SAT 97
[2023-06-09] MEDS ORDERED: ASPIRIN 81MG CHEW TABLET PO SCH (09:00)
[2023-06-09 09:08] LABS: MAGNESIUM LEVEL 1.9 MG/DL (1.8-2.4)
[2023-06-09 10:01] LABS: BLOOD UREA NITROGEN 9 MG/DL (9-23); CALCIUM LEVEL 8.3 MG/DL (8.5-10.1); CARBON DIOXIDE LEVEL 26 MMOL/L (20-31); CHLORIDE LEVEL 109 MMOL/L (98-107); CREATININE FOR GFR 0.55 MG/DL (0.55-1.30); GLOMERULAR FILTRATION RATE > 60.0 (>51); GLUCOSE, FASTING 84 MG/DL (60-100); POTASSIUM SERUM 4.6 MMOL/L (3.5-5.1); SODIUM LEVEL 140 MMOL/L (136-145)
[2023-06-09 10:02] LABS: HEMATOCRIT 32.7 % (36.0-47.0); HEMOGLOBIN 10.9 g/dl (12.0-15.5); MEAN CORPUSCULAR HEMOGLOBIN 29.9 pg (27.0-33.0); MEAN CORPUSCULAR HGB CONC 33.3 g/dl (32.0-36.5); MEAN CORPUSCULAR VOLUME 89.6 fl (80.0-96.0); PLATELET COUNT, AUTOMATED 212 10^3/uL (150-450); RED BLOOD COUNT 3.65 10^6/uL (4.00-5.40); WHITE BLOOD COUNT 4.5 10^3/uL (4.0-10.0)
[2023-06-09] MEDS: ASPIRIN 81MG CHEW TABLET PO SCH (10:11)
[2023-06-09] MEDS: NITROFURANTOIN (MACROBID) 100 MG CAP PO SCH ×2 (10:12→21:18)
[2023-06-09] MEDS: FLUoxetine 20MG CAP PO SCH ×2 (10:12→21:18)
[2023-06-09] MEDS: GABAPENTIN 300 MG CAP PO SCH ×3 (10:12→21:18)
[2023-06-09 12:00] VITALS: BP_SYST 120; BP_SYST 131; BP_DIAS 64; BP_DIAS 77; TEMP 97.6; O2SAT 97
[2023-06-09] MEDS ORDERED: KETOROLAC 30 MG/ML 1ML VIAL IV PRN (13:35)
[2023-06-09 16:01] VITALS: BP 133/72; TEMP 98.6; O2SAT 98
[2023-06-09 19:21] VITALS: BP 138/61; TEMP 97.8; O2SAT 97
[2023-06-09] MEDS ORDERED: traZODone 100 MG TAB PO SCH (21:00)
[2023-06-09] MEDS ORDERED: TOPIRAMATE (TopAMAX) 25 MG TAB PO SCH (21:00)
[2023-06-09 23:12] VITALS: BP 114/56; TEMP 97.2; O2SAT 98
[2023-06-10 03:35] VITALS: BP 133/59; TEMP 97.1; O2SAT 97
[2023-06-10] MEDS: HEPARIN SOD (PORCINE) 5000UNITS/ML 1ML VIAL/SYRINGE SQ SCH (05:00)
[2023-06-10 05:12] LABS: HEMATOCRIT 32.8 % (36.0-47.0); MEAN CORPUSCULAR HEMOGLOBIN 29.6 pg (27.0-33.0); MEAN CORPUSCULAR HGB CONC 33.5 g/dl (32.0-36.5); MEAN CORPUSCULAR VOLUME 88.2 fl (80.0-96.0); PLATELET COUNT, AUTOMATED 233 10^3/uL (150-450); RED BLOOD COUNT 3.72 10^6/uL (4.00-5.40); WHITE BLOOD COUNT 4.8 10^3/uL (4.0-10.0)
[2023-06-10 05:39] LABS: BLOOD UREA NITROGEN 15 MG/DL (9-23); CALCIUM LEVEL 8.5 MG/DL (8.5-10.1); CARBON DIOXIDE LEVEL 26 MMOL/L (20-31); CHLORIDE LEVEL 112 MMOL/L (98-107); CREATININE FOR GFR 0.59 MG/DL (0.55-1.30); GLOMERULAR FILTRATION RATE > 60.0 (>51); GLUCOSE, FASTING 85 MG/DL (60-100); POTASSIUM SERUM 4.2 MMOL/L (3.5-5.1); SODIUM LEVEL 144 MMOL/L (136-145)
[2023-06-10 07:38] VITALS: BP 120/57; TEMP 98.6; O2SAT 97
[2023-06-10] MEDS ORDERED: ASPI81CH8 PO (08:37)
[2023-06-10] MEDS ORDERED: TOPA50TA8 PO (08:37)
[2023-06-10] MEDS: NITROFURANTOIN (MACROBID) 100 MG CAP PO SCH (08:48)
[2023-06-10] MEDS: FLUoxetine 20MG CAP PO SCH (08:48)
[2023-06-10] MEDS: ASPIRIN 81MG CHEW TABLET PO SCH (08:48)
[2023-06-10] MEDS: GABAPENTIN 300 MG CAP PO SCH (08:48)
== END 2023-06-10 09:50 | disposition home or self-care (01) ==
LOC: M ED 16:21 → M ED INP 16:22 → INTOOBSV 06-09 02:58 → UNDOADMOB 06-09 02:58 → M ED INP 06-09 04:36 → M PCU 06-09 04:36 → UNDODISOB 06-10 09:50
PROVIDERS: ADMIT Internal Medicine; ATTEND Internal Medicine
DX: G43.409 Hemiplegic migraine, not intractable, without status migrainosus (principal); F41.9 Anxiety disorder, unspecified; F32.A Depression, unspecified; M79.7 Fibromyalgia; R93.0 Abnormal findings on diagnostic imaging of skull and head, not elsewhere classified; N39.0 Urinary tract infection, site not specified; Z88.8 Allergy status to other drugs, medicaments and biological substances; Z79.899 Other long term (current) drug therapy; Z79.2 Long term (current) use of antibiotics
CPT/HCPCS: 36415; 70450; 70496; 70498; 70551; 71045; 80047; 80048; 83735; 85025; 85027; 85610; 85730; 86850; 86900; 86901; 87631; 92610; 93005; 93041; 94760; 96361; 96365; 96372; 96375; 96376; 97161; 99285; G0378; J1170; J1200; J1885; J2060; J3475; Q9967

== ENCOUNTER 2023-11-23 20:25 | Emergency (ER) | payer MEDICARE, MEDICAID ==
[~2023-11-23] VITALS: Ht 154.9 cm; Wt 52.0 kg
[~2023-11-23 20:25] MED LIST changes: +ASPI81CH8 PO; +LORA1TAB23 PO; +NITR100C2 PO; +TOPA50TA8 PO; +TOPI25TA10 PO
[2023-11-23] MEDS ORDERED: ISOVUE-370 76% 100ML VIAL As Ordered ONE (20:29)
[2023-11-23 20:51] VITALS: BP 134/65; TEMP 96.6; O2SAT 52
[2023-11-23 21:02] LABS: BASO % 0.6 % (0.0-1.0); EOS # 0.1 10^3/uL (0.0-0.5); EOS % 2.5 % (0.0-3.0); HEMATOCRIT 31.1 % (36.0-47.0); HEMOGLOBIN 10.1 g/dl (12.0-15.5); LYMPH # 2.6 10^3/uL (1.5-5.0); LYMPH % 49.8 % (24.0-44.0); MEAN CORPUSCULAR HGB CONC 32.5 g/dl (32.0-36.5); MEAN CORPUSCULAR VOLUME 89.4 fl (80.0-96.0); MONO # 0.4 10^3/uL (0.0-0.8); MONO % 7.6 % (2.0-8.0); NEUTROPHILS # 2.1 10^3/uL (1.5-8.5); NEUTROPHILS % 39.5 % (36.0-66.0); PLATELET COUNT, AUTOMATED 249 10^3/uL (150-450); RED BLOOD COUNT 3.48 10^6/uL (4.00-5.40); WHITE BLOOD COUNT 5.3 10^3/uL (4.0-10.0)
[2023-11-23 21:15] LABS: INR 1.02; PARTIAL THROMBOPLASTIN TIME 31.5 SECONDS (24.8-34.2); PROTHROMBIN TIME 13.1 SECONDS (12.5-14.5)
[2023-11-23 21:18] LABS: BLOOD UREA NITROGEN 13 MG/DL (9-23); CALCIUM LEVEL 7.8 MG/DL (8.5-10.1); CARBON DIOXIDE LEVEL 28 MMOL/L (20-31); CHLORIDE LEVEL 108 MMOL/L (98-107); CREATININE FOR GFR 0.59 MG/DL (0.55-1.30); GLOMERULAR FILTRATION RATE > 60.0 (>51); GLUCOSE, FASTING 84 MG/DL (60-100); SODIUM LEVEL 142 MMOL/L (136-145)
[2023-11-23] MEDS: MORPHINE 4 MG/ML 1ML VIAL IV PRN (21:18)
[2023-11-23 21:37] LABS: LIPASE 32 U/L (12-53)
[2023-11-23 21:39] LABS: ALBUMIN 2.8 G/DL (3.2-5.2); ALKALINE PHOSPHATASE 63 U/L (46-116); ALT/SGPT 16 U/L (7.0-40); AST/SGOT 13 U/L (<34); BILIRUBIN,DIRECT < 0.1 MG/DL (<0.4); BILIRUBIN,TOTAL 0.2 MG/DL (0.3-1.2); TOTAL PROTEIN 4.9 G/DL (5.7-8.2)
[2023-11-23] MEDS: GASTROGRAFIN SOLUTION 30ML PO SCH (22:14)
[2023-11-23] MEDS: diphenhydrAMINE 50MG/ML VIAL IV ONE (23:34)
[2023-11-23] MEDS: HYDROMORPHONE HCL 0.5 MG/ 0.5 ML SYRINGE IV PRN (23:35)
[2023-11-24 02:30] VITALS: BP 118/56; TEMP 97.3
[2023-11-24 02:48] VITALS: O2SAT 98
[2023-11-24] MEDS: HYDROMORPHONE HCL 0.5 MG/ 0.5 ML SYRINGE IV ONE (02:48)
[2023-11-24 03:13] LABS: HEPATITIS B SURFACE ANTIBODY POSITIVE (POSITIVE)
[2023-11-24 03:38] LABS: HIV 1&2 SCREEN NEGATIVE (NEGATIVE)
[2023-11-24 03:46] LABS: HEPATITIS C VIRUS ABY INDEX < 0.02 INDEX (<0.8)
== END 2023-11-24 03:29 | disposition home or self-care (01) ==
LOC: M ED 20:25
DX: R10.9 Unspecified abdominal pain (principal); G43.909 Migraine, unspecified, not intractable, without status migrainosus; R00.1 Bradycardia, unspecified; M79.7 Fibromyalgia; F10.10 Alcohol abuse, uncomplicated; Z88.8 Allergy status to other drugs, medicaments and biological substances; Z79.899 Other long term (current) drug therapy; Z11.59 Encounter for screening for other viral diseases; Z72.89 Other problems related to lifestyle
CPT/HCPCS: 70450; 70496; 70498; 71045; 74176; 80047; 80048; 80076; 83690; 85025; 85610; 85730; 86706; 86803; 87340; 87389; 93005; 93041; 94760; 96374; 96375; 96376; 99285; J1170; J1200; Q9963; Q9967

== ENCOUNTER 2023-12-17 10:05 | Inpatient (IN) | payer MEDICARE, MEDICAID ==
[~2023-12-17] VITALS: Ht 154.9 cm; Wt 51.8 kg
[2023-12-17 11:47] LABS: HEMATOCRIT 34.7 % (36.0-47.0); HEMOGLOBIN 11.5 g/dl (12.0-15.5); MEAN CORPUSCULAR HEMOGLOBIN 29.3 pg (27.0-33.0); MEAN CORPUSCULAR HGB CONC 33.1 g/dl (32.0-36.5); MEAN CORPUSCULAR VOLUME 88.5 fl (80.0-96.0); PLATELET COUNT, AUTOMATED 223 10^3/uL (150-450); RED BLOOD COUNT 3.92 10^6/uL (4.00-5.40); WHITE BLOOD COUNT 6.3 10^3/uL (4.0-10.0)
[2023-12-17 12:15] LABS: ETHYL ALCOHOL (ETHANOL) < 0.003 % (0.000-0.010)
[2023-12-17 12:16] LABS: SALICYLATE LEVEL 3.8 MG/DL (<30)
[2023-12-17 12:23] LABS: ALBUMIN 3.6 G/DL (3.2-5.2); ALKALINE PHOSPHATASE 83 U/L (46-116); ALT/SGPT 20 U/L (7.0-40); AST/SGOT 16 U/L (<34); BILIRUBIN,DIRECT 0.2 MG/DL (<0.4); BILIRUBIN,TOTAL 0.5 MG/DL (0.3-1.2); BLOOD UREA NITROGEN 18 MG/DL (9-23); CALCIUM LEVEL 9.1 MG/DL (8.5-10.1); CARBON DIOXIDE LEVEL 29 MMOL/L (20-31); CHLORIDE LEVEL 105 MMOL/L (98-107); CREATININE FOR GFR 0.71 MG/DL (0.55-1.30); GLOMERULAR FILTRATION RATE > 60.0 (>51); GLUCOSE, FASTING 66 MG/DL (60-100); POTASSIUM SERUM 4.6 MMOL/L (3.5-5.1); SODIUM LEVEL 138 MMOL/L (136-145); THYROID STIMULATING HORMONE 1.546 uIU/ML (0.55-4.78)
[2023-12-17 12:29] LABS: AMPHETAMINES LEVEL URINE NEGATIVE (NEGATIVE); BARBITURATES URINE NEGATIVE (NEGATIVE); BENZODIAZEPINES URINE NEGATIVE (NEGATIVE); CANNABINOIDS URINE NEGATIVE (NEGATIVE); METHADONE URINE NEGATIVE (NEGATIVE); OPIATES URINE NEGATIVE (NEGATIVE); PHENCYCLIDINE URINE NEGATIVE (NEGATIVE)
[2023-12-17 12:30] LABS: COCAINE METABOLITE URINE POSITIVE (NEGATIVE)
[2023-12-17] MEDS ORDERED: HOME MED LIST COMPLETE! XX SCH (13:55)
[2023-12-17] MEDS ORDERED: MAALOX 30 ML SUSP *UDC PO PRN (14:50)
[2023-12-17] MEDS ORDERED: ACETAMINOPHEN TAB 650MG DOSE (2X325MG) PO PRN (14:50)
[2023-12-17] MEDS ORDERED: IBUPROFEN 400MG TAB PO PRN (14:50)
[2023-12-17 15:27] VITALS: BP 102/50; TEMP 97; O2SAT 100
[2023-12-17] MEDS: traZODone 50 MG TAB PO PRN (20:12)
[2023-12-17] MEDS: diphenhydrAMINE 25MG CAP PO PRN (20:12)
[2023-12-18 05:55] VITALS: BP 123/59; TEMP 97.7; O2SAT 100
[2023-12-18] MEDS: FLUoxetine 20MG CAP PO SCH (08:29)
[2023-12-18] MEDS: GABAPENTIN 300 MG CAP PO SCH (08:29)
[2023-12-18] MEDS: LORazepam 0.5 MG TAB PO PRN (08:30)
[2023-12-18] MEDS: MOM 30ML SUSPENSION UDC PO PRN (17:14)
[2023-12-18 18:44] VITALS: BP 131/62; TEMP 97.1; O2SAT 100
[2023-12-18] MEDS: traZODone 100 MG TAB PO SCH (20:01)
[2023-12-19 06:30] VITALS: BP 131/57; TEMP 97.9; O2SAT 98
[2023-12-19] MEDS ORDERED: GABA-282 PO (09:18)
[2023-12-19] MEDS ORDERED: TRAZ-189 PO (09:18)
[2023-12-19] MEDS ORDERED: FLUO40CA PO (09:18)
[2023-12-19] MEDS ORDERED: LORA1TAB23 PO (09:18)
== END 2023-12-19 12:25 | disposition home or self-care (01) | DRG 885 ==
LOC: M ED 10:05 → M ED INP 14:48 → M PSY 15:49
PROVIDERS: ADMIT Student in an Organized Health Care Education/Training Program; ATTEND Student in an Organized Health Care Education/Training Program
DX: F33.1 Major depressive disorder, recurrent, moderate (principal); F50.2 Bulimia nervosa; F43.81 Prolonged grief disorder; F10.10 Alcohol abuse, uncomplicated; F14.10 Cocaine abuse, uncomplicated; F60.3 Borderline personality disorder; I10 Essential (primary) hypertension; K21.9 Gastro-esophageal reflux disease without esophagitis; M79.7 Fibromyalgia; M85.80 Other specified disorders of bone density and structure, unspecified site; F17.200 Nicotine dependence, unspecified, uncomplicated; Z79.899 Other long term (current) drug therapy; Z88.8 Allergy status to other drugs, medicaments and biological substances

== ENCOUNTER → 2024-01-23 | Outpatient (REF) | payer MEDICARE, MEDICAID ==
[~2024-01-23] MED LIST changes: +FLUO-365 PO; -FLUO20CA22 PO; +ONDA-282 PO; -ONDA4TAB6 PO
[2024-01-23 16:59] LABS: LIPASE 34 U/L (12-53)
[2024-01-23 17:01] LABS: AMYLASE 109 U/L (30-118)
== END ==
LOC: M LAB REF 16:18
PROVIDERS: ATTEND Physician Assistant Medical
DX: R10.12 Left upper quadrant pain (principal)

== ENCOUNTER → 2024-04-06 | Outpatient (CLI) | payer MEDICARE, MEDICAID | LOC: M WHC 07:31 | PROVIDERS: ATTEND Physician Assistant Medical | DX: N63.20 Unspecified lump in the left breast, unspecified quadrant (principal); Z12.31 Encounter for screening mammogram for malignant neoplasm of breast | CPT/HCPCS: 77066; G0279 ==

== ENCOUNTER 2024-08-08 15:37 | Inpatient (IN) | payer MEDICAID, MEDICARE ==
[~2024-08-08] VITALS: Ht 154.9 cm; Wt 59.8 kg
[~2024-08-08 15:37] MED LIST changes: +GABA-1172 PO; -GABA-282 PO; +NAPR-1405 PO; -NAPR500T6 PO
[2024-08-08] MEDS ORDERED: ISOVUE-370 76% 100ML VIAL As Ordered ONE (15:56)
[2024-08-08 16:12] LABS: BASO % 0.7 % (0.0-1.0); EOS # 0.1 10^3/uL (0.0-0.5); HEMATOCRIT 36.9 % (36.0-47.0); HEMOGLOBIN 12.2 g/dl (12.0-15.5); LYMPH # 2.7 10^3/uL (1.5-5.0); LYMPH % 45.9 % (24.0-44.0); MEAN CORPUSCULAR HEMOGLOBIN 28.9 pg (27.0-33.0); MEAN CORPUSCULAR HGB CONC 33.1 g/dl (32.0-36.5); MEAN CORPUSCULAR VOLUME 87.4 fl (80.0-96.0); MONO # 0.4 10^3/uL (0.0-0.8); MONO % 6.8 % (2.0-8.0); NEUTROPHILS # 2.6 10^3/uL (1.5-8.5); NEUTROPHILS % 44.6 % (36.0-66.0); PLATELET COUNT, AUTOMATED 235 10^3/uL (150-450); RED BLOOD COUNT 4.22 10^6/uL (4.00-5.40); WHITE BLOOD COUNT 5.9 10^3/uL (4.0-10.0)
[2024-08-08] MEDS: NS (Normal Saline) 0.9% 1,000 ML IV SCH (16:14)
[2024-08-08] MEDS: HYDROMORPHONE HCL 0.5 MG/ 0.5 ML SYRINGE IV PRN (16:14)
[2024-08-08 16:24] LABS: INR 1.02; PARTIAL THROMBOPLASTIN TIME 32.6 SECONDS (24.8-34.2); PROTHROMBIN TIME 13.7 SECONDS (12.5-14.5)
[2024-08-08 16:29] VITALS: BP 162/72; TEMP 97.4; O2SAT 96
[2024-08-08] MEDS: ONDANSETRON 4MG 2ML VIAL IV ONE ×2 (16:37→23:11)
[2024-08-08] MEDS: diphenhydrAMINE 50MG/ML VIAL IV STA (16:37)
[2024-08-08 16:46] LABS: CPK CREATINE PHOSPHOKINASE 53 U/L (34-145)
[2024-08-08 16:47] LABS: BLOOD UREA NITROGEN 17 MG/DL (9-23); CALCIUM LEVEL 9.3 MG/DL (8.5-10.1); CARBON DIOXIDE LEVEL 25 MMOL/L (20-31); CHLORIDE LEVEL 106 MMOL/L (98-107); CK-MB VALUE MASS < 1.0 NG/ML (<3.6); CREATININE FOR GFR 0.71 MG/DL (0.55-1.30); GLOMERULAR FILTRATION RATE > 60.0 (>51); GLUCOSE, FASTING 89 MG/DL (60-100); MB/CK RELATIVE INDEX 1.88 (< OR =4); POTASSIUM SERUM 4.1 MMOL/L (3.5-5.1); SODIUM LEVEL 140 MMOL/L (136-145)
[2024-08-08 17:06] VITALS: BP 157/67; TEMP 98.4
[2024-08-08] MEDS ORDERED: CAFFEINE CITRATE 20 MG/ML *CAFCIT INJ* 3ML VIAL IV ONE (17:35)
[2024-08-08] MEDS ORDERED: diphenhydrAMINE 50MG/ML VIAL IV ONE (17:35)
[2024-08-08] MEDS ORDERED: MOM 30ML SUSPENSION UDC PO PRN (17:35)
[2024-08-08 18:04] LABS: CHOLESTEROL LEVEL 201 MG/DL (<200); CHOLESTEROL RISK RATIO 2.76 (<5); HDL CHOLESTEROL 72.6 MG/DL (>40); LDL CHOLESTEROL 113.2 MG/DL (<100); NON-HDL-C 128.4 MG/DL; TRIGLYCERIDES LEVEL 76 MG/DL (<150)
[2024-08-08] MEDS ORDERED: GABA-1490 PO (18:14)
[2024-08-08] MEDS ORDERED: ATIV1TAB10 PO (18:14)
[2024-08-08] MEDS ORDERED: FLUO40CA PO (18:14)
[2024-08-08] MEDS ORDERED: TRAZ1TAB12 PO (18:14)
[2024-08-08] MEDS ORDERED: HOME MED LIST COMPLETE! XX SCH (18:15)
[2024-08-08 18:23] LABS: HEMOGLOBIN A1c 5.1 % (4.0-6.0)
[2024-08-08] MEDS: FIORICET TAB PO ONE (18:39)
[2024-08-08] MEDS: ACETAMINOPHEN 500 MG TAB PO SCH (18:40)
[2024-08-08] MEDS: dexAMETHasone 20MG/5ML VIAL IV ONE (18:42)
[2024-08-08] MEDS: KETOROLAC 30 MG/ML 1ML VIAL IV ONE (18:42)
[2024-08-08] MEDS: VALPROATE SOD INJ 1,000 MG in D5W 50 ML IV ONE (18:43)
[2024-08-08] MEDS: SUMAtriptan SUCCINATE 25 MG TAB PO ONE (21:01)
[2024-08-08] MEDS: DOCUSATE SODIUM 100MG CAPSULE PO SCH (21:01)
[2024-08-08 22:14] VITALS: BP 139/75; TEMP 97.9; O2SAT 98
[2024-08-08 22:30] VITALS: BP 139/75; TEMP 97.9; O2SAT 98
[2024-08-08] MEDS: traMADol 50 MG TAB PO ONE (23:08)
[2024-08-09 03:12] VITALS: BP 121/53; TEMP 98
[2024-08-09 05:46] LABS: HEMATOCRIT 37.9 % (36.0-47.0); HEMOGLOBIN 12.6 g/dl (12.0-15.5); MEAN CORPUSCULAR HEMOGLOBIN 28.6 pg (27.0-33.0); MEAN CORPUSCULAR HGB CONC 33.2 g/dl (32.0-36.5); MEAN CORPUSCULAR VOLUME 85.9 fl (80.0-96.0); PLATELET COUNT, AUTOMATED 225 10^3/uL (150-450); RED BLOOD COUNT 4.41 10^6/uL (4.00-5.40); WHITE BLOOD COUNT 4.9 10^3/uL (4.0-10.0)
[2024-08-09 06:07] LABS: BLOOD UREA NITROGEN 17 MG/DL (9-23); CARBON DIOXIDE LEVEL 23 MMOL/L (20-31); CHLORIDE LEVEL 107 MMOL/L (98-107); CREATININE FOR GFR 0.62 MG/DL (0.55-1.30); GLOMERULAR FILTRATION RATE > 60.0 (>51); GLUCOSE, FASTING 126 MG/DL (60-100); POTASSIUM SERUM 4.6 MMOL/L (3.5-5.1); SODIUM LEVEL 140 MMOL/L (136-145)
[2024-08-09] MEDS ORDERED: oxyCODONE 5MG TAB PO PRN (07:50)
[2024-08-09 08:00] VITALS: BP_SYST 140; BP_SYST 142; BP_DIAS 66; BP_DIAS 67; TEMP 98.1; TEMP 98.5; O2SAT 97; O2SAT 98
[2024-08-09] MEDS: ENOXAPARIN 40MG/0.4ML SYRINGE (J1650 PER 10MG) SC SCH (09:10)
[2024-08-09] MEDS: DIVALPROEX 250MG TAB PO SCH ×2 (09:10→22:34)
[2024-08-09] MEDS: oxyCODONE 5MG TAB PO PRN (09:10)
[2024-08-09 12:00] VITALS: BP 111/60; TEMP 97.9; O2SAT 93
[2024-08-09] MEDS: diphenhydrAMINE 50MG/ML VIAL IM ONE (13:15)
[2024-08-09] MEDS: SUMAtriptan SUCCINATE 25 MG TAB PO ONE (13:15)
[2024-08-09] MEDS: KETOROLAC 30 MG/ML 1ML VIAL IV ONE (13:15)
[2024-08-09] MEDS: FIORICET TAB PO ONE (13:16)
[2024-08-09 16:00] VITALS: BP 140/78; TEMP 98.2; O2SAT 93
[2024-08-09 17:02] LABS: CK-MB VALUE MASS < 1.0 NG/ML (<3.6)
[2024-08-09 17:04] LABS: CPK CREATINE PHOSPHOKINASE 38 U/L (34-145); MB/CK RELATIVE INDEX 2.63 (< OR =4)
[2024-08-09 20:23] VITALS: BP 117/55; TEMP 98.1; O2SAT 95
[2024-08-10 03:55] VITALS: BP 147/64; TEMP 98.8; O2SAT 98
[2024-08-10] MEDS ORDERED: DEPA250T32 PO (09:49)
[2024-08-10] MEDS ORDERED: ATIV1TAB10 PO (10:21)
== END 2024-08-10 11:40 | disposition home or self-care (01) | DRG 103 ==
LOC: EDBD 15:37 → M ED 15:37 → M ED INP 17:33 → M MSPAV 22:08
PROVIDERS: ADMIT Student in an Organized Health Care Education/Training Program; ATTEND Student in an Organized Health Care Education/Training Program
DX: G43.901 Migraine, unspecified, not intractable, with status migrainosus (principal); I10 Essential (primary) hypertension; K21.9 Gastro-esophageal reflux disease without esophagitis; R00.1 Bradycardia, unspecified; M79.7 Fibromyalgia; F41.9 Anxiety disorder, unspecified; F32.A Depression, unspecified; G62.9 Polyneuropathy, unspecified; R53.1 Weakness; G47.00 Insomnia, unspecified; Z79.899 Other long term (current) drug therapy; Z88.8 Allergy status to other drugs, medicaments and biological substances; R07.89 Other chest pain

== ENCOUNTER 2025-01-31 17:38 | Emergency (ER) | payer OTHER, MEDICARE, MEDICAID ==
[~2025-01-31] VITALS: Ht 154.9 cm; Wt 59.9 kg
[~2025-01-31 17:38] MED LIST changes: +ACYC-438; +ACYC-438 PO; -ACYC1TAB; -ACYC1TAB PO; -AMBI6.25 PO; +DIVA-65 PO; +GABA-1490 PO; -PREG25CA PO; +PREG25CA63 PO; +TOPI-256 PO; +TOPI-257 PO; -TOPI100T9 PO; -TOPI25TA10 PO; +TRAZ1TAB12 PO; +ZOLP6.2544 PO
[2025-01-31] MEDS: NS 500 ML IV ONE (20:20)
[2025-01-31 23:25] VITALS: BP 146/76; TEMP 98.8; O2SAT 97
== END 2025-01-31 23:27 | disposition home or self-care (01) ==
LOC: M ED 17:38
DX: G97.1 Other reaction to spinal and lumbar puncture (principal); R51.9 Headache, unspecified; R00.1 Bradycardia, unspecified; M79.7 Fibromyalgia; F10.10 Alcohol abuse, uncomplicated; Z88.8 Allergy status to other drugs, medicaments and biological substances; Z79.899 Other long term (current) drug therapy

== ENCOUNTER → 2025-02-04 | Outpatient (CLI) | payer MEDICARE, MEDICAID ==
[2025-02-04 11:24] LABS: BASO # 0.0 10^3/uL (0.0-0.2); BASO % 0.5 % (0.0-1.0); EOS # 0.1 10^3/uL (0.0-0.5); EOS % 1.0 % (0.0-3.0); LYMPH # 1.6 10^3/uL (1.5-5.0); LYMPH % 20.6 % (24.0-44.0); MONO # 0.4 10^3/uL (0.0-0.8); MONO % 5.4 % (2.0-8.0); NEUTROPHILS # 5.7 10^3/uL (1.5-8.5); NEUTROPHILS % 72.2 % (36.0-66.0); PLATELET COUNT, AUTOMATED 326 10^3/uL (150-450)
[2025-02-04 11:56] LABS: ALT/SGPT 22 U/L (7.0-40); AST/SGOT 26 U/L (<34); CALCIUM LEVEL 9.0 MG/DL (8.5-10.1); CARBON DIOXIDE LEVEL 26 MMOL/L (20-31); CHLORIDE LEVEL 107 MMOL/L (98-107); CHOLESTEROL LEVEL 203 MG/DL (<200); CHOLESTEROL RISK RATIO 2.31 (<5); CREATININE FOR GFR 0.67 MG/DL (0.55-1.30); GLOMERULAR FILTRATION RATE > 90.0 (>51); LDL CHOLESTEROL 103.8 MG/DL (<100); MAGNESIUM LEVEL 2.1 MG/DL (1.8-2.4); NON-HDL-C 115.4 MG/DL; POTASSIUM SERUM 5.3 MMOL/L (3.5-5.1); SODIUM LEVEL 142 MMOL/L (136-145); TRIGLYCERIDES LEVEL 58 MG/DL (<150)
[2025-02-04 11:58] LABS: FREE T4 1.21 NG/DL (0.89-1.76)
== END ==
LOC: M PLALAB 09:23
PROVIDERS: ATTEND Registered Nurse
DX: R00.2 Palpitations (principal); E78.00 Pure hypercholesterolemia, unspecified

== ENCOUNTER → 2025-03-09 | Outpatient (CLI) | payer MEDICARE, MEDICAID ==
[~2025-03-09] MED LIST changes: -ACE65ERTAB PO; +ACET-1593 PO; -PROZ20CA11 PO; +PROZ20CA12 PO
[2025-03-09 12:50] LABS: CALCIUM LEVEL 8.8 MG/DL (8.5-10.1); CARBON DIOXIDE LEVEL 26 MMOL/L (20-31); CHLORIDE LEVEL 105 MMOL/L (98-107); CREATININE FOR GFR 0.75 MG/DL (0.55-1.30); GLOMERULAR FILTRATION RATE > 90.0 (>51); POTASSIUM SERUM 4.3 MMOL/L (3.5-5.1); SODIUM LEVEL 140 MMOL/L (136-145)
== END ==
LOC: M WUC 10:24
PROVIDERS: ATTEND Registered Nurse
DX: R00.2 Palpitations (principal)

== ENCOUNTER → 2025-04-19 | Outpatient (CLI) | payer MEDICARE, MEDICAID ==
[~2025-04-19] MED LIST changes: -IBUP-1022 PO; +IBUP600T42 PO
== END ==
LOC: M CARPUL 08:12
PROVIDERS: ATTEND Registered Nurse
DX: R06.02 Shortness of breath (principal); R94.31 Abnormal electrocardiogram [ECG] [EKG]

== ENCOUNTER → 2025-05-02 | Outpatient (CLI) | payer OTHER, MEDICARE, MEDICAID ==
[~2025-05-02] MED LIST changes: +PROHANCE 279.3MG/ML 15ML VIAL ONE
== END ==
LOC: M PLAIMG 07:13
PROVIDERS: ATTEND Physical Medicine & Rehabilitation
DX: M47.22 Other spondylosis with radiculopathy, cervical region (principal); M54.6 Pain in thoracic spine
CPT/HCPCS: 72146; 72156; A9576

== ENCOUNTER → 2025-05-05 | Outpatient (CLI) | payer MEDICARE, MEDICAID ==
[~2025-05-05] MED LIST changes: -PROHANCE 279.3MG/ML 15ML VIAL ONE
== END ==
LOC: M WUC 11:10
DX: R07.89 Other chest pain (principal); R06.02 Shortness of breath; R00.2 Palpitations

== ENCOUNTER → 2025-05-05 | Outpatient (CLI) | payer MEDICARE, MEDICAID ==
[2025-05-05 15:19] LABS: CALCIUM LEVEL 9.2 MG/DL (8.5-10.1); CARBON DIOXIDE LEVEL 28 MMOL/L (20-31); CHLORIDE LEVEL 104 MMOL/L (98-107); CREATININE FOR GFR 0.60 MG/DL (0.55-1.30); GLOMERULAR FILTRATION RATE > 90.0 (>51); POTASSIUM SERUM 4.6 MMOL/L (3.5-5.1); SODIUM LEVEL 142 MMOL/L (136-145)
== END ==
LOC: M WUC 09:38
PROVIDERS: ATTEND Nurse Practitioner Family
DX: R00.2 Palpitations (principal)

== ENCOUNTER → 2025-05-11 | Outpatient (CLI) | payer MEDICARE, MEDICAID | LOC: M EKG 08:27 | PROVIDERS: ATTEND Nurse Practitioner Family | DX: R00.2 Palpitations (principal); G47.33 Obstructive sleep apnea (adult) (pediatric); Z53.9 Procedure and treatment not carried out, unspecified reason ==

== ENCOUNTER 2025-05-28 21:44 | Emergency (ER) | payer MEDICARE, MEDICAID ==
[~2025-05-28] VITALS: Ht 154.9 cm; Wt 63.6 kg
[2025-05-28 22:35] LABS: PLATELET COUNT, AUTOMATED 274 10^3/uL (150-450)
[2025-05-28 22:55] LABS: AMPHETAMINES LEVEL URINE NEGATIVE (NEGATIVE); BARBITURATES URINE NEGATIVE (NEGATIVE); BENZODIAZEPINES URINE NEGATIVE (NEGATIVE); COCAINE METABOLITE URINE NEGATIVE (NEGATIVE); METHADONE URINE NEGATIVE (NEGATIVE); OPIATES URINE NEGATIVE (NEGATIVE)
[2025-05-28 22:56] LABS: CANNABINOIDS URINE NEGATIVE (NEGATIVE); PHENCYCLIDINE URINE NEGATIVE (NEGATIVE)
[2025-05-28 23:12] LABS: SALICYLATE LEVEL < 3.0 MG/DL (<30)
[2025-05-28 23:13] LABS: ALT/SGPT 29 U/L (7.0-40); AST/SGOT 34 U/L (<34); CALCIUM LEVEL 8.4 MG/DL (8.5-10.1); CARBON DIOXIDE LEVEL 25 MMOL/L (20-31); CHLORIDE LEVEL 105 MMOL/L (98-107); CREATININE FOR GFR 0.65 MG/DL (0.55-1.30); GLOMERULAR FILTRATION RATE > 90.0 (>51); POTASSIUM SERUM 4.2 MMOL/L (3.5-5.1); SODIUM LEVEL 139 MMOL/L (136-145)
[2025-05-28 23:28] LABS: ETHYL ALCOHOL (ETHANOL) 0.306 % (0.000-0.010)
[2025-05-29 08:45] VITALS: BP 125/67; TEMP 98.2; O2SAT 99
== END 2025-05-29 08:47 | disposition home or self-care (01) ==
LOC: M ED 21:44
DX: F10.120 Alcohol abuse with intoxication, uncomplicated (principal); M79.7 Fibromyalgia; F41.9 Anxiety disorder, unspecified; F32.A Depression, unspecified; Z88.8 Allergy status to other drugs, medicaments and biological substances; Z79.899 Other long term (current) drug therapy

== ENCOUNTER → 2025-05-31 | Outpatient (CLI) | payer MEDICARE, MEDICAID | LOC: M SLEEP HO 10:31 | PROVIDERS: ATTEND Nurse Practitioner Family | DX: R00.2 Palpitations (principal) ==

== ENCOUNTER 2025-06-28 19:19 | Emergency (ER) | payer MEDICARE, MEDICAID ==
[~2025-06-28 19:19] MED LIST changes: +ACET-1387 PO; -ACET-1593 PO; -COCO1000 PO; -PROZ20CA12 PO; +PROZ20CA25 PO; +[UNRECOGNIZED DRUG - CODE] PO
[2025-06-28 20:09] LABS: PLATELET COUNT, AUTOMATED 276 10^3/uL (150-450)
[2025-06-28 20:27] LABS: ETHYL ALCOHOL (ETHANOL) 0.250 % (0.000-0.010)
[2025-06-28 20:29] LABS: ALT/SGPT 16 U/L (7.0-40); AST/SGOT 21 U/L (<34); CALCIUM LEVEL 8.6 MG/DL (8.5-10.1); CARBON DIOXIDE LEVEL 32 MMOL/L (20-31); CHLORIDE LEVEL 109 MMOL/L (98-107); CREATININE FOR GFR 0.82 MG/DL (0.55-1.30); GLOMERULAR FILTRATION RATE 83.9 (>51); POTASSIUM SERUM 4.6 MMOL/L (3.5-5.1); SALICYLATE LEVEL < 3.0 MG/DL (<30); SODIUM LEVEL 147 MMOL/L (136-145)
[2025-06-28] MEDS: LORazepam 0.5 MG TAB PO ONE (20:50)
[2025-06-28] MEDS ORDERED: TRAZ300T2 PO (20:58)
[2025-06-28] MEDS ORDERED: HOME MED LIST COMPLETE! XX SCH (21:00)
[2025-06-28 21:03] LABS: AMPHETAMINES LEVEL URINE NEGATIVE (NEGATIVE); BARBITURATES URINE NEGATIVE (NEGATIVE); BENZODIAZEPINES URINE NEGATIVE (NEGATIVE); COCAINE METABOLITE URINE NEGATIVE (NEGATIVE); METHADONE URINE NEGATIVE (NEGATIVE); OPIATES URINE NEGATIVE (NEGATIVE); PHENCYCLIDINE URINE NEGATIVE (NEGATIVE)
[2025-06-28 21:18] LABS: CANNABINOIDS URINE POSITIVE (NEGATIVE)
[2025-06-29 06:00] VITALS: BP 133/73; TEMP 97.9; O2SAT 96
== END 2025-06-29 05:55 | disposition home or self-care (01) ==
LOC: M ED 19:19
DX: F10.120 Alcohol abuse with intoxication, uncomplicated (principal); F32.A Depression, unspecified; Z88.8 Allergy status to other drugs, medicaments and biological substances; Z79.899 Other long term (current) drug therapy